=== PATIENT | male | born 1940 | race Caucasian/White ===

== ENCOUNTER 2016-12-12 14:15 | Inpatient (IN) | payer MEDICARE ==
[~2016-12-12] VITALS: Ht 177.8 cm; Wt 104.4 kg
[2016-12-12] VITALS (9 sets, daily range): BP systolic 87–118; BP diastolic 51–76; PULSE 81–98; RESP 16–27; TEMP 97.4–97.7; O2SAT 89–96
[~2016-12-12 14:15] MED LIST: 1-ME1LIQ PO; ACIDTAB4 PO; ALBU0.086 INH; ALBU1AER INH; ALPR0.5T99 PO; ASPI81TA45 PO; ASPI81TA82 PO; HYDR-3580 PO; IPRA0.02 INH; LISI40TA PO; SYMB160A INH
--- NOTE | 2016-12-12 14:39 | PD ---
HPI Chief Complaint: Respiratory Symptoms Time Seen by Provider: 14:23 Travel History International Travel<30 days: No Contact w/Intl Traveler<30days: No Traveled to known affect area: No History of Present Illness HPI 76-year-old male presents to the emergency department for evaluation of increasing shortness of breath. Patient was discharged yesterday from [facility]. Patient is not a good historian as to what was done during his visit. He states that this morning, he became increasingly short of breath with bilateral lower extremity edema. He states he is currently on Lasix 40 mg twice a day. He took this this morning. Patient reports history of atrial fibrillation, COPD, CHF, BPH. He currently has an indwelling Thomason catheter. He states that he has been doing nebulizer treatments at home without improvement. He lasted one on the way to the hospital. Patient is concerned of bilateral lower extremity edema as well. He is on 2 L O2 nasal cannula at home. Patient is currently on Eliquis for atrial fibrillation. Patient states that with any activity, he becomes extremely short of breath. He is frustrated that he was discharged yesterday from another hospital. He is also requesting a new grievance and appeals specialist. PFSH Past Medical History Hx Anticoagulant Therapy: Yes (Eliquis) Cancer: No Cardiovascular Problems: Yes (CHF, A-fib) Diabetes: No Endocrine: No Genitourinary: No Hepatitis: No Hiatal Hernia: No Immune Disorder: No Musculoskeletal: Yes (ARTHRITIS IN HANDS) Neurologic: No Psychiatric: No Reproductive: No Respiratory: Yes (COPD on O2 at home) Thyroid Disease: No Past Surgical History AICD: No Body Medical Devices: CARDIAC STENTS Cardiac Surgery: Yes (CARDIAC STENTS X 2) Eye Surgery: Yes (BILATERAL CATARACT) Joint Replacement: No Pacemaker: No Social History Alcohol Use: No Tobacco Use: No Substance Use: No Allergies-Medications (Allergen,Severity, Reaction): Coded Allergies: No Known Allergies (Unverified , 04/28/13) Reported Meds & Prescriptions Reported Meds & Active Scripts Active Reported Symbicort Inh (Budesonide/Formoterol Fumarate) 160-4.5 Mcg/Act Aero 1 Puff INH Q12HR Tamsulosin (Tamsulosin HCl) 0.4 Mg Cap 0.4 Mg PO HS Lisinopril 40 Mg Tab 40 Mg PO BID Proscar (Finasteride) 5 Mg Tab 5 Mg PO DAILY Do not crush. Famotidine 20 Mg Tab 20 Mg PO DAILY Multaq (Dronedarone) 400 Mg Tab 400 Mg PO BID Lanoxin (Digoxin) 125 Mcg Tablet 125 Mcg PO DAILY Eliquis (Apixaban) 5 Mg Tab 5 Mg PO BID Xanax (Alprazolam) 0.5 Mg Tab 0.5 Mg PO BID PRN Duoneb (Ipratropium-Albuterol Neb) 0.5-2.5 Mg/3 Ml Neb 3 Ml NEB QID PRN Lasix (Furosemide) 40 Mg Tab 40 Mg PO EVERY OTHER DAY Diltiazem (Diltiazem HCl) 60 Mg Tab 60 Mg PO TID Review of Systems Except as stated in HPI: all other systems reviewed are Neg Physical Exam Narrative GENERAL: Well-nourished, well-developed male patient, afebrile. SKIN: Focused skin assessment warm/dry. HEAD: Normocephalic. Atraumatic. EYES: No scleral icterus. No injection or drainage. NECK: Supple, trachea midline. No JVD or lymphadenopathy. CARDIOVASCULAR: Regular rate and rhythm without murmurs, gallops, or rubs. RESPIRATORY: Breath sounds equal bilaterally. No accessory muscle use. Lungs sounds diminished throughout. GASTROINTESTINAL: Abdomen soft, non-tender, nondistended. MUSCULOSKELETAL: No cyanosis. Bilateral 2+ lower extremity edema BACK: Nontender without obvious deformity. No CVA tenderness. Data Data Last Documented VS Vital Signs Date Time Temp Pulse Resp B/P (MAP) Pulse Ox O2 Delivery O2 Flow Rate FiO2 12/12/16 16:52 88 24 102/65 (77) 92 Nasal Cannula 2.00 12/12/16 14:16 97.7 Orders Orders Complete Blood Count With Diff (12/12/16 14:35) Basic Metabolic Panel (Bmp) (12/12/16 14:35) B-Type Natriuretic Peptide (12/12/16 14:35) Act Partial Throm Time (Ptt) (12/12/16 14:35) Prothrombin Time / Inr (Pt) (12/12/16 14:35) Magnesium (Mg) (12/12/16 14:35) Ckmb (Isoenzyme) Profile (12/12/16 14:35) Troponin I (12/12/16 14:35) Urinalysis - C+S If Indicated (12/12/16 14:35) Iv Access Insert/Monitor (12/12/16 14:35) Electrocardiogram (12/12/16 14:35) Ecg Monitoring (12/12/16 14:35) Oximetry (12/12/16 14:35) Oxygen Administration (12/12/16 14:35) Chest, Single Ap (12/12/16 14:35) Sodium Chloride 0.9% Flush (Ns Flush) (12/12/16 14:45) Furosemide Inj (Lasix Inj) (12/12/16 14:45) Albuterol-Ipratropium Neb (Duoneb Neb) (12/12/16 14:45) Arterial Blood Gas (Abg) (12/12/16 14:39) Blood Culture (12/12/16 15:20) Lactic Acid Sepsis Protocol (12/12/16 15:20) Sodium Chlorid 0.9% 500 Ml Inj (Ns 500 M (12/12/16 16:00) Sodium Chlor 0.9% 1000 Ml Inj (Ns 1000 M (12/12/16 16:00) Methylprednisolone So Succ Inj (Solumedr (12/12/16 16:15) Vancomycin Inj (Vancomycin Inj) (12/12/16 16:15) Piperacil-Tazo 3.375 Gm Premix (Zosyn 3. (12/12/16 16:15) Admit Order (Ed Use Only) (12/12/16 17:01) Labs Laboratory Tests Test 12/12/16 14:43 12/12/16 15:00 12/12/16 15:50 Blood Gas Puncture Site LT RADIAL Blood Gas Patient Temperature 98.6 Blood Gas HCO3 33 mmol/L Blood Gas Base Excess 8.6 mmol/L Blood Gas Oxygen Saturation 95 % Arterial Blood pH 7.44 Arterial Blood Partial Pressure CO2 50 mmHg Arterial Blood Partial Pressure O2 86 mmHG Arterial Blood Oxygen Content 20.1 Vol % Arterial Blood Carboxyhemoglobin 1.3 % Arterial Blood Methemoglobin 0.6 % Blood Gas Hemoglobin 15.0 G/DL Oxygen Delivery Device NASAL CANNULA Blood Gas Liter Flow 3 L/M White Blood Count 11.6 TH/MM3 Red Blood Count 5.06 MIL/MM3 Hemoglobin 14.5 GM/DL Hematocrit 44.3 % Mean Corpuscular Volume 87.6 FL Mean Corpuscular Hemoglobin 28.6 PG Mean Corpuscular Hemoglobin Concent 32.7 % Red Cell Distribution Width 14.9 % Platelet Count 196 TH/MM3 Mean Platelet Volume 8.2 FL Neutrophils (%) (Auto) 80.5 % Lymphocytes (%) (Auto) 7.4 % Monocytes (%) (Auto) 10.5 % Eosinophils (%) (Auto) 1.2 % Basophils (%) (Auto) 0.4 % Neutrophils # (Auto) 9.4 TH/MM3 Lymphocytes # (Auto) 0.9 TH/MM3 Monocytes # (Auto) 1.2 TH/MM3 Eosinophils # (Auto) 0.1 TH/MM3 Basophils # (Auto) 0.0 TH/MM3 CBC Comment AUTO DIFF Differential Total Cells Counted 100 Neutrophils % (Manual) 71 % Band Neutrophils % 3 % Lymphocytes % 11 % Monocytes % 14 % Neutrophils # (Manual) 8.7 TH/MM3 Metamyelocytes 1 % Differential Comment FINAL DIFF MANUAL Platelet Estimate NORMAL Platelet Morphology Comment NORMAL Prothrombin Time 11.0 SEC Prothromb Time International Ratio 1.0 RATIO Activated Partial Thromboplast Time 27.1 SEC Blood Urea Nitrogen 45 MG/DL Creatinine 1.63 MG/DL Random Glucose 120 MG/DL Calcium Level 9.0 MG/DL Magnesium Level 2.4 MG/DL Sodium Level 140 MEQ/L Potassium Level 3.8 MEQ/L Chloride Level 98 MEQ/L Carbon Dioxide Level 34.7 MEQ/L Anion Gap 7 MEQ/L Estimat Glomerular Filtration Rate 41 ML/MIN Total Creatine Kinase 71 U/L Troponin I LESS THAN 0.02 NG/ML B-Type Natriuretic Peptide 10 PG/ML Lactic Acid Level 1.2 mmol/L MDM Medical Decision Making Medical Screen Exam Complete: Yes Emergency Medical Condition: Yes Medical Record Reviewed: Yes Interpretation(s) chest x-ray - CONCLUSION: 1. Mild left basilar airspace disease which may reflect atelectasis. Although, pneumonia or aspiration cannot be excluded in the appropriate clinical setting. Differential Diagnosis CHF exacerbation versus COPD exacerbation versus pneumonia versus ACS versus electrolyte abnormality Narrative Course 76-year-old male presents to the emergency department for worsening shortness of breath and lower extremity edema that started this morning. He was discharged from [facility] yesterday. He didn't nebulizer treatment on the way to the hospital. Physical exam reveals lungs sounds are diminished throughout with fine crackles noted in the bases. Patient is given DuoNeb 2, Solu-Medrol 125 mg IV. CBC, BMP, BNP, CK, troponin, magnesium, PTT, PT/INR, UA, ABG are ordered and pending. Chest x-ray is ordered and pending. EKG shows atrial fibrillation, HR 82, no acute ST changes. CBC shows leukocytosis of 11.6, neutrophil percentage 80.5. BMP shows elevated B and a creatinine of 45/1.63, glucose 120. BNP is 10. CK is 71. Troponin is less than 0.02. Magnesium is 2.4. Coags are unremarkable. UA is still pending. Chest x-ray shows mild left basilar airspace disease which may reflect atelectasis. Although, pneumonia or aspiration cannot be excluded in the appropriate clinical setting. Blood cultures 2 and lactic acid are ordered. Lactic acid is 1.2. Patient is started on vancomycin 1 g IV, Zosyn 3.375 g IV. Patient became hypotensive. He was given normal saline 500 mL bolus and started normal saline at 100 mils an hour. [facility] is paged for admission. Patient's electric power superintendent is Dr. Figueredo. Diagnosis Primary Impression: Pneumonia Qualified Codes: J18.1 - Lobar pneumonia, unspecified organism Additional Impression: COPD exacerbation Admitting Information Admitting Physician Requests: Admit Melissa Iraheta Dec 12, 2016 14:39
[2016-12-12] MEDS ORDERED: FUROSEMIDE 40 MG/4 ML VIAL IVP ONE (14:45)
[2016-12-12] MEDS ORDERED: SODIUM CHLORIDE 0.9% FLUSH 10 ML FLUSH IVF PRN (14:45)
[2016-12-12] MEDS: RESP: ALBUTEROL 2.5 MG/IPRATROPIUM 0.5 MG NEB (SCH) INH ×3 (14:48→19:21)
[2016-12-12 14:57] LABS: BLOOD GAS BASE EXCESS 8.6 mmol/L (-2-2); BLOOD GAS CARBOXYHEMOGLOBIN 1.3 % (0-4); BLOOD GAS HCO3 33 mmol/L (22-26); BLOOD GAS METHEMOGLOBIN 0.6 % (0-2); BLOOD GAS O2 HGB SATURATION 95 % (90-100); BLOOD GAS OXYGEN CONTENT 20.1 Vol % (12.0-20.0); BLOOD GAS PCO2 50 mmHg (38-42); BLOOD GAS PO2 86 mmHG (61-120); CRITICAL VALUE NO; DRAW SITE LT RADIAL; LITER FLOW 3 L/M; NUMBER OF ARTERIAL PUNCTURES 1; OXYGEN DEVICE NASAL CANNULA; STAT YES; TEMP CORR TO 98.6; ULNAR PULSE PRESENT
--- NOTE | 2016-12-12 15:19 | RADRPT ---
EXAM DATE/TIME: 12/12/2016 14:57 [place] COMPARISON: No previous studies available for comparison. INDICATIONS : Shortness of Breath MEDICAL HISTORY : Chronic obstructive pulmonary disease. SURGICAL HISTORY : Umbilical hernia repair. ENCOUNTER: Initial ACUITY: 1 day PAIN SCORE: 0/10 LOCATION: Bilateral chest FINDINGS: Mild left basilar airspace disease. Cardiomediastinal contours are within normal limits. Bony thorax is intact. CONCLUSION: 1. Mild left basilar airspace disease which may reflect atelectasis. Although, pneumonia or aspiratio n cannot be excluded in the appropriate clinical setting. Pawan Pizano MD on December 12, 2016 at 15:16 Board Certified Radiologist. This report was verified electronically.
[2016-12-12 15:46] LABS: AUTOMATED NEUTROPHIL # 9.4 TH/MM3 (1.8-7.7); BASOPHIL % 0.4 % (0.0-2.0); EOSINOPHIL # 0.1 TH/MM3 (0-0.4); EOSINOPHIL % 1.2 % (0.0-4.0); HEMATOCRIT 44.3 % (39.0-51.0); LYMPH % 7.4 % (9.0-44.0); LYMPHOCYTE # 0.9 TH/MM3 (1.0-4.8); MEAN CELL VOLUME 87.6 FL (80.0-100.0); MEAN CORPUSCULAR HEMOGLOBIN 28.6 PG (27.0-34.0); MEAN CORPUSCULAR HGB CONC 32.7 % (32.0-36.0); MONO % 10.5 % (0.0-8.0); NEUT % 80.5 % (16.0-70.0); PLATELET COUNT 196 TH/MM3 (150-450); RED BLOOD COUNT 5.06 MIL/MM3 (4.50-5.90); RED CELL DISTRIBUTION WIDTH 14.9 % (11.6-17.2); WHITE BLOOD COUNT 11.6 TH/MM3 (4.0-11.0)
[2016-12-12 15:53] LABS: HEMO FLAGS AUTO DIFF
[2016-12-12 15:54] LABS: ANION GAP 7 MEQ/L (5-15); BICARBONATE 34.7 MEQ/L (21.0-32.0); BLOOD UREA NITROGEN 45 MG/DL (7-18); CHLORIDE 98 MEQ/L (98-107); GLOMERULAR FILTRATION RATE 41 ML/MIN (>89); MAGNESIUM 2.4 MG/DL (1.5-2.5); POTASSIUM 3.8 MEQ/L (3.5-5.1); SODIUM (NA) 140 MEQ/L (136-145)
[2016-12-12 15:57] LABS: APTT (PATIENT) 27.1 SEC (24.3-30.1)
[2016-12-12] MEDS ORDERED: SODIUM CHLORID 0.9% 500 ML INJ 500 ML IV ONE (16:00)
[2016-12-12] MEDS ORDERED: SODIUM CHLOR 0.9% 1000 ML INJ 1,000 ML IV SCH (16:00)
[2016-12-12 16:06] LABS: CREATINE KINASE 71 U/L (39-308)
[2016-12-12] MEDS ORDERED: PIPERACIL-TAZO 3.375 GM PREMIX 50 ML IV ONE (16:15)
[2016-12-12] MEDS ORDERED: methylPREDNISolone SOD SUCC 125 MG/2 ML VIAL IV PUSH ONE (16:15)
[2016-12-12] MEDS ORDERED: VANCOMYCIN INJ 1,000 MG in SODIUM CHLOR 0.9% 250 ML INJ 250 ML IV ONE (16:15)
[2016-12-12 16:20] LABS: BANDS 3 % (0-6); METAMYELOCYTES 1 % (0-1); NEUTROPHIL # MANUAL DIFF 8.7 TH/MM3 (1.8-7.7); POLYS (SEG NEUTROPHILS) 71 % (16-70); WBC DIFF SAMPLE 100
[2016-12-12 16:21] LABS: PLATELET ESTIMATE SMEAR NORMAL (NORMAL); PLATELET MORPHOLOGY NORMAL (NORMAL); SCAN/DIFF FINAL DIFF MANUAL
[2016-12-12] MEDS ORDERED: FURO1TAB60 PO (16:53)
[2016-12-12] MEDS ORDERED: MULT400T PO (16:53)
[2016-12-12] MEDS ORDERED: SYMB160A INH (16:53)
[2016-12-12] MEDS ORDERED: ALPR.5 PO (16:53)
[2016-12-12] MEDS ORDERED: IPRASOL NEB (16:53)
[2016-12-12] MEDS ORDERED: FAMO20TA2 PO (16:53)
[2016-12-12] MEDS ORDERED: PROS5TAB PO (16:53)
[2016-12-12] MEDS ORDERED: TAMS0.4C4 PO (16:53)
[2016-12-12] MEDS ORDERED: LISI40TA PO (16:53)
[2016-12-12] MEDS ORDERED: APIX5TAB PO (16:53)
[2016-12-12] MEDS ORDERED: LANO0.12 PO (16:53)
[2016-12-12] MEDS ORDERED: DILT60TA PO (16:53)
[2016-12-12] MEDS ORDERED: RESP: ALBUTEROL 2.5 MG/3 ML NEB (PRN) INH (17:45)
--- NOTE | 2016-12-12 17:57 | HHI.HP ---
HPI Service [facility] Primary Care Physician Nitesh Weinstein MD Admission Diagnosis pneumonia, COPD exacerbation Diagnoses: Chief Complaint: Shortness of breath Travel History International Travel<30 Days: No Contact w/Intl Traveler <30 Da: No Traveled to Known Affected Are: No History of Present Illness 76-year-old male with a past medical history of COPD on O2, A. fib, BPH, CAD who presented for shortness of breath. The patient has had 3 hospitalizations lasting for 5 days since November 15 for similar complaints. The patient's felt like he is gotten significantly better on previous hospitalizations. He has received courses of steroids, diuresis, antibiotics. He is significantly dyspneic on exertion and is requiring [id number] O2, previously only on O2 at night. Does state that his lower extremity swelling had improved from previous hospitalization and has worsened today. He has been having for the cough with white sputum. He denies any fever, chills, chest pain, wheezing. He was diagnosed with possible sepsis on previous admission and completed antibiotics in the hospital in 7 days at home. He had a chest CT that showed no blood clot. He states prior to November 15 he was going to pulmonary rehabilitation twice a week and was doing better without oxygen. His senior mechanical project engineer is Dr. barton. He is looking for a new fisher quahog. He is not sure if he has congestive heart failure or what his ejection fraction might be. Review of Systems Except as stated in HPI: all other systems reviewed are Neg Past Family Social History Past Medical History Atrial fibrillation COPD on home oxygen BPH with indwelling Thomason Coronary artery disease "Enlarged heart" Past Surgical History Coronary stent 2 Cataract bilaterally Umbilical hernia repair Rectal prolapse repair Reported Medications Reported Meds & Active Scripts Active Reported Symbicort Inh (Budesonide/Formoterol Fumarate) 160-4.5 Mcg/Act Aero 1 Puff INH Q12HR Tamsulosin (Tamsulosin HCl) 0.4 Mg Cap 0.4 Mg PO HS Lisinopril 40 Mg Tab 40 Mg PO BID Proscar (Finasteride) 5 Mg Tab 5 Mg PO DAILY Do not crush. Famotidine 20 Mg Tab 20 Mg PO DAILY Multaq (Dronedarone) 400 Mg Tab 400 Mg PO BID Lanoxin (Digoxin) 125 Mcg Tablet 125 Mcg PO DAILY Eliquis (Apixaban) 5 Mg Tab 5 Mg PO BID Xanax (Alprazolam) 0.5 Mg Tab 0.5 Mg PO BID PRN Duoneb (Ipratropium-Albuterol Neb) 0.5-2.5 Mg/3 Ml Neb 3 Ml NEB QID PRN Lasix (Furosemide) 40 Mg Tab 40 Mg PO EVERY OTHER DAY Diltiazem (Diltiazem HCl) 60 Mg Tab 60 Mg PO TID Allergies: Coded Allergies: No Known Allergies (Unverified , 04/28/13) Active Ordered Medications Current Medications Medications (Trade) Dose Ordered Sig/Mari Route Start Time Stop Time Status Last Admin (NS Flush) 2 ml UNSCH PRN IVF 12/12/16 14:45 Sodium Chloride 1,000 ml @ 100 mls/hr Q10H IV 12/12/16 16:00 12/12/16 16:30 (Xanax) 0.5 mg BID PRN PO 12/12/16 17:45 (Eliquis) 5 mg BID PO 12/12/16 21:00 (Symbicort 160-4.5 Inh) 1 puff Q12HR INH 12/12/16 21:00 (Lanoxin) 0.125 mg DAILY PO 12/13/16 09:00 (Cardizem) 60 mg TID PO 12/12/16 18:00 (Multaq) 400 mg BID PO 12/12/16 21:00 (Pepcid) 20 mg DAILY PO 12/13/16 09:00 (Proscar) 5 mg DAILY PO 12/13/16 09:00 (Flomax) 0.4 mg HS PO 12/12/16 21:00 (NS Flush) 2 ml UNSCH PRN IV FLUSH 12/12/16 17:45 UNV (Duoneb Neb) 1 ampule Q4HR WHILE AWAKE NEB INH 12/12/16 20:00 UNV (Albuterol Neb) 2.5 mg Q2HR NEB PRN INH 12/12/16 17:45 UNV (SoluMEDROL INJ) 40 mg Q8H IV PUSH 12/12/16 17:45 UNV Levofloxacin/ Dextrose 150 ml @ 100 mls/hr Q24H IV 12/12/16 18:45 UNV (Lasix Inj) 20 mg BID@09,18 IVP 12/12/16 18:00 UNV (Prinivil) 20 mg BID PO 12/12/16 21:00 UNV Family History Father was a smoker and from emphysema and heart disease Social History Former tobacco use, quit 10 years ago Denies any alcohol or drug use Physical Exam Vital Signs Vital Signs Date Time Temp Pulse Resp B/P (MAP) Pulse Ox O2 Delivery O2 Flow Rate FiO2 12/12/16 16:52 88 24 102/65 (77) 92 Nasal Cannula 2.00 12/12/16 15:10 86 20 87/51 (63) 96 Nasal Cannula 2.00 12/12/16 14:48 94 Nasal Cannula 3.00 12/12/16 14:39 94 Nasal Cannula 3.00 12/12/16 14:39 25 95 Nasal Cannula 3.00 12/12/16 14:16 97.7 98 26 113/55 (74) 89 2.00 Physical Exam GENERAL: Well-developed well-nourished. Appears uncomfortable with mildly labored breathing. SKIN: Warm and dry. No lesions noted. HEENT: Normocephalic. Pupils equal and round. Mucous membranes pink and moist. CARDIOVASCULAR: Irregular rate and rhythm. No murmur appreciated. RESPIRATORY: Extremely poor air movement with distant breath sounds in the mid to lower lung bilaterally. No wheezing or crackles noted. GASTROINTESTINAL: Abdomen soft, non-tender, nondistended. Bowel sounds x4. MUSCULOSKELETAL: No obvious deformities. No clubbing or cyanosis. 2+ lower extremity pitting edema. NEUROLOGICAL: Awake and alert. No focal neurological deficits. Moves upper and lower extremities spontaneously. Normal speech. PSYCHIATRIC: Slightly anxious mood and affect; insight and judgment normal. Laboratory Laboratory Tests Test 12/12/16 14:43 12/12/16 15:00 12/12/16 15:50 Blood Gas Puncture Site LT RADIAL Blood Gas Patient Temperature 98.6 Blood Gas HCO3 33 Blood Gas Base Excess 8.6 Blood Gas Oxygen Saturation 95 Arterial Blood pH 7.44 Arterial Blood Partial Pressure CO2 50 Arterial Blood Partial Pressure O2 86 Arterial Blood Oxygen Content 20.1 Arterial Blood Carboxyhemoglobin 1.3 Arterial Blood Methemoglobin 0.6 Blood Gas Hemoglobin 15.0 Oxygen Delivery Device NASAL CANNULA Blood Gas Liter Flow 3 White Blood Count 11.6 Red Blood Count 5.06 Hemoglobin 14.5 Hematocrit 44.3 Mean Corpuscular Volume 87.6 Mean Corpuscular Hemoglobin 28.6 Mean Corpuscular Hemoglobin Concent 32.7 Red Cell Distribution Width 14.9 Platelet Count 196 Mean Platelet Volume 8.2 Neutrophils (%) (Auto) 80.5 Lymphocytes (%) (Auto) 7.4 Monocytes (%) (Auto) 10.5 Eosinophils (%) (Auto) 1.2 Basophils (%) (Auto) 0.4 Neutrophils # (Auto) 9.4 Lymphocytes # (Auto) 0.9 Monocytes # (Auto) 1.2 Eosinophils # (Auto) 0.1 Basophils # (Auto) 0.0 CBC Comment AUTO DIFF Differential Total Cells Counted 100 Neutrophils % (Manual) 71 Band Neutrophils % 3 Lymphocytes % 11 Monocytes % 14 Neutrophils # (Manual) 8.7 Metamyelocytes 1 Differential Comment FINAL DIFF MANUAL Platelet Estimate NORMAL Platelet Morphology Comment NORMAL Prothrombin Time 11.0 Prothromb Time International Ratio 1.0 Activated Partial Thromboplast Time 27.1 Blood Urea Nitrogen 45 Creatinine 1.63 Random Glucose 120 Calcium Level 9.0 Magnesium Level 2.4 Sodium Level 140 Potassium Level 3.8 Chloride Level 98 Carbon Dioxide Level 34.7 Anion Gap 7 Estimat Glomerular Filtration Rate 41 Total Creatine Kinase 71 Troponin I LESS THAN 0.02 B-Type Natriuretic Peptide 10 Lactic Acid Level 1.2 Date/Time Source Procedure Growth Status 12/12/16 15:55 Blood Peripheral Aerobic Blood Culture Pending Received 12/12/16 15:55 Blood Peripheral Anaerobic Blood Culture Pending Received Result Diagram: 12/12/16 1500 12/12/16 1500 Imaging Last Impressions Chest X-Ray 12/12/16 1435 Signed Impressions: Service Date/Time: Monday, December 12, 2016 14:57 - CONCLUSION: 1. Mild left basilar airspace disease which may reflect atelectasis. Although, pneumonia or aspiration cannot be excluded in the appropriate clinical setting. MD Blayne Callahan VTE Risk Assessment Blayne VTE Risk Assessment: Mod/High Risk (score >= 2) Caprini Risk Assessment Model Point Value = 1 Point Value = 2 Point Value = 3 Point Value = 5 Age 41-60 Minor surgery BMI > 25 kg/m2 Swollen legs Varicose veins or History of unexplained or recurrent spontaneous Oral contraceptives or hormone replacement Sepsis (< 1 month) Serious lung disease, including pneumonia (< 1 month) Abnormal pulmonary function Acute myocardial infarction Congestive heart failure (< 1 month) History of inflammatory bowel disease Medical patient at bed rest Age 61-74 Arthroscopic surgery Major open surgery (> 45 min) Laparoscopic surgery (> 45 min) Malignancy Confined to bed (> 72 hours) Immobilizing plaster cast Central venous access Age >= 75 History of VTE Family history of VTE Factor V Leiden Prothrombin [id number] Lupus anticoagulant Anticardiolipin antibodies Elevated serum homocysteine Heparin-induced thrombocytopenia Other congenital or acquired thrombophilia Stroke (< 1 month) Elective arthroplasty Hip, pelvis, or leg fracture Acute spinal cord injury (< 1 month) Prophylaxis Regimen Total Risk Factor Score Risk Level Prophylaxis Regimen 0-1 Low Early ambulation 2 Moderate Order ONE of the following: *Sequential Compression Device (SCD) *Heparin 5000 units SQ BID 3-4 Higher Order ONE of the following medications: *Heparin 5000 units SQ TID *Enoxaparin/Lovenox 40 mg SQ daily (WT < 150 kg, CrCl > 30 mL/min) *Enoxaparin/Lovenox 30 mg SQ daily (WT < 150 kg, CrCl > 10-29 mL/min) *Enoxaparin/Lovenox 30 mg SQ BID (WT < 150 kg, CrCl > 30 mL/min) AND/OR *Sequential Compression Device (SCD) 5 or more Highest Order ONE of the following medications: *Heparin 5000 units SQ TID (Preferred with Epidurals) *Enoxaparin/Lovenox 40 mg SQ daily (WT < 150 kg, CrCl > 30 mL/min) *Enoxaparin/Lovenox 30 mg SQ daily (WT < 150 kg, CrCl > 10-29 mL/min) *Enoxaparin/Lovenox 30 mg SQ BID (WT < 150 kg, CrCl > 30 mL/min) AND *Sequential Compression Device (SCD) Assessment and Plan Assessment and Plan 76-year-old male with a past medical history of COPD on O2, A. fib, BPH, CAD who presented for shortness of breath Acute on chronic respiratory failure. COPD exacerbation. CHF exacerbation. Review: Patient was hypoxic 89% on 2 L O2 upon admission with tachycardia and tachypnea. Chest x-ray personally reviewed with no definite infiltrate or edema. BNP 10, but with worsening lower extremity edema. WBC 11.6. -IV steroids and IV Levaquin for possible COPD exacerbation -IV diuresis for possible CHF exacerbation and check echocardiogram. Consider cardiology evaluation if no improvement and depending on echo results. -Scheduled as needed nebs -Supplemental O2 as needed. -Consult pulmonology -Continue home pulmonary regimen -Monitor I's and O's. -Check sputum culture A. fib: -Continue Eliquis, diltiazem, Multaq, Digoxin. AISSATOU: Creatinine 1.63, no previous labs for comparison. -Cautious diuresis -Follow up BMP Hypertension: Amlodipine has worsened edema in the past. -Decrease lisinopril with cough. -Continue Cardizem and tamsulosin BPH: With indwelling Thomason catheter. Saw urologist yesterday. -Continue Flomax and finasteride DVT prophylaxis: On Eliquis Discussed Condition With Patient with at bedside, ED staff, Dr. Markham Attending Statement Patient was very irritated during the interview and did not want to give me information. When asked about his shortness of breathing he was very upset past about this and stated that his breathing has improved. I asked about him back to the hospital since he was recently discharged from [facility] he said because of his breathing despite his shortness of breathing improving. Patient's is at the bedside. Positive for cough. No other complaints. gen NAD CV regular rate and rhythm no rubs murmurs or gallops positive for +1 lower extremity edema Respiratory transmitted upper respiratory sounds otherwise clear to auscultation bilaterally Acute on chronic respiratory failure Lower extremity edema History of CHF Chronic hypoxia Per patient he is getting better since he was discharged from [facility]. Chest x-ray reviewed suggest more atelectasis with no fluid noted. BNP is 10 but he does have lower extremity edema This may be secondary to end-stage COPD. Consult his senior mechanical project engineer for further surgical supply assistant. Treat with IV steroids, DuoNeb's, IV Levaquin. Will get an echo. Continue to supplement oxygen as needed. Foster Jackson Dec 12, 2016 17:57 Violet Markham MD Dec 12, 2016 18:51
[2016-12-12] MEDS: FUROSEMIDE 40 MG/4 ML VIAL IVP SCH (18:00)
[2016-12-12] MEDS: DILTIAZEM HCL 60 MG TAB PO SCH (18:00)
[2016-12-12 18:14] LABS: BACTERIA, URINE RARE /hpf; BLOOD, URINE LARGE (NEG); COMMENT (UR) CULTURE INDICATED; CULTURE IF INDICATED CULTURE INDICATED; GLUCOSE,URINE NEG (NEG); HYALINE CAST, URINE 3 /lpf (RARE); KETONE, URINE NEG (NEG); MUCUS URINE FEW /lpf (OCC); NITRITE,URINE NEG (NEG); PH, URINE 5.5 (5.0-8.5); URINE COLOR LIGHT-RED (YELLW/STRAW)
[2016-12-12] MEDS: ALPRAZolam 0.5 MG TAB PO PRN (19:47)
[2016-12-12] MEDS: LEVOFLOXACIN 750 MG PREMIX INJ 150 ML IV SCH (20:19)
[2016-12-12] MEDS: DRONEDARONE 400 MG TAB PO SCH (22:40)
[2016-12-12] MEDS: LISINOPRIL 20 MG TAB PO SCH (22:40)
[2016-12-12] MEDS: TAMSULOSIN HCL 0.4 MG CAP PO SCH (22:40)
[2016-12-12] MEDS: APIXABAN 5 MG TABLET PO SCH (22:41)
[2016-12-12] MEDS: BUDESONIDE-FORMOTEROL 160/4.5 MCG INHALER INH SCH (22:41)
[2016-12-13] VITALS (9 sets, daily range): BP systolic 102–142; BP diastolic 56–77; PULSE 66–99; RESP 20–23; TEMP 97–98.2; O2SAT 90–94
[2016-12-13] MEDS: methylPREDNISolone SOD SUCC 125 MG/2 ML VIAL IV PUSH SCH ×4 (00:14→23:28)
[2016-12-13 08:04] LABS: AUTOMATED NEUTROPHIL # 8.9 TH/MM3 (1.8-7.7); BASOPHIL % 0.2 % (0.0-2.0); HEMATOCRIT 40.8 % (39.0-51.0); LYMPH % 2.7 % (9.0-44.0); LYMPHOCYTE # 0.3 TH/MM3 (1.0-4.8); MEAN CELL VOLUME 87.7 FL (80.0-100.0); MEAN CORPUSCULAR HEMOGLOBIN 29.4 PG (27.0-34.0); MEAN CORPUSCULAR HGB CONC 33.5 % (32.0-36.0); MONO % 2.3 % (0.0-8.0); NEUT % 94.8 % (16.0-70.0); PLATELET COUNT 174 TH/MM3 (150-450); RED BLOOD COUNT 4.65 MIL/MM3 (4.50-5.90); RED CELL DISTRIBUTION WIDTH 14.7 % (11.6-17.2); WHITE BLOOD COUNT 9.4 TH/MM3 (4.0-11.0)
[2016-12-13 08:09] LABS: HEMO FLAGS AUTO DIFF
[2016-12-13] MEDS: RESP: ALBUTEROL 2.5 MG/IPRATROPIUM 0.5 MG NEB (SCH) INH ×4 (08:20→21:09)
[2016-12-13 08:28] LABS: BICARBONATE 33.2 MEQ/L (21.0-32.0); MAGNESIUM 2.5 MG/DL (1.5-2.5); POTASSIUM 4.6 MEQ/L (3.5-5.1)
[2016-12-13] MEDS: DILTIAZEM HCL 60 MG TAB PO SCH ×3 (08:48→18:35)
[2016-12-13] MEDS: DRONEDARONE 400 MG TAB PO SCH ×2 (08:50→20:36)
[2016-12-13] MEDS: LISINOPRIL 20 MG TAB PO SCH ×2 (08:50→20:36)
[2016-12-13] MEDS: APIXABAN 5 MG TABLET PO SCH ×2 (08:50→20:36)
[2016-12-13] MEDS: ALPRAZolam 0.5 MG TAB PO PRN (08:51)
[2016-12-13] MEDS: FINASTERIDE 5 MG TAB PO SCH (08:51)
[2016-12-13] MEDS: FAMOTIDINE 20 MG TAB PO SCH (08:51)
[2016-12-13] MEDS: DIGOXIN 0.125 MG TAB PO SCH (08:51)
[2016-12-13] MEDS: FUROSEMIDE 40 MG/4 ML VIAL IVP SCH ×2 (08:52→16:54)
[2016-12-13 08:56] LABS: SCAN/DIFF AUTO DIFF CONFIRMED
[2016-12-13] MEDS: BUDESONIDE-FORMOTEROL 160/4.5 MCG INHALER INH SCH ×2 (08:57→20:38)
--- NOTE | 2016-12-13 11:56 | HHI.PR ---
Subjective Remarks No acute events overnight. Afebrile, vital signs stable. Patient continues to require 3-4 L of oxygen via nasal cannula to maintain oxygen saturation at 92-94 %. He does not wear oxygen during the daytime at home. He reports he is breathing better than he was yesterday although still gets short of breath when he walks to the bathroom. He reports that he has continued lower extremity edema however this is also improved. Objective Vitals Vital Signs Date Time Temp Pulse Resp B/P (MAP) Pulse Ox O2 Delivery O2 Flow Rate FiO2 12/13/16 08:20 92 Nasal Cannula 3.00 12/13/16 04:00 98.0 99 21 113/77 (89) 94 12/13/16 00:00 98.2 71 23 102/58 (73) 93 12/13/16 00:00 Nasal Cannula 4.00 12/13/16 00:00 73 12/12/16 21:06 12/12/16 20:50 97.4 84 22 104/68 (80) 94 12/12/16 20:35 Nasal Cannula 4.00 12/12/16 19:37 81 16 109/76 (87) 94 Room Air 12/12/16 19:20 93 Nasal Cannula 4.00 12/12/16 18:34 86 27 118/72 (87) 92 Nasal Cannula 2.00 12/12/16 16:52 88 24 102/65 (77) 92 Nasal Cannula 2.00 12/12/16 15:10 86 20 87/51 (63) 96 Nasal Cannula 2.00 12/12/16 14:48 94 Nasal Cannula 3.00 12/12/16 14:39 94 Nasal Cannula 3.00 12/12/16 14:39 25 95 Nasal Cannula 3.00 12/12/16 14:16 97.7 98 26 113/55 (74) 89 2.00 I/O 12/12/16 12/12/16 12/12/16 12/13/16 12/13/16 12/13/16 07:00 15:00 23:00 07:00 15:00 23:00 Intake Total 950 ml 1380 ml Output Total 1200 ml Balance 950 ml 180 ml Intake Oral 380 ml IV Total 950 ml 1000 ml Output Urine Total 1200 ml # Voids 0 # Bowel Movements 0 Result Diagram: 12/13/16 0754 12/13/16 0754 Objective Remarks GENERAL: Well-developed well-nourished. Appears comfortable. SKIN: Warm and dry. No lesions noted. HEENT: Normocephalic. Pupils equal and round. Mucous membranes pink and moist. CARDIOVASCULAR: Irregular rate and rhythm. No murmur appreciated. RESPIRATORY: Extremely poor air movement with distant breath sounds in the mid to lower lung bilaterally. No wheezing or crackles noted. GASTROINTESTINAL: Abdomen soft, non-tender, nondistended. Bowel sounds x4. MUSCULOSKELETAL: No obvious deformities. No clubbing or cyanosis. 1+ lower extremity pitting edema. NEUROLOGICAL: Awake and alert. No focal neurological deficits. Moves upper and lower extremities spontaneously. Normal speech. PSYCHIATRIC: Insight and judgment normal. A/P Assessment and Plan 76-year-old male with a past medical history of COPD on O2, A. fib, BPH, CAD who presented for shortness of breath Acute on chronic respiratory failure. COPD exacerbation. CHF exacerbation. -IV steroids and IV Levaquin for possible COPD exacerbation -IV diuresis for possible CHF exacerbation and check echocardiogram. Consider cardiology evaluation if no improvement and depending on echo results. Patient would like referral to a new [employer] Administrator on discharge. -Troponin negative, no CP -Scheduled as needed nebs -Supplemental O2 as needed. -Consult pulmonology -Continue home pulmonary regimen -Monitor I's and O's. -Check sputum culture -Check blood cultures A. fib: -Continue Eliquis, diltiazem, Multaq, Digoxin. AISSATOU -Cautious diuresis -Improving, Cr 1.16 today Hypertension: Amlodipine has worsened edema in the past. -Decrease lisinopril with cough. -Continue Cardizem and tamsulosin -Controlled BPH: With indwelling Thomason catheter. Seen by Urologist 12/11 -Continue Flomax and finasteride DVT prophylaxis: On Eliquis Discharge Planning Pending clinical improvement Zuleima Patel MD R3 Dec 13, 2016 11:56
--- NOTE | 2016-12-13 12:57 | EKG ---
Date Performed: 12/12/2016 Time Performed: 15:06:41 PTAGE: 76 years EKG: ATRIAL FIBRILLATION ABNORMAL RHYTHM ECG PREVIOUS TRACING : 04/28/2013 06.54 Compared to previous tracing, atrial fibrillation has repla dayami Sinus rhythm . DOCTOR: Eh Ramos Interpretating Date/Time 12/13/2016 12:55:38
--- NOTE | 2016-12-13 17:24 | MB ---
cc: AYAAN DOWNS DATE OF CONSULTATION: 12/13/2016. REASON FOR CONSULTATION: Pulmonary management REQUESTING PHYSICIAN: Foster Jackson. HISTORY OF PRESENT ILLNESS: Mr. Pack is a pleasant 76-year-old white male with longstanding history of severe COPD. He is oxygen dependent. He has been in and out of the hospital at least three times since early October and he was barely in the hospital. He was recently discharged from [facility]. He became more short of breath to the extent that even with oxygen he had difficulty breathing. Taking a few steps is difficult for him. No fever or chills. No night sweats. Because of worsening of his symptoms, he was brought to the hospital. He had a workup done. His blood gas on 3 liters nasal cannula showed pH 7.44, pC02 50, p02 86, bicarbonate 33 on three liters nasal cannula. His white blood cell count was 9.4, hemoglobin 13.7, hematocrit 40.8, MCV 87, platelet count 174,000. Sodium 139, potassium 4.6, chloride 102, carbon dioxide 33, BUN 38, creatinine 1.16. His INR is 1.0. Chest x-ray shows left basilar atelectasis or early infiltrate with small pleural effusion. PAST MEDICAL HISTORY: His past medical history is significant for: 1. History of severe COPD. 2. Atrial fibrillation. 3. Coronary artery disease. 4. Hypertension. 5. Umbilical hernia surgery. 6. Enlarged prostate. MEDICATIONS: He is currently takin. Digoxin 0.125 milligrams a day. 2. Pepcid 20 milligrams a day. 3. Proscar 5 milligrams a day. 4. Solu-Medrol 40 milligrams q. 8 hours. 5. Eliquis 5 milligrams twice a day. 6. Symbicort 160 / 4.5 one puff q. 12 hours. 7. Multaq 400 milligrams twice a day. 8. Flomax 0.4 milligrams at nighttime. 9. Lisinopril 20 milligrams twice a day. 10. Albuterol and Atrovent nebulizer treatment. 11. Levaquin 750 milligrams q. 48 hours. 12. Diltiazem 60 milligrams three times a day. 13. Lasix 20 milligrams a day. 12. Xanax 0.5 milligrams twice a day. ALLERGIES: NO KNOWN DRUG ALLERGIES. SOCIAL HISTORY: He has a history of smoking in the past. No alcohol use. 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 FAMILY HISTORY: He is . REVIEW OF SYSTEMS: Walks only short distance. No malignancy. No DVT and no seizure, stroke or epilepsy. PHYSICAL EXAMINATION: GENERAL: The patient is an obese elderly male mild short of breath. VITAL SIGNS: Blood pressure 113/77, heart rate 99, respirations 21, temperature 98. HEAD, EYES, EARS, NOSE, THROAT: Pupils are equal and reactive. Oral mucosa and nasal mucosa are normal. NECK: The neck is supple. JVP not raised. CHEST: He has a few rhonchi and rales at the bases. CARDIOVASCULAR: S1 and S2 normal. ABDOMEN: Abdomen benign. EXTREMITIES: 1+ pedal edema. IMPRESSION: 1. COPD with mild exacerbation. 2. Atrial fibrillation. 3. Hypertension. 4. Likely underlying congestive heart failure. 5. Coronary artery disease. 6. Benign prostate hypertrophy. PLAN: 1. I discussed with the patient's at the bedside we will give him IV Solu-Medrol aerosol treatment. 2. Continue antibiotics. 3. Monitor his electrolytes. 4. He is being diuresed. 5. Supplement his oxygen. The patient's is seeking another draw operator. The patient is known to Dr. Dmitriy Figueredo who will follow this patient tomorrow. Thank you Foster Jackson for this consult. MD MAYTE Espinal/JCC /3:49 PM /5:09 PM DANICA
[2016-12-13] MEDS: TAMSULOSIN HCL 0.4 MG CAP PO SCH (20:36)
[2016-12-13] MEDS: SODIUM CHLORIDE 0.9% FLUSH 10 ML FLUSH IV FLUSH PRN (20:36)
[2016-12-14] VITALS (8 sets, daily range): BP systolic 109–146; BP diastolic 63–85; PULSE 68–89; RESP 20; TEMP 97.9–98.1; O2SAT 93–96
[2016-12-14] MEDS: RESP: ALBUTEROL 2.5 MG/IPRATROPIUM 0.5 MG NEB (SCH) INH ×5 (08:18→19:47)
[2016-12-14] MEDS: DRONEDARONE 400 MG TAB PO SCH ×2 (08:42→20:46)
[2016-12-14] MEDS: DILTIAZEM HCL 60 MG TAB PO SCH ×3 (08:42→18:01)
[2016-12-14] MEDS: DIGOXIN 0.125 MG TAB PO SCH (08:42)
[2016-12-14] MEDS: APIXABAN 5 MG TABLET PO SCH ×2 (08:42→20:47)
[2016-12-14] MEDS: LISINOPRIL 20 MG TAB PO SCH ×2 (08:43→20:46)
[2016-12-14] MEDS: FINASTERIDE 5 MG TAB PO SCH (08:43)
[2016-12-14] MEDS: FAMOTIDINE 20 MG TAB PO SCH (08:43)
[2016-12-14] MEDS: FUROSEMIDE 40 MG/4 ML VIAL IVP SCH (08:48)
[2016-12-14] MEDS: methylPREDNISolone SOD SUCC 125 MG/2 ML VIAL IV PUSH SCH (08:49)
[2016-12-14] MEDS: BUDESONIDE-FORMOTEROL 160/4.5 MCG INHALER INH SCH ×2 (08:50→20:47)
[2016-12-14 12:49] LABS: AUTOMATED NEUTROPHIL # 16.9 TH/MM3 (1.8-7.7); HEMATOCRIT 43.2 % (39.0-51.0); LYMPH % 1.1 % (9.0-44.0); LYMPHOCYTE # 0.2 TH/MM3 (1.0-4.8); MEAN CELL VOLUME 87.7 FL (80.0-100.0); MEAN CORPUSCULAR HEMOGLOBIN 28.3 PG (27.0-34.0); MEAN CORPUSCULAR HGB CONC 32.2 % (32.0-36.0); NEUT % 94.9 % (16.0-70.0); PLATELET COUNT 220 TH/MM3 (150-450); RED BLOOD COUNT 4.93 MIL/MM3 (4.50-5.90); RED CELL DISTRIBUTION WIDTH 14.7 % (11.6-17.2); WHITE BLOOD COUNT 17.8 TH/MM3 (4.0-11.0)
[2016-12-14 12:50] LABS: HEMO FLAGS AUTO DIFF
[2016-12-14 13:26] LABS: SCAN/DIFF AUTO DIFF CONFIRMED; TOXIC GRANULATION 1+ (NORMAL)
--- NOTE | 2016-12-14 16:07 | ECHRPT ---
Indication: sob CONCLUSIONS Normal left ventricular size. Wall thickness is normal. The left ventricular systolic function is low normal with an estimated ejection fraction in the rang e of 50- 55%. Mitral annular calcification is present. Mild thickening of the aortic valve leaflets. Trivial pulmonary valve regurgitation. BP: / HR: Rhythm: Other MEASUREMENTS (Male / Female) Normal Values Technical Quality:Good 2D ECHO LV Diastolic Diameter PLAX 5.1 cm 4.2 - 5.9 / 3.9 - 5.3 cm LV Systolic Diameter PLAX 4.0 cm IVS Diastolic Thickness 1.3 cm 0.6 - 1.0 / 0.6 - 0.9 cm LVPW Diastolic Thickness 0.8 cm 0.6 - 1.0 / 0.6 - 0.9 cm LV Relative Wall Thickness 0.4 LA Systolic Diameter LX 4.3 cm 3.0 - 4.0 / 2.7 - 3.8 cm M-MODE Aortic Root Diameter MM 3.4 cm AV Cusp Separation MM 2.1 cm DOPPLER Mitral E Point Velocity 101.0 cm/s Mitral A Point Velocity 59.7 cm/s Mitral E to A Ratio 1.7 TR Peak Velocity 171.0 cm/s TR Peak Gradient 11.7 mmHg FINDINGS LEFT VENTRICLE Normal left ventricular size. Wall thickness is normal. The left ventricular systolic function is low normal with an estimated ejection fraction in the rang e of 50- 55%. RIGHT VENTRICLE Normal right ventricular size and systolic function. LEFT ATRIUM The left atrial size is normal. RIGHT ATRIUM The right atrial size is normal. ATRIAL SEPTUM Normal atrial septal thickness without atrial level shunting by limited color doppler interrogation. AORTA The aortic root and proximal ascending aorta are normal in size on limited imaging. MITRAL VALVE Mitral annular calcification is present. AORTIC VALVE Mild thickening of the aortic valve leaflets. TRICUSPID VALVE Structurally normal tricuspid valve. No tricuspid valve stenosis or regurgitation. PULMONARY VALVE Trivial pulmonary valve regurgitation. VESSELS The inferior vena cava is normal in size. PERICARDIUM No pericardial effusion. Hadley Mckinnon MD, FACC (Electronically Signed) Final Date:14 December 2016 16:06
--- NOTE | 2016-12-14 17:15 | HHI.PR ---
Subjective Remarks Patient awake alert oriented 3 on 2 L nasal cannula, denied fever or chills short of breath or chest pain Objective Vitals Vital Signs Date Time Temp Pulse Resp B/P (MAP) Pulse Ox O2 Delivery O2 Flow Rate FiO2 12/14/16 16:00 97.9 73 20 109/67 (81) 94 12/14/16 12:00 98.0 80 20 146/85 (105) 93 12/14/16 08:19 96 Nasal Cannula 4.00 12/14/16 08:15 Nasal Cannula 4.00 12/14/16 08:00 98.1 89 20 146/85 (105) 93 12/14/16 04:00 98.0 68 20 125/66 (85) 94 12/14/16 04:00 Nasal Cannula 4.00 Humidified 12/14/16 00:00 Nasal Cannula 4.00 Humidified 12/13/16 23:31 97.6 69 22 113/60 (77) 94 12/13/16 21:11 93 Nasal Cannula 4.00 12/13/16 20:45 Nasal Cannula 4.00 12/13/16 20:00 68 12/13/16 20:00 97.6 69 22 110/58 (75) 94 I/O 12/13/16 12/13/16 12/13/16 12/14/16 12/14/16 12/14/16 07:00 15:00 23:00 07:00 15:00 23:00 Intake Total 1380 ml 960 ml Output Total 1200 ml 1500 ml 1350 ml Balance 180 ml -540 ml -1350 ml Intake Oral 380 ml 960 ml IV Total 1000 ml Output Urine Total 1200 ml 1500 ml 1350 ml # Bowel Movements 0 1 Result Diagram: 12/14/16 1210 12/13/16 0754 Objective Remarks GENERAL: This is a well-nourished, well-developed patient, in no apparent distress. SKIN: No rashes, warm and dry HEAD: Atraumatic. Normocephalic. EYES: Pupils equal round and reactive. Extraocular motions intact. No scleral icterus. ENT: Nose without bleeding, or drainage, Airway patent. NECK: Trachea midline. Supple CARDIOVASCULAR: Regular rate and rhythm without murmurs, gallops, or rubs. RESPIRATORY: Fair air entry bilaterally. No wheezes, rales, or rhonchi. GASTROINTESTINAL: Abdomen soft, non-tender, nondistended. Positive bowel sounds MUSCULOSKELETAL: Extremities with trace edema. Pedal pulses appreciated NEUROLOGICAL: Awake and alert. Moves all extremity. Normal speech.no focal neurological deficit A/P Assessment and Plan 76-year-old male with a past medical history of COPD on O2, A. fib, BPH, CAD who presented for shortness of breath Acute on chronic respiratory failure. COPD exacerbation. CHF exacerbation. -IV steroids and IV Levaquin for possible COPD exacerbation -Patient has been diuresed for possible CHF, however echocardiogram showed>> Normal ventricular size and wall thickness, EF 50-55%, mitral annual calcification, mild thickening of the aortic valve leaflet [place] pulmonary valve regurgitation, BMP is 10, I will switch back to by mouth Lasix, and monitor BMP, BNP . Patient would like referral to a new Transfer Car Operator on discharge. -Troponin negative, no CP -Scheduled as needed nebs -Supplemental O2 as needed. -Consult pulmonology -Continue home pulmonary regimen -Monitor I's and O's. -Sputum and blood culture negative A. fib: -Continue Eliquis, diltiazem, Multaq, Digoxin. AISSATOU -Cautious diuresis -Improving, Cr 1.16 today Hypertension: Amlodipine has worsened edema in the past. -Decrease lisinopril with cough. -Continue Cardizem and tamsulosin -Controlled BPH: With indwelling Thomason catheter. Seen by Urologist 12/11 -Continue Flomax and finasteride DVT prophylaxis: On Óscar Mcintyre MD Dec 14, 2016 17:15
[2016-12-14] MEDS: TAMSULOSIN HCL 0.4 MG CAP PO SCH (20:46)
[2016-12-14] MEDS: methylPREDNISolone SOD SUCC 40 MG/1 ML VIAL IV PUSH SCH (20:47)
[2016-12-14] MEDS: LEVOFLOXACIN 750 MG PREMIX INJ 150 ML IV SCH (20:47)
[2016-12-14] MEDS: ALPRAZolam 0.5 MG TAB PO PRN (23:27)
[2016-12-15] VITALS (12 sets, daily range): BP systolic 117–146; BP diastolic 55–89; PULSE 53–94; RESP 19–22; TEMP 97–98; O2SAT 88–94
[2016-12-15] MEDS: RESP: ALBUTEROL 2.5 MG/IPRATROPIUM 0.5 MG NEB (SCH) INH ×4 (07:59→19:08)
[2016-12-15] MEDS: methylPREDNISolone SOD SUCC 40 MG/1 ML VIAL IV PUSH SCH ×2 (09:05→20:06)
[2016-12-15] MEDS: BUDESONIDE-FORMOTEROL 160/4.5 MCG INHALER INH SCH ×2 (09:06→20:11)
[2016-12-15] MEDS: FUROSEMIDE 40 MG TAB PO SCH (09:06)
[2016-12-15] MEDS: DIGOXIN 0.125 MG TAB PO SCH (09:07)
[2016-12-15] MEDS: DRONEDARONE 400 MG TAB PO SCH ×2 (09:07→20:07)
[2016-12-15] MEDS: APIXABAN 5 MG TABLET PO SCH ×2 (09:07→20:07)
[2016-12-15] MEDS: FAMOTIDINE 20 MG TAB PO SCH (09:07)
[2016-12-15] MEDS: LISINOPRIL 20 MG TAB PO SCH ×2 (09:07→20:07)
[2016-12-15] MEDS: FINASTERIDE 5 MG TAB PO SCH (09:07)
[2016-12-15] MEDS: DILTIAZEM HCL 60 MG TAB PO SCH ×3 (09:07→17:38)
[2016-12-15] MEDS: SODIUM CHLORIDE 0.9% FLUSH 10 ML FLUSH IV FLUSH PRN (09:08)
[2016-12-15 11:08] LABS: BICARBONATE 32.9 MEQ/L (21.0-32.0); MAGNESIUM 2.3 MG/DL (1.5-2.5); POTASSIUM 4.1 MEQ/L (3.5-5.1)
[2016-12-15] MEDS ORDERED: GLUCAGON 1 MG/ML VIAL OTHER PRN (13:00)
[2016-12-15] MEDS ORDERED: DEXTROSE 50% IN WATER 50 ML VIAL(D50) IV PUSH PRN (13:00)
[2016-12-15 14:14] LABS: BASOPHIL % 0.3 % (0.0-2.0); LYMPH % 1.3 % (9.0-44.0); LYMPHOCYTE # 0.2 TH/MM3 (1.0-4.8); MEAN CORPUSCULAR HEMOGLOBIN 28.4 PG (27.0-34.0); MEAN CORPUSCULAR HGB CONC 32.3 % (32.0-36.0); MONO % 3.4 % (0.0-8.0); PLATELET COUNT 225 TH/MM3 (150-450); RED BLOOD COUNT 5.01 MIL/MM3 (4.50-5.90); RED CELL DISTRIBUTION WIDTH 14.1 % (11.6-17.2); WHITE BLOOD COUNT 15.8 TH/MM3 (4.0-11.0)
[2016-12-15 14:26] LABS: HEMO FLAGS AUTO DIFF
[2016-12-15 14:58] LABS: BANDS 2 % (0-6); EOSINOPHILS 1 % (0-4); METAMYELOCYTES 2 % (0-1); NEUTROPHIL # MANUAL DIFF 14.7 TH/MM3 (1.8-7.7); POLYS (SEG NEUTROPHILS) 89 % (16-70); SCAN/DIFF FINAL DIFF MANUAL; WBC DIFF SAMPLE 100
--- NOTE | 2016-12-15 15:44 | HHI.PR ---
Subjective Remarks I had a significantly extensive and long discussion with the patient and his They both expressed their frustration with the multiple hospitalization and getting no answer or definitive diagnosis I went through all explanation of his condition including his advanced COPD, pneumonia, and also a concern about possibility of congestive heart failure Pathophysiology has been explained as well as up-to-date recommendation for his advanced COPD and tried to get their expectation matching with the reality Patient and his requesting Dr. harper to see him, I explained that he is unlikely to be in CHF decompensation, but will proceed with the consultation since the patient wants to change perfusionist and he wants to see Dr. ramirez Objective Vitals Vital Signs Date Time Temp Pulse Resp B/P (MAP) Pulse Ox O2 Delivery O2 Flow Rate FiO2 12/15/16 12:31 75 12/15/16 12:00 97.0 53 22 134/70 (91) 93 12/15/16 09:00 Nasal Cannula 4.00 Humidified 12/15/16 08:01 88 Nasal Cannula 4.00 12/15/16 08:00 97.0 94 22 129/89 (102) 94 12/15/16 06:52 64 12/15/16 04:00 97.9 73 20 134/73 (93) 93 12/15/16 04:00 Nasal Cannula 4.00 Humidified 12/15/16 00:00 Nasal Cannula 4.00 Humidified 12/15/16 00:00 97.7 78 19 146/55 (85) 93 12/14/16 20:04 72 12/14/16 20:00 Nasal Cannula 4.00 Humidified 12/14/16 20:00 98.1 71 20 121/63 (82) 95 12/14/16 19:49 93 Nasal Cannula 4.00 12/14/16 16:00 97.9 73 20 109/67 (81) 94 I/O 12/14/16 12/14/16 12/14/16 12/15/16 12/15/16 12/15/16 07:00 15:00 23:00 07:00 15:00 23:00 Intake Total 390 ml 240 ml Output Total 1350 ml 900 ml 1500 ml Balance -1350 ml -510 ml -1260 ml Intake Oral 240 ml 240 ml IV Total 150 ml Output Urine Total 1350 ml 900 ml 1500 ml # Bowel Movements 0 0 Result Diagram: 12/15/16 1400 12/15/16 1016 Objective Remarks GENERAL: This is a well-nourished, well-developed patient, in no apparent distress. SKIN: No rashes, warm and dry HEAD: Atraumatic. Normocephalic. EYES: Pupils equal round and reactive. Extraocular motions intact. No scleral icterus. ENT: Nose without bleeding, or drainage, Airway patent. NECK: Trachea midline. Supple CARDIOVASCULAR: Regular rate and rhythm without murmurs, gallops, or rubs. RESPIRATORY: Fair air entry bilaterally. No wheezes, rales, or rhonchi. GASTROINTESTINAL: Abdomen soft, non-tender, nondistended. Positive bowel sounds MUSCULOSKELETAL: Extremities with trace edema. Pedal pulses appreciated NEUROLOGICAL: Awake and alert. Moves all extremity. Normal speech.no focal neurological deficit A/P Assessment and Plan 12/15: Extensive discussion with the patient and his has mentioned in the subjective, will proceed with cardiology consultation with Dr. ramirez, I repeated BNP today and he was 45, recommended elevation of the lower extremity and stocking, Dr. barton heel builder machine following the patient, patient will benefit from inpatient pulmonary rehabilitation, plus minus roflumilast. Hyperglycemia and leukocytosis: Mostly due to Solu-Medrol , will apply Accu- Chek and ISS, repeat CBC in a.m., continue antibiotic, will follow pulmonology recommendation 76-year-old male with a past medical history of COPD on O2, A. fib, BPH, CAD who presented for shortness of breath Acute on chronic respiratory failure. COPD exacerbation. CHF exacerbation. -IV steroids and IV Levaquin for possible COPD exacerbation -Patient has been diuresed for possible CHF, however echocardiogram showed>> Normal ventricular size and wall thickness, EF 50-55%, mitral annual calcification, mild thickening of the aortic valve leaflet [place] pulmonary valve regurgitation, BMP is 10, I will switch back to by mouth Lasix, and monitor BMP, BNP . Patient would like referral to a new Electric Motor Repairman on discharge. -Troponin negative, no CP -Scheduled as needed nebs -Supplemental O2 as needed. -Consult pulmonology -Continue home pulmonary regimen -Monitor I's and O's. -Sputum and blood culture negative A. fib: -Continue Eliquis, diltiazem, Multaq, Digoxin. AISSATOU Creatinine trending down On Lasix by mouth, monitor BMP Hyperglycemia: Mostly steroids induced -Accu-Chek with ISS Hypertension: Amlodipine has worsened edema in the past. -Decrease lisinopril with cough. -Continue Cardizem and tamsulosin -Controlled BPH: With indwelling Thomason catheter. Seen by Urologist 12/11 -Continue Flomax and finasteride DVT prophylaxis: On Óscar Mcintyre MD Dec 15, 2016 15:44
[2016-12-15] MEDS: INSULIN NovoLIN REGULAR SUPPLEMENTAL SCALE SQ SCH ×2 (17:40→20:09)
[2016-12-15 18:06] LABS: HEMOGLOBIN A1a 1.1 %; HEMOGLOBIN A1b 2.6 %; HEMOGLOBIN Ao 79.5 %
--- NOTE | 2016-12-15 18:33 | MB ---
cc: SHEREE BROWN MD DATE OF CONSULTATION 12/15/16 HISTORY OF PRESENT ILLNESS Mr. Pack is a 76-year-old white male with history of severe COPD oxygen dependent. He has been admitted to the hospital with shortness of breath and severe lower extremity edema several times recently. He has generalized weakness, severe dyspnea at rest but no chest pain. He has previous history of coronary artery disease and coronary stenting six years ago after a routine stress test. He had no chest pain prior to this two-vessel intervention. PAST MEDICAL HISTORY 1. Severe COPD, 2. Chronic atrial fibrillation 3. Coronary artery disease as above 4. Hypertension 5. Umbilical hernia surgery 6. Benign prostatic hypertrophy MEDICATIONS 1. Digoxin. 2. Pepcid. 3. Proscar 4. Solu-Medrol 5. Eliquis 5 mg twice a day. 6. Symbicort 7. Multaq 400 mg twice a day 8. Flomax. 9. Lisinopril. 10. Albuterol. 11. Levaquin. 12. Diltiazem. 13. Lasix 14. Xanax ALLERGIES None. SOCIAL HISTORY The patient used to smoke in the past. He does not drink alcohol. 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 He is accompanied by his . FAMILY HISTORY Positive for COPD and myocardial function in his father. REVIEW OF SYSTEMS Otherwise negative. PHYSICAL EXAMINATION VITAL SIGNS: Blood pressure 134/70, pulse 77 and irregular. HEENT: Negative. 2+ carotid upstrokes, no bruits. LUNGS: Decreased breath sounds, few bilateral rhonchi. HEART: Irregularly irregular with no murmur, gallop or rub. No bruits EXTREMITIES: With 1+ edema. 1+ distal pulses NEUROLOGIC: Grossly nonfocal. The patient is on oxygen and is mildly short of breath at rest. CARDIOLOGY STUDIES EKG was reviewed and showed atrial fibrillation with controlled ventricular response, normal axis and no acute changes. LABORATORY DATA Hemoglobin 14.2, potassium 4.1, creatinine 1.1, magnesium 2.3, BNP 45, troponin ___ 0.02. CARDIOLOGY STUDIES Echocardiogram was reviewed and showed normal left ventricular size and function with estimated ejection fraction of 50-55%, mitral annular calcification, mild aortic sclerosis with no evidence of pulmonary hypertension. DIAGNOSIS 1. Chronic atrial fibrillation with controlled ventricular response. 2. COPD exacerbations 3. Hypertension 4. Preserved left ventricular systolic function. 5. Coronary artery disease with history of coronary intervention. 6. Benign prostatic hypertrophy DISPOSITION Mr. Pack will continue his current medical program including diuresis and rate control. We will continue Eliquis for his atrial fibrillation. There is no need for Multaq at this time since he is in chronic atrial fibrillation. I recommend to continue blood pressure control. I recommend to continue therapy for COPD exacerbation as per Dr. Anguiano. It is unlikely he is in congestive heart failure with preserved left ventricular systolic function and normal BMP. I will follow him for cardiology during hospitalization. We will also see him back for followup in our office after discharge as outpatient. MD CHRISTY Titus/ /5:56 PM /6:12 PM
[2016-12-15] MEDS ORDERED: LEVOFLOXACIN 750 MG PREMIX INJ 150 ML IV SCH (20:00)
[2016-12-15] MEDS: TAMSULOSIN HCL 0.4 MG CAP PO SCH (20:07)
[2016-12-16 05:30] VITALS: BP 128/65; PULSE 83; RESP 22; TEMP 97.7; O2SAT 93
[2016-12-16 07:39] VITALS: O2SAT 95
[2016-12-16] MEDS: RESP: ALBUTEROL 2.5 MG/IPRATROPIUM 0.5 MG NEB (SCH) INH ×3 (07:39→15:25)
[2016-12-16 08:00] VITALS: BP 129/71; PULSE 75; PULSE 87; RESP 18; TEMP 97.4; O2SAT 91
[2016-12-16] MEDS: INSULIN NovoLIN REGULAR SUPPLEMENTAL SCALE SQ SCH ×2 (08:26→12:45)
[2016-12-16] MEDS: FAMOTIDINE 20 MG TAB PO SCH (08:27)
[2016-12-16] MEDS: DRONEDARONE 400 MG TAB PO SCH (08:27)
[2016-12-16] MEDS: SODIUM CHLORIDE 0.9% FLUSH 10 ML FLUSH IV FLUSH PRN (08:27)
[2016-12-16] MEDS: APIXABAN 5 MG TABLET PO SCH (08:27)
[2016-12-16] MEDS: LISINOPRIL 20 MG TAB PO SCH (08:28)
[2016-12-16] MEDS: BUDESONIDE-FORMOTEROL 160/4.5 MCG INHALER INH SCH (08:28)
[2016-12-16] MEDS: methylPREDNISolone SOD SUCC 40 MG/1 ML VIAL IV PUSH SCH (08:28)
[2016-12-16] MEDS: FUROSEMIDE 40 MG TAB PO SCH (08:28)
[2016-12-16] MEDS: DIGOXIN 0.125 MG TAB PO SCH (08:28)
[2016-12-16] MEDS: FINASTERIDE 5 MG TAB PO SCH (08:28)
[2016-12-16] MEDS: DILTIAZEM HCL 60 MG TAB PO SCH ×2 (08:28→12:42)
[2016-12-16 09:37] LABS: AUTOMATED NEUTROPHIL # 12.3 TH/MM3 (1.8-7.7); HEMATOCRIT 44.4 % (39.0-51.0); LYMPH % 2.3 % (9.0-44.0); LYMPHOCYTE # 0.3 TH/MM3 (1.0-4.8); MEAN CELL VOLUME 87.6 FL (80.0-100.0); MEAN CORPUSCULAR HEMOGLOBIN 28.8 PG (27.0-34.0); MEAN CORPUSCULAR HGB CONC 32.9 % (32.0-36.0); MONO % 5.9 % (0.0-8.0); NEUT % 91.8 % (16.0-70.0); PLATELET COUNT 209 TH/MM3 (150-450); RED BLOOD COUNT 5.07 MIL/MM3 (4.50-5.90); RED CELL DISTRIBUTION WIDTH 14.3 % (11.6-17.2); WHITE BLOOD COUNT 13.4 TH/MM3 (4.0-11.0)
[2016-12-16 10:14] LABS: HEMO FLAGS AUTO DIFF
[2016-12-16] MEDS: ALPRAZolam 0.5 MG TAB PO PRN (11:02)
[2016-12-16 12:00] VITALS: BP 120/64; PULSE 86; RESP 20; TEMP 99; O2SAT 93
[2016-12-16 13:01] LABS: BANDS 12 % (0-6); MYELOCYTES 2 % (0-0); NEUTROPHIL # MANUAL DIFF 12.3 TH/MM3 (1.8-7.7); PLASMA CELLS 1 % (0-0); POLYS (SEG NEUTROPHILS) 78 % (16-70); WBC DIFF SAMPLE 100
[2016-12-16 13:02] LABS: PLATELET ESTIMATE SMEAR NORMAL (NORMAL); PLATELET MORPHOLOGY NORMAL (NORMAL); SCAN/DIFF FINAL DIFF MANUAL
[2016-12-16] MEDS ORDERED: FURO40TA PO (13:05)
[2016-12-16] MEDS ORDERED: PRED20 PO (13:05)
[2016-12-16] MEDS ORDERED: LISI-515 PO (13:05)
[2016-12-16 15:25] VITALS: O2SAT 93
--- NOTE | 2016-12-16 15:53 | HHI.PR ---
Subjective Remarks Patient is stable on his oxygen I discussed with him and his , then with a food truck caterer Dr. barton who came to the room Dr. barton is okay with the patient to be discharged to pulmonary rehabilitation on 40 mg of prednisone I discussed with him, he will follow him as an outpatient Objective Vitals Vital Signs Date Time Temp Pulse Resp B/P (MAP) Pulse Ox O2 Delivery O2 Flow Rate FiO2 12/16/16 15:25 93 Nasal Cannula 4.00 12/16/16 12:00 99.0 86 20 120/64 (82) 93 12/16/16 08:00 97.4 75 18 129/71 (90) 91 12/16/16 08:00 87 12/16/16 08:00 Nasal Cannula 4.00 Humidified 12/16/16 07:39 95 Nasal Cannula 4.00 12/16/16 05:30 97.7 83 22 128/65 (86) 93 12/16/16 04:00 Nasal Cannula 4.00 Humidified 12/16/16 00:00 Nasal Cannula 4.00 Humidified 12/15/16 23:27 97.7 81 22 128/63 (84) 92 12/15/16 20:00 Nasal Cannula 4.00 Humidified 12/15/16 20:00 65 12/15/16 19:50 98.0 78 22 128/66 (86) 92 12/15/16 16:00 Nasal Cannula 4.00 Humidified 12/15/16 16:00 97.9 65 20 117/57 (77) 92 I/O 12/15/16 12/15/16 12/15/16 12/16/16 12/16/16 12/16/16 07:00 15:00 23:00 07:00 15:00 23:00 Intake Total 240 ml 1060 ml 720 ml Output Total 1500 ml 1800 ml 1350 ml Balance -1260 ml -740 ml -630 ml Intake Oral 240 ml 960 ml 720 ml IV Total 100 ml Output Urine Total 1500 ml 1800 ml 1350 ml # Bowel Movements 0 1 0 Result Diagram: 12/16/16 0800 12/15/16 1016 Objective Remarks GENERAL: This is a well-nourished, well-developed patient, in no apparent distress. SKIN: No rashes, warm and dry HEAD: Atraumatic. Normocephalic. EYES: Pupils equal round and reactive. Extraocular motions intact. No scleral icterus. ENT: Nose without bleeding, or drainage, Airway patent. NECK: Trachea midline. Supple CARDIOVASCULAR: Regular rate and rhythm without murmurs, gallops, or rubs. RESPIRATORY: Fair air entry bilaterally. No wheezes, rales, or rhonchi. GASTROINTESTINAL: Abdomen soft, non-tender, nondistended. Positive bowel sounds MUSCULOSKELETAL: Extremities with trace edema. Pedal pulses appreciated NEUROLOGICAL: Awake and alert. Moves all extremity. Normal speech.no focal neurological deficit A/P Assessment and Plan 12/15: Extensive discussion with the patient and his has mentioned in the subjective, will proceed with cardiology consultation with Dr. ramirez, I repeated BNP today and he was 45, recommended elevation of the lower extremity and stocking, Dr. barton food truck caterer following the patient, patient will benefit from inpatient pulmonary rehabilitation, plus minus roflumilast. Hyperglycemia and leukocytosis: Mostly due to Solu-Medrol , will apply Accu- Chek and ISS, repeat CBC in a.m., continue antibiotic, will follow pulmonology recommendation 12/16: Patient seems to be stable for discharge today he was seen by soft tile setter I appreciate Help, no obvious cardiomyopathy decompensation at this point, we'll continue with current treatment, discussed with Dr. barton food truck caterer, cleared patient for discharge to rehabilitation on 40 mg of prednisone, oxygen and DuoNeb and Symbicort, hopefully pulmonary rehabilitation will help to reduce hospitalization frequency A/P 76-year-old male with a past medical history of COPD on O2, A. fib, BPH, CAD who presented for shortness of breath Acute on chronic respiratory failure. COPD exacerbation. CHF exacerbation. -IV steroids and IV Levaquin for possible COPD exacerbation -Patient has been diuresed for possible CHF, however echocardiogram showed>> Normal ventricular size and wall thickness, EF 50-55%, mitral annual calcification, mild thickening of the aortic valve leaflet [place] pulmonary valve regurgitation, BMP is 10, I will switch back to by mouth Lasix, and monitor BMP, BNP . Patient would like referral to a new Vein Pumper on discharge. -Troponin negative, no CP -Scheduled as needed nebs -Supplemental O2 as needed. -Consult pulmonology -Continue home pulmonary regimen -Monitor I's and O's. -Sputum and blood culture negative A. fib: -Continue Eliquis, diltiazem, Multaq, Digoxin. AISSATOU Creatinine trending down On Lasix by mouth, monitor BMP Hyperglycemia: Mostly steroids induced -Accu-Chek with ISS Hypertension: Amlodipine has worsened edema in the past. -Decrease lisinopril with cough. -Continue Cardizem and tamsulosin -Controlled BPH: With indwelling Thomason catheter. Seen by Urologist 12/11 -Continue Flomax and finasteride DVT prophylaxis: On Óscar Mcintyre MD Dec 16, 2016 15:53
[2016-12-16 16:00] VITALS: BP 119/72; PULSE 89; RESP 18; TEMP 98.5; O2SAT 94
--- NOTE | 2016-12-16 16:51 | PD.CARD.PN ---
Subjective Subjective Remarks No CP, SOB improving, mild edema Objective Medications Active Medications Insulin Human Regular (NovoLIN R SUPPLEMENTAL SCALE) 1 ACHS SLIDING SCALE SQ Last administered on 12/16/16 12:45; Admin Dose 1; Start 12/15/16 at 17:00; Stop 12/16/16 at 16:44; Status DC Levofloxacin/ Dextrose 150 ml @ 100 mls/hr Q24H IV Last administered on 20:04; Admin Dose 100 MLS/HR; Start 12/15/16 at 20:00; Stop 12/16/16 at 16: 44; Status DC Vital Signs / I&O Vital Signs Date Time Temp Pulse Resp B/P (MAP) Pulse Ox O2 Delivery O2 Flow Rate FiO2 12/16/16 16:00 Nasal Cannula 4.00 Humidified 12/16/16 16:00 98.5 89 18 119/72 (88) 94 12/16/16 15:25 93 Nasal Cannula 4.00 12/16/16 12:00 99.0 86 20 120/64 (82) 93 12/16/16 12:00 Nasal Cannula 4.00 Humidified 12/16/16 08:00 97.4 75 18 129/71 (90) 91 12/16/16 08:00 87 12/16/16 08:00 Nasal Cannula 4.00 Humidified 12/16/16 07:39 95 Nasal Cannula 4.00 12/16/16 05:30 97.7 83 22 128/65 (86) 93 12/16/16 04:00 Nasal Cannula 4.00 Humidified 12/16/16 00:00 Nasal Cannula 4.00 Humidified 12/15/16 23:27 97.7 81 22 128/63 (84) 92 12/15/16 20:00 Nasal Cannula 4.00 Humidified 12/15/16 20:00 65 12/15/16 19:50 98.0 78 22 128/66 (86) 92 I/O 12/15/16 12/15/16 12/15/16 12/16/16 12/16/16 12/16/16 06:59 14:59 22:59 06:59 14:59 22:59 Intake Total 240 ml 1060 ml 720 ml Output Total 1500 ml 1800 ml 1350 ml Balance -1260 ml -740 ml -630 ml Intake Oral 240 ml 960 ml 720 ml IV Total 100 ml Output Urine Total 1500 ml 1800 ml 1350 ml # Bowel Movements 0 1 0 Physical Exam GENERAL: In NAD, receiving resp tx SKIN: Warm and dry. HEAD: Normocephalic. EYES: No scleral icterus. No injection or drainage. NECK: Supple, trachea midline. No JVD or lymphadenopathy. CARDIOVASCULAR: Irregular, without murmurs, gallops, or rubs. RESPIRATORY: Breath sounds equal bilaterally, decreased, few rhonchi. GASTROINTESTINAL: Abdomen soft, non-tender, nondistended. MUSCULOSKELETAL: No cyanosis, mild edema. Laboratory Laboratory Tests Test 12/16/16 08:00 White Blood Count 13.4 TH/MM3 Red Blood Count 5.07 MIL/MM3 Hemoglobin 14.6 GM/DL Hematocrit 44.4 % Mean Corpuscular Volume 87.6 FL Mean Corpuscular Hemoglobin 28.8 PG Mean Corpuscular Hemoglobin Concent 32.9 % Red Cell Distribution Width 14.3 % Platelet Count 209 TH/MM3 Mean Platelet Volume 8.3 FL Neutrophils (%) (Auto) 91.8 % Lymphocytes (%) (Auto) 2.3 % Monocytes (%) (Auto) 5.9 % Eosinophils (%) (Auto) 0.0 % Basophils (%) (Auto) 0.0 % Neutrophils # (Auto) 12.3 TH/MM3 Lymphocytes # (Auto) 0.3 TH/MM3 Monocytes # (Auto) 0.8 TH/MM3 Eosinophils # (Auto) 0.0 TH/MM3 Basophils # (Auto) 0.0 TH/MM3 CBC Comment AUTO DIFF Differential Total Cells Counted 100 Neutrophils % (Manual) 78 % Band Neutrophils % 12 % Lymphocytes % 1 % Monocytes % 6 % Neutrophils # (Manual) 12.3 TH/MM3 Myelocytes 2 % Differential Comment FINAL DIFF MANUAL Plasma Cells 1 % Platelet Estimate NORMAL Platelet Morphology Comment NORMAL Red Cell Morphology Comment NORMAL Assessment and Plan Problem List: (1) COPD (chronic obstructive pulmonary disease) ICD Codes: J44.9 - Chronic obstructive pulmonary disease, unspecified (2) Atrial fibrillation ICD Codes: I48.91 - Unspecified atrial fibrillation (3) HTN (hypertension) ICD Codes: I10 - Essential (primary) hypertension (4) CAD (coronary artery disease) ICD Codes: I25.10 - Atherosclerotic heart disease of [place] coronary artery without angina pectoris Assessment and Plan Remains stable from cardiac standpoint. AF rate well controlled. Off Multaq since AF is chronic. Continue rate control. Echo w preserved LV fx and nl PAP. Continue tx for COPD exac. DC to rehab as planned. Will schedule outpt f/u within 2 weeks. Hadley Mckinnon MD Dec 16, 2016 16:51
--- NOTE | 2016-12-17 09:39 | HHI.DS ---
Discharge Summary Admission Date Dec 12, 2016 at 17:04 Discharge Date: Dec 16, 2016 Admitting Diagnosis pneumonia, COPD exacerbation (1) COPD (chronic obstructive pulmonary disease) ICD Code: J44.9 - Chronic obstructive pulmonary disease, unspecified (2) Atrial fibrillation ICD Code: I48.91 - Unspecified atrial fibrillation (3) CAD (coronary artery disease) ICD Code: I25.10 - Atherosclerotic heart disease of [place] coronary artery without angina pectoris (4) HTN (hypertension) ICD Code: I10 - Essential (primary) hypertension Procedures None Brief History - From Admission 76-year-old male with a past medical history of COPD on O2, A. fib, BPH, CAD who presented for shortness of breath. The patient has had 3 hospitalizations lasting for 5 days since November 15 for similar complaints. The patient's felt like he is gotten significantly better on previous hospitalizations. He has received courses of steroids, diuresis, antibiotics. He is significantly dyspneic on exertion and is requiring goskqu-mdu-qlcox O2, previously only on O2 at night. Does state that his lower extremity swelling had improved from previous hospitalization and has worsened today. He has been having for the cough with white sputum. He denies any fever, chills, chest pain, wheezing. He was diagnosed with possible sepsis on previous admission and completed antibiotics in the hospital in 7 days at home. He had a chest CT that showed no blood clot. He states prior to November 15 he was going to pulmonary rehabilitation twice a week and was doing better without oxygen. His water treatment plant repairer is Dr. barton. He is looking for a new design agent. He is not sure if he has congestive heart failure or what his ejection fraction might be. CBC/BMP: 12/16/16 0800 12/15/16 1016 Significant Findings Laboratory Tests Test 12/14/16 12:10 12/15/16 09:33 12/15/16 10:16 12/15/16 14:00 White Blood Count 17.8 TH/MM3 (4.0-11.0) 15.8 TH/MM3 (4.0-11.0) Neutrophils (%) (Auto) 94.9 % (16.0-70.0) 95.0 % (16.0-70.0) Lymphocytes (%) (Auto) 1.1 % (9.0-44.0) 1.3 % (9.0-44.0) Neutrophils # (Auto) 16.9 TH/MM3 (1.8-7.7) 15.0 TH/MM3 (1.8-7.7) Lymphocytes # (Auto) 0.2 TH/MM3 (1.0-4.8) 0.2 TH/MM3 (1.0-4.8) Toxic Granulation 1+ (NORMAL) Blood Urea Nitrogen 32 MG/DL (7-18) Random Glucose 323 MG/DL (74-106) Carbon Dioxide Level 32.9 MEQ/L (21.0-32.0) Estimat Glomerular Filtration Rate 67 ML/MIN (>89) Neutrophils % (Manual) 89 % (16-70) Lymphocytes % 2 % (9-44) Neutrophils # (Manual) 14.7 TH/MM3 (1.8-7.7) Metamyelocytes 2 % (0-1) Hemoglobin A1c 6.8 % (4.3-6.0) Test 12/16/16 08:00 White Blood Count 13.4 TH/MM3 (4.0-11.0) Neutrophils (%) (Auto) 91.8 % (16.0-70.0) Lymphocytes (%) (Auto) 2.3 % (9.0-44.0) Neutrophils # (Auto) 12.3 TH/MM3 (1.8-7.7) Lymphocytes # (Auto) 0.3 TH/MM3 (1.0-4.8) Neutrophils % (Manual) 78 % (16-70) Band Neutrophils % 12 % (0-6) Lymphocytes % 1 % (9-44) Neutrophils # (Manual) 12.3 TH/MM3 (1.8-7.7) Myelocytes 2 % (0-0) Plasma Cells 1 % (0-0) PE at Discharge GENERAL: This is a well-nourished, well-developed patient, in no apparent distress. SKIN: No rashes, warm and dry HEAD: Atraumatic. Normocephalic. EYES: Pupils equal round and reactive. Extraocular motions intact. No scleral icterus. ENT: Nose without bleeding, or drainage, Airway patent. NECK: Trachea midline. Supple CARDIOVASCULAR: Regular rate and rhythm without murmurs, gallops, or rubs. RESPIRATORY: Fair air entry bilaterally. No wheezes, rales, or rhonchi. GASTROINTESTINAL: Abdomen soft, non-tender, nondistended. Positive bowel sounds MUSCULOSKELETAL: Extremities with trace edema. Pedal pulses appreciated NEUROLOGICAL: Awake and alert. Moves all extremity. Normal speech.no focal neurological deficit Hospital Course 76 years old male with history of advanced COPD and multiple frequent hospitalization presented this time with again acute on chronic respiratory failure COPD exacerbation, patient started on O2, iv steroids, iv Levaquin, DuoNeb, also cardiac workup has been done, pulmonary and cardiology consultation , 2-D echo showed EF 50-55% with normal wall thickness. Also patient has history of A. fib he is on Eliquis diltiazem digoxin, Multaq was recommended to be stopped by design agent, most likely volume congestion symptoms is due to exacerbation of A. fib, this seems to be stable with rate controlled at this point, patient also has a history of BPH hypertension, and mostly steroids induced hyperglycemia, only has been managed, patient cleared by water treatment plant repairer and design agent to be discharged to pulmonary rehabilitation [id number] encounter performed with the patient on discharge day, as well as physical exam, summary of hospitalization course and postdischarge plan has been D/W the patient. His and water treatment plant repairer Dr. barton D/W nurse D/W lining caser. Discharge medications reviewed and printed and signed, post discharge follow up visit with PCP and other specialist as well as Brief hospital course and discharge summary has been placed. Pt Condition on Discharge: Stable Discharge Disposition: Discharge to SNF Discharge Time: > 30 minutes Discharge Instructions DIET: Follow Instructions for: Heart Healthy Diet, Diabetic Diet Activities you can perform: See Additionl Instruction Other Activity Instructions: per PT in rehab New Medications: Prednisone (Prednisone) 20 Mg Tab 40 MG PO DAILY for copd, #15 TAB 0 Refills Take 40 mg (2 tablets) daily for 5 days Furosemide (Furosemide) 40 Mg Tab 40 MG PO DAILY for edema, #30 TAB Lisinopril (Lisinopril) 20 Mg Tab 20 MG PO BID for htn, #60 TAB Continued Medications: Alprazolam (Xanax) 0.5 Mg Tab 0.5 MG PO BID PRN for ANXIETY, TAB 0 Refills Apixaban (Eliquis) 5 Mg Tab 5 MG PO BID for Blood Clot Prevention, #60 TAB 0 Refills Budesonide-Formoterol Inh (Symbicort Inh) 160-4.5 Mcg/Act Aero 1 PUFF INH Q12HR, #1 INHALER 0 Refills Digoxin (Lanoxin) 125 Mcg Tablet 125 MCG PO DAILY Diltiazem (Diltiazem) 60 Mg Tab 60 MG PO TID for Angina, #120 TAB 0 Refills Famotidine (Famotidine) 20 Mg Tab 20 MG PO DAILY, #60 TAB 0 Refills Finasteride (Proscar) 5 Mg Tab 5 MG PO DAILY for Manage Prostate Problems, #30 TAB 0 Refills Do not crush. Ipratropium-Albuterol Neb (Duoneb) 0.5-2.5 Mg/3 Ml Neb 3 ML NEB QID PRN for SHORTNESS OF BREATH, #30 NEBULE 0 Refills Tamsulosin (Tamsulosin) 0.4 Mg Cap 0.4 MG PO HS for Manage Prostate Problems, #30 CAP 0 Refills Discontinued Medications: Dronedarone (Multaq) 400 Mg Tab 400 MG PO BID for Regulate Heart Beat, TAB 0 Refills Óscar Archer MD Dec 17, 2016 09:39
[2017-01-19] MEDS ORDERED: LISI10TA3 PO (15:28)
== END 2016-12-16 16:43 | DRG 189 ==
LOC: NEPC 14:15 → NEDA 17:04 → N04B 20:34
PROVIDERS: ADMIT Hospitalist; ATTEND Hospitalist
PROC: 3E0F7GC Introduction of Other Therapeutic Substance into Respiratory Tract, Via Natural or Artificial Opening (ICD-10-PCS; principal; 2016-12-12)
DX: J96.21 Acute and chronic respiratory failure with hypoxia (principal); J44.1 Chronic obstructive pulmonary disease with (acute) exacerbation; N17.9 Acute kidney failure, unspecified; I95.9 Hypotension, unspecified; I11.0 Hypertensive heart disease with heart failure; I50.9 Heart failure, unspecified; Z99.81 Dependence on supplemental oxygen; I48.2 Chronic atrial fibrillation; N40.0 Benign prostatic hyperplasia without lower urinary tract symptoms; Z79.01 Long term (current) use of anticoagulants; I25.10 Atherosclerotic heart disease of native coronary artery without angina pectoris; Z95.5 Presence of coronary angioplasty implant and graft; Z87.891 Personal history of nicotine dependence; I37.1 Nonrheumatic pulmonary valve insufficiency
CPT/HCPCS: 36600; 71010; 80048; 81001; 82550; 82805; 82948; 83036; 83605; 83735; 83880; 84100; 84484; 85007; 85025; 85027; 85610; 85730; 87040; 87070; 87077; 87086; 87186; 87205; 93005; 93306; 94640; 94664; 96365; 96375; J1940; J1956; J2543; J2920; J2930; J3370; J7030; J7040; J7050

== ENCOUNTER 2017-01-10 14:55 | Emergency (ER) | payer MEDICARE ==
[~2017-01-10] VITALS: Ht 177.8 cm; Wt 99.0 kg
[~2017-01-10 14:55] MED LIST changes: -1-ME1LIQ PO; -ACIDTAB4 PO; -ALBU0.086 INH; -ALBU1AER INH; +ALPR.5 PO; -ALPR0.5T99 PO; +APIX5TAB PO; -ASPI81TA45 PO; -ASPI81TA82 PO; +DILT60TA PO; +FAMO20TA2 PO; +FURO1TAB60 PO; +FURO40TA PO; -HYDR-3580 PO; -IPRA0.02 INH; +IPRASOL NEB; +LANO0.12 PO; +LISI-515 PO; +PRED20 PO; +PROS5TAB PO; +TAMS0.4C4 PO
[2017-01-10 15:10] VITALS: BP 110/57; PULSE 68; RESP 18; TEMP 98.1; O2SAT 96
--- NOTE | 2017-01-10 16:17 | PD ---
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 Today it started leaking. He does not have any acute symptoms. Severity of symptoms is mild. Denies fever. PFSH Past Medical History Hx Anticoagulant Therapy: Yes (ELOQUIS ) Arthritis: Yes Asthma: No Atrial Fibrillation: Yes Autoimmune Disease: No Anxiety: Yes Heart Rhythm Problems: Yes (AFIB) Cancer: No Cardiac Catheterization: Yes Cardiovascular Problems: Yes (ASHD ) High Cholesterol: No Chest Pain: Yes Congestive Heart Failure: Yes COPD: Yes Coronary Artery Disease: Yes Diabetes: Yes Patient Takes Glucophage: No Diminished Hearing: No Endocrine: No Genitourinary: Yes (CAVANAUGH CATHETER ) Hepatitis: No Hiatal Hernia: No Hypertension: Yes Immune Disorder: No Inguinal Hernia: Yes (umbilical) Implanted Vascular Access Dvce: Yes Musculoskeletal: Yes (ARTHRITIS IN HANDS) Neurologic: No Psychiatric: No Reproductive: No Respiratory: Yes (COPD) Immunizations Current: No Myocardial Infarction: Yes Pneumonia: Yes Sleep Apnea: No Thyroid Disease: No Ulcer: Yes (PEPTIC ULCER ) Tetanus Vaccination: Unknown Influenza Vaccination: No Past Surgical History Abdominal Surgery: Yes (UMBILICIAL HERNIA REPAIR) AICD: No Arteriovenous Shunt: No Body Medical Devices: CARDIAC STENTS X2 Cardiac Surgery: Yes (CARDIAC STENTS X 2) Coronary Stent: Yes ( X 2) Ear Surgery: No Endocrine Surgery: No Eye Surgery: Yes (BILATERAL CATARACT) Genitourinary Surgery: No Insulin Pump: No Joint Replacement: No Oral Surgery: No Pacemaker: No Thoracic Surgery: No Other Surgery: Yes (rectal prolapse repair) Social History Alcohol Use: No Tobacco Use: No Substance Use: No Allergies-Medications (Allergen,Severity, Reaction): Coded Allergies: No Known Allergies (Unverified , 01/10/17) Reported Meds & Prescriptions Reported Meds & Active Scripts Active Furosemide 40 Mg Tab 40 Mg PO DAILY Lisinopril 20 Mg Tab 20 Mg PO BID Prednisone 20 Mg Tab 40 Mg PO DAILY Take 40 mg (2 tablets) daily for 5 days Reported Symbicort Inh (Budesonide/Formoterol Fumarate) 160-4.5 Mcg/Act Aero 1 Puff INH Q12HR Tamsulosin (Tamsulosin HCl) 0.4 Mg Cap 0.4 Mg PO HS Lisinopril 40 Mg Tab 40 Mg PO BID Proscar (Finasteride) 5 Mg Tab 5 Mg PO DAILY Do not crush. Famotidine 20 Mg Tab 20 Mg PO DAILY Lanoxin (Digoxin) 125 Mcg Tablet 125 Mcg PO DAILY Eliquis (Apixaban) 5 Mg Tab 5 Mg PO BID Xanax (Alprazolam) 0.5 Mg Tab 0.5 Mg PO BID PRN Duoneb (Ipratropium-Albuterol Neb) 0.5-2.5 Mg/3 Ml Neb 3 Ml NEB QID PRN Lasix (Furosemide) 40 Mg Tab 40 Mg PO EVERY OTHER DAY Diltiazem (Diltiazem HCl) 60 Mg Tab 60 Mg PO TID Review of Systems General / Constitutional: No: Fever HENT: No: Headaches Cardiovascular: No: Chest Pain or Discomfort Physical Exam Narrative GASTROINTESTINAL: Abdomen soft, non-tender, nondistended. Positive bowel sounds. No hepato-splenomegaly, or palpable masses. No guarding. SKIN: Focused skin assessment reveals no rash or ulcers. Skin is warm and dry. Palpation shows no induration or nodules. : Circumcised penis without lesions. Cavanaugh catheter is in place. There is no leak or drainage Urine in the bag is clear yellow Data Data Last Documented VS Vital Signs Date Time Temp Pulse Resp B/P (MAP) Pulse Ox O2 Delivery O2 Flow Rate FiO2 01/10/17 15:10 98.1 68 18 110/57 (74) 96 MDM Medical Decision Making Medical Screen Exam Complete: Yes Emergency Medical Condition: Yes Medical Record Reviewed: Yes Differential Diagnosis Cavanaugh catheter leak, catheter malfunction, catheter obstruction Narrative Course I have reviewed the patient's electronic medical record. The nurse flushed and adjusted the catheter and now works fine. There is no leak. Is draining in the bag appropriately. They should feels fine Will return to [facility] Diagnosis Primary Impression: Malfunction of Cavanaugh catheter Qualified Codes: T83.011A - Breakdown (mechanical) of indwelling urethral catheter, initial encounter Additional Instructions: [facility]up with [facility] Med/Other Pt SpecificInfo: Other Disposition: 03 DISCHARGE TO SNF Condition: Stable Kevin Blunt MD Jan 10, 2017 16:17
[2017-01-19] MEDS ORDERED: LISI10TA3 PO (15:28)
== END 2017-01-10 17:10 ==
LOC: NEPD 14:55
DX: T83.011A Breakdown (mechanical) of indwelling urethral catheter, initial encounter (principal)
CPT/HCPCS: 99283

== ENCOUNTER 2017-01-19 13:35 | Inpatient (IN) | payer MEDICARE ==
[~2017-01-19] VITALS: Ht 177.8 cm; Wt 103.8 kg
[2017-01-19 13:38] VITALS: BP 128/77; PULSE 104; RESP 24; TEMP 97.7; O2SAT 92
--- NOTE | 2017-01-19 13:58 | PD ---
Physical Exam Date Seen by Provider: Jan 19, 2017 Time Seen by Provider: 13:54 Narrative 76-year-old male presents to emergency department waking up with wrist pain to the left wrist. Patient denies significant injury. Area is swollen and erythematous, and painful. Pain is constant and worse with movement. Pain is 9 out of 10. Patient is allergic to hydrocortisone. Data Data Last Documented VS Vital Signs Date Time Temp Pulse Resp B/P (MAP) Pulse Ox O2 Delivery O2 Flow Rate FiO2 01/19/17 13:38 97.7 104 24 128/77 (94) 92 MDM Medical Record Reviewed: Yes Supervised Visit with MIGUEL: Yes Narrative Course Patient is medically stable. X-ray of the left wrist is ordered. Labs ordered including CBC, CMP, and uric acid. Sedimentation rate and CRP is ordered. Patient is awaiting med bed placement Condition: Stable Leroy Guerra Jan 19, 2017 13:58
[2017-01-19 15:15] LABS: AUTOMATED NEUTROPHIL # 11.8 TH/MM3 (1.8-7.7); BASOPHIL % 0.3 % (0.0-2.0); EOSINOPHIL % 0.1 % (0.0-4.0); HEMATOCRIT 39.4 % (39.0-51.0); HEMOGLOBIN 13.3 GM/DL (13.0-17.0); LYMPH % 5.9 % (9.0-44.0); LYMPHOCYTE # 0.8 TH/MM3 (1.0-4.8); MEAN CELL VOLUME 87.6 FL (80.0-100.0); MEAN CORPUSCULAR HEMOGLOBIN 29.6 PG (27.0-34.0); MEAN CORPUSCULAR HGB CONC 33.8 % (32.0-36.0); MEAN PLATELET VOLUME 8.8 FL (7.0-11.0); MONO % 7.8 % (0.0-8.0); MONOCYTE # 1.1 TH/MM3 (0-0.9); NEUT % 85.9 % (16.0-70.0); PLATELET COUNT 222 TH/MM3 (150-450); RED BLOOD COUNT 4.49 MIL/MM3 (4.50-5.90); RED CELL DISTRIBUTION WIDTH 16.1 % (11.6-17.2); WHITE BLOOD COUNT 13.8 TH/MM3 (4.0-11.0)
[2017-01-19] MEDS ORDERED: LISI10TA3 PO ×2 (15:28)
[2017-01-19] MEDS ORDERED: ACETAMINOPHEN/HYDROcodone 325 MG/7.5 MG TAB PO ONE ×2 (15:30)
[2017-01-19 15:33] LABS: ALBUMIN 3.2 GM/DL (3.4-5.0); ALT (GPT) 24 U/L (12-78); AST (GOT) 12 U/L (15-37); BICARBONATE 31.7 MEQ/L (21.0-32.0); C-REACTIVE PROTEIN 4.16 MG/DL (0.00-0.30); CALCIUM 8.9 MG/DL (8.5-10.1); CHLORIDE 103 MEQ/L (98-107); GLOMERULAR FILTRATION RATE 82 ML/MIN (>89); GLUCOSE,RANDOM 145 MG/DL (74-106); SODIUM (NA) 141 MEQ/L (136-145)
[2017-01-19 15:39] LABS: ALKALINE PHOSPHATASE 56 U/L (45-117); BLOOD UREA NITROGEN 21 MG/DL (7-18); TOTAL PROTEIN 6.9 GM/DL (6.4-8.2)
--- NOTE | 2017-01-19 16:21 | RADRPT ---
EXAM DATE/TIME: 01/19/2017 16:23 [facility] COMPARISON: No previous studies available for comparison. INDICATIONS : Evaluate pain and inflammation of left wrist, denies injury. Awoke at 0100 this morning with severe p ain MEDICAL HISTORY : Chronic obstructive pulmonary disease. Cardiovascular disease. SURGICAL HISTORY : Coronary artery stent. ENCOUNTER: Initial ACUITY: 1 day PAIN SCORE: 10/10 LOCATION: Left wrist FINDINGS: Abnormal appearance to the carpal bones with a prominent cystic area in the distal pole of the scapho id measuring 12 mm with a thin sclerotic rim. There is a mottled appearance to the density of the re mainder of the carpal bones. Mild heterotopic ossification is present about the lateral aspect of th e 1st MTP joint and there is moderate sclerosis of the proximal 1st metacarpal. Mild widening of the scapholunate distance. No fractures seen. No significant soft tissue swelling. 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 Smooth margined cystic lesion in the distal scaphoid. No fracture seen. Marco Antonio Montes MD on January 19, 2017 at 16:18 Board Certified Radiologist. This report was verified electronically.
--- NOTE | 2017-01-19 16:54 | PD ---
HPI Chief Complaint: Pain: Acute or Chronic Time Seen by Provider: 15:24 Travel History International Travel<30 days: No Contact w/Intl Traveler<30days: No Traveled to known affect area: No History of Present Illness HPI 76 yo M c/o L wrist pain. Pain woke him up from sleep. No injury or skin disruption known to patient. Pain is constant, moderately severe at rest. Severe pain noted with ROM. Denies fever. No similar prior episodes. PFSH Past Medical History Hx Anticoagulant Therapy: Yes (ELOQUIS ) Arthritis: Yes Asthma: No Atrial Fibrillation: Yes Autoimmune Disease: No Anxiety: Yes Heart Rhythm Problems: Yes (AFIB) Cancer: No Cardiac Catheterization: Yes Cardiovascular Problems: Yes High Cholesterol: No Chest Pain: Yes Congestive Heart Failure: Yes COPD: Yes Coronary Artery Disease: Yes Diabetes: Yes Patient Takes Glucophage: No Diminished Hearing: No Endocrine: No Genitourinary: Yes (CAVANAUGH CATHETER ) Hepatitis: No Hiatal Hernia: No Hypertension: Yes Immune Disorder: No Inguinal Hernia: Yes (umbilical) Implanted Vascular Access Dvce: Yes Musculoskeletal: Yes (ARTHRITIS IN HANDS) Neurologic: No Psychiatric: No Reproductive: No Respiratory: Yes Immunizations Current: No Myocardial Infarction: Yes Pneumonia: Yes Sleep Apnea: No Thyroid Disease: No Ulcer: Yes (PEPTIC ULCER ) Past Surgical History Abdominal Surgery: Yes (UMBILICIAL HERNIA REPAIR) AICD: No Arteriovenous Shunt: No Body Medical Devices: CARDIAC STENTS X2 Cardiac Surgery: Yes (CARDIAC STENTS X 2) Coronary Stent: Yes ( X 2) Ear Surgery: No Endocrine Surgery: No Eye Surgery: Yes (BILATERAL CATARACT) Genitourinary Surgery: No Insulin Pump: No Joint Replacement: No Oral Surgery: No Pacemaker: No Thoracic Surgery: No Other Surgery: Yes (rectal prolapse repair) Social History Alcohol Use: No Tobacco Use: No Substance Use: No Allergies-Medications (Allergen,Severity, Reaction): Coded Allergies: cortisone (Verified Allergy, Unknown, 01/19/17) injection only Reported Meds & Prescriptions Reported Meds & Active Scripts Active Furosemide 40 Mg Tab 40 Mg PO DAILY Reported Symbicort Inh (Budesonide/Formoterol Fumarate) 160-4.5 Mcg/Act Aero 1 Puff INH Q12HR Tamsulosin (Tamsulosin HCl) 0.4 Mg Cap 0.4 Mg PO HS Proscar (Finasteride) 5 Mg Tab 5 Mg PO DAILY Do not crush. Famotidine 20 Mg Tab 20 Mg PO DAILY Lanoxin (Digoxin) 125 Mcg Tablet 125 Mcg PO DAILY Eliquis (Apixaban) 5 Mg Tab 5 Mg PO BID Xanax (Alprazolam) 0.5 Mg Tab 0.5 Mg PO BID PRN Duoneb (Ipratropium-Albuterol Neb) 0.5-2.5 Mg/3 Ml Neb 3 Ml NEB QID PRN Lasix (Furosemide) 40 Mg Tab 40 Mg PO EVERY OTHER DAY Diltiazem (Diltiazem HCl) 60 Mg Tab 60 Mg PO TID Review of Systems Except as stated in HPI: all other systems reviewed are Neg General / Constitutional: No: Fever Physical Exam Narrative GENERAL: 76 yo M, WNWD, NAD SKIN: Warm and dry. Erythema warmth TTP dorsal L wrist. Approx 7 cm maximum diameter. HEAD: Atraumatic. Normocephalic. EYES: Pupils equal and round. No scleral icterus. No injection or drainage. ENT: No nasal bleeding or discharge. Mucous membranes pink and moist. NECK: Trachea midline. No JVD. CARDIOVASCULAR: Regular rate and rhythm. RESPIRATORY: No accessory muscle use. Clear to auscultation. Breath sounds equal bilaterally. GASTROINTESTINAL: Abdomen soft, non-tender, nondistended. Hepatic and splenic margins not palpable. MUSCULOSKELETAL: Extremities without clubbing, cyanosis, or edema. No obvious deformities. + Tenderness with ROM at L wrist, active and passive. NEUROLOGICAL: Awake and alert. No obvious cranial nerve deficits. Motor grossly within normal limits. Five out of 5 muscle strength in the arms and legs. Normal speech. PSYCHIATRIC: Appropriate mood and affect; insight and judgment normal. Data Data Last Documented VS Vital Signs Date Time Temp Pulse Resp B/P (MAP) Pulse Ox O2 Delivery O2 Flow Rate FiO2 01/19/17 13:38 97.7 104 24 128/77 (94) 92 VS Reviewed Orders Orders Complete Blood Count With Diff (01/19/17 13:58) Comprehensive Metabolic Panel (01/19/17 13:58) Ecg Monitoring (01/19/17 13:58) Uric Acid (01/19/17 13:58) W[place]gren Sedimentation Rate (01/19/17 13:58) C-Reactive Protein (Crp) (01/19/17 13:58) C-Reactive Protein (Crp) (01/19/17 15:24) Uric Acid (01/19/17 15:24) Wrist, Complete ([id number]) (01/19/17 ) Acetamin-Hydrocod 325-7.5 Mg ([place] 7.5 (01/19/17 15:30) Westergren Sedimentation Rate (01/19/17 15:49) Mri Joint Wrist W&W/O Contrast (01/19/17 ) Vancomycin Inj (Vancomycin Inj) (01/19/17 17:15) Labs Laboratory Tests Test 01/19/17 14:30 White Blood Count 13.8 TH/MM3 Red Blood Count 4.49 MIL/MM3 Hemoglobin 13.3 GM/DL Hematocrit 39.4 % Mean Corpuscular Volume 87.6 FL Mean Corpuscular Hemoglobin 29.6 PG Mean Corpuscular Hemoglobin Concent 33.8 % Red Cell Distribution Width 16.1 % Platelet Count 222 TH/MM3 Mean Platelet Volume 8.8 FL Neutrophils (%) (Auto) 85.9 % Lymphocytes (%) (Auto) 5.9 % Monocytes (%) (Auto) 7.8 % Eosinophils (%) (Auto) 0.1 % Basophils (%) (Auto) 0.3 % Neutrophils # (Auto) 11.8 TH/MM3 Lymphocytes # (Auto) 0.8 TH/MM3 Monocytes # (Auto) 1.1 TH/MM3 Eosinophils # (Auto) 0.0 TH/MM3 Basophils # (Auto) 0.0 TH/MM3 CBC Comment AUTO DIFF Erythrocyte Sedimentation Rate 45 mm/hr Blood Urea Nitrogen 21 MG/DL Creatinine 0.90 MG/DL Random Glucose 145 MG/DL Total Protein 6.9 GM/DL Albumin 3.2 GM/DL Calcium Level 8.9 MG/DL Alkaline Phosphatase 56 U/L Aspartate Amino Transf (AST/SGOT) 12 U/L Alanine Aminotransferase (ALT/SGPT) 24 U/L Total Bilirubin 1.0 MG/DL Sodium Level 141 MEQ/L Potassium Level 3.5 MEQ/L Chloride Level 103 MEQ/L Carbon Dioxide Level 31.7 MEQ/L Anion Gap 6 MEQ/L Estimat Glomerular Filtration Rate 82 ML/MIN Uric Acid 6.8 MG/DL C-Reactive Protein 4.16 MG/DL MDM Medical Decision Making Medical Screen Exam Complete: Yes Emergency Medical Condition: Yes Medical Record Reviewed: Yes Differential Diagnosis cellulitis, septic arthritis, osteomyelitis, abscess, gout Narrative Course CBC & BMP Diagram 01/19/17 14:30 Total Protein 6.9, Albumin 3.2 L, Calcium Level 8.9, Alkaline Phosphatase 56, Aspartate Amino Transf (AST/SGOT) 12 L, Alanine Aminotransferase (ALT/SGPT) 24, Total Bilirubin 1.0 C-reactive protein 4.16 Uric acid 6.8 CRP 45 Last 24 hours Impressions Wrist X-Ray 01/19/17 0000 Signed Impressions: Service Date/Time: Thursday, January 19, 2017 16:23 - CONCLUSION: 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 Smooth margined cystic lesion in the distal scaphoid. No fracture seen. Marco Antonio Montes MD On given the leukocytosis and elevation of the ESR and CRP evaluation for septic arthritis and will be pursued with MR imaging. Discussed with Dr. Aparicio who will follow-up and disposition patient. Vancomycin started. Patient advised of plan and has verbalized understanding. Condition: Stable Volodymyr Cervantes MD Jan 19, 2017 16:54
[2017-01-19] MEDS ORDERED: VANCOMYCIN INJ 1,000 MG in SODIUM CHLOR 0.9% 250 ML INJ 250 ML IV ONE ×4 (17:15)
--- NOTE | 2017-01-19 17:55 | PD ---
Physical Exam Date Seen by Provider: Jan 19, 2017 Data Data Last Documented VS Vital Signs Date Time Temp Pulse Resp B/P (MAP) Pulse Ox O2 Delivery O2 Flow Rate FiO2 01/19/17 13:38 97.7 104 24 128/77 (94) 92 Orders Orders Complete Blood Count With Diff (01/19/17 13:58) Comprehensive Metabolic Panel (01/19/17 13:58) Ecg Monitoring (01/19/17 13:58) Uric Acid (01/19/17 13:58) Westergren Sedimentation Rate (01/19/17 13:58) C-Reactive Protein (Crp) (01/19/17 13:58) C-Reactive Protein (Crp) (01/19/17 15:24) Uric Acid (01/19/17 15:24) Wrist, Complete ([id number]) (01/19/17 ) Acetamin-Hydrocod 325-7.5 Mg ([place] 7.5 (01/19/17 15:30) Westergren Sedimentation Rate (01/19/17 15:49) Mri Joint Wrist W&W/O Contrast (01/19/17 ) Vancomycin Inj (Vancomycin Inj) (01/19/17 17:15) Gadodiamide Pf Inj (Omniscan Pf Inj) (01/19/17 18:30) Blood Culture (01/19/17 19:36) Admit Order (Ed Use Only) (01/19/17 19:40) Labs Laboratory Tests Test 01/19/17 14:30 White Blood Count 13.8 TH/MM3 Red Blood Count 4.49 MIL/MM3 Hemoglobin 13.3 GM/DL Hematocrit 39.4 % Mean Corpuscular Volume 87.6 FL Mean Corpuscular Hemoglobin 29.6 PG Mean Corpuscular Hemoglobin Concent 33.8 % Red Cell Distribution Width 16.1 % Platelet Count 222 TH/MM3 Mean Platelet Volume 8.8 FL Neutrophils (%) (Auto) 85.9 % Lymphocytes (%) (Auto) 5.9 % Monocytes (%) (Auto) 7.8 % Eosinophils (%) (Auto) 0.1 % Basophils (%) (Auto) 0.3 % Neutrophils # (Auto) 11.8 TH/MM3 Lymphocytes # (Auto) 0.8 TH/MM3 Monocytes # (Auto) 1.1 TH/MM3 Eosinophils # (Auto) 0.0 TH/MM3 Basophils # (Auto) 0.0 TH/MM3 CBC Comment AUTO DIFF Differential Total Cells Counted 100 Neutrophils % (Manual) 86 % Band Neutrophils % 2 % Lymphocytes % 4 % Monocytes % 4 % Basophils % 1 % Neutrophils # (Manual) 12.6 TH/MM3 Metamyelocytes 3 % Differential Comment FINAL DIFF MANUAL Platelet Estimate NORMAL Platelet Morphology Comment NORMAL Erythrocyte Sedimentation Rate 45 mm/hr Blood Urea Nitrogen 21 MG/DL Creatinine 0.90 MG/DL Random Glucose 145 MG/DL Total Protein 6.9 GM/DL Albumin 3.2 GM/DL Calcium Level 8.9 MG/DL Alkaline Phosphatase 56 U/L Aspartate Amino Transf (AST/SGOT) 12 U/L Alanine Aminotransferase (ALT/SGPT) 24 U/L Total Bilirubin 1.0 MG/DL Sodium Level 141 MEQ/L Potassium Level 3.5 MEQ/L Chloride Level 103 MEQ/L Carbon Dioxide Level 31.7 MEQ/L Anion Gap 6 MEQ/L Estimat Glomerular Filtration Rate 82 ML/MIN Uric Acid 6.8 MG/DL C-Reactive Protein 4.16 MG/DL [facility] [place] Medical Record Reviewed: Yes Supervised Visit with MIGUEL: No Interpretation(s) Vital Signs Date Time Temp Pulse Resp B/P (MAP) Pulse Ox O2 Delivery O2 Flow Rate FiO2 01/19/17 13:38 97.7 104 24 128/77 (94) 92 Laboratory Tests Test 01/19/17 14:30 White Blood Count 13.8 TH/MM3 (4.0-11.0) Red Blood Count 4.49 MIL/MM3 (4.50-5.90) Hemoglobin 13.3 GM/DL (13.0-17.0) Hematocrit 39.4 % (39.0-51.0) Mean Corpuscular Volume 87.6 FL (80.0-100.0) Mean Corpuscular Hemoglobin 29.6 PG (27.0-34.0) Mean Corpuscular Hemoglobin Concent 33.8 % (32.0-36.0) Red Cell Distribution Width 16.1 % (11.6-17.2) Platelet Count 222 TH/MM3 (150-450) Mean Platelet Volume 8.8 FL (7.0-11.0) Neutrophils (%) (Auto) 85.9 % (16.0-70.0) Lymphocytes (%) (Auto) 5.9 % (9.0-44.0) Monocytes (%) (Auto) 7.8 % (0.0-8.0) Eosinophils (%) (Auto) 0.1 % (0.0-4.0) Basophils (%) (Auto) 0.3 % (0.0-2.0) Neutrophils # (Auto) 11.8 TH/MM3 (1.8-7.7) Lymphocytes # (Auto) 0.8 TH/MM3 (1.0-4.8) Monocytes # (Auto) 1.1 TH/MM3 (0-0.9) Eosinophils # (Auto) 0.0 TH/MM3 (0-0.4) Basophils # (Auto) 0.0 TH/MM3 (0-0.2) CBC Comment AUTO DIFF Erythrocyte Sedimentation Rate 45 mm/hr (0-20) Blood Urea Nitrogen 21 MG/DL (7-18) Creatinine 0.90 MG/DL (0.60-1.30) Random Glucose 145 MG/DL (74-106) Total Protein 6.9 GM/DL (6.4-8.2) Albumin 3.2 GM/DL (3.4-5.0) Calcium Level 8.9 MG/DL (8.5-10.1) Alkaline Phosphatase 56 U/L (45-117) Aspartate Amino Transf (AST/SGOT) 12 U/L (15-37) Alanine Aminotransferase (ALT/SGPT) 24 U/L (12-78) Total Bilirubin 1.0 MG/DL (0.2-1.0) Sodium Level 141 MEQ/L (136-145) Potassium Level 3.5 MEQ/L (3.5-5.1) Chloride Level 103 MEQ/L (98-107) Carbon Dioxide Level 31.7 MEQ/L (21.0-32.0) Anion Gap 6 MEQ/L (5-15) Estimat Glomerular Filtration Rate 82 ML/MIN (>89) Uric Acid 6.8 MG/DL (2.6-7.2) C-Reactive Protein 4.16 MG/DL (0.00-0.30) Last Impressions Wrist X-Ray 01/19/17 0000 Signed Impressions: Service Date/Time: Thursday, January 19, 2017 16:23 - CONCLUSION: 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 Smooth margined cystic lesion in the distal scaphoid. No fracture seen. Marco Antonio Montes MD Differential Diagnosis Differential includes cellulitis, septic arthritis, osteomyelitis, gout Narrative Course Patient was signed out to me by Dr. Cervantes at change of shift, patient currently pending MRI of the wrists for evaluation of septic joint. IV vancomycin has been initiated, cultures pending. Patient is a 76-year-old male who woke up this morning with left-sided wrist pain. Reports no injuries to his wrist, reports pain with ROM of wrist. NO fever/chills. 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 Smooth margined cystic lesion in the distal scaphoid. No fracture seen. 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 Smooth margined cystic lesion in the distal scaphoid. No fracture seen. 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 German Pardon MD Case reviewed with Dr. Ronquillo who accepts pt to her service Diagnosis Primary Impression: Septic joint of left wrist Additional Impression: Cellulitis of wrist Admitting Information Admitting Physician Requests: Observation Condition: Stable Zuleima Aparicio DO Jan 19, 2017 17:55
[2017-01-19 18:03] LABS: BANDS 2 % (0-6); BASOPHILS 1 % (0-2); LYMPHOCYTES 4 % (9-44); METAMYELOCYTES 3 % (0-1); MONOCYTES 4 % (0-8); NEUTROPHIL # MANUAL DIFF 12.6 TH/MM3 (1.8-7.7); POLYS (SEG NEUTROPHILS) 86 % (16-70)
[2017-01-19] MEDS ORDERED: GADODIAMIDE PF 287 MG/ML 20 ML VIAL (for RAD MRI) IVCONTRAST ONE ×2 (18:30)
--- NOTE | 2017-01-19 19:07 | RADRPT ---
EXAM DATE/TIME: 01/19/2017 17:59 [facility] COMPARISON: WRIST LEFT COMPLETE ([id number]), January 19, 2017, 16:23. INDICATIONS : Left wrist pain and redness. No injury. CONTRAST: 20 cc Omniscan (gadodiamide) IV MEDICAL HISTORY : Chronic obstructive pulmonary disease. Hypertension. SURGICAL HISTORY : Umbilical hernia repair. Coronary artery stent. Prolapsed rectum. Osteochondroma removed. ENCOUNTER: Subsequent ACUITY: 1 day PAIN SCORE: 5/10 LOCATION: Left wrist. TECHNIQUE: Multiplanar multisequence MRI examination of the wrist was performed with and without contrast. FINDINGS: There is joint effusion with slight chondrocalcinosis of the triangle fibrocartilage. There are significant degenerative changes within multiple joints particularly the first carpometacarpal joint with large degenerative cyst within the scaphoid measures almost 8 mm in size. CONCLUSION: Significant osteoarthritis with large benign most likely degenerative cyst of the scaphoid and modera te joint effusion with chondrocalcinosis. German Padron MD on January 19, 2017 at 19:02 Board Certified Radiologist. This report was verified electronically.
--- NOTE | 2017-01-19 19:07 | RADRPT ---
EXAM DATE/TIME: 01/19/2017 17:59 [facility] COMPARISON: WRIST LEFT COMPLETE ([id number]), January 19, 2017, 16:23. INDICATIONS : Left wrist pain and redness. No injury. CONTRAST: 20 cc Omniscan (gadodiamide) IV MEDICAL HISTORY : Chronic obstructive pulmonary disease. Hypertension. SURGICAL HISTORY : Umbilical hernia repair. Coronary artery stent. Prolapsed rectum. Osteochondroma removed. ENCOUNTER: Subsequent ACUITY: 1 day PAIN SCORE: 5/10 LOCATION: Left wrist. TECHNIQUE: Multiplanar multisequence MRI examination of the wrist was performed with and without contrast. FINDINGS: There is joint effusion with slight chondrocalcinosis of the triangle fibrocartilage. There are significant degenerative changes within multiple joints particularly the first carpometacarpal joint with large degenerative cyst within the scaphoid measures almost 8 mm in size. CONCLUSION: Significant osteoarthritis with large benign most likely degenerative cyst of the scaphoid and modera te joint effusion with chondrocalcinosis. German Padron MD on January 19, 2017 at 19:02 Board Certified Radiologist. This report was verified electronically.
--- NOTE | 2017-01-19 19:07 | RADRPT ---
EXAM DATE/TIME: 01/19/2017 17:59 [facility] COMPARISON: WRIST LEFT COMPLETE ([id number]), January 19, 2017, 16:23. INDICATIONS : Left wrist pain and redness. No injury. CONTRAST: 20 cc Omniscan (gadodiamide) IV MEDICAL HISTORY : Chronic obstructive pulmonary disease. Hypertension. SURGICAL HISTORY : Umbilical hernia repair. Coronary artery stent. Prolapsed rectum. Osteochondroma removed. ENCOUNTER: Subsequent ACUITY: 1 day PAIN SCORE: 5/10 LOCATION: Left wrist. TECHNIQUE: Multiplanar multisequence MRI examination of the wrist was performed with and without contrast. FINDINGS: There is joint effusion with slight chondrocalcinosis of the triangle fibrocartilage. There are significant degenerative changes within multiple joints particularly the first carpometacarpal joint with large degenerative cyst within the scaphoid measures almost 8 mm in size. CONCLUSION: Significant osteoarthritis with large benign most likely degenerative cyst of the scaphoid and modera te joint effusion with chondrocalcinosis. German Padron MD on January 19, 2017 at 19:02 Board Certified Radiologist. This report was verified electronically.
[2017-01-19] MEDS ORDERED: Vancomycin Consult Pharmacy 1 EA OTHER SCH ×2 (19:45)
[2017-01-19] MEDS ORDERED: NALOXONE HCL 0.4 MG/ML AMP IV PUSH PRN ×2 (19:45)
[2017-01-19] MEDS ORDERED: SODIUM CHLORIDE 0.9% FLUSH 10 ML FLUSH IV FLUSH PRN ×2 (19:45)
[2017-01-19] MEDS ORDERED: BUDESONIDE-FORMOTEROL 160/4.5 MCG INHALER INH ONE ×2 (20:45)
[2017-01-19] MEDS ORDERED: APIXABAN 5 MG TABLET PO ONE ×2 (20:45)
[2017-01-19] MEDS ORDERED: DILTIAZEM HCL 60 MG TAB PO ONE ×2 (20:45)
[2017-01-19] MEDS ORDERED: FINASTERIDE 5 MG TAB PO ONE ×2 (20:45)
[2017-01-19] MEDS ORDERED: LISINOPRIL 10 MG TAB PO ONE ×2 (20:45)
[2017-01-19 20:54] VITALS: BP 130/62; PULSE 81; RESP 24; O2SAT 96
[2017-01-19] MEDS: SODIUM CHLORIDE 0.9% FLUSH 10 ML FLUSH IV FLUSH SCH ×2 (21:00)
[2017-01-19] MEDS: ACETAMINOPHEN/HYDROcodone 325 MG/5 MG TAB PO PRN ×2 (21:58)
[2017-01-19 23:42] VITALS: BP 116/57; PULSE 78; RESP 18; TEMP 98; O2SAT 95
[2017-01-20] VITALS (10 sets, daily range): BP systolic 92–137; BP diastolic 58–70; PULSE 62–81; RESP 18–22; TEMP 97.8–98; O2SAT 92–97
[2017-01-20] MEDS: RESP: ALBUTEROL 2.5 MG/IPRATROPIUM 0.5 MG NEB (PRN) NEB ×4 (00:26→11:26)
[2017-01-20] MEDS: RESP: ALBUTEROL 2.5 MG/IPRATROPIUM 0.5 MG NEB (SCH) NEB ×8 (03:01→20:25)
[2017-01-20] MEDS: ACETAMINOPHEN/HYDROcodone 325 MG/5 MG TAB PO PRN ×6 (04:56→23:59)
--- NOTE | 2017-01-20 05:18 | HHI.HP ---
HPI Service [facility] Primary Care Physician Nitesh Weinstein MD Admission Diagnosis Septic joint with overlying cellulitis and effusion Diagnoses: Chief Complaint: wrist swelling Travel History International Travel<30 Days: No Contact w/Intl Traveler <30 Da: No Traveled to Known Affected Are: No History of Present Illness Written by SHANTI Saleh acting as scribe for [Yg] on 01/20/17 at 05 :15. 76 y/o male with history of COPD on O2, A. fib, BPH, and CAD presented to the ED with complaints of left wrist swelling, warmth and pain. He states the pain woke him up at 1 am in the morning and he noticed the swelling. He denies any bites or trauma to that wrist. He states the pain is sharp and worse with movement, and the pain medication eases the pain. He does state when he was last hospitalized in November and he did have 2 abgs done in the same wrist. He denies any fevers, but he states he does not ever run fevers. Denies any chest pain, chills, nausea or vomiting. [employer] Dr. Figueredo Review of Systems Except as stated in HPI: all other systems reviewed are Neg Past Family Social History Past Medical History COPD on O2 HS A. fib BPH CAD CA with stent placement HTN Past Surgical History Cardiac stents Umbilical Hernia repair Rectal prolapse repair Osteochondroma on back at age 15 Reported Medications Reported Meds & Active Scripts Active Furosemide 40 Mg Tab 40 Mg PO DAILY Reported Lisinopril 10 Mg Tab 10 Mg PO BID Symbicort Inh (Budesonide/Formoterol Fumarate) 160-4.5 Mcg/Act Aero 1 Puff INH Q12HR Tamsulosin (Tamsulosin HCl) 0.4 Mg Cap 0.4 Mg PO HS Proscar (Finasteride) 5 Mg Tab 5 Mg PO DAILY Do not crush. Famotidine 20 Mg Tab 20 Mg PO DAILY Lanoxin (Digoxin) 125 Mcg Tablet 125 Mcg PO DAILY Eliquis (Apixaban) 5 Mg Tab 5 Mg PO BID Xanax (Alprazolam) 0.5 Mg Tab 0.5 Mg PO BID PRN Duoneb (Ipratropium-Albuterol Neb) 0.5-2.5 Mg/3 Ml Neb 3 Ml NEB QID PRN Diltiazem (Diltiazem HCl) 60 Mg Tab 60 Mg PO TID Allergies: Coded Allergies: cortisone (Verified Allergy, Unknown, 01/19/17) injection only Active Ordered Medications Current Medications Medications (Trade) Dose Ordered Sig/Mari Route Start Time Stop Time Status Last Admin (NS Flush) 2 ml UNSCH PRN IV FLUSH 01/19/17 19:45 (NS Flush) 2 ml BID IV FLUSH 01/19/17 21:00 01/19/17 21:00 (Narcan Inj) 0.4 mg UNSCH PRN IV PUSH 01/19/17 19:45 Pharmacy Profile Note 0 ml @ 0 mls/hr UNSCH OTHER 01/19/17 19:45 (Quinn 5-325 Mg) 1 tab Q6H PRN PO 01/19/17 19:45 01/20/17 04:56 Vancomycin HCl 1250 mg/Sodium Chloride 262.5 ml @ 250 mls/hr Q12H IV 01/20/17 06:00 Miscellaneous Information SPECIFIC LAB TO BE DRAWN:VA... ONCE ONCE .XX 01/21/17 05:45 01/21/17 05:46 (Duoneb Neb) 1 ampule Q6HR NEB NEB 01/20/17 04:00 (Duoneb Neb) 1 ampule Q2HR NEB PRN NEB 01/20/17 00:00 01/20/17 00:26 Family History Father was a smoker and from emphysema and heart disease Social History Former tobacco use, quit 10 years ago Denies any alcohol or drug use Physical Exam Vital Signs Vital Signs Date Time Temp Pulse Resp B/P (MAP) Pulse Ox O2 Delivery O2 Flow Rate FiO2 01/20/17 00:25 97 Nasal Cannula 2.00 01/19/17 23:42 98.0 78 18 116/57 (76) 95 01/19/17 20:54 81 24 130/62 (84) 96 Nasal Cannula 2.00 01/19/17 13:38 97.7 104 24 128/77 (94) 92 Physical Exam GENERAL: This is a well-nourished, well-developed patient, in no apparent distress. SKIN:Left wrist is warm and red. No discoloration. HEAD: Atraumatic. Normocephalic. No temporal or scalp tenderness. EYES: Pupils equal round and reactive. ENT: Nose without bleeding, purulent drainage or septal hematoma. Airway patent. NECK: Trachea midline. No JVD. CARDIOVASCULAR: Regular rate and rhythm without murmurs, gallops, or rubs. Bilateral radial pulses strong and palpable. RESPIRATORY: Clear to auscultation. Breath sounds equal bilaterally. No wheezes , rales, or rhonchi. GASTROINTESTINAL: Abdomen soft, non-tender, nondistended. No hepato-splenomegaly , or palpable masses. No guarding. MUSCULOSKELETAL: Left wrist pain and swelling. No calf tenderness. NEUROLOGICAL: Awake and alert. Motor and sensory grossly within normal limits.Normal speech. Laboratory Laboratory Tests Test 01/19/17 14:30 White Blood Count 13.8 Red Blood Count 4.49 Hemoglobin 13.3 Hematocrit 39.4 Mean Corpuscular Volume 87.6 Mean Corpuscular Hemoglobin 29.6 Mean Corpuscular Hemoglobin Concent 33.8 Red Cell Distribution Width 16.1 Platelet Count 222 Mean Platelet Volume 8.8 Neutrophils (%) (Auto) 85.9 Lymphocytes (%) (Auto) 5.9 Monocytes (%) (Auto) 7.8 Eosinophils (%) (Auto) 0.1 Basophils (%) (Auto) 0.3 Neutrophils # (Auto) 11.8 Lymphocytes # (Auto) 0.8 Monocytes # (Auto) 1.1 Eosinophils # (Auto) 0.0 Basophils # (Auto) 0.0 CBC Comment AUTO DIFF Differential Total Cells Counted 100 Neutrophils % (Manual) 86 Band Neutrophils % 2 Lymphocytes % 4 Monocytes % 4 Basophils % 1 Neutrophils # (Manual) 12.6 Metamyelocytes 3 Differential Comment FINAL DIFF MANUAL Platelet Estimate NORMAL Platelet Morphology Comment NORMAL Erythrocyte Sedimentation Rate 45 Blood Urea Nitrogen 21 Creatinine 0.90 Random Glucose 145 Total Protein 6.9 Albumin 3.2 Calcium Level 8.9 Alkaline Phosphatase 56 Aspartate Amino Transf (AST/SGOT) 12 Alanine Aminotransferase (ALT/SGPT) 24 Total Bilirubin 1.0 Sodium Level 141 Potassium Level 3.5 Chloride Level 103 Carbon Dioxide Level 31.7 Anion Gap 6 Estimat Glomerular Filtration Rate 82 Uric Acid 6.8 C-Reactive Protein 4.16 Date/Time Source Procedure Growth Status 01/19/17 14:30 Blood Peripheral Aerobic Blood Culture Pending Received 01/19/17 14:30 Blood Peripheral Anaerobic Blood Culture Pending Received Result Diagram: 01/19/17 1430 01/19/17 1430 Imaging Last Impressions Wrist X-Ray 01/19/17 0000 Signed Impressions: Service Date/Time: Thursday, January 19, 2017 16:23 - CONCLUSION: 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 Smooth margined cystic lesion in the distal scaphoid. No fracture seen. 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 MD Blayne Robbins VTE Risk Assessment Caprini VTE Risk Assessment: Mod/High Risk (score >= 2) Caprini Risk Assessment Model Point Value = 1 Point Value = 2 Point Value = 3 Point Value = 5 Age 41-60 Minor surgery BMI > 25 kg/m2 Swollen legs Varicose veins or History of unexplained or recurrent spontaneous Oral contraceptives or hormone replacement Sepsis (< 1 month) Serious lung disease, including pneumonia (< 1 month) Abnormal pulmonary function Acute myocardial infarction Congestive heart failure (< 1 month) History of inflammatory bowel disease Medical patient at bed rest Age 61-74 Arthroscopic surgery Major open surgery (> 45 min) Laparoscopic surgery (> 45 min) Malignancy Confined to bed (> 72 hours) Immobilizing plaster cast Central venous access Age >= 75 History of VTE Family history of VTE Factor V Leiden Prothrombin [id number] Lupus anticoagulant Anticardiolipin antibodies Elevated serum homocysteine Heparin-induced thrombocytopenia Other congenital or acquired thrombophilia Stroke (< 1 month) Elective arthroplasty Hip, pelvis, or leg fracture Acute spinal cord injury (< 1 month) Prophylaxis Regimen Total Risk Factor Score Risk Level Prophylaxis Regimen 0-1 Low Early ambulation 2 Moderate Order ONE of the following: *Sequential Compression Device (SCD) *Heparin 5000 units SQ BID 3-4 Higher Order ONE of the following medications: *Heparin 5000 units SQ TID *Enoxaparin/Lovenox 40 mg SQ daily (WT < 150 kg, CrCl > 30 mL/min) *Enoxaparin/Lovenox 30 mg SQ daily (WT < 150 kg, CrCl > 10-29 mL/min) *Enoxaparin/Lovenox 30 mg SQ BID (WT < 150 kg, CrCl > 30 mL/min) AND/OR *Sequential Compression Device (SCD) 5 or more Highest Order ONE of the following medications: *Heparin 5000 units SQ TID (Preferred with Epidurals) *Enoxaparin/Lovenox 40 mg SQ daily (WT < 150 kg, CrCl > 30 mL/min) *Enoxaparin/Lovenox 30 mg SQ daily (WT < 150 kg, CrCl > 10-29 mL/min) *Enoxaparin/Lovenox 30 mg SQ BID (WT < 150 kg, CrCl > 30 mL/min) AND *Sequential Compression Device (SCD) Assessment and Plan Problem List: (1) Septic joint of left wrist ICD Code: M00.9 - Pyogenic arthritis, unspecified Status: Acute (2) HTN (hypertension) ICD Code: I10 - Essential (primary) hypertension Status: Chronic (3) Atrial fibrillation ICD Code: I48.91 - Unspecified atrial fibrillation Status: Chronic (4) COPD (chronic obstructive pulmonary disease) ICD Code: J44.9 - Chronic obstructive pulmonary disease, unspecified Status: Chronic (5) Wrist joint effusion ICD Code: M25.439 - Effusion, unspecified wrist Status: Acute Assessment and Plan 76 y/o male with history of COPD on O2, A. fib, BPH, and CAD presented to the ED with complaints of left wrist swelling, warmth and pain. Joint effusion of left wrist with mild leukocytosis, pulses palpable and no discoloration noted, possible septic joint Wrist xray reviewed and shows a smooth margined cystic lesion in the distal scaphoid, no fracture Wrist MRI reviewed and shows osteoarthritis with large benign degenerative cyst of the scaphoid and moderate join effusion with chondrocalcinosis WBC 13.8, ESR 45, CRP 4.16 -IV antibiotics Vancomycin and Zosyn -Consult Hand surgery for recommendations -Pain management with PO Quinn -Blood cultures pending -CBC in am Afib, chronic -Resume home medications, monitor telemetry COPD, chronic, not in exacerbation -Duoneb scheduled and PRN HTN, chronic -Resume home medications, monitor vitals, prns if needed DVT prophylaxis: SCDs, hold eliquis for now until surgery is decided This note was transcribed by [employer] [Peg Hernández]. I, Dr. Cameron Ronquillo personally performed the history, physical exam, and medical decision making; and confirmed the accuracy of the information in the transcribed note. Authenticated by Dr. Cameron Ronquillo on 01/20/17 at 05:15. Discussed Condition With Patient and RN Problem Qualifiers (1) Septic joint of left wrist: Qualified Codes: M00.9 - Pyogenic arthritis, unspecified (2) HTN (hypertension): Qualified Codes: I10 - Essential (primary) hypertension (3) Wrist joint effusion: Qualified Codes: M25.432 - Effusion, left wrist Peg Hernández Jan 20, 2017 05:18 Cameron Ronquillo MD Jan 28, 2017 12:21
[2017-01-20] MEDS: SODIUM CHLORIDE 0.9% FLUSH 10 ML FLUSH IV FLUSH SCH ×4 (05:56→20:29)
[2017-01-20] MEDS ORDERED: VANCOMYCIN INJ 1,250 MG in SODIUM CHLOR 0.9% 250 ML INJ 250 ML IV SCH ×4 (06:00)
[2017-01-20 07:02] LABS: AUTOMATED NEUTROPHIL # 5.8 TH/MM3 (1.8-7.7); BASOPHIL % 0.4 % (0.0-2.0); EOSINOPHIL # 0.1 TH/MM3 (0-0.4); EOSINOPHIL % 0.9 % (0.0-4.0); HEMATOCRIT 35.4 % (39.0-51.0); HEMOGLOBIN 12.1 GM/DL (13.0-17.0); LYMPH % 12.6 % (9.0-44.0); MEAN CELL VOLUME 87.8 FL (80.0-100.0); MEAN CORPUSCULAR HEMOGLOBIN 29.9 PG (27.0-34.0); MEAN CORPUSCULAR HGB CONC 34.1 % (32.0-36.0); MEAN PLATELET VOLUME 8.3 FL (7.0-11.0); NEUT % 73.1 % (16.0-70.0); PLATELET COUNT 194 TH/MM3 (150-450); RED BLOOD COUNT 4.03 MIL/MM3 (4.50-5.90); RED CELL DISTRIBUTION WIDTH 15.7 % (11.6-17.2)
[2017-01-20] MEDS: PIPERACIL-TAZO 3.375 GM PREMIX 50 ML IV SCH ×6 (07:09→17:34)
[2017-01-20 07:17] LABS: PROTHROMBIN TIME - PATIENT 11.4 SEC (9.8-11.6)
[2017-01-20 07:39] LABS: BICARBONATE 32.5 MEQ/L (21.0-32.0); CALCIUM 8.1 MG/DL (8.5-10.1); CREATININE 0.72 MG/DL (0.60-1.30)
[2017-01-20] MEDS: LISINOPRIL 10 MG TAB PO SCH ×4 (09:58→20:27)
[2017-01-20] MEDS: FUROSEMIDE 40 MG TAB PO SCH ×2 (09:58)
[2017-01-20] MEDS: FAMOTIDINE 20 MG TAB PO SCH ×2 (09:59)
[2017-01-20] MEDS: FINASTERIDE 5 MG TAB PO SCH ×2 (09:59)
[2017-01-20] MEDS: DIGOXIN 0.125 MG TAB PO SCH ×2 (10:00)
[2017-01-20] MEDS: DILTIAZEM HCL 60 MG TAB PO SCH ×6 (10:00→17:34)
[2017-01-20] MEDS: BUDESONIDE-FORMOTEROL 160/4.5 MCG INHALER INH SCH ×4 (10:02→20:29)
--- NOTE | 2017-01-20 11:50 | HHI.PR ---
Subjective Remarks Follow-up for wrist infection. Family at bedside. The patient continues to have redness, swelling, and pain in his left wrist. He denies any fevers or chills. He does not recall any specific injury or trauma to the area, but has had ABGs. They would like to avoid surgery due to chronic COPD. Agreeable to hold off on Eliquis for now pending possible intervention, discussed risks. Objective Vitals Vital Signs Date Time Temp Pulse Resp B/P (MAP) Pulse Ox O2 Delivery O2 Flow Rate FiO2 01/20/17 11:20 97.9 67 22 103/61 (75) 94 01/20/17 07:39 95 Nasal Cannula 2.00 01/20/17 07:18 97.8 62 22 113/70 (84) 95 01/20/17 05:45 97.9 75 18 116/58 (77) 92 01/20/17 00:25 97 Nasal Cannula 2.00 01/19/17 23:42 98.0 78 18 116/57 (76) 95 01/19/17 20:54 81 24 130/62 (84) 96 Nasal Cannula 2.00 01/19/17 13:38 97.7 104 24 128/77 (94) 92 I/O 01/19/17 01/19/17 01/19/17 01/20/17 01/20/17 01/20/17 07:00 15:00 23:00 07:00 15:00 23:00 Intake Total 462.5 ml 50 ml Output Total 400 ml 400 ml Balance 62.5 ml -350 ml Intake Oral 200 ml IV Total 262.5 ml 50 ml Output Urine Total 400 ml 400 ml # Voids 2 Result Diagram: 01/20/17 0629 01/20/17 0620 Imaging Last Impressions Wrist X-Ray 01/19/17 0000 Signed Impressions: Service Date/Time: Thursday, January 19, 2017 16:23 - CONCLUSION: 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 Smooth margined cystic lesion in the distal scaphoid. No fracture seen. 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 German Padron MD Objective Remarks GENERAL: Well-developed well-nourished. In no acute distress. SKIN: Warm and dry. Left wrist as below HEENT: Normocephalic. Pupils equal and round. Mucous membranes pink and moist. CARDIOVASCULAR: Irregular rate and rhythm. No murmur appreciated. RESPIRATORY: No accessory muscle use. Clear to auscultation. Breath sounds equal bilaterally. GASTROINTESTINAL: Abdomen soft, non-tender, nondistended. Bowel sounds x4. MUSCULOSKELETAL: Left wrist with erythema, swelling, lymphangitic streaking. No clubbing or cyanosis. No edema. NEUROLOGICAL: Awake and alert. No focal neurological deficits. Moves upper and lower extremities spontaneously. Normal speech. PSYCHIATRIC: Appropriate mood and affect; insight and judgment fair to normal. A/P Problem List: (1) Septic joint of left wrist ICD Code: M00.9 - Pyogenic arthritis, unspecified Status: Acute (2) HTN (hypertension) ICD Code: I10 - Essential (primary) hypertension Status: Chronic (3) Atrial fibrillation ICD Code: I48.91 - Unspecified atrial fibrillation Status: Chronic (4) COPD (chronic obstructive pulmonary disease) ICD Code: J44.9 - Chronic obstructive pulmonary disease, unspecified Status: Chronic (5) Wrist joint effusion ICD Code: M25.439 - Effusion, unspecified wrist Status: Acute Assessment and Plan 76 y/o male with history of COPD on O2, A. fib, BPH, and CAD presented to the ED with complaints of left wrist swelling, warmth and pain. Probable septic joint left wrist: Joint effusion of left wrist with findings of sepsis on admission, leukocytosis, tachycardia, tachypnea. Reviewed: Wrist xray shows advanced arthropathy, cystic lesion in the distal scaphoid, no fracture. Wrist MRI show osteoarthritis, large benign degenerative cyst of the scaphoid, and moderate join effusion with chondrocalcinosis. ESR 45, CRP 4.16 -WBC initially 13.8, improved to 8.0. Monitor CBC. -Blood cultures pending -IV antibiotics with Vancomycin and Zosyn -Consulted Hand surgery, appreciate input -Pain management with PO [place] prn Afib, chronic -Continue home Cardizem, monitor telemetry -Hold Eliquis for now pending possible wrist intervention COPD, chronic respiratory failure on home O2, not in acute exacerbation -Continue supplemental oxygen as needed -Duoneb scheduled and PRN HTN, chronic -Continue home medications, monitor vitals, prns if needed Hyperkalemia: Mild, potassium 3.4. -Replace orally and check magnesium level DVT prophylaxis: SCDs, hold eliquis for now pending surgery evaluation Problem Qualifiers (1) Septic joint of left wrist: Qualified Codes: M00.9 - Pyogenic arthritis, unspecified (2) HTN (hypertension): Qualified Codes: I10 - Essential (primary) hypertension (3) Wrist joint effusion: Qualified Codes: M25.432 - Effusion, left wrist Foster Jackson Jan 20, 2017 11:50
[2017-01-20] MEDS ORDERED: POTASSIUM CHLORIDE 20 MEQ CONTROLLED RELEASE TAB PO ONE ×2 (13:00)
[2017-01-20] MEDS: SODIUM CHLOR 0.9% 1000 ML INJ 1,000 ML IV SCH ×4 (13:54→23:37)
[2017-01-20] MEDS: VANCOMYCIN INJ 1,500 MG in SODIUM CHLORID 0.9% 500 ML INJ 500 ML IV SCH ×4 (19:30)
[2017-01-20] MEDS ORDERED: POVIDONE IODINE 5% (ANTISEPSIS KIT) 4 APPLICATIONS EACH NARE PRN ×2 (20:15)
[2017-01-20] MEDS ORDERED: METOPROLOL TARTRATE 25 MG TAB PO PRN ×2 (20:15)
[2017-01-20] MEDS ORDERED: LACTATED RINGER'S 1000 ML IV PRN ×2 (20:15)
[2017-01-20] MEDS ORDERED: SODIUM CHLORID 0.9% 500 ML IV PRN ×2 (20:15)
[2017-01-20] MEDS ORDERED: INSULIN HUMAN REGULAR 1,000 UNITS/10 ML VIAL SQ PRN ×2 (20:15)
[2017-01-20] MEDS ORDERED: CHLORHEXIDINE GLUCONATE 2 % 1 PACK (2 CLOTHS) TOPICAL PRN ×2 (20:15)
[2017-01-20] MEDS ORDERED: LIDOCAINE HCL 2% PF SOLN 10 ML VIAL ONE ×2 (20:25)
[2017-01-20] MEDS: TAMSULOSIN HCL 0.4 MG CAP PO SCH ×2 (20:27)
[2017-01-20] MEDS ORDERED: LIDOCAINE 2%/EPINEPHrine PF 1:200,000 20ML SDV ONE ×2 (20:59)
[2017-01-20] MEDS ORDERED: NEOMYCIN/POLYMYXIN 1 ML G.U. IRRIGANT IRRIGATION ONE ×2 (21:20)
[2017-01-20] MEDS ORDERED: DO NOT ADM ANY ANTICOAGULANT DRUGS PRN ×2 (22:30)
--- NOTE | 2017-01-20 22:50 | PD.ORT.PN ---
Subjective Subjective Remarks Patient comfortable in PACU. Please see dictated notes for full details Objective Vitals Vital Signs Date Time Temp Pulse Resp B/P (MAP) Pulse Ox O2 Delivery O2 Flow Rate FiO2 01/20/17 20:19 94 Nasal Cannula 2.00 01/20/17 19:50 97.8 81 20 137/68 (91) 94 01/20/17 14:26 98.0 63 22 92/62 (72) 94 01/20/17 12:00 72 01/20/17 11:20 97.9 67 22 103/61 (75) 94 01/20/17 08:00 71 01/20/17 07:39 95 Nasal Cannula 2.00 01/20/17 07:18 97.8 62 22 113/70 (84) 95 01/20/17 05:45 97.9 75 18 116/58 (77) 92 01/20/17 00:25 97 Nasal Cannula 2.00 01/19/17 23:42 98.0 78 18 116/57 (76) 95 I/O 01/19/17 01/19/17 01/19/17 01/20/17 01/20/17 01/20/17 07:00 15:00 23:00 07:00 15:00 23:00 Intake Total 462.5 ml 100 ml 550 ml Output Total 400 ml 400 ml 5 ml Balance 62.5 ml -300 ml 545 ml Intake Oral 200 ml IV Total 262.5 ml 100 ml 50 ml Other 500 ml Output Urine Total 400 ml 400 ml 0 ml Estimated Blood Loss 5 ml # Voids 2 Result Diagram: 01/20/17 0629 01/20/17 0620 Other Results Laboratory Tests Test 01/20/17 06:29 Prothromb Time International Ratio 1.0 RATIO Prothrombin Time 11.4 SEC (9.8-11.6) Objective Remarks Drain holding suction to gravity, <2 sec capillary refill Assessment & Plan Assessment and Plan 76yM recent history of pneumonia presented with painful left wrist, aspiration showed cloudy fluid, now POD0 s/p Arthrotomy left wrist and irrigation and debridement with placement of drain -Follow cultures & ID input -Appreciate medical management -Likely will remove drain Wednesday and followup in office next Thur -Elevate left wrist, okay for gentle ROM Peg Rudolph MD Jan 20, 2017 22:50
[2017-01-21] VITALS (12 sets, daily range): BP systolic 108–142; BP diastolic 59–78; PULSE 64–101; RESP 18–24; TEMP 97.4–98.9; O2SAT 90–96
[2017-01-21] MEDS: PIPERACIL-TAZO 3.375 GM PREMIX 50 ML IV SCH ×10 (00:29→23:15)
[2017-01-21] MEDS: ACETAMINOPHEN/HYDROcodone 325 MG/5 MG TAB PO PRN ×10 (03:56→20:51)
[2017-01-21] MEDS ORDERED: PHARMACY ORDERED LAB ONE ×2 (05:45)
[2017-01-21] MEDS: VANCOMYCIN INJ 1,500 MG in SODIUM CHLORID 0.9% 500 ML INJ 500 ML IV SCH ×4 (06:30)
[2017-01-21] MEDS: RESP: ALBUTEROL 2.5 MG/IPRATROPIUM 0.5 MG NEB (SCH) NEB ×6 (07:48→21:21)
[2017-01-21] MEDS: SODIUM CHLORIDE 0.9% FLUSH 10 ML FLUSH IV FLUSH SCH ×4 (08:16→20:53)
[2017-01-21] MEDS: LISINOPRIL 10 MG TAB PO SCH ×4 (08:17→20:52)
[2017-01-21] MEDS: DIGOXIN 0.125 MG TAB PO SCH ×2 (08:17)
[2017-01-21] MEDS: FAMOTIDINE 20 MG TAB PO SCH ×2 (08:17)
[2017-01-21] MEDS: FINASTERIDE 5 MG TAB PO SCH ×2 (08:17)
[2017-01-21] MEDS: BUDESONIDE-FORMOTEROL 160/4.5 MCG INHALER INH SCH ×4 (08:17→20:53)
[2017-01-21] MEDS: FUROSEMIDE 40 MG TAB PO SCH ×2 (08:18)
[2017-01-21] MEDS: DILTIAZEM HCL 60 MG TAB PO SCH ×8 (08:18→18:02)
--- NOTE | 2017-01-21 08:26 | MB ---
cc: HADLEY MCKINNON DATE OF CONSULTATION 01/21/2017 HISTORY OF PRESENT ILLNESS A 76-year-old white male with a history of severe COPD, chronic atrial fibrillation and coronary artery disease. He developed left wrist swelling, warmth and pain. He was diagnosed with septic joint and underwent arthrotomy and drainage yesterday. He has tolerated his surgery well and has not had any chest pain or excessive dyspnea overnight. He is now feeling better. PAST MEDICAL HISTORY 1. Positive for severe COPD, oxygen dependent. 2. Chronic atrial fibrillation. 3. Coronary disease and coronary stenting 6 years ago after routine stress test. 4. Hypertension. 5. Umbilical hernia surgery. 6. BPH. MEDICATIONS 1. Furosemide. 2. Lisinopril. 3. Symbicort. 4. Tamsulosin. 5. Proscar. 6. Femotidine. 7. Lanoxin. 8. Eliquis 5 mg twice a day. 9. Xanax. 10. DuoNeb. 11. Diltiazem 60 mg three times per day. ALLERGIES CORTISONE INJECTION. SOCIAL HISTORY The patient does not smoke but used to smoke in the past. He does not drink alcohol. He is , accompanied by his . 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 FAMILY HISTORY Positive for myocardial function in his father. REVIEW OF SYSTEMS Otherwise negative. PHYSICAL EXAMINATION VITAL SIGNS: Blood pressure 120/69, pulse 93 and irregular. HEENT: Negative. NECK: 2+ carotid upstrokes. No bruits. LUNGS: Clear. HEART: Irregularly irregular. No murmur, gallop or rub. ABDOMEN: Soft. No bruits. EXTREMITIES: Trace edema. 1+ distal pulses. NEUROLOGIC: Grossly nonfocal. Telemetry shows atrial fibrillation with controlled ventricular response. LABORATORY DATA Hemoglobin 12.1. Potassium 3.4, creatinine 0.7. AST and ALT normal. DIAGNOSES 1. Septic joint left wrist. 2. Chronic atrial fibrillation. 3. COPD, oxygen-dependent. 4. Hypertension. 5. Coronary artery disease, history of coronary intervention. DISPOSITION 1. Mr. Pack remains stable after his left wrist surgery. I recommend to restart Eliquis as soon as it is approved by Orthopedic Surgery due to his atrial fibrillation and increased risk of stroke. 2. I recommend to continue IV antibiotics for his septic joint. 3. I recommend to continue therapy for hypertension. 4. We will continue diltiazem for rate control. 5. I will follow him for Cardiology during hospitalization. 6. I will also see him back for followup in our office after discharge. This was discussed with the patient and his and they understand the plan. Thank you. Hadley Mckinnon MD OQ/SSB /7:22 AM /7:57 AM
[2017-01-21 14:08] LABS: AUTOMATED NEUTROPHIL # 7.6 TH/MM3 (1.8-7.7); BASOPHIL # 0.1 TH/MM3 (0-0.2); BASOPHIL % 0.7 % (0.0-2.0); EOSINOPHIL # 0.1 TH/MM3 (0-0.4); HEMATOCRIT 36.2 % (39.0-51.0); HEMOGLOBIN 12.2 GM/DL (13.0-17.0); LYMPH % 8.5 % (9.0-44.0); LYMPHOCYTE # 0.8 TH/MM3 (1.0-4.8); MEAN CELL VOLUME 89.2 FL (80.0-100.0); MEAN CORPUSCULAR HGB CONC 33.6 % (32.0-36.0); MONO % 9.4 % (0.0-8.0); MONOCYTE # 0.9 TH/MM3 (0-0.9); NEUT % 80.4 % (16.0-70.0); PLATELET COUNT 213 TH/MM3 (150-450); RED BLOOD COUNT 4.06 MIL/MM3 (4.50-5.90); RED CELL DISTRIBUTION WIDTH 15.7 % (11.6-17.2); WHITE BLOOD COUNT 9.4 TH/MM3 (4.0-11.0)
[2017-01-21 14:27] LABS: BICARBONATE 31.5 MEQ/L (21.0-32.0); CALCIUM 8.7 MG/DL (8.5-10.1); CREATININE 0.91 MG/DL (0.60-1.30); MAGNESIUM 1.9 MG/DL (1.5-2.5)
[2017-01-21] MEDS: RESP: ALBUTEROL 2.5 MG/IPRATROPIUM 0.5 MG NEB (PRN) NEB ×2 (14:31)
--- NOTE | 2017-01-21 16:27 | HHI.PR ---
Subjective Remarks Follow up septic wrist, a-fib, COPD. Patient has pain in the left wrist/ forearm. Denies chest pain, dyspnea. Objective Vitals Vital Signs Date Time Temp Pulse Resp B/P (MAP) Pulse Ox O2 Delivery O2 Flow Rate FiO2 01/21/17 12:00 98.5 101 18 116/77 (90) 90 01/21/17 10:47 90 01/21/17 08:00 98.2 78 18 130/77 (94) 90 01/21/17 07:50 96 Nasal Cannula 2.00 01/21/17 04:00 97.9 93 20 120/69 (86) 92 01/21/17 01:07 97.9 74 20 142/78 (99) 92 01/21/17 00:30 97.4 88 22 128/71 (90) 92 01/21/17 00:18 64 01/20/17 23:00 98.0 70 30 151/66 (94) 93 Nasal Cannula 3 01/20/17 22:45 68 26 138/62 (87) 93 Nasal Cannula 3 01/20/17 22:38 98.3 69 24 156/72 (100) 93 Nasal Cannula 3 01/20/17 20:19 94 Nasal Cannula 2.00 01/20/17 19:50 97.8 81 20 137/68 (91) 94 I/O 01/20/17 01/20/17 01/20/17 01/21/17 01/21/17 01/21/17 07:00 15:00 23:00 07:00 15:00 23:00 Intake Total 462.5 ml 100 ml 750 ml Output Total 400 ml 400 ml 5 ml 210 ml Balance 62.5 ml -300 ml 745 ml -210 ml Intake Oral 200 ml 0 ml IV Total 262.5 ml 100 ml 250 ml Other 500 ml Output Urine Total 400 ml 400 ml 0 ml 200 ml Drainage Total 0 ml 10 ml Estimated Blood Loss 5 ml # Voids 2 Result Diagram: 01/21/17 1257 01/21/17 1257 Imaging Last Impressions Wrist X-Ray 01/19/17 0000 Signed Impressions: Service Date/Time: Thursday, January 19, 2017 16:23 - CONCLUSION: 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 Smooth margined cystic lesion in the distal scaphoid. No fracture seen. 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 German Padron MD Objective Remarks General: Elderly male in no acute distress. Heart: Regular rate and rhythm. No murmur. Lungs: Clear to auscultation bilaterally. No wheezes, rales, or rhonchi. Breathing is nonlabored. Abdomen: Soft, nontender, nondistended. Extremities: No lower extremity edema. Left upper extremity in a sling. Psych: Alert and oriented. Procedures 01/20/17 left wrist arthrotomy with irrigation & debridement, drain placement Urinary Catheter: No Vascular Central Line Catheter: No A/P Problem List: (1) Septic joint of left wrist ICD Code: M00.9 - Pyogenic arthritis, unspecified Status: Acute (2) HTN (hypertension) ICD Code: I10 - Essential (primary) hypertension Status: Chronic (3) Atrial fibrillation ICD Code: I48.91 - Unspecified atrial fibrillation Status: Chronic (4) COPD (chronic obstructive pulmonary disease) ICD Code: J44.9 - Chronic obstructive pulmonary disease, unspecified Status: Chronic (5) Wrist joint effusion ICD Code: M25.439 - Effusion, unspecified wrist Status: Acute Assessment and Plan 1. Septic joint, left wrist: S/P arthrotomy, incision/debridement. Appreciate hand surgery recommendations. Continue antibiotics. Cultures are pending. 2. A-fib, chronic: Continue cardizem. Eliquis on hold for surgery. 3. COPD: Patient reporting cough, dyspnea. Check CXR. Duonebs, supplemental oxygen. 4. Hypertension: Chronic. Continue home medications. 5. Hypokalemia: Continue supplementation. 6. DVT prophylaxis: SCDs. Eliquis on hold. Problem Qualifiers (1) Septic joint of left wrist: Qualified Codes: M00.9 - Pyogenic arthritis, unspecified (2) HTN (hypertension): Qualified Codes: I10 - Essential (primary) hypertension (3) Wrist joint effusion: Qualified Codes: M25.432 - Effusion, left wrist Kevin Bustillo MD Jan 21, 2017 16:27
[2017-01-21] MEDS: POTASSIUM CHLORIDE 10 MEQ CONTROLLED RELEASE TAB PO SCH ×2 (16:38)
--- NOTE | 2017-01-21 17:02 | RADRPT ---
EXAM DATE/TIME: 01/21/2017 17:30 [facility] COMPARISON: WRIST LEFT COMPLETE ([id number]), January 19, 2017, 16:23. INDICATIONS : Dyspnea MEDICAL HISTORY : Chronic obstructive pulmonary disease. SURGICAL HISTORY : Umbilical hernia repair. Coronary artery stent. Prolapsed rectum, Osteochondroma removed ENCOUNTER: Subsequent ACUITY: 4 - 6 days PAIN SCORE: 0/10 LOCATION: chest FINDINGS: A single view of the chest demonstrates the lungs to be symmetrically aerated without evidence of mas s, infiltrate or effusion. The cardiomediastinal contours are unremarkable. Osseous structures are intact. CONCLUSION: 1. No acute cardiopulmonary findings. Volodymyr Lai MD on January 21, 2017 at 16:59 Board Certified Radiologist. This report was verified electronically.
--- NOTE | 2017-01-21 17:02 | RADRPT ---
EXAM DATE/TIME: 01/21/2017 17:30 [facility] COMPARISON: WRIST LEFT COMPLETE ([id number]), January 19, 2017, 16:23. INDICATIONS : Dyspnea MEDICAL HISTORY : Chronic obstructive pulmonary disease. SURGICAL HISTORY : Umbilical hernia repair. Coronary artery stent. Prolapsed rectum, Osteochondroma removed ENCOUNTER: Subsequent ACUITY: 4 - 6 days PAIN SCORE: 0/10 LOCATION: chest FINDINGS: A single view of the chest demonstrates the lungs to be symmetrically aerated without evidence of mas s, infiltrate or effusion. The cardiomediastinal contours are unremarkable. Osseous structures are intact. CONCLUSION: 1. No acute cardiopulmonary findings. Volodymyr Lai MD on January 21, 2017 at 16:59 Board Certified Radiologist. This report was verified electronically.
--- NOTE | 2017-01-21 17:02 | RADRPT ---
EXAM DATE/TIME: 01/21/2017 17:30 [facility] COMPARISON: WRIST LEFT COMPLETE ([id number]), January 19, 2017, 16:23. INDICATIONS : Dyspnea MEDICAL HISTORY : Chronic obstructive pulmonary disease. SURGICAL HISTORY : Umbilical hernia repair. Coronary artery stent. Prolapsed rectum, Osteochondroma removed ENCOUNTER: Subsequent ACUITY: 4 - 6 days PAIN SCORE: 0/10 LOCATION: chest FINDINGS: A single view of the chest demonstrates the lungs to be symmetrically aerated without evidence of mas s, infiltrate or effusion. The cardiomediastinal contours are unremarkable. Osseous structures are intact. CONCLUSION: 1. No acute cardiopulmonary findings. Volodymyr Lai MD on January 21, 2017 at 16:59 Board Certified Radiologist. This report was verified electronically.
--- NOTE | 2017-01-21 17:30 | PD.ID.CON ---
History of Present Illness Service ID Consult Requested By Dr Rudolph Reason for Consult L wrist septic arthritis Primary Care Physician Nitesh Weinstein MD Diagnoses: History of Present Illness 76 yo male with multiple med problems, including advanced COPD, on home O2, Afib , CAD presented with 2 days of swelling, redness and pain He also developped some red streaking on his forearm He denies fevers, chills but has moderate leukocytosis on presentation He was seen by Dr Rudolph from hand sx service who apparently aspirated the joint - it showed cloudy fluid and pt was taken to OR Cell count, diff and crystals not available Gstains negative in 3/3 specimen, no growth at 24 hrs No abx use 1 week prior to admission, but was on some abx prior to that Review of Systems Respiratory: COMPLAINS OF: Cough, Sputum production, Shortness of breath Cardiovascular: COMPLAINS OF: Dyspnea on Exertion Except as stated in HPI: all other systems reviewed are Neg Past Family Social History Allergies: Coded Allergies: cortisone (Verified Allergy, Unknown, 01/19/17) injection only Past Medical History COPD on O2 HS A. fib BPH CAD [place] with stent placement HTN Past Surgical History Cardiac stents Umbilical Hernia repair Rectal prolapse repair Osteochondroma on back at age 15 Active Ordered Medications Medications where reviewed in EMR Antibiotics Include: vancomycin zosyn Family History Father was a smoker and from emphysema and heart disease Social History Former tobacco use quit 10 years ago Denies any alcohol or drug use Physical Exam Vital Signs Vital Signs Date Time Temp Pulse Resp B/P (MAP) Pulse Ox O2 Delivery O2 Flow Rate FiO2 01/21/17 16:00 98.4 88 18 108/59 (75) 92 01/21/17 12:00 98.5 101 18 116/77 (90) 90 01/21/17 10:47 90 01/21/17 08:00 98.2 78 18 130/77 (94) 90 01/21/17 07:50 96 Nasal Cannula 2.00 01/21/17 04:00 97.9 93 20 120/69 (86) 92 01/21/17 01:07 97.9 74 20 142/78 (99) 92 01/21/17 00:30 97.4 88 22 128/71 (90) 92 01/21/17 00:18 64 01/20/17 23:00 98.0 70 30 151/66 (94) 93 Nasal Cannula 3 01/20/17 22:45 68 26 138/62 (87) 93 Nasal Cannula 3 01/20/17 22:38 98.3 69 24 156/72 (100) 93 Nasal Cannula 3 01/20/17 20:19 94 Nasal Cannula 2.00 01/20/17 19:50 97.8 81 20 137/68 (91) 94 Physical Exam CONSTITUTIONAL/GENERAL: This is an adequately nourished patient, in no apparent distress. TUBES/LINES/DRAINS: SKIN: No jaundice, rashes, or lesions. Ecchymoses on upper extremities. Skin temperature appropriate. Not diaphoretic. HEAD: Atraumatic. Normocephalic. EYES: Pupils equal and round and reactive. Extraocular motions intact. No scleral icterus. No injection or drainage. Fundi not examined. ENT: Hearing grossly normal. Nose without bleeding or purulent drainage. Throat without visible erythema, exudates, masses, or lesions. NECK: Trachea midline. Supple, nontender. No palpable thyroid enlargement or nodularity. CARDIOVASCULAR: Regular rate and rhythm without murmurs, gallops, or rubs. No JVD. Peripheral pulses symmetric. RESPIRATORY/CHEST: Symmetric, unlabored respirations. + rhonchi to auscultation L base posteriorly. Breath sounds equal bilaterally. GASTROINTESTINAL: Abdomen soft, non-tender, nondistended. No hepato-splenomegaly , or palpable masses. No guarding. Bowel sounds present. GENITOURINARY: Without palpable bladder distension. MUSCULOSKELETAL: Extremities without clubbing, cyanosis, or edema. No joint tenderness or effusion noted. No calf tenderness. No mottling or clubbing. LUE in sling , RUBY in place with serosang drainage fingers free of neurovasc deficit LYMPHATICS: No palpable cervical or supraclavicular adenopathy. NEUROLOGICAL: Awake and alert. Motor and sensory grossly within normal limits. Follows commands. Clear speech. Moves all extremities. PSYCHIATRIC: No obvious anxiety/depression. no apparent hallucinations or other psychotic thought process. Laboratory Laboratory Tests Test 01/21/17 06:10 01/21/17 12:57 Vancomycin Level Trough 8.8 White Blood Count 9.4 Red Blood Count 4.06 Hemoglobin 12.2 Hematocrit 36.2 Mean Corpuscular Volume 89.2 Mean Corpuscular Hemoglobin 30.0 Mean Corpuscular Hemoglobin Concent 33.6 Red Cell Distribution Width 15.7 Platelet Count 213 Mean Platelet Volume 9.0 Neutrophils (%) (Auto) 80.4 Lymphocytes (%) (Auto) 8.5 Monocytes (%) (Auto) 9.4 Eosinophils (%) (Auto) 1.0 Basophils (%) (Auto) 0.7 Neutrophils # (Auto) 7.6 Lymphocytes # (Auto) 0.8 Monocytes # (Auto) 0.9 Eosinophils # (Auto) 0.1 Basophils # (Auto) 0.1 CBC Comment AUTO DIFF Blood Urea Nitrogen 17 Creatinine 0.91 Random Glucose 123 Calcium Level 8.7 Magnesium Level 1.9 Sodium Level 141 Potassium Level 3.4 Chloride Level 104 Carbon Dioxide Level 31.5 Anion Gap 6 Estimat Glomerular Filtration Rate 81 Date/Time Source Procedure Growth Status 01/19/17 14:30 Blood Peripheral Aerobic Blood Culture - Preliminary NO GROWTH IN 2 DAYS Resulted 01/19/17 14:30 Blood Peripheral Anaerobic Blood Culture - Preliminary NO GROWTH IN 2 DAYS Resulted 01/20/17 19:36 Fluid Synovial Fluid Gram Stain Pending Ordered 01/20/17 19:36 Fluid Synovial Fluid Body Fluid Culture Pending Ordered 01/20/17 21:20 Abscess Wrist Fungal Smear - Final NO FUNGAL ELEMENTS SEEN. Resulted 01/20/17 21:20 Abscess Wrist Fungal Culture Pending Resulted Result Diagram: 01/21/17 1257 01/21/17 1257 Imaging Last Impressions Chest X-Ray 01/21/17 0000 Signed Impressions: Service Date/Time: December 17:30 - CONCLUSION: 1. No acute cardiopulmonary findings. 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 Smooth margined cystic lesion in the distal scaphoid. No fracture seen. 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 German Padron MD Assessment and Plan Assessment and Plan Suspected septic arthritis L wrist Culrtueres negative L LL PNA ? acute exarbation of chronic bronchitis cont current abx add Mercedes Oscar MD Jan 21, 2017 17:30
[2017-01-21 17:33] LABS: BANDS 1 % (0-6); LYMPHOCYTES 9 % (9-44); METAMYELOCYTES 2 % (0-1); MONOCYTES 5 % (0-8); MYELOCYTES 2 % (0-0); NEUTROPHIL # MANUAL DIFF 7.9 TH/MM3 (1.8-7.7); POLYS (SEG NEUTROPHILS) 79 % (16-70)
[2017-01-21] MEDS ORDERED: AZITHROMYCIN 250 MG TAB PO ONE ×2 (18:00)
[2017-01-21] MEDS: VANCOMYCIN INJ 1,750 MG in SODIUM CHLORID 0.9% 500 ML INJ 500 ML IV SCH ×4 (18:02)
[2017-01-21] MEDS ORDERED: POLYETHYLENE GLYCOL 17 GM PKG PO ONE ×2 (18:15)
[2017-01-21] MEDS: DOCUSATE SODIUM 50 MG/SENNA 8.6 MG TAB PO SCH ×2 (20:52)
[2017-01-21] MEDS: TAMSULOSIN HCL 0.4 MG CAP PO SCH ×2 (20:53)
[2017-01-22] VITALS (9 sets, daily range): BP systolic 101–117; BP diastolic 55–75; PULSE 67–87; RESP 20; TEMP 97.4–98; O2SAT 90–98
[2017-01-22] MEDS: ACETAMINOPHEN/HYDROcodone 325 MG/5 MG TAB PO PRN ×12 (00:47→23:30)
[2017-01-22] MEDS: RESP: ALBUTEROL 2.5 MG/IPRATROPIUM 0.5 MG NEB (SCH) NEB ×8 (05:03→22:27)
[2017-01-22] MEDS: VANCOMYCIN INJ 1,750 MG in SODIUM CHLORID 0.9% 500 ML INJ 500 ML IV SCH ×8 (05:13→18:17)
[2017-01-22] MEDS: PIPERACIL-TAZO 3.375 GM PREMIX 50 ML IV SCH ×4 (05:13→12:56)
[2017-01-22] MEDS: DOCUSATE SODIUM 50 MG/SENNA 8.6 MG TAB PO SCH ×4 (09:00→21:07)
[2017-01-22] MEDS: LISINOPRIL 10 MG TAB PO SCH ×4 (09:00→21:08)
[2017-01-22] MEDS: FUROSEMIDE 40 MG TAB PO SCH ×2 (09:00)
[2017-01-22] MEDS: SODIUM CHLORIDE 0.9% FLUSH 10 ML FLUSH IV FLUSH SCH ×4 (09:00→21:00)
[2017-01-22] MEDS: POTASSIUM CHLORIDE 10 MEQ CONTROLLED RELEASE TAB PO SCH ×2 (09:00)
[2017-01-22] MEDS: FINASTERIDE 5 MG TAB PO SCH ×2 (09:00)
[2017-01-22] MEDS: DILTIAZEM HCL 60 MG TAB PO SCH ×6 (09:00→18:17)
[2017-01-22] MEDS: BUDESONIDE-FORMOTEROL 160/4.5 MCG INHALER INH SCH ×4 (09:00→21:16)
[2017-01-22] MEDS: AZITHROMYCIN 250 MG TAB PO SCH ×2 (09:00)
[2017-01-22] MEDS: FAMOTIDINE 20 MG TAB PO SCH ×2 (09:01)
[2017-01-22] MEDS: DIGOXIN 0.125 MG TAB PO SCH ×2 (09:01)
[2017-01-22 09:35] LABS: AUTOMATED NEUTROPHIL # 6.6 TH/MM3 (1.8-7.7); BASOPHIL % 0.6 % (0.0-2.0); EOSINOPHIL # 0.1 TH/MM3 (0-0.4); EOSINOPHIL % 1.6 % (0.0-4.0); HEMATOCRIT 36.7 % (39.0-51.0); HEMOGLOBIN 12.5 GM/DL (13.0-17.0); LYMPHOCYTE # 1.1 TH/MM3 (1.0-4.8); MEAN CELL VOLUME 89.1 FL (80.0-100.0); MEAN CORPUSCULAR HEMOGLOBIN 30.3 PG (27.0-34.0); MEAN PLATELET VOLUME 8.6 FL (7.0-11.0); MONO % 9.5 % (0.0-8.0); MONOCYTE # 0.8 TH/MM3 (0-0.9); NEUT % 75.3 % (16.0-70.0); PLATELET COUNT 223 TH/MM3 (150-450); RED BLOOD COUNT 4.12 MIL/MM3 (4.50-5.90); WHITE BLOOD COUNT 8.8 TH/MM3 (4.0-11.0)
[2017-01-22 10:04] LABS: BICARBONATE 29.7 MEQ/L (21.0-32.0); CREATININE 1.03 MG/DL (0.60-1.30)
--- NOTE | 2017-01-22 16:14 | HHI.PR ---
Subjective Remarks Follow up wrist infection, a-fib, cough. Patient having some pain in the left wrist. Denies chest pain. Still having dyspnea, cough. Objective Vitals Vital Signs Date Time Temp Pulse Resp B/P (MAP) Pulse Ox O2 Delivery O2 Flow Rate FiO2 01/22/17 11:57 98.0 78 20 109/57 (74) 94 01/22/17 09:24 94 Nasal Cannula 3.00 01/22/17 08:08 98.0 67 20 117/75 (89) 92 01/22/17 05:06 93 Nasal Cannula 2.00 01/22/17 04:22 98.0 75 20 102/55 (71) 92 01/22/17 01:28 97.7 84 20 101/58 (72) 98 01/21/17 23:02 83 01/21/17 21:22 92 Nasal Cannula 2.00 01/21/17 21:18 98.9 78 24 125/71 (89) 92 I/O 01/21/17 01/21/17 01/21/17 01/22/17 01/22/17 01/22/17 07:00 15:00 23:00 07:00 15:00 23:00 Intake Total 300 ml 480 ml Output Total 210 ml 300 ml 500 ml Balance -210 ml 0 ml -20 ml Intake Oral 480 ml IV Total 300 ml Output Urine Total 200 ml 300 ml 500 ml Drainage Total 10 ml # Voids 5 # Bowel Movements 0 Result Diagram: 01/22/17 0851 01/22/17 0851 Imaging Last Impressions Chest X-Ray 01/21/17 0000 Signed Impressions: Service Date/Time: December 17:30 - CONCLUSION: 1. No acute cardiopulmonary findings. 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 Smooth margined cystic lesion in the distal scaphoid. No fracture seen. 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 K. Neptali Shamlou, MD Objective Remarks General: Elderly male in no acute distress. Heart: Regular rate and rhythm. No murmur. Lungs: Mild crackles in both bases. Breathing is nonlabored. Abdomen: Soft, nontender, nondistended. Extremities: No lower extremity edema. Left upper extremity in a sling. Psych: Alert and oriented. Procedures 01/20/17 left wrist arthrotomy with irrigation & debridement, drain placement Urinary Catheter: No Vascular Central Line Catheter: No A/P Problem List: (1) Septic joint of left wrist ICD Code: M00.9 - Pyogenic arthritis, unspecified Status: Acute (2) HTN (hypertension) ICD Code: I10 - Essential (primary) hypertension Status: Chronic (3) Atrial fibrillation ICD Code: I48.91 - Unspecified atrial fibrillation Status: Chronic (4) COPD (chronic obstructive pulmonary disease) ICD Code: J44.9 - Chronic obstructive pulmonary disease, unspecified Status: Chronic (5) Wrist joint effusion ICD Code: M25.439 - Effusion, unspecified wrist Status: Acute Assessment and Plan 1. Septic joint, left wrist: S/P arthrotomy, incision/debridement. Appreciate hand surgery recommendations. Continue antibiotics. Cultures are negative so far. 2. A-fib, chronic: Continue cardizem. Eliquis on hold for surgery. 3. COPD: Patient reporting cough, dyspnea. Check CXR. Duonebs, supplemental oxygen. 4. Hypertension: Chronic. Continue home medications. 5. Hypokalemia: Continue supplementation. 6. DVT prophylaxis: SCDs. Eliquis on hold. Restart when OK with hand surgery. Problem Qualifiers (1) Septic joint of left wrist: Qualified Codes: M00.9 - Pyogenic arthritis, unspecified (2) HTN (hypertension): Qualified Codes: I10 - Essential (primary) hypertension (3) Wrist joint effusion: Qualified Codes: M25.432 - Effusion, left wrist Kevin Bustillo MD Jan 22, 2017 16:14
--- NOTE | 2017-01-22 17:01 | HHI.IDPN ---
Subjective Subjective Remarks doing OK afebrile Antibiotics formerly [facility], [facility] Allergies: Coded Allergies: cortisone (Verified Allergy, Unknown, 01/19/17) injection only Objective . Vital Signs Date Time Temp Pulse Resp B/P (MAP) Pulse Ox O2 Delivery O2 Flow Rate FiO2 01/22/17 16:23 97.4 75 20 110/55 (73) 90 01/22/17 11:57 98.0 78 20 109/57 (74) 94 01/22/17 09:24 94 Nasal Cannula 3.00 01/22/17 08:08 98.0 67 20 117/75 (89) 92 01/22/17 05:06 93 Nasal Cannula 2.00 01/22/17 04:22 98.0 75 20 102/55 (71) 92 01/22/17 01:28 97.7 84 20 101/58 (72) 98 01/21/17 23:02 83 01/21/17 21:22 92 Nasal Cannula 2.00 01/21/17 21:18 98.9 78 24 125/71 (89) 92 01/22/17 01/22/17 01/23/17 15:00 23:00 07:00 Intake Total 480 ml Output Total 500 ml Balance -20 ml Intake Oral 480 ml Output Urine Total 500 ml . Laboratory Tests Test 01/21/17 12:57 01/22/17 08:51 White Blood Count 9.4 TH/MM3 8.8 TH/MM3 Red Blood Count 4.06 MIL/MM3 4.12 MIL/MM3 Hemoglobin 12.2 GM/DL 12.5 GM/DL Hematocrit 36.2 % 36.7 % Mean Corpuscular Volume 89.2 FL 89.1 FL Mean Corpuscular Hemoglobin 30.0 PG 30.3 PG Mean Corpuscular Hemoglobin Concent 33.6 % 34.0 % Red Cell Distribution Width 15.7 % 16.0 % Platelet Count 213 TH/MM3 223 TH/MM3 Mean Platelet Volume 9.0 FL 8.6 FL Neutrophils (%) (Auto) 80.4 % 75.3 % Lymphocytes (%) (Auto) 8.5 % 13.0 % Monocytes (%) (Auto) 9.4 % 9.5 % Eosinophils (%) (Auto) 1.0 % 1.6 % Basophils (%) (Auto) 0.7 % 0.6 % Neutrophils # (Auto) 7.6 TH/MM3 6.6 TH/MM3 Lymphocytes # (Auto) 0.8 TH/MM3 1.1 TH/MM3 Monocytes # (Auto) 0.9 TH/MM3 0.8 TH/MM3 Eosinophils # (Auto) 0.1 TH/MM3 0.1 TH/MM3 Basophils # (Auto) 0.1 TH/MM3 0.0 TH/MM3 CBC Comment AUTO DIFF DIFF FINAL Differential Total Cells Counted 100 Neutrophils % (Manual) 79 % Band Neutrophils % 1 % Lymphocytes % 9 % Monocytes % 5 % Eosinophils % 2 % Neutrophils # (Manual) 7.9 TH/MM3 Metamyelocytes 2 % Myelocytes 2 % Differential Comment FINAL DIFF MANUAL Platelet Estimate NORMAL Platelet Morphology Comment NORMAL Red Cell Morphology Comment NORMAL Laboratory Tests Test 01/21/17 12:57 01/22/17 08:51 Blood Urea Nitrogen 17 MG/DL 17 MG/DL Creatinine 0.91 MG/DL 1.03 MG/DL Random Glucose 123 MG/DL 96 MG/DL Calcium Level 8.7 MG/DL 9.0 MG/DL Magnesium Level 1.9 MG/DL Sodium Level 141 MEQ/L 142 MEQ/L Potassium Level 3.4 MEQ/L 3.3 MEQ/L Chloride Level 104 MEQ/L 105 MEQ/L Carbon Dioxide Level 31.5 MEQ/L 29.7 MEQ/L Anion Gap 6 MEQ/L 7 MEQ/L Estimat Glomerular Filtration Rate 81 ML/MIN 70 ML/MIN Microbiology Date/Time Source Procedure Growth Status 01/20/17 19:36 Fluid Synovial Fluid Gram Stain Pending Ordered 01/20/17 19:36 Fluid Synovial Fluid Body Fluid Culture Pending Ordered 01/20/17 21:20 Abscess Wrist Fungal Smear - Final NO FUNGAL ELEMENTS SEEN. Resulted 01/20/17 21:20 Abscess Wrist Fungal Culture Pending Resulted 01/20/17 21:20 Abscess Wrist Acid Fast Stain - Final NO ACID FAST BACILLI SEEN Resulted 01/20/17 21:20 Abscess Wrist Mycobacterial Culture Pending Resulted 01/20/17 21:20 Abscess Wrist Gram Stain - Final Resulted 01/20/17 21:20 Abscess Wrist Wound Culture - Preliminary NO GROWTH IN 48 HOURS. Resulted 01/20/17 21:20 Abscess Wrist Fungal Smear - Final NO FUNGAL ELEMENTS SEEN. Resulted 01/20/17 21:20 Abscess Wrist Fungal Culture Pending Resulted 01/20/17 21:20 Abscess Wrist Acid Fast Stain - Final NO ACID FAST BACILLI SEEN Resulted 01/20/17 21:20 Abscess Wrist Mycobacterial Culture Pending Resulted 01/20/17 21:20 Abscess Wrist Gram Stain - Final Resulted 01/20/17 21:20 Abscess Wrist Wound Culture - Preliminary NO GROWTH IN 48 HOURS. Resulted 01/20/17 19:30 Wound Wrist Gram Stain - Final Resulted 01/20/17 19:30 Wound Wrist Wound Culture - Preliminary NO GROWTH IN 48 HOURS. Resulted Imaging Last Impressions Chest X-Ray 01/21/17 0000 Signed Impressions: Service Date/Time: December 17:30 - CONCLUSION: 1. No acute cardiopulmonary findings. 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 Smooth margined cystic lesion in the distal scaphoid. No fracture seen. 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 German Padron MD Physical Exam CONSTITUTIONAL/GENERAL: This is an adequately nourished patient, in no apparent distress. TUBES/LINES/DRAINS: SKIN: No jaundice, rashes, or lesions. Ecchymoses on upper extremities. Skin temperature appropriate. Not diaphoretic. HEAD: Atraumatic. Normocephalic. EYES: Pupils equal and round and reactive. Extraocular motions intact. No scleral icterus. No injection or drainage. Fundi not examined. CARDIOVASCULAR: Regular rate and rhythm without murmurs, gallops, or rubs. No JVD. Peripheral pulses symmetric. RESPIRATORY/CHEST: Symmetric, unlabored respirations. + B/l end expiratory wheezing to auscultation L base posteriorly. Breath sounds equal bilaterally. GASTROINTESTINAL: Abdomen soft, non-tender, nondistended. No hepato-splenomegaly , or palpable masses. No guarding. Bowel sounds present. MUSCULOSKELETAL: Extremities without clubbing, cyanosis, or edema. No joint tenderness or effusion noted. No calf tenderness. No mottling or clubbing. LUE in sling fingers free of neurovasc deficit NEUROLOGICAL: Awake and alert. Non focal PSYCHIATRIC: calm , pleasant Assessment & Plan Remarks Suspected septic arthritis L wrist, culture negative - no prior abx use - no cell count/diff or crystals available L LL PNA vs ? acute exarbation of chronic bronchitis Wheezinfg cont vanco cont azithro change zosyn to cefepime dw Dr Ronni De La Cruz,Mercedes Mcclain MD Jan 22, 2017 17:01
[2017-01-22] MEDS: CEFEPIME INJ 2,000 MG in SODIUM CHLORIDE 0.9% INJ 100 ML IV SCH ×4 (18:16)
--- NOTE | 2017-01-22 18:49 | PD.ORT.PN ---
Subjective Subjective Remarks Patient reports improved pain left wrist. Denies paresthesias. Objective Vitals Vital Signs Date Time Temp Pulse Resp B/P (MAP) Pulse Ox O2 Delivery O2 Flow Rate FiO2 01/22/17 16:23 97.4 75 20 110/55 (73) 90 01/22/17 11:57 98.0 78 20 109/57 (74) 94 01/22/17 09:24 94 Nasal Cannula 3.00 01/22/17 08:08 98.0 67 20 117/75 (89) 92 01/22/17 05:06 93 Nasal Cannula 2.00 01/22/17 04:22 98.0 75 20 102/55 (71) 92 01/22/17 01:28 97.7 84 20 101/58 (72) 98 01/21/17 23:02 83 01/21/17 21:22 92 Nasal Cannula 2.00 01/21/17 21:18 98.9 78 24 125/71 (89) 92 I/O 01/21/17 01/21/17 01/21/17 01/22/17 01/22/17 01/22/17 07:00 15:00 23:00 07:00 15:00 23:00 Intake Total 300 ml 480 ml 240 ml Output Total 210 ml 300 ml 500 ml 200 ml Balance -210 ml 0 ml -20 ml 40 ml Intake Oral 480 ml 240 ml IV Total 300 ml Output Urine Total 200 ml 300 ml 500 ml 200 ml Drainage Total 10 ml # Voids 5 # Bowel Movements 0 Result Diagram: 01/22/17 0851 01/22/17 0851 Objective Remarks Drain holding suction to gravity with about 10cc serosangenous fluid, sitlt m/u/ r, improved erythema and edema, good ROM fingers, 2+ radial pulse, minimal pain with wrist ROM Assessment & Plan Assessment and Plan 76yM recent history of pneumonia presented with painful left wrist, aspiration showed cloudy fluid, now s/p Arthrotomy left wrist and irrigation and debridement with placement of drain -Drain removed, fluid sent for crystals and cell count -Uric acid also ordered although patient denies history of gout -Cultures NGTD but patient was on Ab prior to admission for pneumonia, appreciate ID input -Okay to restart Eliquis -Continue left wrist elevation and gentle ROM -Likely dc Wednesday with followup on , will continue to follow Peg Rudolph MD Jan 22, 2017 18:49
[2017-01-22 20:46] LABS: WBC, SYNOVIAL FLUID 440 /MM3 (0-200)
[2017-01-22] MEDS: TAMSULOSIN HCL 0.4 MG CAP PO SCH ×2 (21:07)
[2017-01-22] MEDS: APIXABAN 5 MG TABLET PO SCH ×2 (21:08)
[2017-01-22] MEDS ORDERED: ALPRAZolam 0.5 MG TAB PO ONE ×2 (21:15)
--- NOTE | 2017-01-22 21:59 | PD.CARD.PN ---
Subjective Subjective Remarks No CP or SOB, feels better Objective Medications Current Medications Medications (Trade) Dose Ordered Sig/Mari Route Start Time Stop Time Status Last Admin (NS Flush) 2 ml UNSCH PRN IV FLUSH 01/19/17 19:45 (NS Flush) 2 ml BID IV FLUSH 01/19/17 21:00 01/22/17 21:00 (Narcan Inj) 0.4 mg UNSCH PRN IV PUSH 01/19/17 19:45 Pharmacy Profile Note 0 ml @ 0 mls/hr UNSCH OTHER 01/19/17 19:45 (Duoneb Neb) 1 ampule Q6HR NEB NEB 01/20/17 04:00 01/22/17 15:13 (Duoneb Neb) 1 ampule Q2HR NEB PRN NEB 01/20/17 00:00 01/21/17 14:31 (Symbicort 160-4.5 Inh) 1 puff Q12HR INH 01/20/17 09:00 01/22/17 21:16 (Lanoxin) 0.125 mg DAILY PO 01/20/17 09:00 01/22/17 09:01 (Cardizem) 60 mg TID PO 01/20/17 09:00 01/22/17 18:17 (Pepcid) 20 mg DAILY PO 01/20/17 09:00 01/22/17 09:01 (Proscar) 5 mg DAILY PO 01/20/17 09:00 01/22/17 09:00 (Lasix) 40 mg DAILY PO 01/20/17 09:00 01/22/17 09:00 (Prinivil) 10 mg BID PO 01/20/17 09:00 01/22/17 21:08 (Flomax) 0.4 mg HS PO 01/20/17 21:00 01/22/17 21:07 Lactated Ringer's 1,000 ml @ 30 mls/hr Q24H PRN IV 01/20/17 20:15 01/23/17 20:14 Sodium Chloride 500 ml @ 30 mls/hr [id number] PRN IV 01/20/17 20:15 01/23/17 20:14 (Lopressor) 25 mg SILICA DRY PRESS HELPER PRN PO 01/20/17 20:15 01/23/17 20:14 (Betadine 5% Antisepsis Kit) 1 applic SILICA DRY PRESS HELPER PRN EACH NARE 01/20/17 20:15 01/23/17 20:14 (Chlorhexidine 2% Cloth) 3 pack SILICA DRY PRESS HELPER PRN TOPICAL 01/20/17 20:15 01/23/17 20:14 (NovoLIN R INJ) See Protocol Table ... SILICA DRY PRESS HELPER PRN SQ 01/20/17 20:15 01/23/17 20:14 ([place] 5-325 Mg) 1 tab Q4H PRN PO 01/21/17 01:30 01/22/17 18:17 Vancomycin HCl 1750 mg/Sodium Chloride 517.5 ml @ 250 mls/hr Q12H IV 01/21/17 18:00 01/22/17 18:17 Miscellaneous Information SPECIFIC LAB TO BE DRAWN:VANCOMYCIN TROUGH DATE TO... ONCE ONCE .XX 01/23/17 05:45 01/23/17 05:46 (KCl) 10 meq DAILY PO 01/21/17 17:00 01/22/17 09:00 (Zithromax) 250 mg DAILY PO 01/22/17 09:00 01/26/17 08:59 01/22/17 09:00 (Nova-Colace) 1 tab BID PO 01/21/17 21:00 01/22/17 21:07 Cefepime HCl 2000 mg/Sodium Chloride 100 ml @ 200 mls/hr Q8H IV 01/22/17 18:00 01/22/17 18:16 (Eliquis) 5 mg BID PO 01/22/17 21:00 01/22/17 21:08 Vital Signs / I&O Vital Signs Date Time Temp Pulse Resp B/P (MAP) Pulse Ox O2 Delivery O2 Flow Rate FiO2 01/22/17 20:00 97.9 87 20 113/58 (76) 91 01/22/17 16:23 97.4 75 20 110/55 (73) 90 01/22/17 11:57 98.0 78 20 109/57 (74) 94 01/22/17 09:24 94 Nasal Cannula 3.00 01/22/17 08:08 98.0 67 20 117/75 (89) 92 01/22/17 05:06 93 Nasal Cannula 2.00 01/22/17 04:22 98.0 75 20 102/55 (71) 92 01/22/17 01:28 97.7 84 20 101/58 (72) 98 01/21/17 23:02 83 I/O 01/21/17 01/21/17 01/21/17 01/22/17 01/22/17 01/22/17 07:00 15:00 23:00 07:00 15:00 23:00 Intake Total 300 ml 480 ml 240 ml Output Total 210 ml 300 ml 500 ml 200 ml Balance -210 ml 0 ml -20 ml 40 ml Intake Oral 480 ml 240 ml IV Total 300 ml Output Urine Total 200 ml 300 ml 500 ml 200 ml Drainage Total 10 ml # Voids 5 # Bowel Movements 0 Physical Exam GENERAL: IN NAD SKIN: Warm and dry. HEAD: Normocephalic. EYES: No scleral icterus. No injection or drainage. NECK: Supple, trachea midline. No JVD or lymphadenopathy. CARDIOVASCULAR: Irregular rate and rhythm, without murmurs, gallops, or rubs. RESPIRATORY: Breath sounds equal bilaterally. No accessory muscle use. GASTROINTESTINAL: Abdomen soft, non-tender, nondistended. MUSCULOSKELETAL: No cyanosis, or edema. Laboratory Laboratory Tests Test 01/22/17 08:51 01/22/17 17:50 White Blood Count 8.8 TH/MM3 Red Blood Count 4.12 MIL/MM3 Hemoglobin 12.5 GM/DL Hematocrit 36.7 % Mean Corpuscular Volume 89.1 FL Mean Corpuscular Hemoglobin 30.3 PG Mean Corpuscular Hemoglobin Concent 34.0 % Red Cell Distribution Width 16.0 % Platelet Count 223 TH/MM3 Mean Platelet Volume 8.6 FL Neutrophils (%) (Auto) 75.3 % Lymphocytes (%) (Auto) 13.0 % Monocytes (%) (Auto) 9.5 % Eosinophils (%) (Auto) 1.6 % Basophils (%) (Auto) 0.6 % Neutrophils # (Auto) 6.6 TH/MM3 Lymphocytes # (Auto) 1.1 TH/MM3 Monocytes # (Auto) 0.8 TH/MM3 Eosinophils # (Auto) 0.1 TH/MM3 Basophils # (Auto) 0.0 TH/MM3 CBC Comment DIFF FINAL Differential Comment Blood Urea Nitrogen 17 MG/DL Creatinine 1.03 MG/DL Random Glucose 96 MG/DL Calcium Level 9.0 MG/DL Sodium Level 142 MEQ/L Potassium Level 3.3 MEQ/L Chloride Level 105 MEQ/L Carbon Dioxide Level 29.7 MEQ/L Anion Gap 7 MEQ/L Estimat Glomerular Filtration Rate 70 ML/MIN Uric Acid 4.7 MG/DL Synovial Fluid Color RED Synovial Fluid Appearance MARKED Synovial Fluid WBC 440 /MM3 Synovial Fluid RBC 384355 /MM3 Synovial Fluid Neutrophils 99 % Synovial Fluid Lymphocytes 1 % Synovial Fluid Crystals NONE Assessment and Plan Problem List: (1) Septic joint of left wrist ICD Codes: M00.9 - Pyogenic arthritis, unspecified Status: Acute (2) Atrial fibrillation ICD Codes: I48.91 - Unspecified atrial fibrillation Status: Chronic (3) COPD (chronic obstructive pulmonary disease) ICD Codes: J44.9 - Chronic obstructive pulmonary disease, unspecified Status: Chronic (4) HTN (hypertension) ICD Codes: I10 - Essential (primary) hypertension Status: Chronic (5) CAD (coronary artery disease) ICD Codes: I25.10 - Atherosclerotic heart disease of [place] coronary artery without angina pectoris Assessment and Plan Continue Eliquis to decrease the risk of stroke with a fib. Continue rate control. Continue antihypertensive tx. F/u w me as outpatient will be scheduled. Problem Qualifiers (1) Septic joint of left wrist: Qualified Codes: M00.9 - Pyogenic arthritis, unspecified (2) HTN (hypertension): Qualified Codes: I10 - Essential (primary) hypertension Hadley Mckinnon MD Jan 22, 2017 21:59
--- NOTE | 2017-01-22 21:59 | PD.CARD.PN ---
Subjective Subjective Remarks No CP or SOB, feels better Objective Medications Current Medications Medications (Trade) Dose Ordered Sig/Mari Route Start Time Stop Time Status Last Admin (NS Flush) 2 ml UNSCH PRN IV FLUSH 01/19/17 19:45 (NS Flush) 2 ml BID IV FLUSH 01/19/17 21:00 01/22/17 21:00 (Narcan Inj) 0.4 mg UNSCH PRN IV PUSH 01/19/17 19:45 Pharmacy Profile Note 0 ml @ 0 mls/hr UNSCH OTHER 01/19/17 19:45 (Duoneb Neb) 1 ampule Q6HR NEB NEB 01/20/17 04:00 01/22/17 15:13 (Duoneb Neb) 1 ampule Q2HR NEB PRN NEB 01/20/17 00:00 01/21/17 14:31 (Symbicort 160-4.5 Inh) 1 puff Q12HR INH 01/20/17 09:00 01/22/17 21:16 (Lanoxin) 0.125 mg DAILY PO 01/20/17 09:00 01/22/17 09:01 (Cardizem) 60 mg TID PO 01/20/17 09:00 01/22/17 18:17 (Pepcid) 20 mg DAILY PO 01/20/17 09:00 01/22/17 09:01 (Proscar) 5 mg DAILY PO 01/20/17 09:00 01/22/17 09:00 (Lasix) 40 mg DAILY PO 01/20/17 09:00 01/22/17 09:00 (Prinivil) 10 mg BID PO 01/20/17 09:00 01/22/17 21:08 (Flomax) 0.4 mg HS PO 01/20/17 21:00 01/22/17 21:07 Lactated Ringer's 1,000 ml @ 30 mls/hr Q24H PRN IV 01/20/17 20:15 01/23/17 20:14 Sodium Chloride 500 ml @ 30 mls/hr [id number] PRN IV 01/20/17 20:15 01/23/17 20:14 (Lopressor) 25 mg CLOSING MANAGER PRN PO 01/20/17 20:15 01/23/17 20:14 (Betadine 5% Antisepsis Kit) 1 applic CLOSING MANAGER PRN EACH NARE 01/20/17 20:15 01/23/17 20:14 (Chlorhexidine 2% Cloth) 3 pack CLOSING MANAGER PRN TOPICAL 01/20/17 20:15 01/23/17 20:14 (NovoLIN R INJ) See Protocol Table ... CLOSING MANAGER PRN SQ 01/20/17 20:15 01/23/17 20:14 ([place] 5-325 Mg) 1 tab Q4H PRN PO 01/21/17 01:30 01/22/17 18:17 Vancomycin HCl 1750 mg/Sodium Chloride 517.5 ml @ 250 mls/hr Q12H IV 01/21/17 18:00 01/22/17 18:17 Miscellaneous Information SPECIFIC LAB TO BE DRAWN:VANCOMYCIN TROUGH DATE TO... ONCE ONCE .XX 01/23/17 05:45 01/23/17 05:46 (KCl) 10 meq DAILY PO 01/21/17 17:00 01/22/17 09:00 (Zithromax) 250 mg DAILY PO 01/22/17 09:00 01/26/17 08:59 01/22/17 09:00 (Nova-Colace) 1 tab BID PO 01/21/17 21:00 01/22/17 21:07 Cefepime HCl 2000 mg/Sodium Chloride 100 ml @ 200 mls/hr Q8H IV 01/22/17 18:00 01/22/17 18:16 (Eliquis) 5 mg BID PO 01/22/17 21:00 01/22/17 21:08 Vital Signs / I&O Vital Signs Date Time Temp Pulse Resp B/P (MAP) Pulse Ox O2 Delivery O2 Flow Rate FiO2 01/22/17 20:00 97.9 87 20 113/58 (76) 91 01/22/17 16:23 97.4 75 20 110/55 (73) 90 01/22/17 11:57 98.0 78 20 109/57 (74) 94 01/22/17 09:24 94 Nasal Cannula 3.00 01/22/17 08:08 98.0 67 20 117/75 (89) 92 01/22/17 05:06 93 Nasal Cannula 2.00 01/22/17 04:22 98.0 75 20 102/55 (71) 92 01/22/17 01:28 97.7 84 20 101/58 (72) 98 01/21/17 23:02 83 I/O 01/21/17 01/21/17 01/21/17 01/22/17 01/22/17 01/22/17 07:00 15:00 23:00 07:00 15:00 23:00 Intake Total 300 ml 480 ml 240 ml Output Total 210 ml 300 ml 500 ml 200 ml Balance -210 ml 0 ml -20 ml 40 ml Intake Oral 480 ml 240 ml IV Total 300 ml Output Urine Total 200 ml 300 ml 500 ml 200 ml Drainage Total 10 ml # Voids 5 # Bowel Movements 0 Physical Exam GENERAL: IN NAD SKIN: Warm and dry. HEAD: Normocephalic. EYES: No scleral icterus. No injection or drainage. NECK: Supple, trachea midline. No JVD or lymphadenopathy. CARDIOVASCULAR: Irregular rate and rhythm, without murmurs, gallops, or rubs. RESPIRATORY: Breath sounds equal bilaterally. No accessory muscle use. GASTROINTESTINAL: Abdomen soft, non-tender, nondistended. MUSCULOSKELETAL: No cyanosis, or edema. Laboratory Laboratory Tests Test 01/22/17 08:51 01/22/17 17:50 White Blood Count 8.8 TH/MM3 Red Blood Count 4.12 MIL/MM3 Hemoglobin 12.5 GM/DL Hematocrit 36.7 % Mean Corpuscular Volume 89.1 FL Mean Corpuscular Hemoglobin 30.3 PG Mean Corpuscular Hemoglobin Concent 34.0 % Red Cell Distribution Width 16.0 % Platelet Count 223 TH/MM3 Mean Platelet Volume 8.6 FL Neutrophils (%) (Auto) 75.3 % Lymphocytes (%) (Auto) 13.0 % Monocytes (%) (Auto) 9.5 % Eosinophils (%) (Auto) 1.6 % Basophils (%) (Auto) 0.6 % Neutrophils # (Auto) 6.6 TH/MM3 Lymphocytes # (Auto) 1.1 TH/MM3 Monocytes # (Auto) 0.8 TH/MM3 Eosinophils # (Auto) 0.1 TH/MM3 Basophils # (Auto) 0.0 TH/MM3 CBC Comment DIFF FINAL Differential Comment Blood Urea Nitrogen 17 MG/DL Creatinine 1.03 MG/DL Random Glucose 96 MG/DL Calcium Level 9.0 MG/DL Sodium Level 142 MEQ/L Potassium Level 3.3 MEQ/L Chloride Level 105 MEQ/L Carbon Dioxide Level 29.7 MEQ/L Anion Gap 7 MEQ/L Estimat Glomerular Filtration Rate 70 ML/MIN Uric Acid 4.7 MG/DL Synovial Fluid Color RED Synovial Fluid Appearance MARKED Synovial Fluid WBC 440 /MM3 Synovial Fluid RBC 350775 /MM3 Synovial Fluid Neutrophils 99 % Synovial Fluid Lymphocytes 1 % Synovial Fluid Crystals NONE Assessment and Plan Problem List: (1) Septic joint of left wrist ICD Codes: M00.9 - Pyogenic arthritis, unspecified Status: Acute (2) Atrial fibrillation ICD Codes: I48.91 - Unspecified atrial fibrillation Status: Chronic (3) COPD (chronic obstructive pulmonary disease) ICD Codes: J44.9 - Chronic obstructive pulmonary disease, unspecified Status: Chronic (4) HTN (hypertension) ICD Codes: I10 - Essential (primary) hypertension Status: Chronic (5) CAD (coronary artery disease) ICD Codes: I25.10 - Atherosclerotic heart disease of [place] coronary artery without angina pectoris Assessment and Plan Continue Eliquis to decrease the risk of stroke with a fib. Continue rate control. Continue antihypertensive tx. F/u w me as outpatient will be scheduled. Problem Qualifiers (1) Septic joint of left wrist: Qualified Codes: M00.9 - Pyogenic arthritis, unspecified (2) HTN (hypertension): Qualified Codes: I10 - Essential (primary) hypertension Hadley Mckinnon MD Jan 22, 2017 21:59
--- NOTE | 2017-01-22 21:59 | PD.CARD.PN ---
Subjective Subjective Remarks No CP or SOB, feels better Objective Medications Current Medications Medications (Trade) Dose Ordered Sig/Mari Route Start Time Stop Time Status Last Admin (NS Flush) 2 ml UNSCH PRN IV FLUSH 01/19/17 19:45 (NS Flush) 2 ml BID IV FLUSH 01/19/17 21:00 01/22/17 21:00 (Narcan Inj) 0.4 mg UNSCH PRN IV PUSH 01/19/17 19:45 Pharmacy Profile Note 0 ml @ 0 mls/hr UNSCH OTHER 01/19/17 19:45 (Duoneb Neb) 1 ampule Q6HR NEB NEB 01/20/17 04:00 01/22/17 15:13 (Duoneb Neb) 1 ampule Q2HR NEB PRN NEB 01/20/17 00:00 01/21/17 14:31 (Symbicort 160-4.5 Inh) 1 puff Q12HR INH 01/20/17 09:00 01/22/17 21:16 (Lanoxin) 0.125 mg DAILY PO 01/20/17 09:00 01/22/17 09:01 (Cardizem) 60 mg TID PO 01/20/17 09:00 01/22/17 18:17 (Pepcid) 20 mg DAILY PO 01/20/17 09:00 01/22/17 09:01 (Proscar) 5 mg DAILY PO 01/20/17 09:00 01/22/17 09:00 (Lasix) 40 mg DAILY PO 01/20/17 09:00 01/22/17 09:00 (Prinivil) 10 mg BID PO 01/20/17 09:00 01/22/17 21:08 (Flomax) 0.4 mg HS PO 01/20/17 21:00 01/22/17 21:07 Lactated Ringer's 1,000 ml @ 30 mls/hr Q24H PRN IV 01/20/17 20:15 01/23/17 20:14 Sodium Chloride 500 ml @ 30 mls/hr [id number] PRN IV 01/20/17 20:15 01/23/17 20:14 (Lopressor) 25 mg GREIGE GOODS MARKER PRN PO 01/20/17 20:15 01/23/17 20:14 (Betadine 5% Antisepsis Kit) 1 applic GREIGE [employer] MARKER PRN EACH NARE 01/20/17 20:15 01/23/17 20:14 (Chlorhexidine 2% Cloth) 3 pack GREIGE GOODS MARKER PRN TOPICAL 01/20/17 20:15 01/23/17 20:14 (NovoLIN R INJ) See Protocol Table ... GREIGE GOODS MARKER PRN SQ 01/20/17 20:15 01/23/17 20:14 ([place] 5-325 Mg) 1 tab Q4H PRN PO 01/21/17 01:30 01/22/17 18:17 Vancomycin HCl 1750 mg/Sodium Chloride 517.5 ml @ 250 mls/hr Q12H IV 01/21/17 18:00 01/22/17 18:17 Miscellaneous Information SPECIFIC LAB TO BE DRAWN:VANCOMYCIN TROUGH DATE TO... ONCE ONCE .XX 01/23/17 05:45 01/23/17 05:46 (KCl) 10 meq DAILY PO 01/21/17 17:00 01/22/17 09:00 (Zithromax) 250 mg DAILY PO 01/22/17 09:00 01/26/17 08:59 01/22/17 09:00 (Nova-Colace) 1 tab BID PO 01/21/17 21:00 01/22/17 21:07 Cefepime HCl 2000 mg/Sodium Chloride 100 ml @ 200 mls/hr Q8H IV 01/22/17 18:00 01/22/17 18:16 (Eliquis) 5 mg BID PO 01/22/17 21:00 01/22/17 21:08 Vital Signs / I&O Vital Signs Date Time Temp Pulse Resp B/P (MAP) Pulse Ox O2 Delivery O2 Flow Rate FiO2 01/22/17 20:00 97.9 87 20 113/58 (76) 91 01/22/17 16:23 97.4 75 20 110/55 (73) 90 01/22/17 11:57 98.0 78 20 109/57 (74) 94 01/22/17 09:24 94 Nasal Cannula 3.00 01/22/17 08:08 98.0 67 20 117/75 (89) 92 01/22/17 05:06 93 Nasal Cannula 2.00 01/22/17 04:22 98.0 75 20 102/55 (71) 92 01/22/17 01:28 97.7 84 20 101/58 (72) 98 01/21/17 23:02 83 I/O 01/21/17 01/21/17 01/21/17 01/22/17 01/22/17 01/22/17 07:00 15:00 23:00 07:00 15:00 23:00 Intake Total 300 ml 480 ml 240 ml Output Total 210 ml 300 ml 500 ml 200 ml Balance -210 ml 0 ml -20 ml 40 ml Intake Oral 480 ml 240 ml IV Total 300 ml Output Urine Total 200 ml 300 ml 500 ml 200 ml Drainage Total 10 ml # Voids 5 # Bowel Movements 0 Physical Exam GENERAL: IN NAD SKIN: Warm and dry. HEAD: Normocephalic. EYES: No scleral icterus. No injection or drainage. NECK: Supple, trachea midline. No JVD or lymphadenopathy. CARDIOVASCULAR: Irregular rate and rhythm, without murmurs, gallops, or rubs. RESPIRATORY: Breath sounds equal bilaterally. No accessory muscle use. GASTROINTESTINAL: Abdomen soft, non-tender, nondistended. MUSCULOSKELETAL: No cyanosis, or edema. Laboratory Laboratory Tests Test 01/22/17 08:51 01/22/17 17:50 White Blood Count 8.8 TH/MM3 Red Blood Count 4.12 MIL/MM3 Hemoglobin 12.5 GM/DL Hematocrit 36.7 % Mean Corpuscular Volume 89.1 FL Mean Corpuscular Hemoglobin 30.3 PG Mean Corpuscular Hemoglobin Concent 34.0 % Red Cell Distribution Width 16.0 % Platelet Count 223 TH/MM3 Mean Platelet Volume 8.6 FL Neutrophils (%) (Auto) 75.3 % Lymphocytes (%) (Auto) 13.0 % Monocytes (%) (Auto) 9.5 % Eosinophils (%) (Auto) 1.6 % Basophils (%) (Auto) 0.6 % Neutrophils # (Auto) 6.6 TH/MM3 Lymphocytes # (Auto) 1.1 TH/MM3 Monocytes # (Auto) 0.8 TH/MM3 Eosinophils # (Auto) 0.1 TH/MM3 Basophils # (Auto) 0.0 TH/MM3 CBC Comment DIFF FINAL Differential Comment Blood Urea Nitrogen 17 MG/DL Creatinine 1.03 MG/DL Random Glucose 96 MG/DL Calcium Level 9.0 MG/DL Sodium Level 142 MEQ/L Potassium Level 3.3 MEQ/L Chloride Level 105 MEQ/L Carbon Dioxide Level 29.7 MEQ/L Anion Gap 7 MEQ/L Estimat Glomerular Filtration Rate 70 ML/MIN Uric Acid 4.7 MG/DL Synovial Fluid Color RED Synovial Fluid Appearance MARKED Synovial Fluid WBC 440 /MM3 Synovial Fluid RBC 843314 /MM3 Synovial Fluid Neutrophils 99 % Synovial Fluid Lymphocytes 1 % Synovial Fluid Crystals NONE Assessment and Plan Problem List: (1) Septic joint of left wrist ICD Codes: M00.9 - Pyogenic arthritis, unspecified Status: Acute (2) Atrial fibrillation ICD Codes: I48.91 - Unspecified atrial fibrillation Status: Chronic (3) COPD (chronic obstructive pulmonary disease) ICD Codes: J44.9 - Chronic obstructive pulmonary disease, unspecified Status: Chronic (4) HTN (hypertension) ICD Codes: I10 - Essential (primary) hypertension Status: Chronic (5) CAD (coronary artery disease) ICD Codes: I25.10 - Atherosclerotic heart disease of [place] coronary artery without angina pectoris Assessment and Plan Continue Eliquis to decrease the risk of stroke with a fib. Continue rate control. Continue antihypertensive tx. F/u w me as outpatient will be scheduled. Problem Qualifiers (1) Septic joint of left wrist: Qualified Codes: M00.9 - Pyogenic arthritis, unspecified (2) HTN (hypertension): Qualified Codes: I10 - Essential (primary) hypertension Hadley Mckinnon MD Jan 22, 2017 21:59
[2017-01-23] VITALS (10 sets, daily range): BP systolic 108–179; BP diastolic 56–87; PULSE 65–114; RESP 18–20; TEMP 97–98.1; O2SAT 93–96
[2017-01-23] MEDS: CEFEPIME INJ 2,000 MG in SODIUM CHLORIDE 0.9% INJ 100 ML IV SCH ×12 (02:10→18:23)
[2017-01-23] MEDS: RESP: ALBUTEROL 2.5 MG/IPRATROPIUM 0.5 MG NEB (SCH) NEB ×8 (04:00→22:01)
[2017-01-23] MEDS ORDERED: PHARMACY ORDERED LAB ONE ×2 (05:45)
[2017-01-23] MEDS: VANCOMYCIN INJ 1,750 MG in SODIUM CHLORID 0.9% 500 ML INJ 500 ML IV SCH ×4 (06:07)
[2017-01-23] MEDS: ACETAMINOPHEN/HYDROcodone 325 MG/5 MG TAB PO PRN ×8 (06:08→22:02)
[2017-01-23 06:39] LABS: VANCOMYCIN TROUGH 25.7 MCG/ML (5.0-10.0)
[2017-01-23] MEDS: SODIUM CHLORIDE 0.9% FLUSH 10 ML FLUSH IV FLUSH SCH ×4 (09:00→21:15)
[2017-01-23] MEDS: AZITHROMYCIN 250 MG TAB PO SCH ×2 (09:38)
[2017-01-23] MEDS: FINASTERIDE 5 MG TAB PO SCH ×2 (09:40)
[2017-01-23] MEDS: DIGOXIN 0.125 MG TAB PO SCH ×2 (09:40)
[2017-01-23] MEDS: DILTIAZEM HCL 60 MG TAB PO SCH ×6 (09:40→18:23)
[2017-01-23] MEDS: LISINOPRIL 10 MG TAB PO SCH ×4 (09:41→21:15)
[2017-01-23] MEDS: APIXABAN 5 MG TABLET PO SCH ×4 (09:41→21:15)
[2017-01-23] MEDS: POTASSIUM CHLORIDE 10 MEQ CONTROLLED RELEASE TAB PO SCH ×2 (09:41)
[2017-01-23] MEDS: DOCUSATE SODIUM 50 MG/SENNA 8.6 MG TAB PO SCH ×4 (09:41→21:15)
[2017-01-23] MEDS: FAMOTIDINE 20 MG TAB PO SCH ×2 (09:41)
[2017-01-23] MEDS: FUROSEMIDE 40 MG TAB PO SCH ×2 (09:42)
[2017-01-23] MEDS: BUDESONIDE-FORMOTEROL 160/4.5 MCG INHALER INH SCH ×4 (09:42→21:15)
--- NOTE | 2017-01-23 15:19 | HHI.PR ---
Subjective Remarks Written by Maryann Preciado, acting as scribe for Dr. Bustillo on 01/23/17 at 15:19. Follow up on patient with wrist infection, afib, PNA. Patient seen and examined. Patient complaining of yellowish discharge from eyes x 2 days. Some decreased vision/cloudy vision. (+)gritty sensation. Patient reports cough with some sputum production. Denies any chest pain. Dyspnea same. Objective Vitals Vital Signs Date Time Temp Pulse Resp B/P (MAP) Pulse Ox O2 Delivery O2 Flow Rate FiO2 01/23/17 12:15 98.0 88 20 108/56 (73) 94 01/23/17 10:53 93 Nasal Cannula 2.00 01/23/17 08:04 97.9 82 20 122/65 (84) 96 01/23/17 07:00 22 01/23/17 04:00 97.9 85 20 130/62 (84) 94 01/23/17 00:00 97.0 80 18 110/64 (79) 93 01/22/17 22:27 93 Nasal Cannula 3.00 01/22/17 20:00 97.9 87 20 113/58 (76) 91 01/22/17 16:23 97.4 75 20 110/55 (73) 90 I/O 01/22/17 01/22/17 01/22/17 01/23/17 01/23/17 01/23/17 07:00 15:00 23:00 07:00 15:00 23:00 Intake Total 300 ml 480 ml 240 ml 350 ml 360 ml Output Total 300 ml 500 ml 400 ml 500 ml 175 ml Balance 0 ml -20 ml -160 ml -150 ml 185 ml Intake Oral 480 ml 240 ml 360 ml IV Total 300 ml 350 ml Output Urine Total 300 ml 500 ml 400 ml 500 ml 175 ml Result Diagram: 01/22/17 0851 01/22/17 0851 Imaging Last Impressions Chest X-Ray 01/21/17 0000 Signed Impressions: Service Date/Time: December 17:30 - CONCLUSION: 1. No acute cardiopulmonary findings. 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 Smooth margined cystic lesion in the distal scaphoid. No fracture seen. 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 German Padron MD Objective Remarks General: Elderly male in no acute distress. Sitting in bedside chair. at the bedside. Appears comfortable. Eyes: (+)conjunctival irritation/erythema with mucus discharge. Heart: Regular rate and rhythm. No murmur. Lungs: Mild crackles in left lung base, improved from yesterday. Breathing is nonlabored. Abdomen: Soft, nontender, nondistended. Extremities: No lower extremity edema. Left upper extremity in a dea wrap. Psych: Alert and oriented. Procedures 01/20/17 left wrist arthrotomy with irrigation & debridement, drain placement Medications and IVs Current Medications Medications (Trade) Dose Ordered Sig/Mari Route Start Time Stop Time Status Last Admin (NS Flush) 2 ml UNSCH PRN IV FLUSH 01/19/17 19:45 (NS Flush) 2 ml BID IV FLUSH 01/19/17 21:00 01/23/17 09:00 (Narcan Inj) 0.4 mg UNSCH PRN IV PUSH 01/19/17 19:45 Pharmacy Profile Note 0 ml @ 0 mls/hr UNSCH OTHER 01/19/17 19:45 (Duoneb Neb) 1 ampule Q6HR NEB NEB 01/20/17 04:00 01/23/17 10:48 (Duoneb Neb) 1 ampule Q2HR NEB PRN NEB 01/20/17 00:00 01/21/17 14:31 (Symbicort 160-4.5 Inh) 1 puff Q12HR INH 01/20/17 09:00 01/23/17 09:42 (Lanoxin) 0.125 mg DAILY PO 01/20/17 09:00 01/23/17 09:40 (Cardizem) 60 mg TID PO 01/20/17 09:00 01/23/17 09:40 (Pepcid) 20 mg DAILY PO 01/20/17 09:00 01/23/17 09:41 (Proscar) 5 mg DAILY PO 01/20/17 09:00 01/23/17 09:40 (Lasix) 40 mg DAILY PO 01/20/17 09:00 01/23/17 09:42 (Prinivil) 10 mg BID PO 01/20/17 09:00 01/23/17 09:41 (Flomax) 0.4 mg HS PO 01/20/17 21:00 01/22/17 21:07 Lactated Ringer's 1,000 ml @ 30 mls/hr Q24H PRN IV 01/20/17 20:15 01/23/17 20:14 Sodium Chloride 500 ml @ 30 mls/hr [id number] PRN IV 01/20/17 20:15 01/23/17 20:14 (Lopressor) 25 mg FLOAT PHLEBOTOMIST PRN PO 01/20/17 20:15 01/23/17 20:14 (Betadine 5% Antisepsis Kit) 1 applic FLOAT PHLEBOTOMIST PRN EACH NARE 01/20/17 20:15 01/23/17 20:14 (Chlorhexidine 2% Cloth) 3 pack FLOAT PHLEBOTOMIST PRN TOPICAL 01/20/17 20:15 01/23/17 20:14 (NovoLIN R INJ) See Protocol Table ... FLOAT PHLEBOTOMIST PRN SQ 01/20/17 20:15 01/23/17 20:14 ([place] 5-325 Mg) 1 tab Q4H PRN PO 01/21/17 01:30 01/23/17 12:40 Vancomycin HCl 1750 mg/Sodium Chloride 517.5 ml @ 250 mls/hr Q12H IV 01/21/17 18:00 Future hold 01/23/17 06:07 (KCl) 10 meq DAILY PO 01/21/17 17:00 01/23/17 09:41 (Zithromax) 250 mg DAILY PO 01/22/17 09:00 01/26/17 08:59 01/23/17 09:38 (Nova-Colace) 1 tab BID PO 01/21/17 21:00 01/23/17 09:41 Cefepime HCl 2000 mg/Sodium Chloride 100 ml @ 200 mls/hr Q8H IV 01/22/17 18:00 01/23/17 11:00 (Eliquis) 5 mg BID PO 01/22/17 21:00 01/23/17 09:41 (Xanax) 0.5 mg BID PRN PO 01/23/17 11:30 A/P Problem List: (1) Septic joint of left wrist ICD Code: M00.9 - Pyogenic arthritis, unspecified Status: Acute (2) HTN (hypertension) ICD Code: I10 - Essential (primary) hypertension Status: Chronic (3) Atrial fibrillation ICD Code: I48.91 - Unspecified atrial fibrillation Status: Chronic (4) COPD (chronic obstructive pulmonary disease) ICD Code: J44.9 - Chronic obstructive pulmonary disease, unspecified Status: Chronic (5) Wrist joint effusion ICD Code: M25.439 - Effusion, unspecified wrist Status: Acute Assessment and Plan 1. Septic joint, left wrist: S/P arthrotomy, incision/debridement. Appreciate hand surgery recommendations. Drain removed. Uric acid ordered/4.7. Continue antibiotics. Cultures are negative so far. 2. A-fib, chronic: Continue cardizem. Okay to resume Eliquis per Dr. Rudolph. Eliquis restarted. 3. COPD: Patient reporting cough, dyspnea. Duonebs, supplemental oxygen. 4. Possible PNA: CXR personally reviewed shows no acute findings. Started on Azithromycin, continued on Vanco and changed from Zosyn to Cefepime per ID. Obtain sputum culture. Recent PNA while inpatient. Plan to repeat CXR on Wednesday. 5. Hypertension: Chronic. Hypotensive now. Continue home medications with parameters. 6. Hypokalemia: Continue supplementation. Repeat BMP pending. 7. Conjunctivitis: Start abx drops. Monitor. 8. DVT prophylaxis: SCDs. Eliquis restarted. This note was transcribed by santos Preciado. I, Dr. Kevin Bustillo personally performed the history, physical exam, and medical decision making; and confirmed the accuracy of the information in the transcribed note. Authenticated by Dr. Kevin Bustillo on 01/23/17 at 15:24. Problem Qualifiers (1) Septic joint of left wrist: Qualified Codes: M00.9 - Pyogenic arthritis, unspecified (2) HTN (hypertension): Qualified Codes: I10 - Essential (primary) hypertension (3) Wrist joint effusion: Qualified Codes: M25.432 - Effusion, left wrist Maryann Preciado Jan 23, 2017 15:19 Kevin Bustillo MD Jan 23, 2017 15:25
--- NOTE | 2017-01-23 15:19 | HHI.PR ---
Subjective Remarks Written by Maryann Preciado, acting as scribe for Dr. Bustillo on 01/23/17 at 15:19. Follow up on patient with wrist infection, afib, PNA. Patient seen and examined. Patient complaining of yellowish discharge from eyes x 2 days. Some decreased vision/cloudy vision. (+)gritty sensation. Patient reports cough with some sputum production. Denies any chest pain. Dyspnea same. Objective Vitals Vital Signs Date Time Temp Pulse Resp B/P (MAP) Pulse Ox O2 Delivery O2 Flow Rate FiO2 01/23/17 12:15 98.0 88 20 108/56 (73) 94 01/23/17 10:53 93 Nasal Cannula 2.00 01/23/17 08:04 97.9 82 20 122/65 (84) 96 01/23/17 07:00 22 01/23/17 04:00 97.9 85 20 130/62 (84) 94 01/23/17 00:00 97.0 80 18 110/64 (79) 93 01/22/17 22:27 93 Nasal Cannula 3.00 01/22/17 20:00 97.9 87 20 113/58 (76) 91 01/22/17 16:23 97.4 75 20 110/55 (73) 90 I/O 01/22/17 01/22/17 01/22/17 01/23/17 01/23/17 01/23/17 07:00 15:00 23:00 07:00 15:00 23:00 Intake Total 300 ml 480 ml 240 ml 350 ml 360 ml Output Total 300 ml 500 ml 400 ml 500 ml 175 ml Balance 0 ml -20 ml -160 ml -150 ml 185 ml Intake Oral 480 ml 240 ml 360 ml IV Total 300 ml 350 ml Output Urine Total 300 ml 500 ml 400 ml 500 ml 175 ml Result Diagram: 01/22/17 0851 01/22/17 0851 Imaging Last Impressions Chest X-Ray 01/21/17 0000 Signed Impressions: Service Date/Time: December 17:30 - CONCLUSION: 1. No acute cardiopulmonary findings. 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 Smooth margined cystic lesion in the distal scaphoid. No fracture seen. 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 German Padron MD Objective Remarks General: Elderly male in no acute distress. Sitting in bedside chair. at the bedside. Appears comfortable. Eyes: (+)conjunctival irritation/erythema with mucus discharge. Heart: Regular rate and rhythm. No murmur. Lungs: Mild crackles in left lung base, improved from yesterday. Breathing is nonlabored. Abdomen: Soft, nontender, nondistended. Extremities: No lower extremity edema. Left upper extremity in a dea wrap. Psych: Alert and oriented. Procedures 01/20/17 left wrist arthrotomy with irrigation & debridement, drain placement Medications and IVs Current Medications Medications (Trade) Dose Ordered Sig/Mari Route Start Time Stop Time Status Last Admin (NS Flush) 2 ml UNSCH PRN IV FLUSH 01/19/17 19:45 (NS Flush) 2 ml BID IV FLUSH 01/19/17 21:00 01/23/17 09:00 (Narcan Inj) 0.4 mg UNSCH PRN IV PUSH 01/19/17 19:45 Pharmacy Profile Note 0 ml @ 0 mls/hr UNSCH OTHER 01/19/17 19:45 (Duoneb Neb) 1 ampule Q6HR NEB NEB 01/20/17 04:00 01/23/17 10:48 (Duoneb Neb) 1 ampule Q2HR NEB PRN NEB 01/20/17 00:00 01/21/17 14:31 (Symbicort 160-4.5 Inh) 1 puff Q12HR INH 01/20/17 09:00 01/23/17 09:42 (Lanoxin) 0.125 mg DAILY PO 01/20/17 09:00 01/23/17 09:40 (Cardizem) 60 mg TID PO 01/20/17 09:00 01/23/17 09:40 (Pepcid) 20 mg DAILY PO 01/20/17 09:00 01/23/17 09:41 (Proscar) 5 mg DAILY PO 01/20/17 09:00 01/23/17 09:40 (Lasix) 40 mg DAILY PO 01/20/17 09:00 01/23/17 09:42 (Prinivil) 10 mg BID PO 01/20/17 09:00 01/23/17 09:41 (Flomax) 0.4 mg HS PO 01/20/17 21:00 01/22/17 21:07 Lactated Ringer's 1,000 ml @ 30 mls/hr Q24H PRN IV 01/20/17 20:15 01/23/17 20:14 Sodium Chloride 500 ml @ 30 mls/hr [id number] PRN IV 01/20/17 20:15 01/23/17 20:14 (Lopressor) 25 mg POSTPARTUM RN PRN PO 01/20/17 20:15 01/23/17 20:14 (Betadine 5% Antisepsis Kit) 1 applic POSTPARTUM RN PRN EACH NARE 01/20/17 20:15 01/23/17 20:14 (Chlorhexidine 2% Cloth) 3 pack POSTPARTUM RN PRN TOPICAL 01/20/17 20:15 01/23/17 20:14 (NovoLIN R INJ) See Protocol Table ... POSTPARTUM RN PRN SQ 01/20/17 20:15 01/23/17 20:14 (Gifford 5-325 Mg) 1 tab Q4H PRN PO 01/21/17 01:30 01/23/17 12:40 Vancomycin HCl 1750 mg/Sodium Chloride 517.5 ml @ 250 mls/hr Q12H IV 01/21/17 18:00 Future hold 01/23/17 06:07 (KCl) 10 meq DAILY PO 01/21/17 17:00 01/23/17 09:41 (Zithromax) 250 mg DAILY PO 01/22/17 09:00 01/26/17 08:59 01/23/17 09:38 (Nova-Colace) 1 tab BID PO 01/21/17 21:00 01/23/17 09:41 Cefepime HCl 2000 mg/Sodium Chloride 100 ml @ 200 mls/hr Q8H IV 01/22/17 18:00 01/23/17 11:00 (Eliquis) 5 mg BID PO 01/22/17 21:00 01/23/17 09:41 (Xanax) 0.5 mg BID PRN PO 01/23/17 11:30 A/P Problem List: (1) Septic joint of left wrist ICD Code: M00.9 - Pyogenic arthritis, unspecified Status: Acute (2) HTN (hypertension) ICD Code: I10 - Essential (primary) hypertension Status: Chronic (3) Atrial fibrillation ICD Code: I48.91 - Unspecified atrial fibrillation Status: Chronic (4) COPD (chronic obstructive pulmonary disease) ICD Code: J44.9 - Chronic obstructive pulmonary disease, unspecified Status: Chronic (5) Wrist joint effusion ICD Code: M25.439 - Effusion, unspecified wrist Status: Acute Assessment and Plan 1. Septic joint, left wrist: S/P arthrotomy, incision/debridement. Appreciate hand surgery recommendations. Drain removed. Uric acid ordered/4.7. Continue antibiotics. Cultures are negative so far. 2. A-fib, chronic: Continue cardizem. Okay to resume Eliquis per Dr. Rudolph. Eliquis restarted. 3. COPD: Patient reporting cough, dyspnea. Duonebs, supplemental oxygen. 4. Possible PNA: CXR personally reviewed shows no acute findings. Started on Azithromycin, continued on Vanco and changed from Zosyn to Cefepime per ID. Obtain sputum culture. Recent PNA while inpatient. Plan to repeat CXR on Wednesday. 5. Hypertension: Chronic. Hypotensive now. Continue home medications with parameters. 6. Hypokalemia: Continue supplementation. Repeat BMP pending. 7. Conjunctivitis: Start abx drops. Monitor. 8. DVT prophylaxis: SCDs. Eliquis restarted. This note was transcribed by santos Preciado. I, Dr. eKvin Bustillo personally performed the history, physical exam, and medical decision making; and confirmed the accuracy of the information in the transcribed note. Authenticated by Dr. Kevin Bustillo on 01/23/17 at 15:24. Problem Qualifiers (1) Septic joint of left wrist: Qualified Codes: M00.9 - Pyogenic arthritis, unspecified (2) HTN (hypertension): Qualified Codes: I10 - Essential (primary) hypertension (3) Wrist joint effusion: Qualified Codes: M25.432 - Effusion, left wrist Maryann Preciado Jan 23, 2017 15:19 Kevin Bustillo MD Jan 23, 2017 15:25
--- NOTE | 2017-01-23 15:19 | HHI.PR ---
Subjective Remarks Written by Maryann Preciado, acting as scribe for Dr. Bustillo on 01/23/17 at 15:19. Follow up on patient with wrist infection, afib, PNA. Patient seen and examined. Patient complaining of yellowish discharge from eyes x 2 days. Some decreased vision/cloudy vision. (+)gritty sensation. Patient reports cough with some sputum production. Denies any chest pain. Dyspnea same. Objective Vitals Vital Signs Date Time Temp Pulse Resp B/P (MAP) Pulse Ox O2 Delivery O2 Flow Rate FiO2 01/23/17 12:15 98.0 88 20 108/56 (73) 94 01/23/17 10:53 93 Nasal Cannula 2.00 01/23/17 08:04 97.9 82 20 122/65 (84) 96 01/23/17 07:00 22 01/23/17 04:00 97.9 85 20 130/62 (84) 94 01/23/17 00:00 97.0 80 18 110/64 (79) 93 01/22/17 22:27 93 Nasal Cannula 3.00 01/22/17 20:00 97.9 87 20 113/58 (76) 91 01/22/17 16:23 97.4 75 20 110/55 (73) 90 I/O 01/22/17 01/22/17 01/22/17 01/23/17 01/23/17 01/23/17 07:00 15:00 23:00 07:00 15:00 23:00 Intake Total 300 ml 480 ml 240 ml 350 ml 360 ml Output Total 300 ml 500 ml 400 ml 500 ml 175 ml Balance 0 ml -20 ml -160 ml -150 ml 185 ml Intake Oral 480 ml 240 ml 360 ml IV Total 300 ml 350 ml Output Urine Total 300 ml 500 ml 400 ml 500 ml 175 ml Result Diagram: 01/22/17 0851 01/22/17 0851 Imaging Last Impressions Chest X-Ray 01/21/17 0000 Signed Impressions: Service Date/Time: December 17:30 - CONCLUSION: 1. No acute cardiopulmonary findings. 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 Smooth margined cystic lesion in the distal scaphoid. No fracture seen. 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 German Padron MD Objective Remarks General: Elderly male in no acute distress. Sitting in bedside chair. at the bedside. Appears comfortable. Eyes: (+)conjunctival irritation/erythema with mucus discharge. Heart: Regular rate and rhythm. No murmur. Lungs: Mild crackles in left lung base, improved from yesterday. Breathing is nonlabored. Abdomen: Soft, nontender, nondistended. Extremities: No lower extremity edema. Left upper extremity in a dea wrap. Psych: Alert and oriented. Procedures 01/20/17 left wrist arthrotomy with irrigation & debridement, drain placement Medications and IVs Current Medications Medications (Trade) Dose Ordered Sig/Mari Route Start Time Stop Time Status Last Admin (NS Flush) 2 ml UNSCH PRN IV FLUSH 01/19/17 19:45 (NS Flush) 2 ml BID IV FLUSH 01/19/17 21:00 01/23/17 09:00 (Narcan Inj) 0.4 mg UNSCH PRN IV PUSH 01/19/17 19:45 Pharmacy Profile Note 0 ml @ 0 mls/hr UNSCH OTHER 01/19/17 19:45 (Duoneb Neb) 1 ampule Q6HR NEB NEB 01/20/17 04:00 01/23/17 10:48 (Duoneb Neb) 1 ampule Q2HR NEB PRN NEB 01/20/17 00:00 01/21/17 14:31 (Symbicort 160-4.5 Inh) 1 puff Q12HR INH 01/20/17 09:00 01/23/17 09:42 (Lanoxin) 0.125 mg DAILY PO 01/20/17 09:00 01/23/17 09:40 (Cardizem) 60 mg TID PO 01/20/17 09:00 01/23/17 09:40 (Pepcid) 20 mg DAILY PO 01/20/17 09:00 01/23/17 09:41 (Proscar) 5 mg DAILY PO 01/20/17 09:00 01/23/17 09:40 (Lasix) 40 mg DAILY PO 01/20/17 09:00 01/23/17 09:42 (Prinivil) 10 mg BID PO 01/20/17 09:00 01/23/17 09:41 (Flomax) 0.4 mg HS PO 01/20/17 21:00 01/22/17 21:07 Lactated Ringer's 1,000 ml @ 30 mls/hr Q24H PRN IV 01/20/17 20:15 01/23/17 20:14 Sodium Chloride 500 ml @ 30 mls/hr [id number] PRN IV 01/20/17 20:15 01/23/17 20:14 (Lopressor) 25 mg PATRON ATTENDANT PRN PO 01/20/17 20:15 01/23/17 20:14 (Betadine 5% Antisepsis Kit) 1 applic PATRON ATTENDANT PRN EACH NARE 01/20/17 20:15 01/23/17 20:14 (Chlorhexidine 2% Cloth) 3 pack PATRON ATTENDANT PRN TOPICAL 01/20/17 20:15 01/23/17 20:14 (NovoLIN R INJ) See Protocol Table ... PATRON ATTENDANT PRN SQ 01/20/17 20:15 01/23/17 20:14 (Franklin 5-325 Mg) 1 tab Q4H PRN PO 01/21/17 01:30 01/23/17 12:40 Vancomycin HCl 1750 mg/Sodium Chloride 517.5 ml @ 250 mls/hr Q12H IV 01/21/17 18:00 Future hold 01/23/17 06:07 (KCl) 10 meq DAILY PO 01/21/17 17:00 01/23/17 09:41 (Zithromax) 250 mg DAILY PO 01/22/17 09:00 01/26/17 08:59 01/23/17 09:38 (Nova-Colace) 1 tab BID PO 01/21/17 21:00 01/23/17 09:41 Cefepime HCl 2000 mg/Sodium Chloride 100 ml @ 200 mls/hr Q8H IV 01/22/17 18:00 01/23/17 11:00 (Eliquis) 5 mg BID PO 01/22/17 21:00 01/23/17 09:41 (Xanax) 0.5 mg BID PRN PO 01/23/17 11:30 A/P Problem List: (1) Septic joint of left wrist ICD Code: M00.9 - Pyogenic arthritis, unspecified Status: Acute (2) HTN (hypertension) ICD Code: I10 - Essential (primary) hypertension Status: Chronic (3) Atrial fibrillation ICD Code: I48.91 - Unspecified atrial fibrillation Status: Chronic (4) COPD (chronic obstructive pulmonary disease) ICD Code: J44.9 - Chronic obstructive pulmonary disease, unspecified Status: Chronic (5) Wrist joint effusion ICD Code: M25.439 - Effusion, unspecified wrist Status: Acute Assessment and Plan 1. Septic joint, left wrist: S/P arthrotomy, incision/debridement. Appreciate hand surgery recommendations. Drain removed. Uric acid ordered/4.7. Continue antibiotics. Cultures are negative so far. 2. A-fib, chronic: Continue cardizem. Okay to resume Eliquis per Dr. Rudolph. Eliquis restarted. 3. COPD: Patient reporting cough, dyspnea. Duonebs, supplemental oxygen. 4. Possible PNA: CXR personally reviewed shows no acute findings. Started on Azithromycin, continued on Vanco and changed from Zosyn to Cefepime per ID. Obtain sputum culture. Recent PNA while inpatient. Plan to repeat CXR on Wednesday. 5. Hypertension: Chronic. Hypotensive now. Continue home medications with parameters. 6. Hypokalemia: Continue supplementation. Repeat BMP pending. 7. Conjunctivitis: Start abx drops. Monitor. 8. DVT prophylaxis: SCDs. Eliquis restarted. This note was transcribed by santos Preciado. I, Dr. Kevin Bustillo personally performed the history, physical exam, and medical decision making; and confirmed the accuracy of the information in the transcribed note. Authenticated by Dr. Kevin Bustillo on 01/23/17 at 15:24. Problem Qualifiers (1) Septic joint of left wrist: Qualified Codes: M00.9 - Pyogenic arthritis, unspecified (2) HTN (hypertension): Qualified Codes: I10 - Essential (primary) hypertension (3) Wrist joint effusion: Qualified Codes: M25.432 - Effusion, left wrist Maryann Preciado Jan 23, 2017 15:19 Kevin Bustillo MD Jan 23, 2017 15:25
--- NOTE | 2017-01-23 16:27 | MB ---
cc: PAPI CARDONA DATE OF CONSULTATION: 01/20/2017. REASON FOR CONSULTATION: Left wrist pain. HISTORY OF PRESENT ILLNESS: Sonny Pack is a pleasant 76-year-old right hand dominant male with past medical history significant for COPD and atrial fibrillation, no history of gout who presents with acute pain over the left wrist. The patient does take Eliquis. He is on oxygen. He denies any injury to the wrist. He states that he woke up at home with severe wrist pain; again, with no inciting trauma or injury. He denies any prior problems with the wrist or any symptoms consistent with gout. He was recently hospitalized for many weeks for pneumonia. He was on antibiotics for long-term. The patient reports some mild improvement on the IV antibiotics but persistent pain with range of motion of the wrist. PAST MEDICAL HISTORY: 1. COPD on oxygen. 2. Atrial fibrillation on Eliquis. 3. Myocardial infarction with stent placement. 4. Hypertension. PAST SURGICAL HISTORY: 1. Cardiac stents. 2. Umbilical hernia repair. 3. Rectal prolapse repair. 4. Osteochondroma. MEDICATIONS: 1. Lasix. 2. Lisinopril. 3. Symbicort. 4. Tamsulosin. 5. Proscar. 6. Famotidine. 7. Digoxin. 8. Eliquis. 9. Xanax. 10. DuoNeb. 11. Diltiazem. ALLERGIES: 1. CORTISONE INJECTION. SOCIAL HISTORY: Past tobacco use. Denies any current alcohol, tobacco or drug use. PHYSICAL EXAMINATION: GENERAL: The patient is alert and oriented. VITAL SIGNS: Temperature 97.8, pulse 81, blood pressure 103/61, pulse oximetry 94% on two liters nasal cannula. LEFT WRIST: Exam of the left wrist shows erythema over the left wrist. Warmth over the left wrist. Good range of motion of the fingers in regards to flexion/extension. Sensation intact in the median and ulnar nerve distributions. Moderate pain with passive range of motion of the left wrist. Compartments soft and compressible. LABORATORY STUDIES: Uric acid 6.8. C-reactive protein 4.16. Erythrocyte sedimentation rate 45. White count 13.8. IMAGING STUDIES: X-rays of the wrist show arthritis throughout the wrist at the first carpometacarpal joint as well as over the scaphoid. No evidence of fracture. MRI of the wrist has been ordered by the primary team with and without contrast and shows a joint effusion with no evidence of osteomyelitis. Again, arthritic changes in the carpometacarpal joint and the scaphoid. ASSESSMENT AND PLAN: A 76-year-old male with left wrist pain concerning for either septic wrist versus inflammatory arthritis and/or gout of the left wrist. The patient also has comorbidities including COPD on oxygen and atrial fibrillation on Eliquis with recent history of pneumonia. Treatment options discussed with the patient. The patient did have some improvement on the IV antibiotics. I recommend aspiration of the wrist. The patient signed informed consent. While the patient was in the emergency room under sterile conditions, aspiration of the wrist was performed. This yielded approximately 1 cc of yellow cloudy fluid. This was sent for gram stain, which was read as: Moderate WBCs with no organisms. Treatment options discussed with the patient and his . At this time, due to the concern for septic wrist and no history of gout, the patient requested surgical intervention. He signed informed consent and elected to proceed. The risks were explained which include but are not limited to wound complications, infection, anesthetic complications, persistent pain, need for additional surgeries of the wrist due to the arthritis and he elected to proceed. 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 This was discussed with the anesthesiologist and he will likely perform a block to decrease the chance of anesthetic complications. This will be performed at the earliest available time in the operating room. The patient elected to proceed. MD CARLOS ALBERTO Aguilar/TERESA /3:41 PM /4:06 PM DANICA
[2017-01-23 16:28] LABS: BICARBONATE 29.1 MEQ/L (21.0-32.0); CALCIUM 8.2 MG/DL (8.5-10.1); CREATININE 0.8 MG/DL (0.60-1.30); MAGNESIUM 1.9 MG/DL (1.5-2.5)
[2017-01-23] MEDS: GENTAMICIN SULFATE 0.3% OPHT OINT 3.5 GM TUBE EACH EYE SCH ×2 (18:00)
[2017-01-23] MEDS: LACTOBACILLUS ACIDOPHILUS TAB PO SCH ×2 (18:23)
--- NOTE | 2017-01-23 19:05 | MP ---
cc: PEG RUDOLPH MD DATE OF SURGERY: 01/20/2017. PREOPERATIVE DIAGNOSIS: Concern for septic arthritis left wrist with underlying arthritis. POSTOPERATIVE DIAGNOSIS: Concern for septic arthritis left wrist with underlying arthritis. OPERATIVE PROCEDURE PERFORMED: 1. Left wrist arthrotomy with synovectomy. 2. Irrigation and debridement left wrist including skin, subcutaneous tissue, muscle and bone. SURGEON: Dr. Peg Rudolph. ANESTHESIA: Regional and sedation. SPECIMEN: Cultures left wrist. DRAIN: Fascial drain INDICATIONS FOR THE PROCEDURE: Sonny Pack is a 76-year-old right hand dominant male with acute onset of left wrist pain after a recent history of pneumonia and no history of gout. Concern for septic arthritis of the wrist. I recommended surgical intervention after aspiration yielded cloudy yellow fluid. Risks were explained to him including wound complications, infection, persistent pain, paresthesias, need for additional surgeries, anesthetic complications and the patient elected to proceed. DESCRIPTION OF THE PROCEDURE IN DETAIL: The patient was identified in the preoperative holding area and the correct extremity was marked. The patient was taken to the operating room where anesthesia was induced. The left upper extremity was prepped and draped in normal sterile fashion. A regional block was performed by Dr. Reina of anesthesia. A longitudinal incision was made in the dorsum of the wrist. The extensor tendons were protected throughout the procedure. An incision was made into the joint capsule which was significantly bulging. Upon making incision in the joint capsule, there was significant cloudy fluid, which was sent for culture. There was also noted arthritis in the wrist. The wrist was irrigated with 6 liters of antibiotic saline. A drain was then placed. Care was taken protect the extensor retinaculum throughout the procedure. The tourniquet was released after 37 minutes. Hemostasis was obtained. The capsule was closed with PDS and a drain was placed in the joint and sutured to the skin. The wound was closed with Monocryl and nylon. The patient was placed into a splint and awoken from anesthesia without any complications, although he was lightly sedated throughout the procedure. We will continue to follow the cultures and consult infectious disease for IV antibiotics. Peg Rudolph MD /JC /3:48 PM /6:51 PM DANICA
[2017-01-23] MEDS: TAMSULOSIN HCL 0.4 MG CAP PO SCH ×2 (21:15)
[2017-01-23] MEDS: ALPRAZolam 0.5 MG TAB PO PRN ×2 (21:35)
[2017-01-24] VITALS (8 sets, daily range): BP systolic 102–138; BP diastolic 59–75; PULSE 63–98; RESP 12–20; TEMP 97.6–98.3; O2SAT 92–96
[2017-01-24] MEDS: CEFEPIME INJ 2,000 MG in SODIUM CHLORIDE 0.9% INJ 100 ML IV SCH ×12 (03:21→18:17)
[2017-01-24] MEDS: ACETAMINOPHEN/HYDROcodone 325 MG/5 MG TAB PO PRN ×6 (03:26→22:00)
[2017-01-24] MEDS: RESP: ALBUTEROL 2.5 MG/IPRATROPIUM 0.5 MG NEB (PRN) NEB ×4 (04:03→10:19)
[2017-01-24] MEDS: VANCOMYCIN INJ 1,750 MG in SODIUM CHLORID 0.9% 500 ML INJ 500 ML IV SCH ×4 (06:12)
[2017-01-24 07:33] LABS: AUTOMATED NEUTROPHIL # 6.1 TH/MM3 (1.8-7.7); BASOPHIL % 0.5 % (0.0-2.0); EOSINOPHIL # 0.2 TH/MM3 (0-0.4); HEMATOCRIT 33.4 % (39.0-51.0); HEMOGLOBIN 11.4 GM/DL (13.0-17.0); LYMPH % 13.6 % (9.0-44.0); LYMPHOCYTE # 1.1 TH/MM3 (1.0-4.8); MEAN CELL VOLUME 87.8 FL (80.0-100.0); MEAN CORPUSCULAR HEMOGLOBIN 29.9 PG (27.0-34.0); MONO % 9.7 % (0.0-8.0); MONOCYTE # 0.8 TH/MM3 (0-0.9); NEUT % 73.2 % (16.0-70.0); PLATELET COUNT 208 TH/MM3 (150-450); RED BLOOD COUNT 3.81 MIL/MM3 (4.50-5.90); RED CELL DISTRIBUTION WIDTH 15.8 % (11.6-17.2); WHITE BLOOD COUNT 8.3 TH/MM3 (4.0-11.0)
[2017-01-24] MEDS: GENTAMICIN SULFATE 0.3% OPHT OINT 3.5 GM TUBE EACH EYE SCH ×6 (08:57→18:18)
[2017-01-24] MEDS: BUDESONIDE-FORMOTEROL 160/4.5 MCG INHALER INH SCH ×4 (08:58→22:03)
[2017-01-24] MEDS: FINASTERIDE 5 MG TAB PO SCH ×2 (08:58)
[2017-01-24] MEDS: DILTIAZEM HCL 60 MG TAB PO SCH ×6 (08:58→18:18)
[2017-01-24] MEDS: APIXABAN 5 MG TABLET PO SCH ×4 (08:59→21:57)
[2017-01-24] MEDS: LACTOBACILLUS ACIDOPHILUS TAB PO SCH ×6 (08:59→18:18)
[2017-01-24] MEDS: FUROSEMIDE 40 MG TAB PO SCH ×2 (08:59)
[2017-01-24] MEDS: DIGOXIN 0.125 MG TAB PO SCH ×2 (08:59)
[2017-01-24] MEDS: FAMOTIDINE 20 MG TAB PO SCH ×2 (09:00)
[2017-01-24] MEDS: LISINOPRIL 10 MG TAB PO SCH ×4 (09:00→21:57)
[2017-01-24] MEDS: AZITHROMYCIN 250 MG TAB PO SCH ×2 (09:01)
[2017-01-24] MEDS: POTASSIUM CHLORIDE 10 MEQ CONTROLLED RELEASE TAB PO SCH ×2 (09:01)
[2017-01-24] MEDS: SODIUM CHLORIDE 0.9% FLUSH 10 ML FLUSH IV FLUSH SCH ×4 (09:02→21:58)
[2017-01-24] MEDS: DOCUSATE SODIUM 50 MG/SENNA 8.6 MG TAB PO SCH ×4 (09:02→21:58)
[2017-01-24] MEDS: ALPRAZolam 0.5 MG TAB PO PRN ×2 (10:00)
[2017-01-24 10:36] LABS: BICARBONATE 29.6 MEQ/L (21.0-32.0); CALCIUM 8.6 MG/DL (8.5-10.1); CREATININE 0.69 MG/DL (0.60-1.30)
[2017-01-24 10:38] LABS: RANDOM VANCOMYCIN 48.1 COMMENT
[2017-01-24] MEDS ORDERED: POTASSIUM CHLORIDE 10 MEQ CONTROLLED RELEASE TAB PO ONE ×2 (13:15)
--- NOTE | 2017-01-24 14:41 | HHI.PR ---
Subjective Remarks Follow up pneumonia/COPD, wrist infection. Patient has no specific complaints at this time. Concerned about pneumonia. Still requiring oxygen. Denies chest pain. Objective Vitals Vital Signs Date Time Temp Pulse Resp B/P (MAP) Pulse Ox O2 Delivery O2 Flow Rate FiO2 01/24/17 12:00 97.9 85 20 116/75 (89) 93 01/24/17 11:03 20 01/24/17 10:21 93 Nasal Cannula 01/24/17 10:05 80 01/24/17 08:57 97.6 63 12 138/68 (91) 93 01/24/17 06:01 98.0 77 18 107/59 (75) 96 01/23/17 21:45 158/77 (104) 01/23/17 21:41 94 Nasal Cannula 4.00 01/23/17 20:00 97.8 86 18 179/87 (117) 94 01/23/17 20:00 114 01/23/17 16:27 98.1 66 18 128/72 (90) 94 I/O 01/23/17 01/23/17 01/23/17 01/24/17 01/24/17 01/24/17 07:00 15:00 23:00 07:00 15:00 23:00 Intake Total 350 ml 360 ml 240 ml 200 ml Output Total 500 ml 175 ml 200 ml Balance -150 ml 185 ml 40 ml 200 ml Intake Oral 360 ml 240 ml IV Total 350 ml 200 ml Output Urine Total 500 ml 175 ml 200 ml # Voids 2 Result Diagram: 01/24/17 0653 01/24/17 0851 Imaging Last Impressions Chest X-Ray 01/21/17 0000 Signed Impressions: Service Date/Time: December 17:30 - CONCLUSION: 1. No acute cardiopulmonary findings. 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 Smooth margined cystic lesion in the distal scaphoid. No fracture seen. 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 German Padron MD Objective Remarks General: Elderly male in no acute distress. Heart: Regular rate and rhythm. No murmur. Lungs: Mild crackles in both bases. Breathing is nonlabored. Abdomen: Soft, nontender, nondistended. Extremities: No lower extremity edema. Left upper extremity in a sling. Psych: Alert and oriented. Procedures 01/20/17 left wrist arthrotomy with irrigation & debridement, drain placement Urinary Catheter: No Vascular Central Line Catheter: No A/P Problem List: (1) Septic joint of left wrist ICD Code: M00.9 - Pyogenic arthritis, unspecified Status: Acute (2) HTN (hypertension) ICD Code: I10 - Essential (primary) hypertension Status: Chronic (3) Atrial fibrillation ICD Code: I48.91 - Unspecified atrial fibrillation Status: Chronic (4) COPD (chronic obstructive pulmonary disease) ICD Code: J44.9 - Chronic obstructive pulmonary disease, unspecified Status: Chronic (5) Wrist joint effusion ICD Code: M25.439 - Effusion, unspecified wrist Status: Acute Assessment and Plan 1. Septic joint, left wrist: S/P arthrotomy, incision/debridement. Appreciate hand surgery recommendations. Drain removed. Continue antibiotics. Cultures are negative. 2. A-fib, chronic: Continue cardizem, Eliquis. 3. COPD: Patient reporting cough, dyspnea. Duonebs, supplemental oxygen. 4. Possible PNA: Antibiotics per infectious disease. Sputum culture ordered. Recent PNA while inpatient. Plan to repeat CXR tomorrow. 5. Hypertension: Chronic. Hypotensive now. Continue home medications with parameters. 6. Hypokalemia: Continue supplementation. Recheck labs in the morning. 7. Conjunctivitis: Continue topical antibiotics. Monitor. 8. DVT prophylaxis: SCDs. Eliquis. Problem Qualifiers (1) Septic joint of left wrist: Qualified Codes: M00.9 - Pyogenic arthritis, unspecified (2) HTN (hypertension): Qualified Codes: I10 - Essential (primary) hypertension (3) Wrist joint effusion: Qualified Codes: M25.432 - Effusion, left wrist Kevin Bustillo MD Jan 24, 2017 14:41
[2017-01-24] MEDS: RESP: ALBUTEROL 2.5 MG/IPRATROPIUM 0.5 MG NEB (SCH) NEB ×2 (20:30)
[2017-01-24] MEDS: TAMSULOSIN HCL 0.4 MG CAP PO SCH ×2 (21:57)
[2017-01-25] VITALS (9 sets, daily range): BP systolic 102–142; BP diastolic 59–74; PULSE 66–104; RESP 20–22; TEMP 97.7–98.4; O2SAT 92–96
[2017-01-25] MEDS: CEFEPIME INJ 2,000 MG in SODIUM CHLORIDE 0.9% INJ 100 ML IV SCH ×8 (01:24→09:00)
[2017-01-25] MEDS ORDERED: PHARMACY ORDERED LAB ONE ×2 (06:00)
[2017-01-25] MEDS: RESP: ALBUTEROL 2.5 MG/IPRATROPIUM 0.5 MG NEB (PRN) NEB ×2 (06:20)
--- NOTE | 2017-01-25 07:12 | RADRPT ---
EXAM DATE/TIME: 01/25/2017 07:05 [facility] COMPARISON: CHEST SINGLE AP, January 21, 2017, 17:30. INDICATIONS : Short of breath, evaluate pneumonia MEDICAL HISTORY : Chronic obstructive pulmonary disease. SURGICAL HISTORY : Coronary artery stent. ENCOUNTER: Subsequent ACUITY: 1 week PAIN SCORE: 0/10 LOCATION: Bilateral chest FINDINGS: Mild air space disease has developed within the left lung base. Lungs are otherwise clear. Heart mediastinal structures are stable. CONCLUSION: New mild airspace disease left lung base. Ovidio Shah MD on January 25, 2017 at 7:09 Board Certified Radiologist. This report was verified electronically.
[2017-01-25] MEDS: GENTAMICIN SULFATE 0.3% OPHT OINT 3.5 GM TUBE EACH EYE SCH ×6 (08:49→16:18)
[2017-01-25] MEDS: BUDESONIDE-FORMOTEROL 160/4.5 MCG INHALER INH SCH ×4 (08:49→21:21)
[2017-01-25] MEDS: FUROSEMIDE 40 MG TAB PO SCH ×2 (08:50)
[2017-01-25] MEDS: FINASTERIDE 5 MG TAB PO SCH ×2 (08:50)
[2017-01-25] MEDS: LISINOPRIL 10 MG TAB PO SCH ×4 (08:50→21:23)
[2017-01-25] MEDS: FAMOTIDINE 20 MG TAB PO SCH ×2 (08:50)
[2017-01-25] MEDS: ACETAMINOPHEN/HYDROcodone 325 MG/5 MG TAB PO PRN ×6 (08:50→21:23)
[2017-01-25] MEDS: DOCUSATE SODIUM 50 MG/SENNA 8.6 MG TAB PO SCH ×4 (08:50→21:21)
[2017-01-25] MEDS: DILTIAZEM HCL 60 MG TAB PO SCH ×6 (08:51→16:16)
[2017-01-25] MEDS: DIGOXIN 0.125 MG TAB PO SCH ×2 (08:51)
[2017-01-25] MEDS: LACTOBACILLUS ACIDOPHILUS TAB PO SCH ×6 (08:51→16:17)
[2017-01-25] MEDS: APIXABAN 5 MG TABLET PO SCH ×4 (08:51→21:22)
[2017-01-25] MEDS: SODIUM CHLORIDE 0.9% FLUSH 10 ML FLUSH IV FLUSH SCH ×4 (08:51→21:21)
[2017-01-25] MEDS: POTASSIUM CHLORIDE 10 MEQ CONTROLLED RELEASE TAB PO SCH ×2 (08:51)
[2017-01-25] MEDS: AZITHROMYCIN 250 MG TAB PO SCH ×2 (08:52)
[2017-01-25 09:14] LABS: AUTOMATED NEUTROPHIL # 5.4 TH/MM3 (1.8-7.7); BASOPHIL # 0.1 TH/MM3 (0-0.2); BASOPHIL % 0.8 % (0.0-2.0); EOSINOPHIL # 0.2 TH/MM3 (0-0.4); EOSINOPHIL % 2.9 % (0.0-4.0); HEMATOCRIT 36.7 % (39.0-51.0); HEMOGLOBIN 12.1 GM/DL (13.0-17.0); LYMPH % 11.3 % (9.0-44.0); LYMPHOCYTE # 0.8 TH/MM3 (1.0-4.8); MEAN CELL VOLUME 88.8 FL (80.0-100.0); MEAN CORPUSCULAR HEMOGLOBIN 29.4 PG (27.0-34.0); MEAN CORPUSCULAR HGB CONC 33.1 % (32.0-36.0); MONO % 9.4 % (0.0-8.0); MONOCYTE # 0.7 TH/MM3 (0-0.9); NEUT % 75.6 % (16.0-70.0); PLATELET COUNT 245 TH/MM3 (150-450); RED BLOOD COUNT 4.13 MIL/MM3 (4.50-5.90); RED CELL DISTRIBUTION WIDTH 16.2 % (11.6-17.2); WHITE BLOOD COUNT 7.2 TH/MM3 (4.0-11.0)
[2017-01-25] MEDS: RESP: ALBUTEROL 2.5 MG/IPRATROPIUM 0.5 MG NEB (SCH) NEB ×6 (09:29→20:00)
[2017-01-25 09:55] LABS: BICARBONATE 29.5 MEQ/L (21.0-32.0); CALCIUM 8.8 MG/DL (8.5-10.1); CREATININE 0.77 MG/DL (0.60-1.30)
[2017-01-25 09:56] LABS: C-REACTIVE PROTEIN 1.4 MG/DL (0.00-0.30)
--- NOTE | 2017-01-25 11:37 | HHI.PR ---
Subjective Remarks Follow up pneumonia, wrist infection. Patient states that he feels a little better today. Denies chest pain. Some dyspnea still. Wrist still somewhat painful. Objective Vitals Vital Signs Date Time Temp Pulse Resp B/P (MAP) Pulse Ox O2 Delivery O2 Flow Rate FiO2 01/25/17 09:52 16 01/25/17 09:30 96 Nasal Cannula 3.50 01/25/17 08:45 98.3 78 20 129/74 (92) 92 01/25/17 08:00 78 01/25/17 06:00 98.4 104 20 110/64 (79) 95 01/25/17 00:00 97.7 89 22 142/64 (90) 94 01/24/17 20:48 98.3 72 20 123/64 (83) 92 01/24/17 20:30 95 Nasal Cannula 4.00 01/24/17 16:11 97.7 98 20 102/62 (75) 94 01/24/17 12:00 97.9 85 20 116/75 (89) 93 I/O 01/24/17 01/24/17 01/24/17 01/25/17 01/25/17 01/25/17 07:00 15:00 23:00 07:00 15:00 23:00 Intake Total 920 ml 100 ml 100 ml Output Total 600 ml 475 ml 800 ml Balance 320 ml -375 ml -700 ml Intake Oral 720 ml IV Total 200 ml 100 ml 100 ml Output Urine Total 600 ml 475 ml 800 ml # Voids 2 # Bowel Movements 1 Result Diagram: 01/25/17 0751 01/25/17 0751 Imaging Last Impressions Chest X-Ray 01/25/17 0600 Signed Impressions: Service Date/Time: Wednesday, January 25, 2017 07:05 - CONCLUSION: New mild airspace disease left lung base. 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 Smooth margined cystic lesion in the distal scaphoid. No fracture seen. 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 German Padron MD Objective Remarks General: Elderly male in no acute distress. Heart: Regular rate and rhythm. No murmur. Lungs: Mild crackles in both bases, left greater than right. Breathing is nonlabored. Abdomen: Soft, nontender, nondistended. Extremities: Trace bilateral ankle edema. Left wrist bandaged. Psych: Alert and oriented. Procedures 01/20/17 left wrist arthrotomy with irrigation & debridement, drain placement Urinary Catheter: No Vascular Central Line Catheter: No A/P Problem List: (1) Septic joint of left wrist ICD Code: M00.9 - Pyogenic arthritis, unspecified Status: Acute (2) HTN (hypertension) ICD Code: I10 - Essential (primary) hypertension Status: Chronic (3) Atrial fibrillation ICD Code: I48.91 - Unspecified atrial fibrillation Status: Chronic (4) COPD (chronic obstructive pulmonary disease) ICD Code: J44.9 - Chronic obstructive pulmonary disease, unspecified Status: Chronic (5) Wrist joint effusion ICD Code: M25.439 - Effusion, unspecified wrist Status: Acute Assessment and Plan 1. Septic joint, left wrist: S/P arthrotomy, incision/debridement. Appreciate hand surgery recommendations. Drain removed. Continue antibiotics. Cultures are negative. 2. A-fib, chronic: Continue cardizem, Eliquis. 3. COPD: Patient reporting cough, dyspnea. Duonebs, supplemental oxygen. 4. Left lower lobe PNA: Antibiotics per infectious disease. Sputum culture growing normal respiratory cooper. Recent PNA while inpatient. Repeat chest x- ray shows left lower lobe infiltrate. 5. Hypertension: Continue home medications with parameters. 6. Hypokalemia: Improved. 7. Conjunctivitis: Continue topical antibiotics. Monitor. 8. DVT prophylaxis: SCDs. Eliquis. Discharge Planning Pending further improvement in pneumonia. Problem Qualifiers (1) Septic joint of left wrist: Qualified Codes: M00.9 - Pyogenic arthritis, unspecified (2) HTN (hypertension): Qualified Codes: I10 - Essential (primary) hypertension (3) Wrist joint effusion: Qualified Codes: M25.432 - Effusion, left wrist Kevin Bustillo MD Jan 25, 2017 11:37
[2017-01-25] MEDS ORDERED: VANCOMYCIN INJ 1,750 MG in SODIUM CHLORID 0.9% 500 ML INJ 500 ML IV SCH ×4 (12:00)
--- NOTE | 2017-01-25 14:10 | HHI.IDPN ---
Subjective Subjective Remarks co cough sputum clx is with nl resp cooper afebrile fluid (post op ) with only 400 WBC Antibiotics vanco azithro cefepime Allergies: Coded Allergies: cortisone (Verified Allergy, Unknown, 01/19/17) injection only Objective . Vital Signs Date Time Temp Pulse Resp B/P (MAP) Pulse Ox O2 Delivery O2 Flow Rate FiO2 01/25/17 12:38 98.0 78 20 105/63 (77) 95 01/25/17 09:52 16 01/25/17 09:30 96 Nasal Cannula 3.50 01/25/17 08:45 98.3 78 20 129/74 (92) 92 01/25/17 08:00 78 01/25/17 06:00 98.4 104 20 110/64 (79) 95 01/25/17 00:00 97.7 89 22 142/64 (90) 94 01/24/17 20:48 98.3 72 20 123/64 (83) 92 01/24/17 20:30 95 Nasal Cannula 4.00 01/24/17 16:11 97.7 98 20 102/62 (75) 94 . Laboratory Tests Test 01/24/17 06:53 01/25/17 07:51 White Blood Count 8.3 TH/MM3 7.2 TH/MM3 Red Blood Count 3.81 MIL/MM3 4.13 MIL/MM3 Hemoglobin 11.4 GM/DL 12.1 GM/DL Hematocrit 33.4 % 36.7 % Mean Corpuscular Volume 87.8 FL 88.8 FL Mean Corpuscular Hemoglobin 29.9 PG 29.4 PG Mean Corpuscular Hemoglobin Concent 34.0 % 33.1 % Red Cell Distribution Width 15.8 % 16.2 % Platelet Count 208 TH/MM3 245 TH/MM3 Mean Platelet Volume 8.0 FL 8.0 FL Neutrophils (%) (Auto) 73.2 % 75.6 % Lymphocytes (%) (Auto) 13.6 % 11.3 % Monocytes (%) (Auto) 9.7 % 9.4 % Eosinophils (%) (Auto) 3.0 % 2.9 % Basophils (%) (Auto) 0.5 % 0.8 % Neutrophils # (Auto) 6.1 TH/MM3 5.4 TH/MM3 Lymphocytes # (Auto) 1.1 TH/MM3 0.8 TH/MM3 Monocytes # (Auto) 0.8 TH/MM3 0.7 TH/MM3 Eosinophils # (Auto) 0.2 TH/MM3 0.2 TH/MM3 Basophils # (Auto) 0.0 TH/MM3 0.1 TH/MM3 CBC Comment DIFF FINAL AUTO DIFF Differential Comment AUTO DIFF CONFIRMED Platelet Estimate NORMAL Platelet Morphology Comment NORMAL Red Cell Morphology Comment NORMAL Erythrocyte Sedimentation Rate 41 mm/hr Laboratory Tests Test 01/24/17 08:51 01/25/17 07:51 Blood Urea Nitrogen 15 MG/DL 13 MG/DL Creatinine 0.69 MG/DL 0.77 MG/DL Random Glucose 95 MG/DL 90 MG/DL Calcium Level 8.6 MG/DL 8.8 MG/DL Sodium Level 144 MEQ/L 144 MEQ/L Potassium Level 3.3 MEQ/L 3.7 MEQ/L Chloride Level 107 MEQ/L 108 MEQ/L Carbon Dioxide Level 29.6 MEQ/L 29.5 MEQ/L Anion Gap 7 MEQ/L 7 MEQ/L Estimat Glomerular Filtration Rate 112 ML/MIN 98 ML/MIN C-Reactive Protein 1.40 MG/DL Microbiology Date/Time Source Procedure Growth Status 01/22/17 17:50 Fluid Synovial Fluid Gram Stain - Final Complete 01/22/17 17:50 Fluid Synovial Fluid Body Fluid Culture - Final NO GROWTH IN 72 HRS.--AEROBICALLY OR ... Complete 01/23/17 16:57 Sputum Expectorated Sputum Gram Stain - Final Complete 01/23/17 16:57 Sputum Expectorated Sputum Sputum Culture - Final HEAVY GROWTH NORMAL RESPIRATORY COOPER Complete Imaging Last Im Last Impressions Chest X-Ray 01/25/17 0600 Signed Impressions: Service Date/Time: Wednesday, January 25, 2017 07:05 - CONCLUSION: New mild airspace disease left lung base. 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 Smooth margined cystic lesion in the distal scaphoid. No fracture seen. 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 German Padron MD Physical Exam CONSTITUTIONAL/GENERAL: This is an adequately nourished patient, in no apparent distress. TUBES/LINES/DRAINS: SKIN: No jaundice, rashes, or lesions. Ecchymoses on upper extremities. Skin temperature appropriate. Not diaphoretic. HEAD: Atraumatic. Normocephalic. EYES: Pupils equal and round and reactive. Extraocular motions intact. No scleral icterus. No injection or drainage. Fundi not examined. CARDIOVASCULAR: Regular rate and rhythm without murmurs, gallops, or rubs. No JVD. Peripheral pulses symmetric. RESPIRATORY/CHEST: Symmetric, unlabored respirations. Clear to auscultation L base posteriorly. Breath sounds equal bilaterally. GASTROINTESTINAL: Abdomen soft, non-tender, nondistended. No hepato-splenomegaly , or palpable masses. No guarding. Bowel sounds present. MUSCULOSKELETAL: Extremities without clubbing, cyanosis, or edema. No joint tenderness or effusion noted. No calf tenderness. No mottling or clubbing. LUE incision is clean dry, minimal marginal erythema fingers free of neurovasc deficit NEUROLOGICAL: Awake and alert. Non focal PSYCHIATRIC: anxious Assessment & Plan Remarks Suspected septic arthritis L wrist, culture negative - no prior abx use - WBC is low, 400 - not cw infection,but it was post -op Also, pt was on abx 8 days prior to aspiration L LL PNA - recurrent chk CT of the chest cont vanco cont azithro change cefepime to CFTX dw Dr Ronni De La Cruz,Mercedes Mcclain MD Jan 25, 2017 14:10
[2017-01-25] MEDS: cefTRIAXone INJ 2,000 MG in SODIUM CHLORIDE 0.9% INJ 100 ML IV SCH ×4 (14:33)
--- NOTE | 2017-01-25 15:57 | PD.CARD.PN ---
Subjective Subjective Remarks No CP, mild SOB, rate controlled Objective Medications Current Medications Medications (Trade) Dose Ordered Sig/Mari Route Start Time Stop Time Status Last Admin (NS Flush) 2 ml UNSCH PRN IV FLUSH 01/19/17 19:45 (NS Flush) 2 ml BID IV FLUSH 01/19/17 21:00 01/25/17 08:51 (Narcan Inj) 0.4 mg UNSCH PRN IV PUSH 01/19/17 19:45 Pharmacy Profile Note 0 ml @ 0 mls/hr UNSCH OTHER 01/19/17 19:45 (Duoneb Neb) 1 ampule Q2HR NEB PRN NEB 01/20/17 00:00 01/25/17 06:20 (Symbicort 160-4.5 Inh) 1 puff Q12HR INH 01/20/17 09:00 01/25/17 08:49 (Lanoxin) 0.125 mg DAILY PO 01/20/17 09:00 01/25/17 08:51 (Cardizem) 60 mg TID PO 01/20/17 09:00 01/25/17 12:36 (Pepcid) 20 mg DAILY PO 01/20/17 09:00 01/25/17 08:50 (Proscar) 5 mg DAILY PO 01/20/17 09:00 01/25/17 08:50 (Lasix) 40 mg DAILY PO 01/20/17 09:00 01/25/17 08:50 (Prinivil) 10 mg BID PO 01/20/17 09:00 01/25/17 08:50 (Flomax) 0.4 mg HS PO 01/20/17 21:00 01/24/17 21:57 (Dauphin 5-325 Mg) 1 tab Q4H PRN PO 01/21/17 01:30 01/25/17 12:37 (KCl) 10 meq DAILY PO 01/21/17 17:00 01/25/17 08:51 (Zithromax) 250 mg DAILY PO 01/22/17 09:00 01/26/17 08:59 01/25/17 08:52 (Nova-Colace) 1 tab BID PO 01/21/17 21:00 01/25/17 08:50 (Eliquis) 5 mg BID PO 01/22/17 21:00 01/25/17 08:51 (Xanax) 0.5 mg BID PRN PO 01/23/17 11:30 01/24/17 10:00 (Gentamicin 0.3% Opht Oint) 1 applic TID EACH EYE 01/23/17 18:00 01/27/17 17:59 01/25/17 12:36 (Lactinex) 1 tab TID PO 01/23/17 18:00 01/25/17 12:36 (Duoneb Neb) 1 ampule Q6HR WHILE AWAKE NEB NEB 01/24/17 14:00 01/25/17 13:44 Vancomycin HCl 1750 mg/Sodium Chloride 517.5 ml @ 250 mls/hr Q24H IV 01/25/17 12:00 01/25/17 12:36 Ceftriaxone Sodium 2000 mg/ Sodium Chloride 100 ml @ 200 mls/hr Q24H IV 01/25/17 14:00 01/25/17 14:33 Vital Signs / I&O Vital Signs Date Time Temp Pulse Resp B/P (MAP) Pulse Ox O2 Delivery O2 Flow Rate FiO2 01/25/17 13:56 16 01/25/17 12:38 98.0 78 20 105/63 (77) 95 01/25/17 09:30 96 Nasal Cannula 3.50 01/25/17 08:45 98.3 78 20 129/74 (92) 92 01/25/17 08:00 78 01/25/17 06:00 98.4 104 20 110/64 (79) 95 01/25/17 00:00 97.7 89 22 142/64 (90) 94 01/24/17 20:48 98.3 72 20 123/64 (83) 92 01/24/17 20:30 95 Nasal Cannula 4.00 01/24/17 16:11 97.7 98 20 102/62 (75) 94 I/O 01/24/17 01/24/17 01/24/17 01/25/17 01/25/17 01/25/17 07:00 15:00 23:00 07:00 15:00 23:00 Intake Total 920 ml 100 ml 100 ml Output Total 600 ml 475 ml 800 ml Balance 320 ml -375 ml -700 ml Intake Oral 720 ml IV Total 200 ml 100 ml 100 ml Output Urine Total 600 ml 475 ml 800 ml # Voids 2 # Bowel Movements 1 Physical Exam GENERAL: In NAD SKIN: Warm and dry. HEAD: Normocephalic. EYES: No scleral icterus. No injection or drainage. NECK: Supple, trachea midline. No JVD or lymphadenopathy. CARDIOVASCULAR: Irregular rate and rhythm, without murmurs, gallops, or rubs. RESPIRATORY: Breath sounds equal bilaterally. No accessory muscle use. GASTROINTESTINAL: Abdomen soft, non-tender, nondistended. MUSCULOSKELETAL: No cyanosis, or edema. Laboratory Laboratory Tests Test 01/25/17 07:51 White Blood Count 7.2 TH/MM3 Red Blood Count 4.13 MIL/MM3 Hemoglobin 12.1 GM/DL Hematocrit 36.7 % Mean Corpuscular Volume 88.8 FL Mean Corpuscular Hemoglobin 29.4 PG Mean Corpuscular Hemoglobin Concent 33.1 % Red Cell Distribution Width 16.2 % Platelet Count 245 TH/MM3 Mean Platelet Volume 8.0 FL Neutrophils (%) (Auto) 75.6 % Lymphocytes (%) (Auto) 11.3 % Monocytes (%) (Auto) 9.4 % Eosinophils (%) (Auto) 2.9 % Basophils (%) (Auto) 0.8 % Neutrophils # (Auto) 5.4 TH/MM3 Lymphocytes # (Auto) 0.8 TH/MM3 Monocytes # (Auto) 0.7 TH/MM3 Eosinophils # (Auto) 0.2 TH/MM3 Basophils # (Auto) 0.1 TH/MM3 CBC Comment AUTO DIFF Differential Comment AUTO DIFF CONFIRMED Platelet Estimate NORMAL Platelet Morphology Comment NORMAL Red Cell Morphology Comment NORMAL Erythrocyte Sedimentation Rate 41 mm/hr Blood Urea Nitrogen 13 MG/DL Creatinine 0.77 MG/DL Random Glucose 90 MG/DL Calcium Level 8.8 MG/DL Sodium Level 144 MEQ/L Potassium Level 3.7 MEQ/L Chloride Level 108 MEQ/L Carbon Dioxide Level 29.5 MEQ/L Anion Gap 7 MEQ/L Estimat Glomerular Filtration Rate 98 ML/MIN C-Reactive Protein 1.40 MG/DL Random Vancomycin Level 12.0 COMMENT Imaging Last 24 hours Impressions Chest X-Ray 01/25/17 0600 Signed Impressions: Service Date/Time: Wednesday, January 25, 2017 07:05 - CONCLUSION: New mild airspace disease left lung base. Ovidio Shah MD Assessment and Plan Problem List: (1) Septic joint of left wrist ICD Codes: M00.9 - Pyogenic arthritis, unspecified Status: Acute (2) Atrial fibrillation ICD Codes: I48.91 - Unspecified atrial fibrillation Status: Chronic (3) COPD (chronic obstructive pulmonary disease) ICD Codes: J44.9 - Chronic obstructive pulmonary disease, unspecified Status: Chronic (4) HTN (hypertension) ICD Codes: I10 - Essential (primary) hypertension Status: Chronic (5) CAD (coronary artery disease) ICD Codes: I25.10 - Atherosclerotic heart disease of [place] coronary artery without angina pectoris (6) Pneumonia ICD Codes: J18.9 - Pneumonia, unspecified organism Assessment and Plan A fib rate better controlled. Continue current program. Continue Eliquis to decrease the risk of stroke with a fib. Continue antihypertensive tx. He was diagnosed with possible pneumonia, CT chest ordered. Increase activity. Problem Qualifiers (1) Septic joint of left wrist: Qualified Codes: M00.9 - Pyogenic arthritis, unspecified (2) HTN (hypertension): Qualified Codes: I10 - Essential (primary) hypertension Hadley Mckinnon MD Jan 25, 2017 15:57
--- NOTE | 2017-01-25 21:01 | RADRPT ---
EXAM DATE/TIME: 01/25/2017 20:37 [facility] COMPARISON: CHEST SINGLE AP, January 25, 2017, 7:05. INDICATIONS : Abnormal chest x-ray exam with airspace disease in the left lung base. Evaluate for pneumonia. Shortn ess of breath. RADIATION DOSE: 9.59 CTDIvol (mGy) MEDICAL HISTORY : Cardiovascular disease. Hypertension. Chronic obstructive pulmonary disease. Coronary artery disease. Ulcer. SURGICAL HISTORY : Cardiac catherization. ENCOUNTER: Initial ACUITY: 1 day PAIN SCALE: 0/10 LOCATION: chest TECHNIQUE: Volumetric scanning of the chest was performed. Using automated exposure control and adjustment of t he mA and/or kV according to patient size, radiation dose was kept as low as reasonably achievable to obtain optimal diagnostic quality images. DICOM format image data is available electronically for r eview and comparison. Follow-up recommendations for detected pulmonary nodules are based at a minimum on nodule size and pa tient risk factors according to Fleischner Society Guidelines. FINDINGS: LUNGS: There is no pneumothorax. No concerning pulmonary nodule is visualized. There is underlying emphysem a with hyperinflation. There is mild consolidation in the lingula. PLEURAE: There is no pleural thickening or pleural effusion. MEDIASTINUM: The heart and great vessels demonstrate no acute abnormality. There is no mediastinal or hilar lymph adenopathy. There are coronary artery calcifications AXILLAE: Within normal limits. No lymphadenopathy. MUSCULOSKELETAL: Within normal limits for patient age. MISCELLANEOUS: The visualized upper abdominal organs demonstrate no acute abnormality. CONCLUSION: 1. Mild consolidation in the lingula which could represent early pneumonia versus scarring. 2. Underlying emphysema and mild hyperinflation. 3. Coronary artery calcifications. Moses Romero MD on January 25, 2017 at 20:57 Board Certified Radiologist. This report was verified electronically.
[2017-01-25] MEDS: TAMSULOSIN HCL 0.4 MG CAP PO SCH ×2 (21:22)
--- NOTE | 2017-01-25 22:29 | PD.ORT.PN ---
Subjective Subjective Remarks Patient reports improved pain left wrist. Denies paresthesias. Currently being worked up for pneumonia cause Objective Vitals Vital Signs Date Time Temp Pulse Resp B/P (MAP) Pulse Ox O2 Delivery O2 Flow Rate FiO2 01/25/17 21:06 95 Nasal Cannula 3.00 01/25/17 20:00 98.3 79 22 129/72 (91) 96 01/25/17 16:00 98.3 66 20 102/59 (73) 95 01/25/17 13:56 16 01/25/17 12:38 98.0 78 20 105/63 (77) 95 01/25/17 09:30 96 Nasal Cannula 3.50 01/25/17 08:45 98.3 78 20 129/74 (92) 92 01/25/17 08:00 78 01/25/17 06:00 98.4 104 20 110/64 (79) 95 01/25/17 00:00 97.7 89 22 142/64 (90) 94 I/O 01/24/17 01/24/17 01/24/17 01/25/17 01/25/17 01/25/17 07:00 15:00 23:00 07:00 15:00 23:00 Intake Total 920 ml 100 ml 100 ml 900 ml Output Total 600 ml 475 ml 800 ml Balance 320 ml -375 ml -700 ml 900 ml Intake Oral 720 ml 900 ml IV Total 200 ml 100 ml 100 ml Output Urine Total 600 ml 475 ml 800 ml # Voids 2 10 # Bowel Movements 1 2 Result Diagram: 01/25/17 0751 01/25/17 0751 Imaging Last 24 hours Impressions Chest X-Ray 01/25/17 0600 Signed Impressions: Service Date/Time: Wednesday, January 25, 2017 07:05 - CONCLUSION: New mild airspace disease left lung base. Ovidio Shha MD Chest CT 01/25/17 0000 Signed Impressions: Service Date/Time: Wednesday, January 25, 2017 20:37 - CONCLUSION: 1. Mild consolidation in the lingula which could represent early pneumonia versus scarring. 2. Underlying emphysema and mild hyperinflation. 3. Coronary artery calcifications. Moses Romero MD Objective Remarks Dressing changed, mild erythema around incision, sitlt m/u/r, moderate edema to hand, good ROM fingers, 2+ radial pulse, minimal pain with wrist ROM Assessment & Plan Assessment and Plan [id number] recent history of pneumonia presented with painful left wrist, aspiration showed cloudy fluid, now s/p Arthrotomy left wrist and irrigation and debridement with placement of drain -Uric acid WNL, no crystals in joint fluid -Cultures NGTD but patient was on Ab prior to admission for pneumonia, appreciate ID input -Continue left wrist elevation and gentle ROM -Will schedule followup in office once discharged after pneumonia workup, will continue to follow Peg Rudolph MD Jan 25, 2017 22:29
[2017-01-26] VITALS (8 sets, daily range): BP systolic 119–142; BP diastolic 62–76; PULSE 73–92; RESP 20–26; TEMP 97.3–99.1; O2SAT 94–98
[2017-01-26] MEDS: RESP: ALBUTEROL 2.5 MG/IPRATROPIUM 0.5 MG NEB (PRN) NEB ×2 (04:10)
[2017-01-26 07:27] LABS: CREATININE 0.75 MG/DL (0.60-1.30)
[2017-01-26 07:30] LABS: RANDOM VANCOMYCIN 13.7 COMMENT
[2017-01-26] MEDS: DOCUSATE SODIUM 50 MG/SENNA 8.6 MG TAB PO SCH ×4 (08:21→21:54)
[2017-01-26] MEDS: DIGOXIN 0.125 MG TAB PO SCH ×2 (08:21)
[2017-01-26] MEDS: AZITHROMYCIN 250 MG TAB PO SCH ×2 (08:21)
[2017-01-26] MEDS: FAMOTIDINE 20 MG TAB PO SCH ×2 (08:22)
[2017-01-26] MEDS: DILTIAZEM HCL 60 MG TAB PO SCH ×6 (08:22→17:18)
[2017-01-26] MEDS: APIXABAN 5 MG TABLET PO SCH ×4 (08:22→21:54)
[2017-01-26] MEDS: LACTOBACILLUS ACIDOPHILUS TAB PO SCH ×6 (08:22→17:18)
[2017-01-26] MEDS: POTASSIUM CHLORIDE 10 MEQ CONTROLLED RELEASE TAB PO SCH ×2 (08:22)
[2017-01-26] MEDS: SODIUM CHLORIDE 0.9% FLUSH 10 ML FLUSH IV FLUSH SCH ×4 (08:22→21:54)
[2017-01-26] MEDS: ACETAMINOPHEN/HYDROcodone 325 MG/5 MG TAB PO PRN ×8 (08:22→21:53)
[2017-01-26] MEDS: LISINOPRIL 10 MG TAB PO SCH ×4 (08:22→21:53)
[2017-01-26] MEDS: FINASTERIDE 5 MG TAB PO SCH ×2 (08:22)
[2017-01-26] MEDS: FUROSEMIDE 40 MG TAB PO SCH ×2 (08:22)
[2017-01-26] MEDS: BUDESONIDE-FORMOTEROL 160/4.5 MCG INHALER INH SCH ×4 (08:23→21:54)
[2017-01-26] MEDS: GENTAMICIN SULFATE 0.3% OPHT OINT 3.5 GM TUBE EACH EYE SCH ×6 (08:23→17:18)
[2017-01-26] MEDS: RESP: ALBUTEROL 2.5 MG/IPRATROPIUM 0.5 MG NEB (SCH) NEB ×6 (08:24→20:09)
--- NOTE | 2017-01-26 11:31 | RADRPT ---
EXAM DATE/TIME: 01/26/2017 00:00 [facility] COMPARISON: No previous studies available for comparison. INDICATIONS : Possible aspiration pneumonia. Reoccuring pneumonia. FLUORO TIME: 0 minutes IMAGE COUNT: 1.3 CONTRAST: Dose as prescribed by speech pathologist. MEDICAL HISTORY : Hypertension. Congestive heart failure. Chronic obstructive pulmonary disease. Afib. Coronary art jett disease. SURGICAL HISTORY : Coronary stent. Osteochrondoma removed of rib. ENCOUNTER: Initial ACUITY: >1 year PAIN SCORE: 0/10 LOCATION: Esophagus. FINDINGS: A modified barium swallow was performed with speech pathology. Patient was given a variety of liquids and solids to swallow. No episodes of aspiration observed. For a full detailed report, see report by the speech pathologist. CONCLUSION: Modified barium swallow performed in conjunction with speech pathology. Marco Antonio Montes MD on January 26, 2017 at 11:29 Board Certified Radiologist. This report was verified electronically.
[2017-01-26] MEDS ORDERED: VANCOMYCIN INJ 1,750 MG in SODIUM CHLORID 0.9% 500 ML INJ 500 ML IV SCH ×4 (12:00)
--- NOTE | 2017-01-26 13:31 | HHI.IDPN ---
Subjective Subjective Remarks co cough CT with small infiltrate, no tumor, no fluid collection afebrile fluid (post op ) with only 400 WBC,hemorrhagic Antibiotics vanco azithro cefepime Allergies: Coded Allergies: cortisone (Verified Allergy, Unknown, 01/19/17) injection only Objective . Vital Signs Date Time Temp Pulse Resp B/P (MAP) Pulse Ox O2 Delivery O2 Flow Rate FiO2 01/26/17 09:35 89 01/26/17 08:24 98 Nasal Cannula 3.00 01/26/17 07:50 97.9 85 20 142/71 (94) 94 01/26/17 04:00 97.3 92 26 136/65 (88) 95 01/26/17 00:00 98.2 89 24 124/76 (92) 96 01/25/17 21:06 95 Nasal Cannula 3.00 01/25/17 20:00 98.3 79 22 129/72 (91) 96 01/25/17 16:00 98.3 66 20 102/59 (73) 95 01/25/17 13:56 16 . Laboratory Tests Test 01/25/17 07:51 White Blood Count 7.2 TH/MM3 Red Blood Count 4.13 MIL/MM3 Hemoglobin 12.1 GM/DL Hematocrit 36.7 % Mean Corpuscular Volume 88.8 FL Mean Corpuscular Hemoglobin 29.4 PG Mean Corpuscular Hemoglobin Concent 33.1 % Red Cell Distribution Width 16.2 % Platelet Count 245 TH/MM3 Mean Platelet Volume 8.0 FL Neutrophils (%) (Auto) 75.6 % Lymphocytes (%) (Auto) 11.3 % Monocytes (%) (Auto) 9.4 % Eosinophils (%) (Auto) 2.9 % Basophils (%) (Auto) 0.8 % Neutrophils # (Auto) 5.4 TH/MM3 Lymphocytes # (Auto) 0.8 TH/MM3 Monocytes # (Auto) 0.7 TH/MM3 Eosinophils # (Auto) 0.2 TH/MM3 Basophils # (Auto) 0.1 TH/MM3 CBC Comment AUTO DIFF Differential Comment AUTO DIFF CONFIRMED Platelet Estimate NORMAL Platelet Morphology Comment NORMAL Red Cell Morphology Comment NORMAL Erythrocyte Sedimentation Rate 41 mm/hr Laboratory Tests Test 01/25/17 07:51 01/26/17 06:41 Blood Urea Nitrogen 13 MG/DL Creatinine 0.77 MG/DL 0.75 MG/DL Random Glucose 90 MG/DL Calcium Level 8.8 MG/DL Sodium Level 144 MEQ/L Potassium Level 3.7 MEQ/L Chloride Level 108 MEQ/L Carbon Dioxide Level 29.5 MEQ/L Anion Gap 7 MEQ/L Estimat Glomerular Filtration Rate 98 ML/MIN 102 ML/MIN C-Reactive Protein 1.40 MG/DL Microbiology Date/Time Source Procedure Growth Status 01/23/17 16:57 Sputum Expectorated Sputum Gram Stain - Final Complete 01/23/17 16:57 Sputum Expectorated Sputum Sputum Culture - Final HEAVY GROWTH NORMAL RESPIRATORY DIANNE Complete Imaging Last Impressions Modified Barium Swallow 01/26/17 0000 Signed Impressions: Service Date/Time: Thursday, January 26, 2017 00:00 - CONCLUSION: Modified barium swallow performed in conjunction with speech pathology. Marco Antonio Montes MD Chest X-Ray 01/25/17 0600 Signed Impressions: Service Date/Time: Wednesday, January 25, 2017 07:05 - CONCLUSION: New mild airspace disease left lung base. Ovidio Shah MD Chest CT 01/25/17 0000 Signed Impressions: Service Date/Time: Wednesday, January 25, 2017 20:37 - CONCLUSION: 1. Mild consolidation in the lingula which could represent early pneumonia versus scarring. 2. Underlying emphysema and mild hyperinflation. 3. Coronary artery calcifications. 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 Smooth margined cystic lesion in the distal scaphoid. No fracture seen. 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 German Padron MD Physical Exam CONSTITUTIONAL/GENERAL: This is an adequately nourished patient, in no apparent distress. TUBES/LINES/DRAINS: SKIN: No jaundice, rashes, or lesions. Ecchymoses on upper extremities. Skin temperature appropriate. Not diaphoretic. HEAD: Atraumatic. Normocephalic. EYES: Pupils equal and round and reactive. Extraocular motions intact. No scleral icterus. No injection or drainage. Fundi not examined. CARDIOVASCULAR: Regular rate and rhythm without murmurs, gallops, or rubs. No JVD. Peripheral pulses symmetric. RESPIRATORY/CHEST: Symmetric, unlabored respirations. Clear to auscultation L base posteriorly. Breath sounds equal bilaterally. GASTROINTESTINAL: Abdomen soft, non-tender, nondistended. No hepato-splenomegaly , or palpable masses. No guarding. Bowel sounds present. MUSCULOSKELETAL: Extremities without clubbing, cyanosis, or edema. No joint tenderness or effusion noted. No calf tenderness. No mottling or clubbing. LUE with dressing in place NEUROLOGICAL: Awake and alert. Non focal PSYCHIATRIC: anxious Assessment & Plan Remarks Suspected septic arthritis L wrist, culture negative - no prior abx use - WBC is low, 400 - not cw infection,but it was post -op Also, pt was on abx 8 days prior to aspiration, but none in the last 8 days prior to aspiration I think his clinical date is more c/w non infectious arthrtitis, ei osteoarthritis L LL PNA - recurrent dc vanco cont azithro and CFTX for PNA will check AFB spuitum to r/o non tuberculous mycobacteria. Pt w/o TB risk factors, no need to isolate Attempted to reach Dr Rudolph today. Her offcice told me she is in surgery; took mssg with my phone # Mercedes De La Cruz MD Jan 26, 2017 13:31
[2017-01-26] MEDS: cefTRIAXone INJ 2,000 MG in SODIUM CHLORIDE 0.9% INJ 100 ML IV SCH ×4 (13:45)
--- NOTE | 2017-01-26 14:55 | HHI.PR ---
Subjective Remarks Follow-up pneumonia, wrist pain. Patient still with shortness of breath and cough. Feels a little better today. No chest pain. Wrist pain is improving. Objective Vitals Vital Signs Date Time Temp Pulse Resp B/P (MAP) Pulse Ox O2 Delivery O2 Flow Rate FiO2 01/26/17 09:35 89 01/26/17 08:24 98 Nasal Cannula 3.00 01/26/17 07:50 97.9 85 20 142/71 (94) 94 01/26/17 04:00 97.3 92 26 136/65 (88) 95 01/26/17 00:00 98.2 89 24 124/76 (92) 96 01/25/17 21:06 95 Nasal Cannula 3.00 01/25/17 20:00 98.3 79 22 129/72 (91) 96 01/25/17 16:00 98.3 66 20 102/59 (73) 95 I/O 01/25/17 01/25/17 01/25/17 01/26/17 01/26/17 01/26/17 07:00 15:00 23:00 07:00 15:00 23:00 Intake Total 100 ml 900 ml 720 ml Output Total 800 ml 200 ml 500 ml Balance -700 ml 900 ml -200 ml 220 ml Intake Oral 900 ml 720 ml IV Total 100 ml Output Urine Total 800 ml 200 ml 500 ml # Voids 10 # Bowel Movements 2 1 Result Diagram: 01/25/17 0751 01/26/17 0641 Imaging Last Impressions Modified Barium Swallow 01/26/17 0000 Signed Impressions: Service Date/Time: Thursday, January 26, 2017 00:00 - CONCLUSION: Modified barium swallow performed in conjunction with speech pathology. Marco Antonio Montes MD Chest X-Ray 01/25/17 0600 Signed Impressions: Service Date/Time: Wednesday, January 25, 2017 07:05 - CONCLUSION: New mild airspace disease left lung base. Ovidio Shah MD Chest CT 01/25/17 0000 Signed Impressions: Service Date/Time: Wednesday, January 25, 2017 20:37 - CONCLUSION: 1. Mild consolidation in the lingula which could represent early pneumonia versus scarring. 2. Underlying emphysema and mild hyperinflation. 3. Coronary artery calcifications. 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 Smooth margined cystic lesion in the distal scaphoid. No fracture seen. 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 German Padron MD Objective Remarks General: Elderly male in no acute distress. Heart: Regular rate and rhythm. No murmur. Lungs: Mild crackles in both bases, left greater than right. Breathing is nonlabored. Abdomen: Soft, nontender, nondistended. Extremities: Trace bilateral ankle edema. Left wrist bandaged. Psych: Alert and oriented. Procedures 01/20/17 left wrist arthrotomy with irrigation & debridement, drain placement Urinary Catheter: No Vascular Central Line Catheter: No A/P Problem List: (1) Septic joint of left wrist ICD Code: M00.9 - Pyogenic arthritis, unspecified Status: Acute (2) HTN (hypertension) ICD Code: I10 - Essential (primary) hypertension Status: Chronic (3) Atrial fibrillation ICD Code: I48.91 - Unspecified atrial fibrillation Status: Chronic (4) COPD (chronic obstructive pulmonary disease) ICD Code: J44.9 - Chronic obstructive pulmonary disease, unspecified Status: Chronic (5) Wrist joint effusion ICD Code: M25.439 - Effusion, unspecified wrist Status: Acute Assessment and Plan 1. Septic joint, left wrist: S/P arthrotomy, incision/debridement. Appreciate hand surgery recommendations. Drain removed. Continue antibiotics. Cultures are negative. Discussed with Dr. De La Cruz. 2. A-fib, chronic: Continue cardizem, Eliquis. 3. COPD: Patient reporting cough, dyspnea. Duonebs, supplemental oxygen. Consult pulmonology, Dr. Veras at patient's request 4. Left lower lobe PNA: Antibiotics per infectious disease. Sputum culture growing normal respiratory cooper. Recent PNA while inpatient. Repeat chest x- ray shows left lower lobe infiltrate. 5. Hypertension: Continue home medications with parameters. 6. Hypokalemia: Improved. 7. Conjunctivitis: Continue topical antibiotics. Monitor. 8. DVT prophylaxis: SCDs. Eliquis. Discharge Planning Pending further improvement in pneumonia. Problem Qualifiers (1) Septic joint of left wrist: Qualified Codes: M00.9 - Pyogenic arthritis, unspecified (2) HTN (hypertension): Qualified Codes: I10 - Essential (primary) hypertension (3) Wrist joint effusion: Qualified Codes: M25.432 - Effusion, left wrist Kevin Bustillo MD Jan 26, 2017 14:55
--- NOTE | 2017-01-26 16:05 | PD.CARD.PN ---
Subjective Subjective Remarks No CP or SOB, rate controlled, feels better Objective Medications Current Medications Medications (Trade) Dose Ordered Sig/Mari Route Start Time Stop Time Status Last Admin (NS Flush) 2 ml UNSCH PRN IV FLUSH 01/19/17 19:45 (NS Flush) 2 ml BID IV FLUSH 01/19/17 21:00 01/26/17 08:22 (Narcan Inj) 0.4 mg UNSCH PRN IV PUSH 01/19/17 19:45 (Duoneb Neb) 1 ampule Q2HR NEB PRN NEB 01/20/17 00:00 01/26/17 04:10 (Symbicort 160-4.5 Inh) 1 puff Q12HR INH 01/20/17 09:00 01/26/17 08:23 (Lanoxin) 0.125 mg DAILY PO 01/20/17 09:00 01/26/17 08:21 (Cardizem) 60 mg TID PO 01/20/17 09:00 01/26/17 12:29 (Pepcid) 20 mg DAILY PO 01/20/17 09:00 01/26/17 08:22 (Proscar) 5 mg DAILY PO 01/20/17 09:00 01/26/17 08:22 (Lasix) 40 mg DAILY PO 01/20/17 09:00 01/26/17 08:22 (Prinivil) 10 mg BID PO 01/20/17 09:00 01/26/17 08:22 (Flomax) 0.4 mg HS PO 01/20/17 21:00 01/25/17 21:22 (Dewitt 5-325 Mg) 1 tab Q4H PRN PO 01/21/17 01:30 01/26/17 12:29 (KCl) 10 meq DAILY PO 01/21/17 17:00 01/26/17 08:22 (Nova-Colace) 1 tab BID PO 01/21/17 21:00 01/26/17 08:21 (Eliquis) 5 mg BID PO 01/22/17 21:00 01/26/17 08:22 (Xanax) 0.5 mg BID PRN PO 01/23/17 11:30 01/24/17 10:00 (Gentamicin 0.3% Opht Oint) 1 applic TID EACH EYE 01/23/17 18:00 11/1/17 17:59 01/26/17 12:29 (Lactinex) 1 tab TID PO 01/23/17 18:00 01/26/17 12:29 (Duoneb Neb) 1 ampule Q6HR WHILE AWAKE NEB NEB 01/24/17 14:00 01/26/17 12:10 Ceftriaxone Sodium 2000 mg/ Sodium Chloride 100 ml @ 200 mls/hr Q24H IV 01/25/17 14:00 01/26/17 13:45 Vital Signs / I&O Vital Signs Date Time Temp Pulse Resp B/P (MAP) Pulse Ox O2 Delivery O2 Flow Rate FiO2 01/26/17 09:35 89 01/26/17 08:24 98 Nasal Cannula 3.00 01/26/17 07:50 97.9 85 20 142/71 (94) 94 01/26/17 04:00 97.3 92 26 136/65 (88) 95 01/26/17 00:00 98.2 89 24 124/76 (92) 96 01/25/17 21:06 95 Nasal Cannula 3.00 01/25/17 20:00 98.3 79 22 129/72 (91) 96 I/O 01/25/17 01/25/17 01/25/17 01/26/17 01/26/17 01/26/17 07:00 15:00 23:00 07:00 15:00 23:00 Intake Total 100 ml 900 ml 720 ml Output Total 800 ml 200 ml 500 ml Balance -700 ml 900 ml -200 ml 220 ml Intake Oral 900 ml 720 ml IV Total 100 ml Output Urine Total 800 ml 200 ml 500 ml # Voids 10 # Bowel Movements 2 1 Physical Exam GENERAL: In NAD SKIN: Warm and dry. HEAD: Normocephalic. EYES: No scleral icterus. No injection or drainage. NECK: Supple, trachea midline. No JVD or lymphadenopathy. CARDIOVASCULAR: Irregular rate and rhythm, without murmurs, gallops, or rubs. RESPIRATORY: Breath sounds equal bilaterally. No accessory muscle use. GASTROINTESTINAL: Abdomen soft, non-tender, nondistended. MUSCULOSKELETAL: No cyanosis, or edema. Laboratory Laboratory Tests Test 01/26/17 06:41 Creatinine 0.75 MG/DL Estimat Glomerular Filtration Rate 102 ML/MIN Random Vancomycin Level 13.7 COMMENT Imaging Last 24 hours Impressions Modified Barium Swallow 01/26/17 0000 Signed Impressions: Service Date/Time: Thursday, January 26, 2017 00:00 - CONCLUSION: Modified barium swallow performed in conjunction with speech pathology. Marco Antonio Montes MD Assessment and Plan Problem List: (1) Septic joint of left wrist ICD Codes: M00.9 - Pyogenic arthritis, unspecified Status: Acute (2) Atrial fibrillation ICD Codes: I48.91 - Unspecified atrial fibrillation Status: Chronic (3) COPD (chronic obstructive pulmonary disease) ICD Codes: J44.9 - Chronic obstructive pulmonary disease, unspecified Status: Chronic (4) HTN (hypertension) ICD Codes: I10 - Essential (primary) hypertension Status: Chronic (5) CAD (coronary artery disease) ICD Codes: I25.10 - Atherosclerotic heart disease of [place] coronary artery without angina pectoris (6) Pneumonia ICD Codes: J18.9 - Pneumonia, unspecified organism Assessment and Plan No new cardiac issues. A fib rate better controlled. Continue current program. Continue Eliquis to decrease the risk of stroke with a fib. Continue antihypertensive tx. Continue abxs for suspected pneumonia. Increase activity. D /w pt and . Problem Qualifiers (1) Septic joint of left wrist: Qualified Codes: M00.9 - Pyogenic arthritis, unspecified (2) HTN (hypertension): Qualified Codes: I10 - Essential (primary) hypertension Hadley Mckinnon MD Jan 26, 2017 16:05
[2017-01-26] MEDS ORDERED: THEOPHYLLINE ER 24 HR 300 MG CAPCR PO ONE ×2 (16:30)
--- NOTE | 2017-01-26 16:50 | MB ---
cc: EDA VERAS DATE OF CONSULTATION: 01/26/2017 REASON FOR CONSULTATION: COPD, question pneumonia. HISTORY OF PRESENT ILLNESS Mr. Pack is a 76-year-old male with known history of chronic obstructive pulmonary disease of severe degree chronic respiratory failure on home oxygen therapy. The patient as well as history of obstructive sleep apnea however, he has declined any therapy for his sleep apnea and he would not use C-PAP. He is admitted with pain in his left wrist found to have septic arthritis being treated for same chest x-ray with questionable lung infiltrate. I am asked to see Mr. Pack at this time for same. He denies history of fever or chills. He has a cough small amount of whitish sputum. No hemoptysis. No TB or previous industrial exposure. PAST MEDICAL HISTORY: 1. His past medical history is that of Chronic obstructive pulmonary disease. 2. Chronic respiratory failure. 3. Atrial fibrillation 4. Coronary artery disease post stent placement 5. Obstructive sleep apnea, declines therapy 6. Hypertension. SOCIAL HISTORY Remote smoking history. Does not smoke at present, drinks alcohol socially. No TB or industrial exposure. FAMILY HISTORY Noncontributory. MEDICATIONS At home include 1. Lisinopril. 2. Symbicort. 3. Tamsulosin. 4. Finasteride. 5. Digoxin. 6. <<1:58>> 7. Alprazolam. 8. Ipratropium 9. Diltiazem ALLERGIES CORTIZONE BY INJECTION REVIEW OF SYSTEMS 12-point review of systems as per HPI and past history otherwise negative. PHYSICAL EXAMINATION: IN GENERAL: On exam the patient is alert. VITAL SIGNS: Temperature 98, pulse 80, respirations 16, blood pressure 130/69. HEAD, EYES, EARS, NOSE, AND THROAT: Exam unremarkable. Eyes without icterus. NECK: Without adenopathy or thyroid enlargement. Trachea central. CHEST: No dullness to percussion, clear to auscultation. CARDIAC EXAMINATION: PMI distant. S1-S2 audible murmur or rub. ABDOMEN: Lax of bowel sounds. EXTREMITIES: No clubbing, cyanosis or edema. LABORATORY DATA White count 7000, hemoglobin 12, hematocrit 36, platelets 245,000, sodium 144, potassium 3.7, BUN 13, creatinine 0.7, INR 1.0. RADIOLOGIC: CT scan of the chest done 01/25/2017 is with mild consolidation with irregular pneumonia versus scar. IMPRESSION 1. COPD of severe degree. 2. Chronic respiratory failure on oxygen therapy. 3. Scar versus pneumonia of the lingula 4. Obstructive sleep apnea declines treatment 5. Septic arthritis right wrist 6. Atrial fibrillation. PLAN Patient is to continue antibiotic therapy is followed by infectious disease. Bronchodilator therapy will be maintained. The patient does have significant exertional dyspnea, we will continue his nebulized albuterol and Ipratropium, monitoring. As well and long-acting beta-2 agonist steroid by inhalation appropriately so. We will add small dose of oral theophylline <<4:39>> if it does not improve his symptomatology. Meanwhile continue his oxygen therapy. Baseline pulmonary function will be obtained. I do thank you for asking to partake in Mr. Fatmata mccracken. Eda Veras MD WWW/ /4:20 PM /4:30 PM
[2017-01-26] MEDS: TAMSULOSIN HCL 0.4 MG CAP PO SCH ×2 (21:53)
[2017-01-27] VITALS (11 sets, daily range): BP systolic 117–166; BP diastolic 59–81; PULSE 61–82; RESP 18–20; TEMP 97.7–98.5; O2SAT 91–96
[2017-01-27] MEDS: RESP: ALBUTEROL 2.5 MG/IPRATROPIUM 0.5 MG NEB (SCH) NEB ×6 (07:34→20:13)
[2017-01-27] MEDS: DIGOXIN 0.125 MG TAB PO SCH ×2 (08:12)
[2017-01-27] MEDS: GENTAMICIN SULFATE 0.3% OPHT OINT 3.5 GM TUBE EACH EYE SCH ×4 (08:12→13:10)
[2017-01-27] MEDS: FUROSEMIDE 40 MG TAB PO SCH ×2 (08:12)
[2017-01-27] MEDS: DOCUSATE SODIUM 50 MG/SENNA 8.6 MG TAB PO SCH ×4 (08:12→21:25)
[2017-01-27] MEDS: FAMOTIDINE 20 MG TAB PO SCH ×2 (08:12)
[2017-01-27] MEDS: APIXABAN 5 MG TABLET PO SCH ×4 (08:12→21:25)
[2017-01-27] MEDS: BUDESONIDE-FORMOTEROL 160/4.5 MCG INHALER INH SCH ×4 (08:12→21:24)
[2017-01-27] MEDS: LACTOBACILLUS ACIDOPHILUS TAB PO SCH ×6 (08:13→18:04)
[2017-01-27] MEDS: FINASTERIDE 5 MG TAB PO SCH ×2 (08:13)
[2017-01-27] MEDS: SODIUM CHLORIDE 0.9% FLUSH 10 ML FLUSH IV FLUSH SCH ×4 (08:13→21:24)
[2017-01-27] MEDS: DILTIAZEM HCL 60 MG TAB PO SCH ×2 (08:13)
[2017-01-27] MEDS: LISINOPRIL 10 MG TAB PO SCH ×4 (08:13→21:25)
[2017-01-27] MEDS: POTASSIUM CHLORIDE 10 MEQ CONTROLLED RELEASE TAB PO SCH ×2 (08:13)
[2017-01-27] MEDS: ACETAMINOPHEN/HYDROcodone 325 MG/5 MG TAB PO PRN ×8 (08:36→21:26)
--- NOTE | 2017-01-27 09:13 | PD.CARD.PN ---
Subjective Subjective Remarks No CP or SOB, rate controlled at rest Objective Medications Current Medications Medications (Trade) Dose Ordered Sig/Mari Route Start Time Stop Time Status Last Admin (NS Flush) 2 ml UNSCH PRN IV FLUSH 01/19/17 19:45 (NS Flush) 2 ml BID IV FLUSH 01/19/17 21:00 01/27/17 08:13 (Narcan Inj) 0.4 mg UNSCH PRN IV PUSH 01/19/17 19:45 (Duoneb Neb) 1 ampule Q2HR NEB PRN NEB 01/20/17 00:00 01/26/17 04:10 (Symbicort 160-4.5 Inh) 1 puff Q12HR INH 01/20/17 09:00 01/27/17 08:12 (Lanoxin) 0.125 mg DAILY PO 01/20/17 09:00 01/27/17 08:12 (Cardizem) 60 mg TID PO 01/20/17 09:00 01/27/17 08:13 (Pepcid) 20 mg DAILY PO 01/20/17 09:00 01/27/17 08:12 (Proscar) 5 mg DAILY PO 01/20/17 09:00 01/27/17 08:13 (Lasix) 40 mg DAILY PO 01/20/17 09:00 01/27/17 08:12 (Prinivil) 10 mg BID PO 01/20/17 09:00 01/27/17 08:13 (Flomax) 0.4 mg HS PO 01/20/17 21:00 01/26/17 21:53 (Rembert 5-325 Mg) 1 tab Q4H PRN PO 01/21/17 01:30 01/27/17 08:36 (KCl) 10 meq DAILY PO 01/21/17 17:00 01/27/17 08:13 (Nova-Colace) 1 tab BID PO 01/21/17 21:00 01/27/17 08:12 (Eliquis) 5 mg BID PO 01/22/17 21:00 01/27/17 08:12 (Xanax) 0.5 mg BID PRN PO 01/23/17 11:30 01/24/17 10:00 (Gentamicin 0.3% Opht Oint) 1 applic TID EACH EYE 01/23/17 18:00 01/27/17 17:59 01/27/17 08:12 (Lactinex) 1 tab TID PO 01/23/17 18:00 01/27/17 08:13 (Duoneb Neb) 1 ampule Q6HR WHILE AWAKE NEB NEB 01/24/17 14:00 01/27/17 07:34 Ceftriaxone Sodium 2000 mg/ Sodium Chloride 100 ml @ 200 mls/hr Q24H IV 01/25/17 14:00 01/26/17 13:45 Vital Signs / I&O Vital Signs Date Time Temp Pulse Resp B/P (MAP) Pulse Ox O2 Delivery O2 Flow Rate FiO2 01/27/17 08:19 98.0 61 19 166/81 (109) 92 01/27/17 07:35 94 Nasal Cannula 3.00 01/27/17 04:57 97.9 76 20 135/77 (96) 96 01/27/17 00:31 98.4 75 20 129/67 (87) 91 01/27/17 00:05 64 01/26/17 21:20 97.8 73 20 119/62 (81) 96 01/26/17 20:11 97 Nasal Cannula 3.00 01/26/17 16:07 99.1 78 20 121/68 (85) 95 01/26/17 09:35 89 I/O 01/26/17 01/26/17 01/26/17 01/27/17 01/27/17 01/27/17 07:00 15:00 23:00 07:00 15:00 23:00 Intake Total 720 ml Output Total 200 ml 500 ml 375 ml Balance -200 ml 220 ml -375 ml Intake Oral 720 ml Output Urine Total 200 ml 500 ml 375 ml # Voids 1 # Bowel Movements 1 Physical Exam GENERAL: In NAD SKIN: Warm and dry. HEAD: Normocephalic. EYES: No scleral icterus. No injection or drainage. NECK: Supple, trachea midline. No JVD or lymphadenopathy. CARDIOVASCULAR: Irregular rate and rhythm, without murmurs, gallops, or rubs. RESPIRATORY: Breath sounds equal bilaterally. No accessory muscle use. GASTROINTESTINAL: Abdomen soft, non-tender, nondistended. MUSCULOSKELETAL: No cyanosis, or edema. Assessment and Plan Problem List: (1) Septic joint of left wrist ICD Codes: M00.9 - Pyogenic arthritis, unspecified Status: Acute (2) Atrial fibrillation ICD Codes: I48.91 - Unspecified atrial fibrillation Status: Chronic (3) COPD (chronic obstructive pulmonary disease) ICD Codes: J44.9 - Chronic obstructive pulmonary disease, unspecified Status: Chronic (4) HTN (hypertension) ICD Codes: I10 - Essential (primary) hypertension Status: Chronic (5) CAD (coronary artery disease) ICD Codes: I25.10 - Atherosclerotic heart disease of [place] coronary artery without angina pectoris (6) Pneumonia ICD Codes: J18.9 - Pneumonia, unspecified organism Assessment and Plan No new cardiac issues. A fib rate better controlled. Will switch diltiazem to long-acting 240 mg daily. Continue Eliquis to decrease the risk of stroke with a fib. Continue antihypertensive tx. Continue abxs for suspected pneumonia, seen by pulmonary medicine. Increase activity. Anticipate discharge soon once off IV abxs. Problem Qualifiers (1) Septic joint of left wrist: Qualified Codes: M00.9 - Pyogenic arthritis, unspecified (2) HTN (hypertension): Qualified Codes: I10 - Essential (primary) hypertension Hadley Mckinnon MD Jan 27, 2017 09:13
[2017-01-27 09:38] LABS: AUTOMATED NEUTROPHIL # 6.1 TH/MM3 (1.8-7.7); BASOPHIL # 0.1 TH/MM3 (0-0.2); BASOPHIL % 0.8 % (0.0-2.0); EOSINOPHIL # 0.3 TH/MM3 (0-0.4); EOSINOPHIL % 3.4 % (0.0-4.0); HEMATOCRIT 39.8 % (39.0-51.0); HEMOGLOBIN 13.3 GM/DL (13.0-17.0); LYMPH % 14.8 % (9.0-44.0); LYMPHOCYTE # 1.3 TH/MM3 (1.0-4.8); MEAN CELL VOLUME 89.2 FL (80.0-100.0); MEAN CORPUSCULAR HEMOGLOBIN 29.8 PG (27.0-34.0); MEAN CORPUSCULAR HGB CONC 33.4 % (32.0-36.0); MEAN PLATELET VOLUME 8.4 FL (7.0-11.0); MONOCYTE # 0.8 TH/MM3 (0-0.9); PLATELET COUNT 232 TH/MM3 (150-450); RED BLOOD COUNT 4.46 MIL/MM3 (4.50-5.90); RED CELL DISTRIBUTION WIDTH 16.3 % (11.6-17.2); WHITE BLOOD COUNT 8.5 TH/MM3 (4.0-11.0)
[2017-01-27 10:06] LABS: BICARBONATE 24.7 MEQ/L (21.0-32.0); CREATININE 0.76 MG/DL (0.60-1.30)
[2017-01-27] MEDS: DILTIAZEM-CD 240 MG CAP ER PO SCH ×2 (11:42)
[2017-01-27] MEDS: ALPRAZolam 0.5 MG TAB PO PRN ×4 (13:44→21:42)
--- NOTE | 2017-01-27 14:09 | HHI.PR ---
Subjective Remarks ALERT SITTING IN BED NO SOB Objective Vital Signs Date Time Temp Pulse Resp B/P (MAP) Pulse Ox O2 Delivery O2 Flow Rate FiO2 01/27/17 12:25 98.5 82 19 117/75 (89) 93 01/27/17 08:19 98.0 61 19 166/81 (109) 92 01/27/17 07:35 94 Nasal Cannula 3.00 01/27/17 04:57 97.9 76 20 135/77 (96) 96 01/27/17 00:31 98.4 75 20 129/67 (87) 91 01/27/17 00:05 64 01/26/17 21:20 97.8 73 20 119/62 (81) 96 01/26/17 20:11 97 Nasal Cannula 3.00 01/26/17 16:07 99.1 78 20 121/68 (85) 95 I/O 01/26/17 01/26/17 01/26/17 01/27/17 01/27/17 01/27/17 07:00 15:00 23:00 07:00 15:00 23:00 Intake Total 720 ml Output Total 200 ml 500 ml 375 ml Balance -200 ml 220 ml -375 ml Intake Oral 720 ml Output Urine Total 200 ml 500 ml 375 ml # Voids 1 # Bowel Movements 1 Result Diagram: 01/27/17 0850 01/27/17 0850 Objective Remarks GENERAL: SKIN: Warm and dry. HEAD: Atraumatic. Normocephalic. EYES: Pupils equal and round. No scleral icterus. No injection or drainage. ENT: No nasal bleeding or discharge. Mucous membranes pink and moist. NECK: Trachea midline. No JVD. CARDIOVASCULAR: Regular rate and rhythm. RESPIRATORY: No accessory muscle use. Clear to auscultation. Breath sounds equal bilaterally. GASTROINTESTINAL: Abdomen soft, non-tender, nondistended. Hepatic and splenic margins not palpable. MUSCULOSKELETAL: Extremities without clubbing, cyanosis, or edema. No obvious deformities. NEUROLOGICAL: Awake and alert. No obvious cranial nerve deficits. Motor grossly within normal limits. Five out of 5 muscle strength in the arms and legs. Normal speech. PSYCHIATRIC: Appropriate mood and affect; insight and judgment normal. Assessment and Plan Assessment and Plan COPD RESP. FAILURE KLARISSA , DECLINES THERAPY ? PNEUMONIA PLAN O2 NEEDED ANTIBIOTICS F/U CXRAY Eda Veras MD Jan 27, 2017 14:08
--- NOTE | 2017-01-27 14:33 | HHI.PR ---
Subjective Remarks Follow up pneumonia. Patient still having dyspnea, cough. No chest pain. Does not feel much better today. Objective Vitals Vital Signs Date Time Temp Pulse Resp B/P (MAP) Pulse Ox O2 Delivery O2 Flow Rate FiO2 01/27/17 12:25 98.5 82 19 117/75 (89) 93 01/27/17 08:19 98.0 61 19 166/81 (109) 92 01/27/17 07:35 94 Nasal Cannula 3.00 01/27/17 04:57 97.9 76 20 135/77 (96) 96 01/27/17 00:31 98.4 75 20 129/67 (87) 91 01/27/17 00:05 64 01/26/17 21:20 97.8 73 20 119/62 (81) 96 01/26/17 20:11 97 Nasal Cannula 3.00 01/26/17 16:07 99.1 78 20 121/68 (85) 95 I/O 01/26/17 01/26/17 01/26/17 01/27/17 01/27/17 01/27/17 07:00 15:00 23:00 07:00 15:00 23:00 Intake Total 720 ml Output Total 200 ml 500 ml 375 ml Balance -200 ml 220 ml -375 ml Intake Oral 720 ml Output Urine Total 200 ml 500 ml 375 ml # Voids 1 # Bowel Movements 1 Result Diagram: 01/27/17 0850 01/27/17 0850 Imaging Last Impressions Modified Barium Swallow 01/26/17 0000 Signed Impressions: Service Date/Time: Thursday, January 26, 2017 00:00 - CONCLUSION: Modified barium swallow performed in conjunction with speech pathology. Marco Antonio Montes MD Chest X-Ray 01/25/17 0600 Signed Impressions: Service Date/Time: Wednesday, January 25, 2017 07:05 - CONCLUSION: New mild airspace disease left lung base. Ovidio Shah MD Chest CT 01/25/17 0000 Signed Impressions: Service Date/Time: Wednesday, January 25, 2017 20:37 - CONCLUSION: 1. Mild consolidation in the lingula which could represent early pneumonia versus scarring. 2. Underlying emphysema and mild hyperinflation. 3. Coronary artery calcifications. 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 Smooth margined cystic lesion in the distal scaphoid. No fracture seen. 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 German Padron MD Objective Remarks General: Elderly male in no acute distress. Heart: Regular rate and rhythm. No murmur. Lungs: Mild crackles in both bases, left greater than right. More clear overall today. Breathing is nonlabored. Abdomen: Soft, nontender, nondistended. Extremities: Trace bilateral ankle edema. Left wrist bandaged. Psych: Alert and oriented. Procedures 01/20/17 left wrist arthrotomy with irrigation & debridement, drain placement Urinary Catheter: No Vascular Central Line Catheter: No A/P Problem List: (1) Septic joint of left wrist ICD Code: M00.9 - Pyogenic arthritis, unspecified Status: Acute (2) HTN (hypertension) ICD Code: I10 - Essential (primary) hypertension Status: Chronic (3) Atrial fibrillation ICD Code: I48.91 - Unspecified atrial fibrillation Status: Chronic (4) COPD (chronic obstructive pulmonary disease) ICD Code: J44.9 - Chronic obstructive pulmonary disease, unspecified Status: Chronic (5) Wrist joint effusion ICD Code: M25.439 - Effusion, unspecified wrist Status: Acute Assessment and Plan 1. Septic joint, left wrist: S/P arthrotomy, incision/debridement. Appreciate hand surgery recommendations. Drain removed. Continue antibiotics. Cultures are negative. Discussed with Dr. De La Cruz. 2. A-fib, chronic: Continue cardizem, Eliquis. 3. COPD: Patient reporting cough, dyspnea. Duonebs, supplemental oxygen. Appreciate pulmonology recommendations. 4. Left lower lobe PNA: Antibiotics per infectious disease. Sputum culture growing normal respiratory cooper. Recent PNA while inpatient. Repeat chest x- ray shows left lower lobe infiltrate. 5. Hypertension: Continue home medications with parameters. 6. Hypokalemia: Improved. 7. Conjunctivitis: Continue topical antibiotics. Monitor. 8. DVT prophylaxis: SCDs. Eliquis. Discharge Planning Pending further improvement in pneumonia. Problem Qualifiers (1) Septic joint of left wrist: Qualified Codes: M00.9 - Pyogenic arthritis, unspecified (2) HTN (hypertension): Qualified Codes: I10 - Essential (primary) hypertension (3) Wrist joint effusion: Qualified Codes: M25.432 - Effusion, left wrist Kevin Bustillo MD Jan 27, 2017 14:33
--- NOTE | 2017-01-27 15:57 | HHI.IDPN ---
Subjective Subjective Remarks + cough, occ productive CT with small infiltrate, no tumor, no fluid collection afebrile fluid (post op ) with only 400 WBC,hemorrhagic seen by Dr Rissa hanna CFTX Allergies: Coded Allergies: cortisone (Verified Allergy, Unknown, 01/19/17) injection only Objective . Vital Signs Date Time Temp Pulse Resp B/P (MAP) Pulse Ox O2 Delivery O2 Flow Rate FiO2 01/27/17 12:25 98.5 82 19 117/75 (89) 93 01/27/17 08:19 98.0 61 19 166/81 (109) 92 01/27/17 07:35 94 Nasal Cannula 3.00 01/27/17 04:57 97.9 76 20 135/77 (96) 96 01/27/17 00:31 98.4 75 20 129/67 (87) 91 01/27/17 00:05 64 01/26/17 21:20 97.8 73 20 119/62 (81) 96 01/26/17 20:11 97 Nasal Cannula 3.00 01/26/17 16:07 99.1 78 20 121/68 (85) 95 01/27/17 01/27/17 01/28/17 15:00 23:00 07:00 Intake Total 480 ml Output Total 900 ml Balance -420 ml Intake Oral 480 ml Output Urine Total 900 ml . Laboratory Tests Test 01/27/17 08:50 White Blood Count 8.5 TH/MM3 Red Blood Count 4.46 MIL/MM3 Hemoglobin 13.3 GM/DL Hematocrit 39.8 % Mean Corpuscular Volume 89.2 FL Mean Corpuscular Hemoglobin 29.8 PG Mean Corpuscular Hemoglobin Concent 33.4 % Red Cell Distribution Width 16.3 % Platelet Count 232 TH/MM3 Mean Platelet Volume 8.4 FL Neutrophils (%) (Auto) 72.0 % Lymphocytes (%) (Auto) 14.8 % Monocytes (%) (Auto) 9.0 % Eosinophils (%) (Auto) 3.4 % Basophils (%) (Auto) 0.8 % Neutrophils # (Auto) 6.1 TH/MM3 Lymphocytes # (Auto) 1.3 TH/MM3 Monocytes # (Auto) 0.8 TH/MM3 Eosinophils # (Auto) 0.3 TH/MM3 Basophils # (Auto) 0.1 TH/MM3 CBC Comment DIFF FINAL Differential Comment Laboratory Tests Test 01/26/17 06:41 01/27/17 08:50 Creatinine 0.75 MG/DL 0.76 MG/DL Estimat Glomerular Filtration Rate 102 ML/MIN 100 ML/MIN Blood Urea Nitrogen 12 MG/DL Random Glucose 101 MG/DL Calcium Level 9.0 MG/DL Sodium Level 141 MEQ/L Potassium Level 4.0 MEQ/L Chloride Level 106 MEQ/L Carbon Dioxide Level 24.7 MEQ/L Anion Gap 10 MEQ/L Microbiology Date/Time Source Procedure Growth Status 01/27/17 10:30 Sputum Expectorated Sputum Acid Fast Stain Pending Received 01/27/17 10:30 Sputum Expectorated Sputum Mycobacterial Culture Pending Received Imaging Last Impressions Modified Barium Swallow 01/26/17 0000 Signed Impressions: Service Date/Time: Thursday, January 26, 2017 00:00 - CONCLUSION: Modified barium swallow performed in conjunction with speech pathology. Marco Antonio Montes MD Chest X-Ray 01/25/17 0600 Signed Impressions: Service Date/Time: Wednesday, January 25, 2017 07:05 - CONCLUSION: New mild airspace disease left lung base. Ovidio Shah MD Chest CT 01/25/17 0000 Signed Impressions: Service Date/Time: Wednesday, January 25, 2017 20:37 - CONCLUSION: 1. Mild consolidation in the lingula which could represent early pneumonia versus scarring. 2. Underlying emphysema and mild hyperinflation. 3. Coronary artery calcifications. 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 Smooth margined cystic lesion in the distal scaphoid. No fracture seen. 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 German Padron MD Physical Exam CONSTITUTIONAL/GENERAL: This is an adequately nourished patient, in no apparent distress. TUBES/LINES/DRAINS: SKIN: No jaundice, rashes, or lesions. Ecchymoses on upper extremities. Skin temperature appropriate. Not diaphoretic. CARDIOVASCULAR: Regular rate and rhythm without murmurs, gallops, or rubs. No JVD. Peripheral pulses symmetric. RESPIRATORY/CHEST: Symmetric, unlabored respirations. Clear to auscultation L base posteriorly. Breath sounds equal bilaterally. GASTROINTESTINAL: Abdomen soft, non-tender, nondistended. No hepato-splenomegaly , or palpable masses. No guarding. Bowel sounds present. MUSCULOSKELETAL: Extremities without clubbing, cyanosis, or edema. No joint tenderness or effusion noted. No calf tenderness. No mottling or clubbing. LUE with dressing in place NEUROLOGICAL: Awake and alert. Non focal PSYCHIATRIC: calm, cooperative Assessment & Plan Remarks Suspected septic arthritis L wrist, culture negative - no prior abx use - WBC is low, 400 - not cw infection,but it was post -op Also, pt was on abx 8 days prior to aspiration, but none in the last 8 days prior to aspiration I think his clinical date is more c/w non infectious arthrtitis, ei osteoarthritis L LL PNA - recurrent cont azithro and CFTX for PNA fu AFB spuitum to r/o non tuberculous mycobacteria. Pt w/o TB risk factors, no need to isolate dw Dr Ronni pandey re stopping abx and monitoring clincally after PNA Rx completed Mercedes De La Cruz MD Jan 27, 2017 15:57
[2017-01-27] MEDS: cefTRIAXone INJ 2,000 MG in SODIUM CHLORIDE 0.9% INJ 100 ML IV SCH ×4 (16:10)
[2017-01-27] MEDS: TAMSULOSIN HCL 0.4 MG CAP PO SCH ×2 (21:25)
[2017-01-28] VITALS (8 sets, daily range): BP systolic 105–169; BP diastolic 58–116; PULSE 59–90; RESP 18–20; TEMP 98–98.6; O2SAT 90–95
[2017-01-28] MEDS: RESP: ALBUTEROL 2.5 MG/IPRATROPIUM 0.5 MG NEB (SCH) NEB ×6 (06:41→13:49)
--- NOTE | 2017-01-28 08:48 | HHI.PR ---
Subjective Remarks ALERT SITTING IN BED NO SOB Objective Vital Signs Date Time Temp Pulse Resp B/P (MAP) Pulse Ox O2 Delivery O2 Flow Rate FiO2 01/28/17 08:14 98.2 89 20 111/60 (77) 94 01/28/17 05:00 98.0 59 20 120/84 (96) 95 01/28/17 00:45 98.4 65 18 131/70 (90) 95 01/27/17 20:30 97.7 65 19 132/59 (83) 95 01/27/17 20:14 95 Nasal Cannula 3.00 01/27/17 20:00 82 01/27/17 16:57 98.4 70 18 117/80 (92) 95 01/27/17 16:34 93 Nasal Cannula 3.00 01/27/17 12:25 98.5 82 19 117/75 (89) 93 I/O 01/27/17 01/27/17 01/27/17 01/28/17 01/28/17 01/28/17 07:00 15:00 23:00 07:00 15:00 23:00 Intake Total 1130 ml 1000 ml Output Total 375 ml 900 ml Balance -375 ml 230 ml 1000 ml Intake Oral 1130 ml 1000 ml Output Urine Total 375 ml 900 ml # Voids 1 3 # Bowel Movements 0 0 Result Diagram: 01/27/17 0850 01/27/17 0850 Objective Remarks GENERAL: SKIN: Warm and dry. HEAD: Atraumatic. Normocephalic. EYES: Pupils equal and round. No scleral icterus. No injection or drainage. ENT: No nasal bleeding or discharge. Mucous membranes pink and moist. NECK: Trachea midline. No JVD. CARDIOVASCULAR: Regular rate and rhythm. RESPIRATORY: No accessory muscle use. Clear to auscultation. Breath sounds equal bilaterally. GASTROINTESTINAL: Abdomen soft, non-tender, nondistended. Hepatic and splenic margins not palpable. MUSCULOSKELETAL: Extremities without clubbing, cyanosis, or edema. No obvious deformities. NEUROLOGICAL: Awake and alert. No obvious cranial nerve deficits. Motor grossly within normal limits. Five out of 5 muscle strength in the arms and legs. Normal speech. PSYCHIATRIC: Appropriate mood and affect; insight and judgment normal. Assessment and Plan Assessment and Plan COPD RESP. FAILURE KLARISSA , DECLINES THERAPY ? PNEUMONIA PLAN O2 NEEDED ANTIBIOTICS F/U CXRAY Eda Veras MD Jan 28, 2017 08:48
[2017-01-28] MEDS: SODIUM CHLORIDE 0.9% FLUSH 10 ML FLUSH IV FLUSH SCH ×4 (09:00→20:30)
[2017-01-28] MEDS: BUDESONIDE-FORMOTEROL 160/4.5 MCG INHALER INH SCH ×4 (09:00→20:29)
[2017-01-28] MEDS: APIXABAN 5 MG TABLET PO SCH ×4 (09:00→20:29)
[2017-01-28] MEDS: FINASTERIDE 5 MG TAB PO SCH ×2 (09:15)
[2017-01-28] MEDS: POTASSIUM CHLORIDE 10 MEQ CONTROLLED RELEASE TAB PO SCH ×2 (09:15)
[2017-01-28] MEDS: FAMOTIDINE 20 MG TAB PO SCH ×2 (09:15)
[2017-01-28] MEDS: DIGOXIN 0.125 MG TAB PO SCH ×2 (09:15)
[2017-01-28] MEDS: FUROSEMIDE 40 MG TAB PO SCH ×2 (09:15)
[2017-01-28] MEDS: DOCUSATE SODIUM 50 MG/SENNA 8.6 MG TAB PO SCH ×4 (09:15→20:28)
[2017-01-28] MEDS: DILTIAZEM-CD 240 MG CAP ER PO SCH ×2 (09:15)
[2017-01-28] MEDS: LISINOPRIL 10 MG TAB PO SCH ×4 (09:15→20:30)
[2017-01-28] MEDS: ACETAMINOPHEN/HYDROcodone 325 MG/5 MG TAB PO PRN ×6 (09:16→20:30)
[2017-01-28] MEDS: LACTOBACILLUS ACIDOPHILUS TAB PO SCH ×6 (09:18→17:33)
--- NOTE | 2017-01-28 10:38 | RADRPT ---
EXAM DATE/TIME: 01/28/2017 10:08 [facility] COMPARISON: CHEST SINGLE AP, January 21, 2017, 17:30. INDICATIONS : Pneumonia. MEDICAL HISTORY : Cardiovascular disease. Hypertension Chronic obstructive pulmonary disease. coronary artery disea se., ulcer SURGICAL HISTORY : None. ENCOUNTER: Initial ACUITY: 1 week PAIN SCORE: 0/10 LOCATION: Bilateral chest FINDINGS: PA and lateral views of the chest demonstrate the lungs to be symmetrically aerated without evidence of mass, infiltrate or effusion. There is stable chronic interstitial changes bilaterally. The cardi omediastinal contours are unremarkable. Osseous structures are intact. CONCLUSION: No acute disease. No significant change has occurred. Elia Tobar MD on January 28, 2017 at 10:36 Board Certified Radiologist. This report was verified electronically.
--- NOTE | 2017-01-28 11:27 | PD.CARD.PN ---
Subjective Subjective Remarks No CP or SOB, rate controlled at rest with long-acting diltiazem, feels better Objective Medications Current Medications Medications (Trade) Dose Ordered Sig/Mari Route Start Time Stop Time Status Last Admin (NS Flush) 2 ml UNSCH PRN IV FLUSH 01/19/17 19:45 (NS Flush) 2 ml BID IV FLUSH 01/19/17 21:00 01/28/17 09:00 (Narcan Inj) 0.4 mg UNSCH PRN IV PUSH 01/19/17 19:45 (Duoneb Neb) 1 ampule Q2HR NEB PRN NEB 01/20/17 00:00 01/26/17 04:10 (Symbicort 160-4.5 Inh) 1 puff Q12HR INH 01/20/17 09:00 01/28/17 09:00 (Lanoxin) 0.125 mg DAILY PO 01/20/17 09:00 01/28/17 09:15 (Pepcid) 20 mg DAILY PO 01/20/17 09:00 01/28/17 09:15 (Proscar) 5 mg DAILY PO 01/20/17 09:00 01/28/17 09:15 (Lasix) 40 mg DAILY PO 01/20/17 09:00 01/28/17 09:15 (Prinivil) 10 mg BID PO 01/20/17 09:00 01/28/17 09:15 (Flomax) 0.4 mg HS PO 01/20/17 21:00 01/27/17 21:25 ([place] 5-325 Mg) 1 tab Q4H PRN PO 01/21/17 01:30 01/28/17 09:16 (KCl) 10 meq DAILY PO 01/21/17 17:00 01/28/17 09:15 (Nova-Colace) 1 tab BID PO 01/21/17 21:00 01/28/17 09:15 (Eliquis) 5 mg BID PO 01/22/17 21:00 01/28/17 09:00 (Xanax) 0.5 mg BID PRN PO 01/23/17 11:30 01/27/17 21:42 (Lactinex) 1 tab TID PO 01/23/17 18:00 01/28/17 09:18 (Duoneb Neb) 1 ampule Q6HR WHILE AWAKE NEB NEB 10/29/17 14:00 01/28/17 10:42 Ceftriaxone Sodium 2000 mg/ Sodium Chloride 100 ml @ 200 mls/hr Q24H IV 01/25/17 14:00 01/27/17 16:10 (Cardizem Cd) 240 mg DAILY PO 01/27/17 10:30 01/28/17 09:15 Vital Signs / I&O Vital Signs Date Time Temp Pulse Resp B/P (MAP) Pulse Ox O2 Delivery O2 Flow Rate FiO2 01/28/17 10:45 90 21 01/28/17 08:14 98.2 89 20 111/60 (77) 94 01/28/17 05:00 98.0 59 20 120/84 (96) 95 01/28/17 00:45 98.4 65 18 131/70 (90) 95 01/27/17 20:30 97.7 65 19 132/59 (83) 95 01/27/17 20:14 95 Nasal Cannula 3.00 01/27/17 20:00 82 01/27/17 16:57 98.4 70 18 117/80 (92) 95 01/27/17 16:34 93 Nasal Cannula 3.00 01/27/17 12:25 98.5 82 19 117/75 (89) 93 I/O 01/27/17 01/27/17 01/27/17 01/28/17 01/28/17 01/28/17 07:00 15:00 23:00 07:00 15:00 23:00 Intake Total 1130 ml 1000 ml Output Total 375 ml 900 ml Balance -375 ml 230 ml 1000 ml Intake Oral 1130 ml 1000 ml Output Urine Total 375 ml 900 ml # Voids 1 3 # Bowel Movements 0 0 Physical Exam GENERAL: In NAD SKIN: Warm and dry. HEAD: Normocephalic. EYES: No scleral icterus. No injection or drainage. NECK: Supple, trachea midline. No JVD or lymphadenopathy. CARDIOVASCULAR: Irregular rate and rhythm, without murmurs, gallops, or rubs. RESPIRATORY: Breath sounds equal bilaterally. No accessory muscle use. GASTROINTESTINAL: Abdomen soft, non-tender, nondistended. MUSCULOSKELETAL: No cyanosis, or edema. Assessment and Plan Problem List: (1) Septic joint of left wrist ICD Codes: M00.9 - Pyogenic arthritis, unspecified Status: Acute (2) Atrial fibrillation ICD Codes: I48.91 - Unspecified atrial fibrillation Status: Chronic (3) COPD (chronic obstructive pulmonary disease) ICD Codes: J44.9 - Chronic obstructive pulmonary disease, unspecified Status: Chronic (4) HTN (hypertension) ICD Codes: I10 - Essential (primary) hypertension Status: Chronic (5) CAD (coronary artery disease) ICD Codes: I25.10 - Atherosclerotic heart disease of [place] coronary artery without angina pectoris (6) Pneumonia ICD Codes: J18.9 - Pneumonia, unspecified organism Assessment and Plan No new cardiac issues. A fib rate better controlled, continue diltiazem long- acting 240 mg daily. Continue Eliquis to decrease the risk of stroke with a fib. Continue antihypertensive tx. Continue abxs for suspected pneumonia. Increase activity. Anticipate discharge soon once off IV abxs. Will schedule outpt f/u after discharge. Problem Qualifiers (1) Septic joint of left wrist: Qualified Codes: M00.9 - Pyogenic arthritis, unspecified (2) HTN (hypertension): Qualified Codes: I10 - Essential (primary) hypertension Hadley Mckinnon MD Jan 28, 2017 11:27
--- NOTE | 2017-01-28 12:13 | HHI.PR ---
Subjective Remarks Patient reports he is coughing. He has no palpitations. No shortness of breath. Does not want to be discharged in return back here immediately. He wants to make sure his chest x-ray is clear this morning. He denies any chills or fever. Objective Vitals Vital Signs Date Time Temp Pulse Resp B/P (MAP) Pulse Ox O2 Delivery O2 Flow Rate FiO2 01/28/17 11:44 98.6 90 20 156/69 (98) 94 01/28/17 10:45 90 21 01/28/17 08:14 98.2 89 20 111/60 (77) 94 01/28/17 05:00 98.0 59 20 120/84 (96) 95 01/28/17 00:45 98.4 65 18 131/70 (90) 95 01/27/17 20:30 97.7 65 19 132/59 (83) 95 01/27/17 20:14 95 Nasal Cannula 3.00 01/27/17 20:00 82 01/27/17 16:57 98.4 70 18 117/80 (92) 95 01/27/17 16:34 93 Nasal Cannula 3.00 01/27/17 12:25 98.5 82 19 117/75 (89) 93 I/O 01/27/17 01/27/17 01/27/17 01/28/17 01/28/17 01/28/17 07:00 15:00 23:00 07:00 15:00 23:00 Intake Total 1130 ml 1000 ml Output Total 375 ml 900 ml Balance -375 ml 230 ml 1000 ml Intake Oral 1130 ml 1000 ml Output Urine Total 375 ml 900 ml # Voids 1 3 # Bowel Movements 0 0 Result Diagram: 01/27/17 0850 01/27/17 0850 Objective Remarks GENERAL: This is a well-nourished, well-developed patient, in no apparent distress. CARDIOVASCULAR: Regular rate and rhythm RESPIRATORY: Few bibasilar crackles with mild expiratory wheezes in the bases GASTROINTESTINAL: Abdomen soft, non-tender, nondistended. Normal active bowel sounds MUSCULOSKELETAL: Extremities without clubbing, cyanosis, trace edema NEURO: Alert & Oriented x4 to person, place, time, situation. Moves all ext x4 Procedures 01/20/17 left wrist arthrotomy with irrigation & debridement, drain placement A/P Problem List: (1) Septic joint of left wrist ICD Code: M00.9 - Pyogenic arthritis, unspecified Status: Acute (2) HTN (hypertension) ICD Code: I10 - Essential (primary) hypertension Status: Chronic (3) Atrial fibrillation ICD Code: I48.91 - Unspecified atrial fibrillation Status: Chronic (4) COPD (chronic obstructive pulmonary disease) ICD Code: J44.9 - Chronic obstructive pulmonary disease, unspecified Status: Chronic (5) Wrist joint effusion ICD Code: M25.439 - Effusion, unspecified wrist Status: Acute Assessment and Plan 1. 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 Discuss with infectious disease Dr. corral does not feel like this is a septic joint. Appreciate hand surgery recommendations. Drain removed. . Cultures are negative. Discussed with Dr. De La Cruz. Broad-spectrum antibiotics for septic joint was discontinued by infectious disease. 2. A-fib, chronic: Continue cardizem, Eliquis. Overall rate control. 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 3. COPD: Patient reporting cough, dyspnea. Duonebs, supplemental oxygen. Appreciate pulmonology recommendations. 4. Left lower lobe PNA: Antibiotics per infectious disease. Sputum culture growing normal respiratory cooper. Recent PNA while inpatient. Repeat chest x- ray shows no infiltrate. Sputum culture showed normal respiratory cooper, AFB negative 5. Hypertension: Continue home medications with parameters. Continue lisinopril. 6. Hypokalemia: Improved. 7. Conjunctivitis: Continue topical antibiotics. Monitor. 8. DVT prophylaxis: SCDs. Eliquis. Review chest x-ray results with patient and family at bedside. At this time, they are open in discussing transitional planning. We will transition IV Rocephin 2 soft in the morning and start Zithromax to cover for pneumonia. Discussed this with Dr. De La Cruz. Family would also like to ensure his heart rate is controlled and stated to me that they call Dr. Mckinnon's office today. Discharge Planning Discharge planning the next 24 hours and transition IV antibiotics to oral and monitor respiratory status. Problem Qualifiers (1) Septic joint of left wrist: Qualified Codes: M00.9 - Pyogenic arthritis, unspecified (2) HTN (hypertension): Qualified Codes: I10 - Essential (primary) hypertension (3) Wrist joint effusion: Qualified Codes: M25.432 - Effusion, left wrist Brayan,[place] MD Jan 28, 2017 12:13
[2017-01-28] MEDS: cefTRIAXone INJ 2,000 MG in SODIUM CHLORIDE 0.9% INJ 100 ML IV SCH ×4 (14:25)
[2017-01-28] MEDS: AZITHROMYCIN 250 MG TAB PO SCH ×2 (17:33)
[2017-01-28] MEDS: TAMSULOSIN HCL 0.4 MG CAP PO SCH ×2 (20:29)
[2017-01-28] MEDS: ALPRAZolam 0.5 MG TAB PO PRN ×2 (20:31)
[2017-01-29] VITALS: PULSE 66
[2017-01-29 00:30] VITALS: BP 115/60; PULSE 66; RESP 19; TEMP 98.1; O2SAT 96
[2017-01-29] MEDS: ACETAMINOPHEN/HYDROcodone 325 MG/5 MG TAB PO PRN ×8 (03:10→20:53)
[2017-01-29] MEDS: RESP: ALBUTEROL 2.5 MG/IPRATROPIUM 0.5 MG NEB (PRN) NEB ×8 (03:15→21:55)
[2017-01-29 04:30] VITALS: BP 120/59; PULSE 64; RESP 19; TEMP 97.7; O2SAT 95
--- NOTE | 2017-01-29 08:14 | HHI.PR ---
Subjective Remarks ALERT SITTING IN BED NO SOB Objective Vital Signs Date Time Temp Pulse Resp B/P (MAP) Pulse Ox O2 Delivery O2 Flow Rate FiO2 01/29/17 04:30 97.7 64 19 120/59 (79) 95 01/29/17 00:30 98.1 66 19 115/60 (78) 96 01/29/17 00:00 66 01/28/17 22:12 94 3.00 01/28/17 20:45 98.5 65 19 105/58 (74) 95 01/28/17 15:59 98.5 84 20 169/116 (133) 95 01/28/17 11:44 98.6 90 20 156/69 (98) 94 01/28/17 10:45 90 21 01/28/17 08:14 98.2 89 20 111/60 (77) 94 I/O 01/28/17 01/28/17 01/28/17 01/29/17 01/29/17 01/29/17 07:00 15:00 23:00 07:00 15:00 23:00 Intake Total 1000 ml 840 ml 1000 ml Output Total 460 ml 900 ml Balance 1000 ml 380 ml 100 ml Intake Oral 1000 ml 840 ml 1000 ml Output Urine Total 460 ml 900 ml # Voids 3 3 2 # Bowel Movements 0 1 0 Result Diagram: 01/27/17 0850 01/27/17 0850 Objective Remarks GENERAL: SKIN: Warm and dry. HEAD: Atraumatic. Normocephalic. EYES: Pupils equal and round. No scleral icterus. No injection or drainage. ENT: No nasal bleeding or discharge. Mucous membranes pink and moist. NECK: Trachea midline. No JVD. CARDIOVASCULAR: Regular rate and rhythm. RESPIRATORY: No accessory muscle use. Clear to auscultation. Breath sounds equal bilaterally. GASTROINTESTINAL: Abdomen soft, non-tender, nondistended. Hepatic and splenic margins not palpable. MUSCULOSKELETAL: Extremities without clubbing, cyanosis, or edema. No obvious deformities. NEUROLOGICAL: Awake and alert. No obvious cranial nerve deficits. Motor grossly within normal limits. Five out of 5 muscle strength in the arms and legs. Normal speech. PSYCHIATRIC: Appropriate mood and affect; insight and judgment normal. Assessment and Plan Assessment and Plan COPD RESP. FAILURE KLARISSA , DECLINES THERAPY ? PNEUMONIA PLAN O2 NEEDED ANTIBIOTICS OK FOR D/C HOME PULMONARY SHORT OFFICE NEXT WEEK [place] Eda Veras MD Jan 29, 2017 08:14
[2017-01-29] MEDS: CEFUROXIME AXETIL 500 MG TAB PO SCH ×4 (08:23→20:53)
[2017-01-29] MEDS: DILTIAZEM-CD 240 MG CAP ER PO SCH ×2 (08:23)
[2017-01-29] MEDS: FAMOTIDINE 20 MG TAB PO SCH ×2 (08:24)
[2017-01-29] MEDS: FINASTERIDE 5 MG TAB PO SCH ×2 (08:24)
[2017-01-29] MEDS: ALPRAZolam 0.5 MG TAB PO PRN ×4 (08:24→20:53)
[2017-01-29] MEDS: LACTOBACILLUS ACIDOPHILUS TAB PO SCH ×6 (08:24→17:30)
[2017-01-29] MEDS: LISINOPRIL 10 MG TAB PO SCH ×4 (08:24→20:54)
[2017-01-29] MEDS: BUDESONIDE-FORMOTEROL 160/4.5 MCG INHALER INH SCH ×4 (08:24→20:54)
[2017-01-29] MEDS: POTASSIUM CHLORIDE 10 MEQ CONTROLLED RELEASE TAB PO SCH ×2 (08:24)
[2017-01-29] MEDS: AZITHROMYCIN 250 MG TAB PO SCH ×2 (08:25)
[2017-01-29] MEDS: FUROSEMIDE 40 MG TAB PO SCH ×2 (08:25)
[2017-01-29] MEDS: DIGOXIN 0.125 MG TAB PO SCH ×2 (08:25)
[2017-01-29] MEDS: SODIUM CHLORIDE 0.9% FLUSH 10 ML FLUSH IV FLUSH SCH ×4 (08:25→20:56)
[2017-01-29] MEDS: DOCUSATE SODIUM 50 MG/SENNA 8.6 MG TAB PO SCH ×4 (08:25→20:52)
[2017-01-29] MEDS: APIXABAN 5 MG TABLET PO SCH ×4 (08:25→20:52)
[2017-01-29 08:35] VITALS: BP 126/78; PULSE 78; RESP 20; TEMP 97.6; O2SAT 95
[2017-01-29 08:38] VITALS: O2SAT 95
--- NOTE | 2017-01-29 09:44 | PD.CARD.PN ---
Subjective Subjective Remarks No CP or SOB, rate controlled well at rest with long-acting diltiazem 240 mg Objective Medications Current Medications Medications (Trade) Dose Ordered Sig/Mari Route Start Time Stop Time Status Last Admin (NS Flush) 2 ml UNSCH PRN IV FLUSH 01/19/17 19:45 (NS Flush) 2 ml BID IV FLUSH 01/19/17 21:00 01/29/17 08:25 (Narcan Inj) 0.4 mg UNSCH PRN IV PUSH 01/19/17 19:45 (Duoneb Neb) 1 ampule Q2HR NEB PRN NEB 01/20/17 00:00 01/29/17 08:35 (Symbicort 160-4.5 Inh) 1 puff Q12HR INH 01/20/17 09:00 01/29/17 08:24 (Lanoxin) 0.125 mg DAILY PO 01/20/17 09:00 01/29/17 08:25 (Pepcid) 20 mg DAILY PO 01/20/17 09:00 01/29/17 08:24 (Proscar) 5 mg DAILY PO 01/20/17 09:00 01/29/17 08:24 (Lasix) 40 mg DAILY PO 01/20/17 09:00 01/29/17 08:25 (Prinivil) 10 mg BID PO 01/20/17 09:00 01/29/17 08:24 (Flomax) 0.4 mg HS PO 01/20/17 21:00 01/28/17 20:29 (Spurgeon 5-325 Mg) 1 tab Q4H PRN PO 01/21/17 01:30 01/29/17 08:26 (KCl) 10 meq DAILY PO 01/21/17 17:00 01/29/17 08:24 (Nova-Colace) 1 tab BID PO 01/21/17 21:00 01/29/17 08:25 (Eliquis) 5 mg BID PO 01/22/17 21:00 01/29/17 08:25 (Xanax) 0.5 mg BID PRN PO 01/23/17 11:30 01/29/17 08:24 (Lactinex) 1 tab TID PO 01/23/17 18:00 01/29/17 08:24 (Cardizem Cd) 240 mg DAILY PO 01/27/17 10:30 01/29/17 08:23 (Ceftin) 500 mg Q12HR PO 01/29/17 09:00 01/29/17 08:23 (Zithromax) 500 mg DAILY PO 01/28/17 15:00 01/29/17 08:25 Vital Signs / I&O Vital Signs Date Time Temp Pulse Resp B/P (MAP) Pulse Ox O2 Delivery O2 Flow Rate FiO2 01/29/17 08:38 95 Nasal Cannula 3.00 01/29/17 08:35 97.6 78 20 126/78 (94) 95 01/29/17 04:30 97.7 64 19 120/59 (79) 95 01/29/17 00:30 98.1 66 19 115/60 (78) 96 01/29/17 00:00 66 01/28/17 22:12 94 3.00 01/28/17 20:45 98.5 65 19 105/58 (74) 95 01/28/17 15:59 98.5 84 20 169/116 (133) 95 01/28/17 11:44 98.6 90 20 156/69 (98) 94 01/28/17 10:45 90 21 I/O 01/28/17 01/28/17 01/28/17 01/29/17 01/29/17 01/29/17 07:00 15:00 23:00 07:00 15:00 23:00 Intake Total 1000 ml 840 ml 1000 ml Output Total 460 ml 900 ml Balance 1000 ml 380 ml 100 ml Intake Oral 1000 ml 840 ml 1000 ml Output Urine Total 460 ml 900 ml # Voids 3 3 2 # Bowel Movements 0 1 0 Physical Exam GENERAL: In NAD SKIN: Warm and dry. HEAD: Normocephalic. EYES: No scleral icterus. No injection or drainage. NECK: Supple, trachea midline. No JVD or lymphadenopathy. CARDIOVASCULAR: Irregular rate and rhythm, without murmurs, gallops, or rubs. RESPIRATORY: Breath sounds equal bilaterally. No accessory muscle use. GASTROINTESTINAL: Abdomen soft, non-tender, nondistended. MUSCULOSKELETAL: No cyanosis, or edema. Assessment and Plan Problem List: (1) Septic joint of left wrist ICD Codes: M00.9 - Pyogenic arthritis, unspecified Status: Acute (2) Atrial fibrillation ICD Codes: I48.91 - Unspecified atrial fibrillation Status: Chronic (3) COPD (chronic obstructive pulmonary disease) ICD Codes: J44.9 - Chronic obstructive pulmonary disease, unspecified Status: Chronic (4) HTN (hypertension) ICD Codes: I10 - Essential (primary) hypertension Status: Chronic (5) CAD (coronary artery disease) ICD Codes: I25.10 - Atherosclerotic heart disease of [place] coronary artery without angina pectoris (6) Pneumonia ICD Codes: J18.9 - Pneumonia, unspecified organism Assessment and Plan No new cardiac issues. A fib rate controlled, continue long-acting diltiazem 240 mg daily. Continue anticoagulation with Eliquis to decrease the risk of stroke with a fib. Continue antihypertensive tx. Increase activity. OK to discharge from cardiac standpoint. F/u with me scheduled for next [place]. D/w pt and . Problem Qualifiers (1) Septic joint of left wrist: Qualified Codes: M00.9 - Pyogenic arthritis, unspecified (2) HTN (hypertension): Qualified Codes: I10 - Essential (primary) hypertension Hadley Mckinnon MD Jan 29, 2017 09:44
--- NOTE | 2017-01-29 10:56 | HHI.PR ---
Subjective Remarks Patient states his breathing is much better. No shortness of breath. Looking forward to going home. No complaint of chest pain palpitations. Overall pain control. Objective Vitals Vital Signs Date Time Temp Pulse Resp B/P (MAP) Pulse Ox O2 Delivery O2 Flow Rate FiO2 01/29/17 08:38 95 Nasal Cannula 3.00 01/29/17 08:35 97.6 78 20 126/78 (94) 95 01/29/17 04:30 97.7 64 19 120/59 (79) 95 01/29/17 00:30 98.1 66 19 115/60 (78) 96 01/29/17 00:00 66 01/28/17 22:12 94 3.00 01/28/17 20:45 98.5 65 19 105/58 (74) 95 01/28/17 15:59 98.5 84 20 169/116 (133) 95 01/28/17 11:44 98.6 90 20 156/69 (98) 94 I/O 01/28/17 01/28/17 01/28/17 01/29/17 01/29/17 01/29/17 07:00 15:00 23:00 07:00 15:00 23:00 Intake Total 1000 ml 840 ml 1000 ml Output Total 460 ml 900 ml Balance 1000 ml 380 ml 100 ml Intake Oral 1000 ml 840 ml 1000 ml Output Urine Total 460 ml 900 ml # Voids 3 3 2 # Bowel Movements 0 1 0 Result Diagram: 01/27/17 0850 01/27/17 0850 Other Results Microbiology Date/Time Source Procedure Growth Status 01/19/17 14:30 Blood Peripheral Aerobic Blood Culture - Final NO GROWTH IN 5 DAYS Complete 01/19/17 14:30 Blood Peripheral Anaerobic Blood Culture - Final NO GROWTH IN 5 DAYS Complete 01/22/17 17:50 Fluid Synovial Fluid Gram Stain - Final Complete 01/22/17 17:50 Fluid Synovial Fluid Body Fluid Culture - Final NO GROWTH IN 72 HRS.--AEROBICALLY OR ... Complete 01/27/17 10:30 Sputum Expectorated Sputum Acid Fast Stain - Final NO ACID FAST BACILLI SEEN Resulted 01/27/17 10:30 Sputum Expectorated Sputum Mycobacterial Culture Pending Resulted 01/20/17 21:20 Abscess Wrist Fungal Smear - Final NO FUNGAL ELEMENTS SEEN. Resulted 01/20/17 21:20 Abscess Wrist Fungal Culture - Preliminary NO GROWTH IN 1 WEEK Resulted Objective Remarks GENERAL: This is a well-nourished, well-developed patient, in no apparent distress. CARDIOVASCULAR: Regular rate and rhythm RESPIRATORY: Few bibasilar crackles with mild expiratory wheezes in the bases GASTROINTESTINAL: Abdomen soft, non-tender, nondistended. Normal active bowel sounds MUSCULOSKELETAL: Extremities without clubbing, cyanosis, trace edema NEURO: Alert & Oriented x4 to person, place, time, situation. Moves all ext x4 Procedures 01/20/17 left wrist arthrotomy with irrigation & debridement, drain placement A/P Problem List: (1) Septic joint of left wrist ICD Code: M00.9 - Pyogenic arthritis, unspecified Status: Acute (2) HTN (hypertension) ICD Code: I10 - Essential (primary) hypertension Status: Chronic (3) Atrial fibrillation ICD Code: I48.91 - Unspecified atrial fibrillation Status: Chronic (4) COPD (chronic obstructive pulmonary disease) ICD Code: J44.9 - Chronic obstructive pulmonary disease, unspecified Status: Chronic (5) Wrist joint effusion ICD Code: M25.439 - Effusion, unspecified wrist Status: Acute Assessment and Plan 1. 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 Discuss with infectious disease Dr. De La Cruz yesterday who does not feel like this is a septic joint. Appreciate hand surgery recommendations. Drain removed. Cultures are negative. Broad-spectrum antibiotics for septic joint was discontinued by infectious disease. 2. A-fib, chronic: Continue cardizem, Eliquis. Overall rate control. Patient will follow up with lining machine operator, Dr. Mckinnon. 3. COPD: Patient reporting cough, dyspnea. Duonebs, supplemental oxygen. Appreciate pulmonology recommendations. 4. Left lower lobe PNA: Antibiotics per infectious disease. Sputum culture growing normal respiratory cooper. Recent PNA while inpatient. Repeat chest x- ray shows no infiltrate. Sputum culture showed normal respiratory cooper, AFB negative. Transitioning IV Rocephin to Ceftin this morning in the morning and start Zithromax to cover for pneumonia. Discussed this with Dr. De La Cruz this plan 5. Hypertension: Continue home medications with parameters. Continue lisinopril. 6. Hypokalemia: Improved. 7. Conjunctivitis: Continue topical antibiotics. Monitor. 8. DVT prophylaxis: SCDs. Eliquis. Discharge Planning Discharge to home today with outpatient follow-up. Problem Qualifiers (1) Septic joint of left wrist: Qualified Codes: M00.9 - Pyogenic arthritis, unspecified (2) HTN (hypertension): Qualified Codes: I10 - Essential (primary) hypertension (3) Wrist joint effusion: Qualified Codes: M25.432 - Effusion, left wrist Africa Schmidt MD Jan 29, 2017 10:56
[2017-01-29] MEDS ORDERED: CEFU1TAB20 PO ×2 (10:59)
[2017-01-29] MEDS ORDERED: CARD240C6 PO ×2 (10:59)
[2017-01-29] MEDS ORDERED: AZIT250T3 PO ×2 (10:59)
--- NOTE | 2017-01-29 12:12 | HHI.DS ---
Discharge Summary Admission Date Jan 20, 2017 at 07:31 Discharge Date: Jan 29, 2017 Admitting Diagnosis Septic joint with overlying cellulitis and effusion (1) Bronchial pneumonia ICD Code: J18.0 - Bronchopneumonia, unspecified organism Diagnosis: Principal Status: Acute (2) HTN (hypertension) ICD Code: I10 - Essential (primary) hypertension Status: Chronic (3) Atrial fibrillation ICD Code: I48.91 - Unspecified atrial fibrillation Status: Chronic (4) COPD (chronic obstructive pulmonary disease) ICD Code: J44.9 - Chronic obstructive pulmonary disease, unspecified Status: Chronic (5) Wrist joint effusion ICD Code: M25.439 - Effusion, unspecified wrist Status: Resolved Procedures 01/20/17 left wrist arthrotomy with irrigation & debridement, drain placement Brief History - From Admission Written by SHANTI Saleh acting as scribe for [Teong] on 01/20/17 at 05 :15. 76 y/o male with history of COPD on O2, A. fib, BPH, and CAD presented to the ED with complaints of left wrist swelling, warmth and pain. He states the pain woke him up at 1 am in the morning and he noticed the swelling. He denies any bites or trauma to that wrist. He states the pain is sharp and worse with movement, and the pain medication eases the pain. He does state when he was last hospitalized in November and he did have 2 abgs done in the same wrist. He denies any fevers, but he states he does not ever run fevers. Denies any chest pain, chills, nausea or vomiting. 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 No significant change has occurred. Elia Tobar MD Modified Barium Swallow 01/26/17 Signed Impressions: Service Date/Time: Thursday, January 26, 2017 00:00 - CONCLUSION: Modified barium swallow performed in conjunction with speech pathology. Marco Antonio Montes MD Chest CT 01/25/17 Signed Impressions: Service Date/Time: Wednesday, January 25, 2017 20:37 - CONCLUSION: 1. Mild consolidation in the lingula which could represent early pneumonia versus scarring. 2. Underlying emphysema and mild hyperinflation. 3. Coronary artery calcifications. 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 Smooth margined cystic lesion in the distal scaphoid. No fracture seen. 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 German Padron MD PE at Discharge GENERAL: This is a well-nourished, well-developed patient, in no apparent distress. CARDIOVASCULAR: Regular rate and rhythm RESPIRATORY: Few bibasilar crackles with mild expiratory wheezes in the bases GASTROINTESTINAL: Abdomen soft, non-tender, nondistended. Normal active bowel sounds MUSCULOSKELETAL: Extremities without clubbing, cyanosis, trace edema NEURO: Alert & Oriented x4 to person, place, time, situation. Moves all ext x4 Hospital Course These are the medical issues addressed during this hospitalization: 1. 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 Discuss with infectious disease Dr. De La Cruz who does not feel like this is a septic joint. Appreciate hand surgery recommendations. Drain removed. Cultures are negative. Broad-spectrum antibiotics for septic joint was discontinued by infectious disease. Follow-up with Dr. Peg Rudolph upon discharge. 2. A-fib, chronic: Continue cardizem and changed to CD 240 mg by mouth daily, Eliquis. Overall rate control. Patient will follow up with christian science reader, Dr. Mckinnon. 3. COPD: Patient reporting cough, dyspnea. Duonebs, supplemental oxygen. Appreciate pulmonology recommendations. 4. Left lower lobe bronchial PNA: Antibiotics per infectious disease. Sputum culture growing normal respiratory cooper. Recent PNA while inpatient. Repeat chest x-ray shows no infiltrate. Sputum culture showed normal respiratory cooper , AFB negative. Transitioning IV Rocephin to Ceftin for discharge to home and continue oral Zithromax. 5. Hypertension: Continue home medications with parameters. Continue lisinopril. 6. Hypokalemia: Improved. 7. Conjunctivitis: Continue topical antibiotics. Monitor. 8. DVT prophylaxis: SCDs. Eliquis. At this time, patient has gained maximum benefit from hospitalization and is ready to be discharged to home Pt Condition on Discharge: Good Discharge Disposition: Discharge Home Discharge Instructions DIET: Follow Instructions for: Heart Healthy Diet Activities you can perform: Regular-No Restrictions Follow up Referrals: Cardiology with Hadley Mckinnon MD Hand Surgery with Peg Rudolph MD PCP Follow-up Pulmonology with Eda Veras MD New Medications: Azithromycin (Azithromycin) 250 Mg Tab 500 MG PO DAILY for Infection, #5 TAB Cefuroxime (Cefuroxime) 500 Mg Tab 500 MG PO Q12HR for Zi, #10 TAB Diltiazem CD 24 HR (Cardizem CD 24 HR) 240 Mg Caper 240 MG PO DAILY for Regulate Heart Beat, #30 CAP Continued Medications: Alprazolam (Xanax) 0.5 Mg Tab 0.5 MG PO BID PRN for ANXIETY, TAB 0 Refills Apixaban (Eliquis) 5 Mg Tab 5 MG PO BID for Blood Clot Prevention, #60 TAB 0 Refills Budesonide-Formoterol Inh (Symbicort Inh) 160-4.5 Mcg/Act Aero 1 PUFF INH Q12HR, #1 INHALER 0 Refills Digoxin (Lanoxin) 125 Mcg Tablet 125 MCG PO DAILY Famotidine (Famotidine) 20 Mg Tab 20 MG PO DAILY, #60 TAB 0 Refills Finasteride (Proscar) 5 Mg Tab 5 MG PO DAILY for Manage Prostate Problems, #30 TAB 0 Refills Do not crush. Furosemide (Furosemide) 40 Mg Tab 40 MG PO DAILY for edema, #30 TAB Ipratropium-Albuterol Neb (Duoneb) 0.5-2.5 Mg/3 Ml Neb 3 ML NEB QID PRN for SHORTNESS OF BREATH, #30 NEBULE 0 Refills Lisinopril (Lisinopril) 10 Mg Tab 10 MG PO BID, TAB 0 Refills Tamsulosin (Tamsulosin) 0.4 Mg Cap 0.4 MG PO HS for Manage Prostate Problems, #30 CAP 0 Refills Discontinued Medications: Diltiazem (Diltiazem) 60 Mg Tab 60 MG PO TID for Angina, #120 TAB 0 Refills Africa Schmidt MD Jan 29, 2017 12:12
[2017-01-29] MEDS: TAMSULOSIN HCL 0.4 MG CAP PO SCH ×2 (20:53)
[2017-01-29 21:55] VITALS: O2SAT 97
--- NOTE | 2017-01-30 00:14 | PD.ORT.PN ---
Subjective Subjective Remarks Patient reports improved pain left wrist. Denies paresthesias. Cleared for discharge from pneumonia standpoint. Objective Vitals Vital Signs Date Time Temp Pulse Resp B/P (MAP) Pulse Ox O2 Delivery O2 Flow Rate FiO2 01/29/17 08:38 95 Nasal Cannula 3.00 01/29/17 08:35 97.6 78 20 126/78 (94) 95 01/29/17 04:30 97.7 64 19 120/59 (79) 95 01/29/17 00:30 98.1 66 19 115/60 (78) 96 I/O 01/29/17 01/29/17 01/29/17 01/30/17 01/30/17 01/30/17 07:00 15:00 23:00 07:00 15:00 23:00 Intake Total 1000 ml 480 ml Output Total 900 ml Balance 100 ml 480 ml Intake Oral 1000 ml 480 ml Output Urine Total 900 ml # Voids 2 # Bowel Movements 0 Result Diagram: 01/27/17 0850 01/27/17 0850 Imaging Last 24 hours Impressions Chest X-Ray 01/25/17 0600 Signed Impressions: Service Date/Time: Wednesday, January 25, 2017 07:05 - CONCLUSION: New mild airspace disease left lung base. Ovidio Shah MD Chest CT 01/25/17 0000 Signed Impressions: Service Date/Time: Wednesday, January 25, 2017 20:37 - CONCLUSION: 1. Mild consolidation in the lingula which could represent early pneumonia versus scarring. 2. Underlying emphysema and mild hyperinflation. 3. Coronary artery calcifications. Moses Romero MD Objective Remarks Dressing changed, minimal erythema around incision, sitlt m/u/r, no edema to hand, good ROM fingers, 2+ radial pulse, minimal pain with wrist ROM, mild swelling under incision Assessment & Plan Assessment and Plan [id number] recent history of pneumonia presented with painful left wrist, aspiration showed cloudy fluid, now s/p Arthrotomy left wrist and irrigation and debridement with placement of drain -Uric acid WNL, no crystals in joint fluid -Cultures NGTD but patient was on Ab prior to admission for pneumonia, appreciate ID input-dc on azithromycin & cefuroxime -Continue left wrist elevation and gentle ROM -Okay to discharge, followup Wednesday Peg Rudolph MD Jan 30, 2017 00:14
[2017-01-30 00:30] VITALS: PULSE 84
[2017-01-30 00:33] VITALS: BP 131/94; PULSE 91; RESP 20; TEMP 98.2; O2SAT 95
[2017-01-30 04:47] VITALS: BP 126/66; PULSE 76; RESP 20; TEMP 97.8; O2SAT 95
[2017-01-30] MEDS: ACETAMINOPHEN/HYDROcodone 325 MG/5 MG TAB PO PRN ×4 (05:08→09:22)
[2017-01-30] MEDS: RESP: ALBUTEROL 2.5 MG/IPRATROPIUM 0.5 MG NEB (PRN) NEB ×4 (06:05→09:06)
[2017-01-30 08:00] VITALS: BP 103/61; PULSE 77; RESP 20; TEMP 97.3; O2SAT 95
[2017-01-30] MEDS: FINASTERIDE 5 MG TAB PO SCH ×2 (08:00)
[2017-01-30] MEDS: DILTIAZEM-CD 240 MG CAP ER PO SCH ×2 (08:00)
[2017-01-30] MEDS: FUROSEMIDE 40 MG TAB PO SCH ×2 (08:00)
[2017-01-30] MEDS: DOCUSATE SODIUM 50 MG/SENNA 8.6 MG TAB PO SCH ×2 (08:00)
[2017-01-30] MEDS: CEFUROXIME AXETIL 500 MG TAB PO SCH ×2 (08:00)
[2017-01-30] MEDS: DIGOXIN 0.125 MG TAB PO SCH ×2 (08:00)
[2017-01-30] MEDS: FAMOTIDINE 20 MG TAB PO SCH ×2 (08:00)
[2017-01-30] MEDS: POTASSIUM CHLORIDE 10 MEQ CONTROLLED RELEASE TAB PO SCH ×2 (08:00)
[2017-01-30] MEDS: LACTOBACILLUS ACIDOPHILUS TAB PO SCH ×2 (08:00)
[2017-01-30] MEDS: AZITHROMYCIN 250 MG TAB PO SCH ×2 (08:00)
[2017-01-30] MEDS: LISINOPRIL 10 MG TAB PO SCH ×2 (08:01)
[2017-01-30] MEDS: SODIUM CHLORIDE 0.9% FLUSH 10 ML FLUSH IV FLUSH SCH ×2 (08:01)
[2017-01-30] MEDS: APIXABAN 5 MG TABLET PO SCH ×2 (08:01)
[2017-01-30] MEDS: BUDESONIDE-FORMOTEROL 160/4.5 MCG INHALER INH SCH ×2 (08:01)
[2017-01-30 09:09] VITALS: O2SAT 93
[2017-01-30] MEDS: ALPRAZolam 0.5 MG TAB PO PRN ×2 (09:22)
== END 2017-01-30 10:07 | disposition home or self-care (01) | DRG 513 ==
LOC: NEPD 13:35 → NEDA 19:42 → NEPFCDU 21:23 → OBSVTOIN 01-20 07:31 → N05B 01-20 23:26 → N05A 01-21 00:43
PROVIDERS: ADMIT Family Medicine; ATTEND Family Medicine
PROC: 0PDN0ZZ Extraction of Left Carpal, Open Approach (ICD-10-PCS; principal; 2017-01-20 21:00)
DX: M00.9 Pyogenic arthritis, unspecified (principal); J18.0 Bronchopneumonia, unspecified organism; J96.10 Chronic respiratory failure, unspecified whether with hypoxia or hypercapnia; I11.0 Hypertensive heart disease with heart failure; I50.9 Heart failure, unspecified; L03.114 Cellulitis of left upper limb; J44.0 Chronic obstructive pulmonary disease with (acute) lower respiratory infection; Z99.81 Dependence on supplemental oxygen; E11.9 Type 2 diabetes mellitus without complications; I48.2 Chronic atrial fibrillation; E87.6 Hypokalemia; G47.33 Obstructive sleep apnea (adult) (pediatric); I25.10 Atherosclerotic heart disease of native coronary artery without angina pectoris; M11.232 Other chondrocalcinosis, left wrist; M19.032 Primary osteoarthritis, left wrist; N40.0 Benign prostatic hyperplasia without lower urinary tract symptoms; H10.9 Unspecified conjunctivitis; H54.7 Unspecified visual loss; Z79.01 Long term (current) use of anticoagulants; Z87.01 Personal history of pneumonia (recurrent); Z87.891 Personal history of nicotine dependence; Z95.5 Presence of coronary angioplasty implant and graft
CPT/HCPCS: 71010; 71020; 71250; 73110; 73223; 74230; 76937; 80048; 80053; 80202; 82565; 83735; 84550; 85007; 85025; 85027; 85610; 85652; 86140; 87015; 87040; 87070; 87102; 87116; 87205; 87206; 89051; 89060; 94150; 94640; 94664; 96365; A9579; J0692; J0696; J2543; J3370; J7030; J7040; J7050

== ENCOUNTER 2018-02-16 10:16 | Inpatient (IN) ==
[2018-02-16] MEDS ORDERED: MethylPREDNISolone Sod Succinate Inj 125 MG/2 ML Vial IV.PUSH ONE (11:04)
--- NOTE | 2018-02-16 11:23 | ED ---
HPI General Chief Complaint: Shortness of Breath/Dyspnea Stated Complaint: Resp complaint/Hard time breathing Time Seen by Provider: 02/16/18 11:03 Source: patient and family Mode of arrival: ambulatory Limitations: no limitations History of Present Illness Patient is a 77-year-old male presenting to the emergency department for evaluation of shortness of breath. states for the last week and a half patient has had increased phlegm, patient states he cannot clear it. He reports decreased activity tolerance, states he cannot walk across the house. They deny any fevers, chills, nausea, vomiting. Patient states he had 2 episodes of diarrhea yesterday and today. Patient denies any abdominal pain. Patient normally wears O2 at night only, for the last 2 days he had to wear it during the day because he cannot breathe. Patient denies any chest pain, headache, dizziness, peripheral edema. He did not take his water pill this morning because he would not of been able to wait to use the bathroom on the car ride to [place]. Patient lives in [place]. Past medical history is significant for COPD, coronary artery disease with stent placement, AMI, A. fib , CHF, states he had pneumonia 5 times last year and was in the hospital for 3 months with this. MD Complaint: Reports shortness of breath Onset (ago): week(s) Severity: moderate Consistency/Duration: progressively worsening Relieving factors: oxygen and rest Exacerbating factors: lying flat, exertion, movement and coughing Known history of: Reports COPD and recurrent pneumonia Associated symptoms: Reports cough, sputum production, orthopnea and chest congestion Treatment prior to arrival: Reports oxygen Related Data Home oxygen amount: as needed at night (2L) Home Medications Medication Instructions Recorded Confirmed alprazolam 2 mg PO BID 02/16/18 02/16/18 apixaban 5 mg PO BID 02/16/18 02/16/18 budesonide-formoterol [Symbicort] 2 puff INHALATION BID 02/16/18 02/16/18 digoxin 0.125 mg PO DAILY 02/16/18 02/16/18 diltiazem HCl 120 mg PO DAILY 02/16/18 02/16/18 famotidine 20 mg PO DAILY 02/16/18 02/16/18 finasteride 5 mg PO DAILY 02/16/18 02/16/18 furosemide 40 mg PO DAILY 02/16/18 02/16/18 lisinopril 10 mg PO DAILY 02/16/18 02/16/18 metoprolol tartrate 25 mg PO BID 02/16/18 02/16/18 tamsulosin 0.4 mg PO DAILY 02/16/18 02/16/18 Allergies Allergy/AdvReac Type Severity Reaction Status Date / Time cortisone Allergy Unknown Swelling Verified 02/16/18 10:59 Review of Systems ROS: all other systems reviewed are negative [facility] Medical History Medical History A-fib (Acute) Anxiety (Acute) BPH (benign prostatic hyperplasia) (Acute) COPD (chronic obstructive pulmonary disease) (Acute) GERD (gastroesophageal reflux disease) (Acute) HTN (hypertension) (Acute) Heart attack (Acute) Pneumonia (Acute) Surgical History Surgical History History of cardiac cath (Acute) History of heart artery stent (Acute) Social History Social History Substance History: No History of Abuse Smoking Status: Former smoker How Often Do You Have a Drink Containing Alcohol: Never Recent Travel in [facility] within the Last 8 Weeks: No Recent Out of Country Travel within the Last 8 Weeks: No Immunization History Tetanus Immunization: >5 Years Exam Narrative Exam Narrative: GENERAL: Well-developed, well-nourished, alert elderly male. Presenting in no acute distress. SKIN: Focused skin assessment warm/dry. HEAD: Atraumatic. Normocephalic. EYES: Pupils equal and round. No scleral icterus. No injection or drainage. ENT: No nasal bleeding or discharge. Mucous membranes pink and moist. NECK: Trachea midline. No JVD. CARDIOVASCULAR: Regular rate and rhythm. No murmur appreciated. RESPIRATORY: No accessory muscle use. Tachypneic, decreased lung sounds throughout. GASTROINTESTINAL: Abdomen soft, non-tender, nondistended. Hepatic and splenic margins not palpable. Positive bowel sounds, no rebound, no guarding. MUSCULOSKELETAL: No obvious deformities. No clubbing. No cyanosis. No edema. NEUROLOGICAL: Awake and alert. No obvious cranial nerve deficits. Motor grossly within normal limits. Normal speech. PSYCHIATRIC: Appropriate mood and affect; insight and judgment normal. Course Reevaluation(s) Reevaluation #1: 1200 - Chest x-ray shows no acute disease. CBC with no acute findings. Patient is resting comfortably. Initial Documented Vital Signs Temperature 97.9 F 02/16/18 10:26 Pulse Rate 88 02/16/18 10:26 Respiratory Rate 20 02/16/18 10:26 Blood Pressure 105/73 02/16/18 10:26 Pulse Oximetry 89 L 02/16/18 10:26 Last Documented Vital Signs Temperature 97.9 F 02/16/18 10:26 Pulse Rate 83 02/16/18 12:39 Respiratory Rate 32 H 02/16/18 12:39 Blood Pressure 133/80 02/16/18 12:39 Pulse Oximetry 92 L 02/16/18 12:39 Medical Decision Making MDM Narrative Medical decision making narrative: Patient is a 77-year-old male presenting to emergency department for evaluation of shortness of breath. Patient is mildly tachypneic on arrival. His vital signs are otherwise stable. Labs and imaging ordered and pending. 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 Duo nebs, Solu-Medrol ordered. We will check a BNP to rule out congestive heart failure. Labs reviewed, no acute findings including unremarkable cardiac enzymes and BNP. Pt reassessed and reports improvement in breathing after nebs but continues to get tachypneic and desats with exertion. Pt was also evaluated by Dr. Draper. Pt will be admitted to Dr. Bonilla to optimize respiratory status. Admit orders placed and patient and informed of clinical findings and plan of care. Medical Screen Exam Complete: Yes Emergency Medical Condition: Yes Medical Records Medical records reviewed: Yes I reviewed the patient's medical records. Echo 10/2016 EF 50-55%, chronic afib Lab Data Lab results reviewed: Yes I reviewed the patient's lab results. Result diagrams: 02/16/18 11:24 02/16/18 11:24 Lab Results 02/16/18 02/16/18 02/16/18 Range/Units 11:24 11:24 11:24 WBC 11.0 (4.0-11.0) th/mm3 RBC 5.70 (4.50-5.90) mil/mm3 Hgb 17.5 H (13.0-17.0) gm/dL Hct 52.3 H (39.0-51.0) % MCV 91.7 (80.0-100.0) fL MCH 30.6 (27.0-34.0) pg MCHC 33.4 (32.0-36.0) % RDW 14.7 (11.6-17.2) % Plt Count 228 (150-450) th/mm3 MPV 9.1 (7.0-11.0) fL Neut % (Auto) 79.2 H (16.0-70.0) % Lymph % (Auto) 10.8 (9.0-44.0) % Sutter % (Auto) 7.8 (0.0-8.0) % Eos % (Auto) 1.6 (0.0-4.0) % Baso % (Auto) 0.6 (0.0-2.0) % Neut # (Auto) 8.7 H (1.8-7.7) th/mm3 Lymph # (Auto) 1.2 (1.0-4.8) th/mm3 Sutter # (Auto) 0.9 (0.0-0.9) th/mm3 Eos # (Auto) 0.2 (0.0-0.4) th/mm3 Baso # (Auto) 0.1 (0.0-0.2) th/mm3 WBC Differential . Differential Comment Auto diff final PT 11.1 (9.8-11.6) sec INR 1.1 Ratio APTT 31.1 (23.4-31.7) sec Sodium 141 (136-145) meq/L Potassium 3.7 (3.5-5.1) meq/L Chloride 106 (98-107) meq/L Carbon Dioxide 30.7 (21.0-32.0) meq/L Anion Gap 4 L (5-15) meq/L BUN 24 H (7-18) mg/dL Creatinine 1.02 (0.60-1.30) mg/dL Estimated GFR 71 L (>89) mL/min Random Glucose 143 H (74-106) mg/dL Lactic Acid (0.4-2.0) mmol/L Calcium 8.8 (8.5-10.1) mg/dL Magnesium 1.9 (1.5-2.5) mg/dL Total Bilirubin 0.5 (0.2-1.0) mg/dL AST 17 (15-37) U/L ALT 24 (12-78) U/L Alkaline Phosphatase 61 (45-117) U/L Total Creatine Kinase 109 (39-308) U/L CK-MB (CK-2) 3.9 H (0.5-3.6) ng/mL Troponin I Less than 0.02 L (0.02-0.05) ng/mL B-Natriuretic Peptide (0-100) pg/mL Total Protein 7.1 (6.4-8.2) g/dL Albumin 3.3 L (3.4-5.0) g/dL 02/16/18 02/16/18 Range/Units 11:24 11:24 WBC (4.0-11.0) th/mm3 RBC (4.50-5.90) mil/mm3 Hgb (13.0-17.0) gm/dL Hct (39.0-51.0) % MCV (80.0-100.0) fL MCH (27.0-34.0) pg MCHC (32.0-36.0) % RDW (11.6-17.2) % Plt Count (150-450) th/mm3 MPV (7.0-11.0) fL Neut % (Auto) (16.0-70.0) % Lymph % (Auto) (9.0-44.0) % Sutter % (Auto) (0.0-8.0) % Eos % (Auto) (0.0-4.0) % Baso % (Auto) (0.0-2.0) % Neut # (Auto) (1.8-7.7) th/mm3 Lymph # (Auto) (1.0-4.8) th/mm3 Sutter # (Auto) (0.0-0.9) th/mm3 Eos # (Auto) (0.0-0.4) th/mm3 Baso # (Auto) (0.0-0.2) th/mm3 WBC Differential Differential Comment PT (9.8-11.6) sec INR Ratio APTT (23.4-31.7) sec Sodium (136-145) meq/L Potassium (3.5-5.1) meq/L Chloride (98-107) meq/L Carbon Dioxide (21.0-32.0) meq/L Anion Gap (5-15) meq/L BUN (7-18) mg/dL Creatinine (0.60-1.30) mg/dL Estimated GFR (>89) mL/min Random Glucose (74-106) mg/dL Lactic Acid 1.4 (0.4-2.0) mmol/L Calcium (8.5-10.1) mg/dL Magnesium (1.5-2.5) mg/dL Total Bilirubin (0.2-1.0) mg/dL AST (15-37) U/L ALT (12-78) U/L Alkaline Phosphatase (45-117) U/L Total Creatine Kinase (39-308) U/L CK-MB (CK-2) (0.5-3.6) ng/mL Troponin I (0.02-0.05) ng/mL B-Natriuretic Peptide 41 (0-100) pg/mL Total Protein (6.4-8.2) g/dL Albumin (3.4-5.0) g/dL Imaging Data Radiologist's impression: Chest X-Ray 02/16/18 11:04 CONCLUSION: No evidence of acute cardiopulmonary process. Discharge Plan Discharge Disposition Patient Disposition: 30 Still Patient Discharge Condition Condition: Stable Discharge Details Diagnosis: Acute exacerbation of chronic obstructive airways disease Physicians Team ED Provider: Cali Draper ED Midlevel Provider: Stormy Evans Primary Care Provider: Nitesh Weinstein Rxs /Orders / Referrals /Forms Prescriptions: No Action furosemide 40 mg Tablet 40 mg PO DAILY RF: 0 alprazolam 0.5 mg Tablet 2 mg PO BID RF: 0 famotidine 20 mg Tablet 20 mg PO DAILY RF: 0 tamsulosin 0.4 mg Capsule 0.4 mg PO DAILY RF: 0 lisinopril 10 mg Tablet 10 mg PO DAILY RF: 0 diltiazem HCl 120 mg Capsule,Extended Release 24hr 120 mg PO DAILY RF: 0 digoxin 125 mcg Tablet 0.125 mg PO DAILY RF: 0 finasteride 5 mg Tablet 5 mg PO DAILY RF: 0 metoprolol tartrate 25 mg Tablet 25 mg PO BID RF: 0 budesonide-formoterol [Symbicort] 160-4.5 mcg/actuation Hfa Aerosol Inhaler 2 puff INHALATION BID RF: 0 apixaban 5 mg Tablet 5 mg PO BID RF: 0 Discharge Interventions Interventions: Vital Signs Last Done: 02/16/18 12:39 Status ED Status: Admitted Patient
--- NOTE | 2018-02-16 11:47 | XR ---
EXAM DATE: 02/16/2018 11:38 AM EST AGE/SEX: 77 years / Male INDICATIONS: Short of breath. CLINICAL DATA: This is the patient's initial encounter. Patient reports that signs and symptoms have been present for 1 week and indicates a pain score of 0/10. MEDICAL/SURGICAL HISTORY: Chronic obstructive pulmonary disease. Coronary artery stent. COMPARISON: [facility], XR CHEST PA AND LAT, 09/28/2017. . FINDINGS: A single AP view of the chest demonstrates the lungs to be symmetrically aerated without evidence of mass, infiltrate or effusion. The cardiomediastinal contours are unremarkable. Osseous structures a re intact. CONCLUSION: No evidence of acute cardiopulmonary process. Electronically signed by: Ovidio Shah MD 02/16/2018 11:46 AM EST
[2018-02-16 11:49] LABS: Baso # (Auto) 0.1 th/mm3 (0.0-0.2); Baso % (Auto) 0.6 % (0.0-2.0); Eos # (Auto) 0.2 th/mm3 (0.0-0.4); Eos % (Auto) 1.6 % (0.0-4.0); Hematocrit 52.3 % (39.0-51.0); Hemoglobin 17.5 gm/dL (13.0-17.0); Lymph # (Auto) 1.2 th/mm3 (1.0-4.8); Lymph % (Auto) 10.8 % (9.0-44.0); Mean Corpuscular HGB Conc 33.4 % (32.0-36.0); Mean Corpuscular Hemoglobin 30.6 pg (27.0-34.0); Mean Corpuscular Volume 91.7 fL (80.0-100.0); Mean Platelet Volume 9.1 fL (7.0-11.0); Mono # (Auto) 0.9 th/mm3 (0.0-0.9); Mono % (Auto) 7.8 % (0.0-8.0); Neut # (Auto) 8.7 th/mm3 (1.8-7.7); Neut % (Auto) 79.2 % (16.0-70.0); Platelet Count 228 th/mm3 (150-450); Red Cell Distribution Width 14.7 % (11.6-17.2)
[2018-02-16 11:57] LABS: Activated Partial Thrombo Time 31.1 sec (23.4-31.7); INR 1.1 Ratio; Prothrombin Time 11.1 sec (9.8-11.6)
[2018-02-16 12:07] LABS: Alanine Aminotransferase 24 U/L (12-78); Albumin 3.3 g/dL (3.4-5.0); Anion Gap 4 meq/L (5-15); Aspartate Aminotransferase 17 U/L (15-37); Blood Urea Nitrogen 24 mg/dL (7-18); Calcium 8.8 mg/dL (8.5-10.1); Carbon Dioxide 30.7 meq/L (21.0-32.0); Chloride 106 meq/L (98-107); Glomerular Filtration Rate 71 mL/min (>89); Glucose,Random 143 mg/dL (74-106); Magnesium 1.9 mg/dL (1.5-2.5); Potassium 3.7 meq/L (3.5-5.1); Sodium 141 meq/L (136-145)
[2018-02-16 12:11] LABS: Alkaline Phosphatase 61 U/L (45-117); Creatine Kinase 109 U/L (39-308); Total Protein 7.1 g/dL (6.4-8.2)
[2018-02-16 12:23] LABS: Creatine Kinase MB 3.9 ng/mL (0.5-3.6)
[2018-02-16] MEDS ORDERED: Azithromycin Inj 500 MG in Sodium Chlor 0.9% Inj 250 ML IV.SIG ONE (13:35)
[2018-02-16 13:47] LABS: ABG Base Excess 5.3 mmol/L (-2-2); ABG PCO2 46 mmHg (38-42); ABG PO2 67 mmHg (61-120)
[2018-02-16] MEDS: MethylPREDNISolone Sod Succinate Inj 40 MG/ML Vial IV.PUSH SCH ×2 (15:01→20:04)
--- NOTE | 2018-02-16 17:55 | P.HPIM ---
History of Present Illness Primary Care Physician: Nitesh Weinstein History of Present Illness: 77-year-old male with a history of atrial fibrillation on Eliquis, CAD with stenting, severe COPD who presents with a 1-1/2-week history of progressively worsening shortness of breath, cough productive of clear sputum. He denies any chest pain. Denies any nausea or vomiting. Denies any fevers or chills. He has been using nebulizations without improvement. Denies any recent medication changes. Patient denies any weight gain or edema, says that chronic edema has actually improved. Patient does report a 2-day history of diarrhea described as several bowel movements a day. He does report a 2-day history of mild crampy diffuse abdominal pain without radiation which is worse when coughing. Patient does report past history of C. difficile diarrhea in 2008. Inpatient Certification: I certify that the inpatient services were ordered in accordance with Medicare regulations governing the order. This includes certification that hospital inpatient services are reasonable and necessary and in the case of services not specified as inpatient-only under 42 CFR 419.22(n), that they are appropriately provided as inpatient services in accordance to with the 2-midnight benchmark under 43 CFR 412.3(e) Review of Systems All other systems reviewed negative except as stated in HPI PMFSH - History History Provided By: Patient, Significant Other - Medical History Medical History: Medical History (Last Reviewed 02/16/18 @ 17:41 by Janusz Bonilla MD) A-fib Anxiety BPH (benign prostatic hyperplasia) COPD (chronic obstructive pulmonary disease) GERD (gastroesophageal reflux disease) HTN (hypertension) Heart attack Pneumonia - Surgical History Surgical History: Surgical History (Last Reviewed 02/16/18 @ 17:41 by Janusz Bonilla MD) History of cardiac cath History of heart artery stent - Family History Family History: Family History (Last Updated 02/16/18 @ 17:43 by Janusz Bonilla MD) Mother Old age Father COPD (chronic obstructive pulmonary disease) Heart disease - Social History I have reviewed the patient's Social History: Yes - Tobacco History Smoking Status: Former smoker - Alcohol History How Often Do You Have a Drink Containing Alcohol: Never - Substance Use History Substance History: No History of Abuse - Travel History Recent Travel in the [place] Within the Last 8 Weeks: No Recent Travel Out of the Country Within the Last 8 Weeks: No - Immunization History Tetanus Immunization: >5 Years Medications and Allergies Active Medications: Active Medications Albuterol (Albuterol Neb (Prn)) 2.5 mg NEB Q2HR NEB PRN PRN Reason: SHORTNESS OF BREATH Albuterol (Duoneb Neb (Mari)) 1 ampul NEB Q6HR NEB [facility] Last Admin: 02/16/18 15:49 Dose: 1 ampul Alprazolam (Xanax) 2 mg PO BID [facility] Apixaban (Eliquis) 5 mg PO BID [facility] Azithromycin (Zithromax) 500 mg PO DAILY [facility] Stop: 02/19/18 09:01 Budesonide/Formoterol Fumarate (Symbicort 160/4.5 Mcg Inh) 2 puff INH BID [facility] Digoxin (Lanoxin) 125 mcg PO DAILY [facility] Diltiazem HCl (Cardizem Cd 24hr) 120 mg PO DAILY [facility] Famotidine (Pepcid) 20 mg PO DAILY [facility] Finasteride (Proscar) 5 mg PO DAILY [facility] Furosemide (Lasix) 40 mg PO DAILY [facility] Lisinopril (Prinivil) 10 mg PO DAILY [facility] Methylprednisolone Sodium Succinate (Solumedrol Inj) 60 mg IV.PUSH Q6H [facility] Last Admin: 02/16/18 15:01 Dose: 60 mg Metoprolol Tartrate (Lopressor) 25 mg PO BID [facility] Sodium Chloride (Ns Flush) 2 ml IV.FLUSH BID [facility] Sodium Chloride (Ns Flush) 2 ml IV.FLUSH PRN PRN PRN Reason: FLUSH AFTER USING IV ACCESS Tamsulosin HCl (Flomax) 0.4 mg PO DAILY [facility] Allergies Allergy/AdvReac Type Severity Reaction Status Date / Time cortisone Allergy Unknown Swelling Verified 02/16/18 10:59 Home Medications Medication Instructions Recorded Confirmed Type alprazolam 2 mg PO BID 02/16/18 02/16/18 History apixaban 5 mg PO BID 02/16/18 02/16/18 History budesonide-formoterol [Symbicort] 2 puff INHALATION BID 02/16/18 02/16/18 History digoxin 0.125 mg PO DAILY 02/16/18 02/16/18 History diltiazem HCl 120 mg PO DAILY 02/16/18 02/16/18 History famotidine 20 mg PO DAILY 02/16/18 02/16/18 History finasteride 5 mg PO DAILY 02/16/18 02/16/18 History furosemide 40 mg PO DAILY 02/16/18 02/16/18 History lisinopril 10 mg PO DAILY 02/16/18 02/16/18 History metoprolol tartrate 25 mg PO BID 02/16/18 02/16/18 History tamsulosin 0.4 mg PO DAILY 02/16/18 02/16/18 History Exam Vital signs: Vital Signs 02/16/18 10:26 02/16/18 11:02 02/16/18 11:05 Temperature 97.9 F Pulse Rate 88 78 Respiratory Rate 20 26 H Blood Pressure 105/73 109/65 Pulse Oximetry 89 L 90 L 95 02/16/18 11:21 02/16/18 11:35 02/16/18 11:40 Temperature Pulse Rate 74 75 75 Respiratory Rate 20 20 20 Blood Pressure Pulse Oximetry 94 L 02/16/18 12:39 02/16/18 15:50 Temperature Pulse Rate 83 85 Respiratory Rate 32 H 17 Blood Pressure 133/80 Pulse Oximetry 92 L Intake & Output 02/15/18 02/16/18 02/16/18 18:59 06:59 18:59 Intake Total 250 / 250 Balance 250 / 250 Weight 97.522 kg Intake: IV 250 / 250 Azithromycin Inj 500 MG In NS 250 / 250 Inj 250 ML @ 250 mls/hr IV.SIG ONCE ONE Rx#:[id number] Narrative: GENERAL: Patient sitting up in bed. Appears short of breath. Alert and oriented x3. SKIN: Warm and dry. HEAD: Atraumatic. Normocephalic. EYES: Pupils equal and round. No scleral icterus. No injection or drainage. ENT: No nasal bleeding or discharge. Mucous membranes pink and moist. NECK: Trachea midline. No JVD. CARDIOVASCULAR: Regular rate and rhythm. RESPIRATORY: No accessory muscle use. Bilateral wheezing. GASTROINTESTINAL: Abdomen distended due to obesity, non-tender, nondistended. Hepatic and splenic margins not palpable. Positive bowel sounds. MUSCULOSKELETAL: Extremities without clubbing, cyanosis, or edema. No obvious deformities. NEUROLOGICAL: Awake and alert. No obvious cranial nerve deficits. Motor grossly within normal limits. Five out of 5 muscle strength in the arms and legs. Normal speech. PSYCHIATRIC: Appropriate mood and affect; insight and judgment normal. Results - Labs CBC & Chem 7: 02/16/18 11:24 02/16/18 11:24 Labs: Short CBC 02/16/18 Range/Units 11:24 WBC 11.0 (4.0-11.0) th/mm3 Hgb 17.5 H (13.0-17.0) gm/dL Hct 52.3 H (39.0-51.0) % Plt Count 228 (150-450) th/mm3 BMP 02/16/18 11:24 Sodium 141 Potassium 3.7 Chloride 106 Carbon Dioxide 30.7 BUN 24 H Creatinine 1.02 Calcium 8.8 Cardiac Enzymes 02/16/18 Range/Units 11:24 Total Creatine Kinase 109 (39-308) U/L CK-MB (CK-2) 3.9 H (0.5-3.6) ng/mL Troponin I Less than 0.02 L (0.02-0.05) ng/mL Liver Function 02/16/18 Range/Units 11:24 Total Bilirubin 0.5 (0.2-1.0) mg/dL AST 17 (15-37) U/L ALT 24 (12-78) U/L Alkaline Phosphatase 61 (45-117) U/L Albumin 3.3 L (3.4-5.0) g/dL - Imaging Impressions Chest X-Ray 02/16/18 11:04 CONCLUSION: No evidence of acute cardiopulmonary process. Caprini VTE Risk Assessment Caprini VTE Risk Assessment: Moderate/High Risk (score >= 2) Caprini Risk Assessment Model: Point Value = 1 Point Value = 2 Point Value = 3 Point Value = 5 Age 41-60 Minor surgery BMI > 25 kg/m2 Swollen legs Varicose veins or History of unexplained or recurrent spontaneous Oral contraceptives or hormone replacement Sepsis (< 1 month) Serious lung disease, including pneumonia (< 1 month) Abnormal pulmonary function Acute myocardial infarction Congestive heart failure (< 1 month) History of inflammatory bowel disease Medical patient at bed rest Age 61-74 Arthroscopic surgery Major open surgery (> 45 min) Laparoscopic surgery (> 45 min) Malignancy Confined to bed (> 72 hours) Immobilizing plaster cast Central venous access Age >= 75 History of VTE Family history of VTE Factor V Leiden Prothrombin [id number] Lupus anticoagulant Anticardiolipin antibodies Elevated serum homocysteine Heparin-induced thrombocytopenia Other congenital or acquired thrombophilia Stroke (< 1 month) Elective arthroplasty Hip, pelvis, or leg fracture Acute spinal cord injury (< 1 month) Prophylaxis Regimen: Total Risk Factor Score Risk Level Prophylaxis Regimen 0-1 Low Early ambulation 2 Moderate Order ONE of the following: *Sequential Compression Device (SCD) *Heparin 5000 units SQ BID 3-4 Higher Order ONE of the following medications: *Heparin 5000 units SQ TID *Enoxaparin/Lovenox 40 mg SQ daily (WT < 150 kg, CrCl > 30 mL/min) *Enoxaparin/Lovenox 30 mg SQ daily (WT < 150 kg, CrCl > 10-29 mL/min) *Enoxaparin/Lovenox 30 mg SQ BID (WT < 150 kg, CrCl > 30 mL/min) AND/OR *Sequential Compression Device (SCD) 5 or more Highest Order ONE of the following medications: *Heparin 5000 units SQ TID (Preferred with Epidurals) *Enoxaparin/Lovenox 40 mg SQ daily (WT < 150 kg, CrCl > 30 mL/min) *Enoxaparin/Lovenox 30 mg SQ daily (WT < 150 kg, CrCl > 10-29 mL/min) *Enoxaparin/Lovenox 30 mg SQ BID (WT < 150 kg, CrCl > 30 mL/min) AND *Sequential Compression Device (SCD) Assessment and Plan - Plan //Acute on chronic COPD exacerbation -Chest x-ray with no acute findings ABG with hypercapnia with PCO2 46. -We will manage with duo nebs, incentive spirometer, IV steroids, azithromycin. -BNP normal. 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 Appreciate assistance. //Diarrhea Likely secondary to increased use of albuterol nebs. Will check C. difficile and enteric pathogen PCR. //History of atrial fibrillation. //History of CHF //History of CAD Continue anticoagulation. Continue rate control with metoprolol, diltiazem, digoxin. Will check digoxin level. //Hypertension. Chronic. Continue home medications. Adjust as necessary. //BPH. Chronic. Continue home medications. //GERD. Chronic. Continue home medication. //Anxiety. Chronic. Continue medication. //DVT prophylaxis. On anticoagulation for atrial fibrillation. Discussed Condition With: Patient, nurse, ED physician, at bedside.
--- NOTE | 2018-02-16 18:14 | MB ---
cc: Eda Veras MD DATE: 02/16/2018 REASON FOR CONSULTATION: COPD exacerbation. HISTORY OF PRESENT ILLNESS: Mr. Ling is a 77-year-old male with a known history of severe COPD, who has not been feeling well for a week or more. He was given bronchodilator therapy, antibiotic therapy as an outpatient without improvement presents to the emergency room for same. He has not been feeling well in the past few days with episodes of diarrhea for the last 2 days as well. Presents to the emergency room because of his progressive respiratory distress. Denies history of fever, chills or hemoptysis. PAST MEDICAL HISTORY: 1. COPD. 2. Coronary artery disease, post IA. 3. Congestive heart failure. 4. Atrial fibrillation. 5. Acid reflux disease. 6. BPH. 7. Anxiety. SOCIAL HISTORY: He used to smoke, however, notes has not smoked for many years now. Does not drink any alcohol. Does not use drugs. FAMILY HISTORY: Noncontributory. REVIEW OF SYSTEMS: A 12-point review of systems as per HPI and past history, otherwise negative. CURRENT MEDICATIONS: Include nebulized albuterol, Eliquis, Zithromax, Symbicort, Cardizem, Pepcid, Lasix, Proscar, lisinopril, Solu-Medrol intravenously, metoprolol, Flomax. ALLERGIES: QUESTION CORTISOL. SYSTEMS REVIEW: A 12-point review of systems as per HPI and past history, otherwise negative. PHYSICAL EXAMINATION: GENERAL: The patient is alert, in no acute distress. VITAL SIGNS: Temperature 98, pulse 80, respirations 20, blood pressure 110/90. HEENT: Unremarkable. Eyes without icterus. NECK: Without adenopathy, thyroid enlargement. Central trachea. CHEST: Scattered rhonchi at bases. CARDIAC: PMI not appreciated. S1, S2 audible. No murmur. No rub. ABDOMEN: Lax, audible bowel sounds. PSYCHIATRIC: Trace edema. LABORATORY DATA: Chest x-ray without acute abnormality. White count 11,000, hemoglobin 17, hematocrit 52, platelets 228,000. INR 1.1. ABG pH 7.43, pCO2 of 46, pO2 67. Sodium 141, potassium 3.7, BUN 24, creatinine 1.0. IMPRESSION: 1. Chronic obstructive pulmonary disease exacerbation. 2. Coronary artery disease by previous myocardial infarction. 3. Atrial fibrillation, controlled. 4. Benign prostatic hypertrophy. PLAN: The patient has an exacerbation of COPD. He is doing better with nebulized albuterol and intravenous steroids and antibiotics, which should be continued. His chest x-ray is without an acute infiltrate. He has been given antibiotic therapy on an empiric basis. We will follow his care along with you and once stable, will maybe change to oral medication prior to his discharge. I do thank you for asking me to participate in Mr. Pack's care. MD TRISTAN Lim/ , 04:47 PM , 04:56 PM
[2018-02-16] MEDS: Metoprolol Tartrate 25 MG Tablet PO SCH (20:04)
[2018-02-16] MEDS: Budesonide-Formoterol 160/4.5 MCG 6 GM Inhaler INH SCH (21:16)
[2018-02-16] MEDS: Finasteride 5 MG Tablet PO SCH (21:16)
[2018-02-17] MEDS: MethylPREDNISolone Sod Succinate Inj 40 MG/ML Vial IV.PUSH SCH ×4 (02:49→21:46)
[2018-02-17] MEDS ORDERED: Finasteride 5 MG Tablet PO SCH (09:00)
[2018-02-17] MEDS ORDERED: Famotidine 20 MG Tablet PO SCH (09:00)
[2018-02-17] MEDS: Lisinopril 10 MG Tablet PO SCH (09:26)
[2018-02-17] MEDS: dilTIAZem CD 120 MG Capsule PO SCH (09:26)
[2018-02-17] MEDS: Digoxin 125 MCG Tablet PO SCH (09:26)
[2018-02-17] MEDS: Metoprolol Tartrate 25 MG Tablet PO SCH ×2 (09:27→21:55)
[2018-02-17] MEDS: Furosemide 40 MG Tablet PO SCH (09:27)
[2018-02-17] MEDS: Azithromycin 250 MG Tablet PO SCH (09:29)
[2018-02-17] MEDS: Finasteride 5 MG Tablet PO SCH ×2 (09:29→21:55)
[2018-02-17] MEDS: Budesonide-Formoterol 160/4.5 MCG 6 GM Inhaler INH SCH ×2 (09:31→22:00)
--- NOTE | 2018-02-17 10:05 | P.PNIM ---
Subjective Interval history: f/u; respiratory failure/COPD exacerbation with some sob although he says that his sob is improving. has some dry cough. no fever. d/w the RN and no acute issues over night. Physical Exam Vital signs: Vital Signs 02/16/18 10:26 02/16/18 11:02 02/16/18 11:05 Temperature 97.9 F Pulse Rate 88 78 Respiratory Rate 20 26 H Blood Pressure 105/73 109/65 Pulse Oximetry 89 L 90 L 95 02/16/18 11:21 02/16/18 11:35 02/16/18 11:40 Temperature Pulse Rate 74 75 75 Respiratory Rate 20 20 20 Blood Pressure Pulse Oximetry 94 L 02/16/18 12:39 02/16/18 15:50 02/16/18 17:40 Temperature 97.5 F L Pulse Rate 83 85 80 Respiratory Rate 32 H 17 20 Blood Pressure 133/80 121/78 Pulse Oximetry 92 L 93 L 02/16/18 20:00 02/16/18 22:02 02/17/18 00:00 Temperature 97.8 F 97.7 F Pulse Rate 97 H 103 H 95 H Respiratory Rate 20 18 20 Blood Pressure 122/76 98/65 L Pulse Oximetry 93 L 93 L 92 L 02/17/18 03:24 02/17/18 04:00 02/17/18 09:46 Temperature 98.8 F Pulse Rate 89 82 93 H Respiratory Rate 16 20 16 Blood Pressure 120/68 Pulse Oximetry 92 L 95 Intake & Output 02/16/18 02/17/18 02/17/18 18:59 06:59 18:59 Intake Total 250 / 250 240 / 240 Output Total 400 / 400 Balance 250 / 250 -160 / -160 Weight 99 kg 100.2 kg Intake: IV 250 / 250 Azithromycin Inj 500 MG In NS 250 / 250 Inj 250 ML @ 250 mls/hr IV.SIG ONCE ONE Rx#:[id number] Oral 240 / 240 Output: Urine 400 / 400 - Constitutional mild distress - Routine Respiratory Exam Present: diminished air movement - Routine Cardiovascular Exam Present: RRR - Routine Abdominal Exam Present: soft - Routine Extremities Exam Comments: no pedal edema. - Routine Neurological Exam Present: alert, oriented X3 Results - Labs CBC & Chem 7: 02/16/18 11:24 02/16/18 11:24 Laboratory Results - last 24 hr 02/16/18 02/16/18 02/16/18 11:24 11:24 11:24 WBC 11.0 RBC 5.70 Hgb 17.5 H Hct 52.3 H MCV 91.7 MCH 30.6 MCHC 33.4 RDW 14.7 Plt Count 228 MPV 9.1 Neut % (Auto) 79.2 H Lymph % (Auto) 10.8 [place] % (Auto) 7.8 Eos % (Auto) 1.6 Baso % (Auto) 0.6 Neut # (Auto) 8.7 H Lymph # (Auto) 1.2 [place] # (Auto) 0.9 Eos # (Auto) 0.2 Baso # (Auto) 0.1 WBC Differential . Differential Comment Auto diff final PT 11.1 INR 1.1 APTT 31.1 Puncture Site Patient Temperature O2 Saturation ABG pH ABG pCO2 ABG pO2 ABG HCO3 ABG O2 Content ABG Base Excess ABG Methemoglobin Hilario Test Hemoglobin Carboxyhemoglobin O2 Delivery Device Liter Flow Critical Value Sodium 141 Potassium 3.7 Chloride 106 Carbon Dioxide 30.7 Anion Gap 4 L BUN 24 H Creatinine 1.02 Estimated GFR 71 L Random Glucose 143 H Lactic Acid Calcium 8.8 Magnesium 1.9 Total Bilirubin 0.5 AST 17 ALT 24 Alkaline Phosphatase 61 Total Creatine Kinase 109 CK-MB (CK-2) 3.9 H Troponin I Less than 0.02 L B-Natriuretic Peptide Total Protein 7.1 Albumin 3.3 L Digoxin 02/16/18 02/16/18 02/16/18 11:24 11:24 13:45 WBC RBC Hgb Hct MCV MCH MCHC RDW Plt Count MPV Neut % (Auto) Lymph % (Auto) [place] % (Auto) Eos % (Auto) Baso % (Auto) Neut # (Auto) Lymph # (Auto) [place] # (Auto) Eos # (Auto) Baso # (Auto) WBC Differential Differential Comment PT INR APTT Puncture Site Left radial Patient Temperature 98.6 O2 Saturation 92 ABG pH 7.43 H ABG pCO2 46 H ABG pO2 67 ABG HCO3 30 H ABG O2 Content 22.2 H ABG Base Excess 5.3 H ABG Methemoglobin 0.7 Hilario Test Present Hemoglobin 17.2 H Carboxyhemoglobin 1.3 O2 Delivery Device Nasal cannula Liter Flow 3.00 Critical Value No Sodium Potassium Chloride Carbon Dioxide Anion Gap BUN Creatinine Estimated GFR Random Glucose Lactic Acid 1.4 Calcium Magnesium Total Bilirubin AST ALT Alkaline Phosphatase Total Creatine Kinase CK-MB (CK-2) Troponin I B-Natriuretic Peptide 41 Total Protein Albumin Digoxin 02/17/18 06:02 WBC RBC Hgb Hct MCV MCH MCHC RDW Plt Count MPV Neut % (Auto) Lymph % (Auto) [place] % (Auto) Eos % (Auto) Baso % (Auto) Neut # (Auto) Lymph # (Auto) [place] # (Auto) Eos # (Auto) Baso # (Auto) WBC Differential Differential Comment PT INR APTT Puncture Site Patient Temperature O2 Saturation ABG pH ABG pCO2 ABG pO2 ABG HCO3 ABG O2 Content ABG Base Excess ABG Methemoglobin Hilario Test Hemoglobin Carboxyhemoglobin O2 Delivery Device Liter Flow Critical Value Sodium Potassium Chloride Carbon Dioxide Anion Gap BUN Creatinine Estimated GFR Random Glucose Lactic Acid Calcium Magnesium Total Bilirubin AST ALT Alkaline Phosphatase Total Creatine Kinase CK-MB (CK-2) Troponin I B-Natriuretic Peptide Total Protein Albumin Digoxin 0.6 L - Imaging Impressions Chest X-Ray 02/16/18 11:04 CONCLUSION: No evidence of acute cardiopulmonary process. Assessment and Plan - Plan Acute on chronic COPD exacerbation/ acute hypoxemic/hypercapnic respiratory failure -Chest x-ray with no acute findings ABG with hypercapnia with PCO2 46. -We will manage with duo nebs, incentive spirometer, IV steroids, azithromycin. -Continue patient's chronic Symbicort Patient's pharmacy tech Dr. Veras to be consulted. Appreciate assistance. -patient is on home oxygen ( which he uses at night) and has nebulizer at home. Diarrhea- improved. C. difficile and enteric pathogen PCR pending. History of atrial fibrillation. History of CHF History of CAD Continue anticoagulation. Continue rate control with metoprolol, diltiazem, digoxin. Hypertension. Chronic. Continue home medications. Adjust as necessary. BPH. Chronic. Continue home medications. GERD. Chronic. Continue home medication. Anxiety. Chronic. Continue medication. DVT prophylaxis. On anticoagulation for atrial fibrillation. Discussed Condition With: the patient and RN. Discharge Planning: dc planning within the next 48-72 hrs if continues to improve.
[2018-02-17] MEDS: Famotidine 20 MG Tablet PO SCH (21:55)
[2018-02-18] MEDS: MethylPREDNISolone Sod Succinate Inj 40 MG/ML Vial IV.PUSH SCH ×3 (03:14→17:53)
--- NOTE | 2018-02-18 07:36 | ECG ---
Date Performed: 02/16/2018 Time Performed: 11:43:44 PTAGE: 77 years EKG: ATRIAL FIBRILLATION MARKED LEFT AXIS DEVIATION PREVIOUS ECG 12/12/2016 3.06: Since the PREVIOUS TRACING , no significant change noted DOCTOR: Sam Jerez Interpretating Date/Time 02/18/2018 07:35:31
--- NOTE | 2018-02-18 08:26 | P.PNIM ---
Subjective Interval history: f/u; copd exacerbation in no acute distress. sob is improving and overall feeling better. no fever. no new complaints. Physical Exam Vital signs: Vital Signs 02/17/18 09:46 02/17/18 12:00 02/17/18 15:28 Temperature 97.8 F Pulse Rate 93 H 81 76 Respiratory Rate 16 18 16 Blood Pressure 116/68 Pulse Oximetry 95 93 L 02/17/18 16:00 02/17/18 20:00 02/17/18 20:29 Temperature 97.0 F L 97.8 F Pulse Rate 61 71 65 Respiratory Rate 18 20 18 Blood Pressure 101/65 114/69 Pulse Oximetry 91 L 92 L 02/18/18 00:00 02/18/18 04:00 02/18/18 04:14 Temperature 97.7 F 97.1 F L Pulse Rate 76 69 73 Respiratory Rate 20 20 16 Blood Pressure 119/60 109/71 Pulse Oximetry 93 L 93 L Intake & Output 02/17/18 02/18/18 02/18/18 18:59 06:59 18:59 Intake Total 280 / 280 Output Total 1245 / 1245 Balance -965 / -965 Weight 101 kg Intake: Oral 280 / 280 Output: Urine 1245 / 1245 Other: Date of Last Bowel Movement 02/17/18 02/17/18 # Bowel Movements 1 - Constitutional no acute distress - Routine Respiratory Exam Present: CTA bilaterally (better air entry.) - Routine Cardiovascular Exam Present: RRR - Routine Abdominal Exam Present: soft - Routine Extremities Exam Comments: no pedal edema. - Routine Neurological Exam Present: alert, oriented X3 Results - Labs CBC & Chem 7: 02/16/18 11:24 02/16/18 11:24 Laboratory Results - last 24 hr 02/17/18 15:50 Stl C.difficile DNA Amp Negative St C. diff Tox Epid 027 Negative Assessment and Plan - Plan COPD exacerbation/ acute on chronic hypoxemic/hypercapnic respiratory failure - improving slowly. -Chest x-ray with no acute findings ABG with hypercapnia with PCO2 46. -We will manage with duo nebs, incentive spirometer, IV steroids, azithromycin. will start to taper down the IV steroids- [facility] agent Dr. Veras to be consulted. Appreciate assistance. -patient is on home oxygen ( which he uses at night) and has nebulizer at home. Diarrhea- improved. C. difficile negative. History of atrial fibrillation. History of CHF History of CAD Continue anticoagulation. Continue rate control with metoprolol, diltiazem, digoxin. Hypertension. Chronic. Continue home medications. Adjust as necessary. BPH. Chronic. Continue home medications. GERD. Chronic. Continue home medication. Anxiety. Chronic. Continue medication. DVT prophylaxis. On anticoagulation for atrial fibrillation; with [facility]. consult PT. Discharge Planning: dc planning within the next 48-72 hrs if continues to improve.
[2018-02-18] MEDS: Digoxin 125 MCG Tablet PO SCH (09:14)
[2018-02-18] MEDS: Furosemide 40 MG Tablet PO SCH (09:14)
[2018-02-18] MEDS: Metoprolol Tartrate 25 MG Tablet PO SCH ×2 (09:14→20:02)
[2018-02-18] MEDS: dilTIAZem CD 120 MG Capsule PO SCH (09:14)
[2018-02-18] MEDS: Lisinopril 10 MG Tablet PO SCH (09:14)
[2018-02-18] MEDS: Budesonide-Formoterol 160/4.5 MCG 6 GM Inhaler INH SCH ×2 (09:16→20:03)
[2018-02-18] MEDS: Azithromycin 250 MG Tablet PO SCH (09:21)
--- NOTE | 2018-02-18 17:20 | P.PN ---
Subjective Interval history: ALERT NAD Physical Exam Vital signs: Vital Signs 02/17/18 20:00 02/17/18 20:29 02/18/18 00:00 Temperature 97.8 F 97.7 F Pulse Rate 71 65 76 Respiratory Rate 20 18 20 Blood Pressure 114/69 119/60 Pulse Oximetry 92 L 93 L 02/18/18 04:00 02/18/18 04:14 02/18/18 08:00 Temperature 97.1 F L Pulse Rate 69 73 78 Respiratory Rate 20 16 Blood Pressure 109/71 Pulse Oximetry 93 L 02/18/18 09:24 02/18/18 09:26 02/18/18 12:00 Temperature Pulse Rate 76 81 Respiratory Rate 22 Blood Pressure Pulse Oximetry 92 L 02/18/18 16:00 Temperature Pulse Rate 70 Respiratory Rate Blood Pressure Pulse Oximetry Intake & Output 02/17/18 02/18/18 02/18/18 18:59 06:59 18:59 Intake Total 280 / 280 Output Total 1245 / 1245 Balance -965 / -965 Weight 101 kg Intake: Oral 280 / 280 Output: Urine 1245 / 1245 Other: Date of Last Bowel Movement 02/17/18 02/17/18 02/17/18 # Bowel Movements 1 Narrative: GENERAL: Patient sitting up in bed. Appears short of breath. Alert and oriented x3. SKIN: Warm and dry. HEAD: Atraumatic. Normocephalic. EYES: Pupils equal and round. No scleral icterus. No injection or drainage. ENT: No nasal bleeding or discharge. Mucous membranes pink and moist. NECK: Trachea midline. No JVD. CARDIOVASCULAR: Regular rate and rhythm. RESPIRATORY: No accessory muscle use. Bilateral wheezing. GASTROINTESTINAL: Abdomen distended due to obesity, non-tender, nondistended. Hepatic and splenic margins not palpable. Positive bowel sounds. MUSCULOSKELETAL: Extremities without clubbing, cyanosis, or edema. No obvious deformities. NEUROLOGICAL: Awake and alert. No obvious cranial nerve deficits. Motor grossly within normal limits. Five out of 5 muscle strength in the arms and legs. Normal speech. PSYCHIATRIC: Appropriate mood and affect; insight and judgment normal. Results - Labs CBC & Chem 7: 02/16/18 11:24 02/16/18 11:24 Laboratory Results - last 24 hr 02/17/18 15:50 Stl C.difficile DNA Amp Negative St C. diff Tox Epid 027 Negative Microbiology 02/17/18 15:50 Stool Enteric Pathogens (PCR) - Final No enteric pathogens detected by PCR (No Salmonella sp., Shigella sp., Campylobacter sp., Yersinia enterocolitica, Vibrio sp., Norovirus, or EHEC (Shiga Toxin 1 or Shiga Toxin 2) detected. Assessment and Plan - Plan copd, exacerbation improving plan o2 as needed bronchodilaor therapy increase activity
[2018-02-18] MEDS: Famotidine 20 MG Tablet PO SCH (20:02)
[2018-02-18] MEDS: Finasteride 5 MG Tablet PO SCH (20:10)
[2018-02-19] MEDS: MethylPREDNISolone Sod Succinate Inj 40 MG/ML Vial IV.PUSH SCH ×3 (01:10→16:52)
[2018-02-19] MEDS ORDERED: ALPRAZolam 0.5 MG Tablet PO PRN (09:00)
[2018-02-19] MEDS: Lisinopril 10 MG Tablet PO SCH (09:23)
[2018-02-19] MEDS: Digoxin 125 MCG Tablet PO SCH (09:23)
[2018-02-19] MEDS: Furosemide 40 MG Tablet PO SCH (09:24)
[2018-02-19] MEDS: dilTIAZem CD 120 MG Capsule PO SCH (09:24)
[2018-02-19] MEDS: Metoprolol Tartrate 25 MG Tablet PO SCH ×2 (09:24→22:07)
[2018-02-19] MEDS: Budesonide-Formoterol 160/4.5 MCG 6 GM Inhaler INH SCH ×2 (09:25→22:07)
[2018-02-19 09:26] LABS: ABG Base Excess 7.5 mmol/L (-2-2); ABG PCO2 59 mmHg (38-42); ABG PO2 80 mmHg (61-120)
--- NOTE | 2018-02-19 10:34 | P.PN ---
Subjective Interval history: Follow-up for COPD exacerbation. Patient is resting in bed. However he has been much more drowsy today. is very concerned. ABG showed significant elevation in PCO2. Patient denies any chest pain, fever or chills. Physical Exam Vital signs: Vital Signs 02/18/18 12:00 02/18/18 16:00 02/18/18 17:20 Temperature 97.1 F L 97.1 F L Pulse Rate 64 81 70 Respiratory Rate 20 20 20 Blood Pressure 93/62 L 119/84 Pulse Oximetry 91 L 93 L 02/18/18 20:00 02/18/18 20:35 02/19/18 00:00 Temperature 97.8 F 97.9 F Pulse Rate 94 H 76 94 H Respiratory Rate 22 16 20 Blood Pressure 127/60 139/77 Pulse Oximetry 92 L 92 L 92 L 02/19/18 04:00 02/19/18 04:10 02/19/18 07:00 Temperature 97.3 F L Pulse Rate 88 70 Respiratory Rate 20 16 22 Blood Pressure 127/68 Pulse Oximetry 90 L 02/19/18 09:03 Temperature Pulse Rate 70 Respiratory Rate 22 Blood Pressure Pulse Oximetry Intake & Output 02/18/18 02/19/18 02/19/18 18:59 06:59 18:59 Intake Total 600 / 600 300 / 300 Output Total 750 / 750 Balance 600 / 600 -450 / -450 Weight 103.3 kg Intake: Oral 600 / 600 300 / 300 Output: Urine 750 / 750 Other: # Voids 5 Date of Last Bowel Movement 02/17/18 02/17/18 # Bowel Movements 1 Narrative: GENERAL: Somewhat drowsy but wakes up on verbal commands. Follows commands. SKIN: Warm and dry. HEAD: Normocephalic. EYES: No scleral icterus. No injection or drainage. NECK: Supple, trachea midline. No JVD or lymphadenopathy. CARDIOVASCULAR: Irregularly irregular without murmurs, gallops, or rubs. RESPIRATORY: Moderate air entry. No accessory muscle use. GASTROINTESTINAL: Obese abdomen, abdomen soft, non-tender, nondistended. MUSCULOSKELETAL: No cyanosis, or edema. BACK: Nontender without obvious deformity. No CVA tenderness. Results - Labs CBC & Chem 7: 02/19/18 11:57 02/19/18 11:57 Laboratory Results - last 24 hr 02/19/18 09:11 Puncture Site Right radial Patient Temperature 98.6 O2 Saturation 94 ABG pH 7.36 L ABG pCO2 59 H* ABG pO2 80 ABG HCO3 33 H ABG O2 Content 21.5 H ABG Base Excess 7.5 H ABG Methemoglobin 1.0 Hilario Test Present Hemoglobin 16.3 H Carboxyhemoglobin 1.1 O2 Delivery Device Nasal cannula Liter Flow 3.00 Critical Value Yes Microbiology 02/17/18 15:50 Stool Enteric Pathogens (PCR) - Final No enteric pathogens detected by PCR (No Salmonella sp., Shigella sp., Campylobacter sp., Yersinia enterocolitica, Vibrio sp., Norovirus, or EHEC (Shiga Toxin 1 or Shiga Toxin 2) detected. - Imaging Chest X-Ray 02/16/18 11:04 CONCLUSION: No evidence of acute cardiopulmonary process. Assessment and Plan - Plan On 02/16/2018, Mr. Pack, 77-year-old male with a history of atrial fibrillation on Eliquis, CAD, severe COPD who presented to the emergency department due to worsening shortness of breath, productive cough. He also reported 2-day history of diarrhea. Upon admission he was started on steroid, oxygen. C. difficile was negative. Acute exacerbation of COPD Acute hypercapnic respiratory failure ABG today shows PCO2 of 59. PCO2 was 46 on 02/16/2018. We will put patient on BiPAP 12/5 setting for 2 hours and then recheck ABG. Repeat ABG this afternoon shows improved PCO2 (52)and pH (7.40). We will continue BiPAP for now. If patient tolerates it, will continue BiPAP overnight as well. Continue DuoNeb, Symbicort. Continue Solu-Medrol 60 mg IV every 8 hours. Start levofloxacin 750 mg p.o. daily for 7 days. Atrial fibrillation Continue digoxin 125 mcg daily, diltiazem 120 mg p.o. daily, apixaban 5 mg twice daily Anxiety Continue alprazolam 0.5 mg p.o. every 12 hours as needed. BPHcontinue tamsulosin 0.4 mg p.o. daily. Full code. Apixaban.
[2018-02-19] MEDS: Azithromycin 250 MG Tablet PO SCH (10:44)
[2018-02-19] MEDS: levoFLOXacin 750 MG Tablet PO SCH (10:44)
[2018-02-19 12:12] LABS: Baso % (Auto) 0.1 % (0.0-2.0); Hematocrit 47.8 % (39.0-51.0); Hemoglobin 16.1 gm/dL (13.0-17.0); Lymph # (Auto) 0.4 th/mm3 (1.0-4.8); Lymph % (Auto) 2.3 % (9.0-44.0); Mean Corpuscular HGB Conc 33.7 % (32.0-36.0); Mean Corpuscular Volume 91.9 fL (80.0-100.0); Mean Platelet Volume 9.1 fL (7.0-11.0); Mono # (Auto) 0.4 th/mm3 (0.0-0.9); Mono % (Auto) 2.7 % (0.0-8.0); Neut # (Auto) 15.6 th/mm3 (1.8-7.7); Neut % (Auto) 94.9 % (16.0-70.0); Platelet Count 222 th/mm3 (150-450); Red Cell Distribution Width 14.6 % (11.6-17.2); White Blood Count 16.5 th/mm3 (4.0-11.0)
[2018-02-19 12:37] LABS: Calcium 8.4 mg/dL (8.5-10.1); Carbon Dioxide 33.9 meq/L (21.0-32.0); Potassium 3.5 meq/L (3.5-5.1)
[2018-02-19 12:39] LABS: ABG Base Excess 6.3 mmol/L (-2-2); ABG PCO2 52 mmHg (38-42); ABG PO2 66 mmHg (61-120)
--- NOTE | 2018-02-19 17:56 | P.PN ---
Subjective Interval history: ALERT NAD Physical Exam Vital signs: Vital Signs 02/18/18 20:00 02/18/18 20:35 02/19/18 00:00 Temperature 97.8 F 97.9 F Pulse Rate 94 H 76 94 H Respiratory Rate 22 16 20 Blood Pressure 127/60 139/77 Pulse Oximetry 92 L 92 L 92 L 02/19/18 04:00 02/19/18 04:10 02/19/18 07:00 Temperature 97.3 F L Pulse Rate 88 70 Respiratory Rate 20 16 22 Blood Pressure 127/68 Pulse Oximetry 90 L 02/19/18 08:00 02/19/18 09:03 02/19/18 10:36 Temperature 98.3 F Pulse Rate 63 70 Respiratory Rate 14 22 Blood Pressure 121/73 Pulse Oximetry 93 L 94 L 02/19/18 12:00 02/19/18 16:00 02/19/18 16:11 Temperature 97.3 F L Pulse Rate 77 69 77 Respiratory Rate 15 20 Blood Pressure 130/65 Pulse Oximetry 90 L Intake & Output 02/18/18 02/19/18 02/19/18 18:59 06:59 18:59 Intake Total 600 / 600 300 / 300 Output Total 750 / 750 Balance 600 / 600 -450 / -450 Weight 103.3 kg Intake: Oral 600 / 600 300 / 300 Output: Urine 750 / 750 Other: # Voids 5 Date of Last Bowel Movement 02/17/18 02/17/18 02/17/18 # Bowel Movements 1 Narrative: GENERAL: Somewhat drowsy but wakes up on verbal commands. Follows commands. SKIN: Warm and dry. HEAD: Normocephalic. EYES: No scleral icterus. No injection or drainage. NECK: Supple, trachea midline. No JVD or lymphadenopathy. CARDIOVASCULAR: Irregularly irregular without murmurs, gallops, or rubs. RESPIRATORY: Moderate air entry. No accessory muscle use. GASTROINTESTINAL: Obese abdomen, abdomen soft, non-tender, nondistended. MUSCULOSKELETAL: No cyanosis, or edema. BACK: Nontender without obvious deformity. No CVA tenderness. Results - Labs CBC & Chem 7: 02/19/18 11:57 02/19/18 11:57 Laboratory Results - last 24 hr 02/19/18 02/19/18 02/19/18 09:11 11:57 11:57 WBC 16.5 H RBC 5.20 Hgb 16.1 Hct 47.8 MCV 91.9 MCH 31.0 MCHC 33.7 RDW 14.6 Plt Count 222 MPV 9.1 Neut % (Auto) 94.9 H Lymph % (Auto) 2.3 L [place] % (Auto) 2.7 Eos % (Auto) 0.0 Baso % (Auto) 0.1 Neut # (Auto) 15.6 H Lymph # (Auto) 0.4 L [place] # (Auto) 0.4 Eos # (Auto) 0.0 Baso # (Auto) 0.0 WBC Differential . Differential Comment Auto diff final Puncture Site Right radial Patient Temperature 98.6 O2 Saturation 94 ABG pH 7.36 L ABG pCO2 59 H* ABG pO2 80 ABG HCO3 33 H ABG O2 Content 21.5 H ABG Base Excess 7.5 H ABG Methemoglobin 1.0 Hilario Test Present Hemoglobin 16.3 H Carboxyhemoglobin 1.1 O2 Delivery Device Nasal cannula Liter Flow 3.00 Vent Setting Inspired O2 Critical Value Yes Sodium 141 Potassium 3.5 Chloride 103 Carbon Dioxide 33.9 H Anion Gap 4 L BUN 34 H Creatinine 1.22 Estimated GFR 58 L Random Glucose 293 H Calcium 8.4 L 02/19/18 12:26 WBC RBC Hgb Hct MCV MCH MCHC RDW Plt Count MPV Neut % (Auto) Lymph % (Auto) [place] % (Auto) Eos % (Auto) Baso % (Auto) Neut # (Auto) Lymph # (Auto) [place] # (Auto) Eos # (Auto) Baso # (Auto) WBC Differential Differential Comment Puncture Site Right radial Patient Temperature 98.6 O2 Saturation 91 ABG pH 7.40 ABG pCO2 52 H* ABG pO2 66 ABG HCO3 31 H ABG O2 Content 21.4 H ABG Base Excess 6.3 H ABG Methemoglobin 1.0 Hilario Test Present Hemoglobin 16.7 H Carboxyhemoglobin 1.2 O2 Delivery Device Bipap Liter Flow Vent Setting Ipap 15/epap 5 Inspired O2 30 Critical Value Yes Sodium Potassium Chloride Carbon Dioxide Anion Gap BUN Creatinine Estimated GFR Random Glucose Calcium Assessment and Plan - Plan copd, exacerbation improving plan o2 as needed bronchodilaor therapy increase activity
[2018-02-19] MEDS: Finasteride 5 MG Tablet PO SCH (22:07)
[2018-02-19] MEDS: Famotidine 20 MG Tablet PO SCH (22:07)
[2018-02-20] MEDS: MethylPREDNISolone Sod Succinate Inj 40 MG/ML Vial IV.PUSH SCH ×2 (01:50→09:00)
[2018-02-20] MEDS: Digoxin 125 MCG Tablet PO SCH (08:59)
[2018-02-20] MEDS: Lisinopril 10 MG Tablet PO SCH (08:59)
[2018-02-20] MEDS: dilTIAZem CD 120 MG Capsule PO SCH (08:59)
[2018-02-20] MEDS: Metoprolol Tartrate 25 MG Tablet PO SCH ×2 (09:00→21:02)
[2018-02-20] MEDS: levoFLOXacin 750 MG Tablet PO SCH (09:00)
[2018-02-20] MEDS: Budesonide-Formoterol 160/4.5 MCG 6 GM Inhaler INH SCH ×2 (09:01→21:03)
--- NOTE | 2018-02-20 11:10 | XR ---
EXAM DATE: 02/20/2018 10:30 AM EST AGE/SEX: 77 years / Male INDICATIONS: Dyspnea CLINICAL DATA: This is the patient's subsequent encounter. Patient reports that signs and symptoms h ave been present for 2 weeks and indicates a pain score of 0/10. MEDICAL/SURGICAL HISTORY: . Cardiovascular disease. Hypertension. Chronic obstructive pulmonary disease. Coronary artery disease. Ulcer. SURGICAL HISTORY : . Cardiac catherization. COMPARISON: [facility], CHEST 1V SINGLE AP, 02/16/2018. . FINDINGS: The heart size is upper limits of normal for size. There is increased density at the left base. The r ight lung is grossly clear. The costophrenic angles are clear. CONCLUSION: Left base atelectasis or consolidation. Electronically signed by: Kade Sanchez MD 02/20/2018 11:08 AM EST
--- NOTE | 2018-02-20 15:38 | P.PN ---
Subjective Interval history: alert nad ambulating Physical Exam Vital signs: Vital Signs 02/19/18 16:00 02/19/18 16:11 02/19/18 20:00 Temperature 97.3 F L Pulse Rate 69 77 81 Respiratory Rate 20 20 Blood Pressure 128/68 Pulse Oximetry 92 L 02/19/18 21:43 02/19/18 21:57 02/19/18 22:53 Temperature Pulse Rate 91 H Respiratory Rate 23 Blood Pressure Pulse Oximetry 91 L 91 L 92 L 02/20/18 00:00 02/20/18 01:15 02/20/18 02:10 Temperature 97.3 F L 97.3 F L Pulse Rate 80 70 Respiratory Rate 22 22 Blood Pressure 131/83 131/83 Pulse Oximetry 91 L 91 L 91 L 02/20/18 03:47 02/20/18 04:00 02/20/18 08:00 Temperature 97.2 F L 97.8 F Pulse Rate 79 77 73 Respiratory Rate 23 20 13 Blood Pressure 134/70 137/85 Pulse Oximetry 90 L 90 L 96 02/20/18 08:12 02/20/18 12:00 Temperature 97.3 F L Pulse Rate 77 79 Respiratory Rate 20 14 Blood Pressure 138/73 Pulse Oximetry 96 Intake & Output 02/19/18 02/20/18 02/20/18 18:59 06:59 18:59 Output Total 490 / 490 Balance -490 / -490 Weight 103.8 kg Output: Urine 490 / 490 Other: Date of Last Bowel Movement 02/17/18 02/18/18 02/17/18 Narrative: GENERAL: Somewhat drowsy but wakes up on verbal commands. Follows commands. SKIN: Warm and dry. HEAD: Normocephalic. EYES: No scleral icterus. No injection or drainage. NECK: Supple, trachea midline. No JVD or lymphadenopathy. CARDIOVASCULAR: Irregularly irregular without murmurs, gallops, or rubs. RESPIRATORY: Moderate air entry. No accessory muscle use. GASTROINTESTINAL: Obese abdomen, abdomen soft, non-tender, nondistended. MUSCULOSKELETAL: No cyanosis, or edema. BACK: Nontender without obvious deformity. No CVA tenderness. Results - Labs CBC & Chem 7: 02/19/18 11:57 02/19/18 11:57 - Imaging Impressions Chest X-Ray 02/20/18 00:00 CONCLUSION: Left base atelectasis or consolidation. Assessment and Plan - Plan copd, exacerbation improving plan o2 as needed bronchodilaor therapy increase activity home am if stable
--- NOTE | 2018-02-20 16:26 | P.PN ---
Subjective Interval history: Follow-up for COPD exacerbation. Patient is doing much better today. No CP, fever, chills. Dyspnea is much improved. On nasal cannula 2L. Ambulating well. Physical Exam Vital signs: Vital Signs 02/19/18 20:00 02/19/18 21:43 02/19/18 21:57 Temperature 97.3 F L Pulse Rate 81 91 H Respiratory Rate 20 23 Blood Pressure 128/68 Pulse Oximetry 92 L 91 L 91 L 02/19/18 22:53 02/20/18 00:00 02/20/18 01:15 Temperature 97.3 F L 97.3 F L Pulse Rate 80 70 Respiratory Rate 22 22 Blood Pressure 131/83 131/83 Pulse Oximetry 92 L 91 L 91 L 02/20/18 02:10 02/20/18 03:47 02/20/18 04:00 Temperature 97.2 F L Pulse Rate 79 77 Respiratory Rate 23 20 Blood Pressure 134/70 Pulse Oximetry 91 L 90 L 90 L 02/20/18 08:00 02/20/18 08:12 02/20/18 12:00 Temperature 97.8 F 97.3 F L Pulse Rate 73 77 79 Respiratory Rate 13 20 14 Blood Pressure 137/85 138/73 Pulse Oximetry 96 96 Intake & Output 02/19/18 02/20/18 02/20/18 18:59 06:59 18:59 Output Total 490 / 490 Balance -490 / -490 Weight 103.8 kg Output: Urine 490 / 490 Other: Date of Last Bowel Movement 02/17/18 02/18/18 02/17/18 Results - Labs CBC & Chem 7: 02/19/18 11:57 02/19/18 11:57 - Imaging Impressions Chest X-Ray 02/20/18 00:00 CONCLUSION: Left base atelectasis or consolidation. Assessment and Plan - Plan On 02/16/2018, Mr. Pack, 77-year-old male with a history of atrial fibrillation on Eliquis, CAD, severe COPD who presented to the emergency department due to worsening shortness of breath, productive cough. He also reported 2-day history of diarrhea. Upon admission he was started on steroid, oxygen. C. difficile was negative. Acute exacerbation of COPD Acute hypercapnic respiratory failure ABG today shows PCO2 of 59. PCO2 was 46 on 02/16/2018. We will put patient on BiPAP 12/5 setting for 2 hours and then recheck ABG. Repeat ABG this afternoon shows improved PCO2 (52)and pH (7.40). We will continue BiPAP for now. If patient tolerates it, will continue BiPAP overnight as well. Continue DuoNeb, Symbicort. Solu-Medrol 60 mg IV every 8 hours -- will switch to PO prednisone. levofloxacin 750 mg p.o. daily for 7 days. Atrial fibrillation Continue digoxin 125 mcg daily, diltiazem 120 mg p.o. daily, apixaban 5 mg twice daily Anxiety Continue alprazolam 0.5 mg p.o. every 12 hours as needed. BPHcontinue tamsulosin 0.4 mg p.o. daily. Full code. Apixaban. Probable discharge in the AM.
[2018-02-20] MEDS: predniSONE 20 MG Tablet PO SCH (21:01)
[2018-02-20] MEDS: Finasteride 5 MG Tablet PO SCH (21:02)
[2018-02-20] MEDS: Famotidine 20 MG Tablet PO SCH (21:02)
[2018-02-20 23:26] VITALS: TEMP 97.7
[2018-02-21 07:46] LABS: Baso % (Auto) 0.1 % (0.0-2.0); Hematocrit 47.4 % (39.0-51.0); Hemoglobin 15.8 gm/dL (13.0-17.0); Lymph # (Auto) 0.4 th/mm3 (1.0-4.8); Lymph % (Auto) 3.1 % (9.0-44.0); Mean Corpuscular HGB Conc 33.4 % (32.0-36.0); Mean Corpuscular Hemoglobin 30.4 pg (27.0-34.0); Mean Corpuscular Volume 91.1 fL (80.0-100.0); Mean Platelet Volume 9.2 fL (7.0-11.0); Mono # (Auto) 0.7 th/mm3 (0.0-0.9); Mono % (Auto) 5.4 % (0.0-8.0); Neut # (Auto) 12.6 th/mm3 (1.8-7.7); Neut % (Auto) 91.4 % (16.0-70.0); Platelet Count 204 th/mm3 (150-450); Red Cell Distribution Width 14.3 % (11.6-17.2); White Blood Count 13.7 th/mm3 (4.0-11.0)
[2018-02-21 08:13] LABS: Calcium 8.1 mg/dL (8.5-10.1); Carbon Dioxide 30.7 meq/L (21.0-32.0); Potassium 3.9 meq/L (3.5-5.1)
[2018-02-21] MEDS: Lisinopril 10 MG Tablet PO SCH (08:21)
[2018-02-21] MEDS: Digoxin 125 MCG Tablet PO SCH (08:21)
[2018-02-21] MEDS: dilTIAZem CD 120 MG Capsule PO SCH (08:21)
[2018-02-21] MEDS: levoFLOXacin 750 MG Tablet PO SCH (08:21)
[2018-02-21] MEDS: predniSONE 20 MG Tablet PO SCH (08:22)
[2018-02-21] MEDS: Metoprolol Tartrate 25 MG Tablet PO SCH (08:22)
[2018-02-21] MEDS: Budesonide-Formoterol 160/4.5 MCG 6 GM Inhaler INH SCH (08:24)
[2018-02-21 08:36] VITALS: BP 156/96; RESP 20; O2SAT 93
[2018-02-21 09:10] LABS: Lymphocytes 6 % (9-44); Monocytes 4 % (0-8); Myelocytes 2 % (0-0); Platelet Estimate Normal (Normal); Platelet Morphology Normal (Normal)
[2018-02-21 09:11] LABS: RBC Morphology Normal (Normal)
[2018-02-21 09:55] VITALS: PULSE 104
--- NOTE | 2018-02-21 10:45 | P.DS ---
Date of admission: 02/16/18 13:34 Primary care physician: Nitesh Weinstein Brief History from admission: 77-year-old male with a history of atrial fibrillation on Eliquis, CAD with stenting, severe COPD who presents with a 1-1/2-week history of progressively worsening shortness of breath, cough productive of clear sputum. He denies any chest pain. Denies any nausea or vomiting. Denies any fevers or chills. He has been using nebulizations without improvement. Denies any recent medication changes. Patient denies any weight gain or edema, says that chronic edema has actually improved. Patient does report a 2-day history of diarrhea described as several bowel movements a day. He does report a 2-day history of mild crampy diffuse abdominal pain without radiation which is worse when coughing. Patient does report past history of C. difficile diarrhea in 2008. DS: Medications - Discharge Medications Prescriptions: levofloxacin 750 mg PO DAILY #4 tab torsemide 10 mg PO DAILY #30 tab DS: Summary Hospital Course: On 02/16/2018, Mr. Pack, 77-year-old male with a history of atrial fibrillation on Eliquis, CAD, severe COPD who presented to the emergency department due to worsening shortness of breath, productive cough. He also reported 2-day history of diarrhea. Upon admission he was started on steroid, oxygen. C. difficile was negative. Acute exacerbation of COPD Acute hypercapnic respiratory failure Patient required transient BiPAP support due to increased PCO2. Continue DuoNeb, Symbicort. Solu-Medrol 60 mg IV every 8 hours -- switches to PO prednisone. levofloxacin 750 mg p.o. daily for 7 days. Atrial fibrillation Continue digoxin 125 mcg daily, diltiazem 120 mg p.o. daily, apixaban 5 mg twice daily Anxiety Continue alprazolam 0.5 mg p.o. every 12 hours as needed. BPHcontinue tamsulosin 0.4 mg p.o. daily. Full code. Apixaban. Overall, patient continued to do well. We discharged patient on PO steroid, abx and advised him to continue home meds including Albuterol, symbicort. Discussed with patient's . - Time Spent with Patient Total time spent providing and/or coordinating discharge services: Less than 30 minutes - Quality: VTE Deep Vein Thrombosis/Pulmonary Embolism Present on Admission: No Exam Vital signs: Vital Signs 02/20/18 12:00 02/20/18 16:00 02/20/18 20:00 Temperature 97.3 F L 97.2 F L 97.7 F Pulse Rate 79 68 72 Respiratory Rate 14 15 18 Blood Pressure 138/73 141/72 H 141/89 H Pulse Oximetry 96 96 93 L 02/21/18 00:00 02/21/18 04:00 02/21/18 08:00 Temperature 97.7 F 97.7 F Pulse Rate 77 77 104 H Respiratory Rate 18 18 20 Blood Pressure 139/83 139/83 156/96 H Pulse Oximetry 92 L 92 L 93 L Intake & Output 02/20/18 02/21/18 02/21/18 18:59 06:59 18:59 Intake Total 480 / 480 600 / 600 Balance 480 / 480 600 / 600 Weight 103.8 kg Intake: Oral 480 / 480 600 / 600 Other: # Voids 3 3 Date of Last Bowel Movement 02/17/18 02/17/18 Results Procedures completed during hospitalization: None. Labs on day of discharge: Labs from last 24 hours 02/21/18 02/21/18 05:10 05:10 WBC 13.7 H RBC 5.20 Hgb 15.8 Hct 47.4 MCV 91.1 MCH 30.4 MCHC 33.4 RDW 14.3 Plt Count 204 MPV 9.2 Prelim Diff (Auto) Slide review pending Neut % (Auto) 91.4 H Lymph % (Auto) 3.1 L [place] % (Auto) 5.4 Eos % (Auto) 0.0 Baso % (Auto) 0.1 Neut # (Auto) 12.6 H Lymph # (Auto) 0.4 L [place] # (Auto) 0.7 Eos # (Auto) 0.0 Baso # (Auto) 0.0 WBC Differential Manual diff final Seg Neuts % (Manual) 83 H Band Neuts % (Manual) 5 Lymphocytes % (Manual) 6 L Monocytes % (Manual) 4 Myelocytes % (Man) 2 H Abs Neuts (Manual) 12.3 H Differential Comment . Platelet Estimate Normal Platelet Morphology Normal RBC Morphology Normal Sodium 141 Potassium 3.9 Chloride 102 Carbon Dioxide 30.7 Anion Gap 8 BUN 37 H Creatinine 1.01 Estimated GFR 72 L Random Glucose 233 H Calcium 8.1 L - Impressions ITS Impressions Chest X-Ray 02/20/18 00:00 CONCLUSION: Left base atelectasis or consolidation. Discharge Plan - Discharge Disposition Patient Disposition: 01 Discharge Home - Discharge Condition Condition: Stable - Discharge Order Discharge Orders: Discharge Order (Routine); Ordered 02/21/18 Ordered By: Leoncio Rapp - Discharge Details Anticipated Discharge Date: 02/21/18 - Physicians Team Primary Care Provider: Nitesh Weinstein Attending Provider: Leoncio Rapp Other Providers: Eda Veras MD
== END 2018-02-21 12:55 | disposition home or self-care (01) ==
LOC: NEPC 10:16 → NEDA 13:34 → N04 17:10
PROVIDERS: ADMIT Hospitalist; ATTEND Hospitalist